=== PATIENT | female | born 1940 | race Caucasian/White ===

== ENCOUNTER 2017-11-01 12:51 | Inpatient (IN) | payer OTHER ==
--- NOTE | 2017-11-01 13:37 | PDOC ---
Attending Attestation - Resident Resident Name: Alyssa Palacios - HPI HPI: 11/01/17 16:40 Pt presents to the ED complaining of a three day history of shortness of breath and generalized weakness. Also complains of cough. History of pulmonary fibrosis, but patient and family deny the use of home O2. Hypoxic and short of breath on arrival--improved after O2 by NRB in the ED. 11/01/17 16:43 - Physicial Exam PE: 11/01/17 16:43 Agree with resident exam. Patient appears comfortable and is speaking in complete sentences on my exam. Lungs are clear. - Medical Decision Making 11/01/17 16:45 Patient presents to the ED complaining of shortness of breath. Hypoxic on arrival to the ED, improving with O2. Initial concern for PNA vs CHF. PAtient has both elevated lactate and BNP on exam, as well as diffuse interstitial markings that appear to be worse t penn before on CXR. Will treat with antibiotics, but will hold of on diuresis or IVF for now, given elevated lactate and BNP. Will admit to medicine.
[2017-11-01 13:44] LABS: EOS % 0.3 % (0-4.5); HEMATOCRIT 38.2 % (32.4-45.2); HEMOGLOBIN 11.9 GM/dL (10.7-15.3); LYMPH % 9.1 % (8-40); MCH 25.5 pg (25.7-33.7); MEAN CELL VOLUME 82.4 fl (80-96); MEAN PLT VOLUME 8.4 fl (7.5-11.1); MONO % 9.1 % (3.8-10.2); NEUT % 80.5 % (42.8-82.8); PLATELET COUNT 302 K/MM3 (134-434); RBC 4.64 M/mm3 (3.60-5.2); RDW 17.5 % (11.6-15.6); WHITE BLOOD COUNT 12.2 K/mm3 (4.0-10.0)
--- NOTE | 2017-11-01 13:44 | PDOC ---
History of Present Illness - General Chief Complaint: Shortness of Breath Stated Complaint: SHORTNESS OF BREATH Time Seen by Provider: 11/01/17 13:34 History Source: Patient - History of Present Illness Initial Comments: 11/01/17 13:44 77 y.o. female PMH of Pulmonary Fibrosis, HTN, IDDM presents to ED today from PCP office for hypoxia. At presentation patient saturating in mid 80's - notes 2-3 day h/o of whitish sputum productive cough but denies subjective dyspnea. Endorses chills, denies fevers, nausea/vomiting, sore throat, myalgias. Patient states she is not on home oxygen and further denies any chest pain, recent travel, sick contacts. NKDA Surgical: denies Social: denies cigarettes, denies alcohol, denies recreational drugs PMD: Dr. Bereket Silva Past History - Past Medical History Allergies/Adverse Reactions: Allergies Allergy/AdvReac Type Severity Reaction Status Date / Time No Known Allergies Allergy Verified 11/01/17 13:16 Home Medications: Ambulatory Orders Albuterol Sulfate Inhaler - [Ventolin Hfa Inhaler -] 1 - 2 inh PO QID 11/01/17 Amlodipine Besylate [Norvasc -] 5 mg PO DAILY 11/01/17 Fluticasone Propionate [Flovent Hfa] 110 mcg IH DAILY 11/01/17 Furosemide [Lasix -] 20 mg PO DAILY 11/01/17 Glipizide 10 mg PO BID 11/01/17 Losartan Potassium 100 mg PO DAILY 11/01/17 Omeprazole 40 mg PO DAILY 11/01/17 Pioglitazone HCl [Actos] 45 mg PO DAILY 11/01/17 Sitagliptin Phosphate [Januvia] 50 mg PO DAILY 11/01/17 COPD: No Diabetes: Yes (TYPE 2) HTN: Yes Hypercholesterolemia: Yes Other medical history: PULMONARY FIBROSIS,ARTHRITIS, CHRONIC BRONCHITIS - Suicide/Smoking/Psychosocial Hx Smoking History: Never smoked Review of Systems - Review of Systems Constitutional: Yes: Chills. No: Fever HEENTM: No: Recent change in vision Respiratory: Yes: Cough. No: Shortness of Breath, Stridor, Wheezing, Hemoptysis Cardiac (ROS): No: Chest Pain, Lightheadedness, Palpitations ABD/GI: No: Constipated, Diarrhea : No: Burning, Dysuria Psychiatric: No: Anxiety, Depression *Physical Exam - Vital Signs Last Vital Signs Temp Pulse Resp BP Pulse Ox 81 16 140/90 100 11/01/17 13:16 11/01/17 13:16 11/01/17 13:16 11/01/17 13:16 - Physical Exam General Appearance: Yes: Nourished, Appropriately Dressed HEENT: positive: EOMI, JUAN. negative: TM Bulging, TM Dull, TM Erythema Neck: positive: Tender, Supple Respiratory/Chest: positive: Lungs Clear, Normal Breath Sounds. negative: Labored Respiration, Rapid RR, Crackles, Rales, Stridor, Wheezing Cardiovascular: positive: S1, S2 Gastrointestinal/Abdominal: positive: Normal Bowel Sounds, Soft Musculoskeletal: negative: CVA Tenderness (R), CVA Tenderness (L) Extremity: positive: Normal Capillary Refill, Normal Inspection Integumentary: positive: Normal Color, Dry, Warm Neurologic: positive: Fully Oriented, Alert ED Treatment Course - LABORATORY CBC & Chemistry Diagram: 11/01/17 13:39 11/01/17 13:39 Medical Decision Making - Medical Decision Making 11/01/17 21:07 77 y.o. female who presents w/hypoxia (SpO2 mid 80's). NRB mask with saturation @ 100%. CXR shows some pulmonary vascular congestion with possible L sided infiltrate. BNP 1400 (no prior value), Lactic Acid 3.8, however given patient's elevated BNP possible new onset CHF, will observe closely without active hydration. Vancomycin and Cefepime. Troponin 0.08 likely 2/2 to demand ischemia Patient transitioned to 5 L NC - continues to breath comfortably with no accessory muscle use, non-labored respirations. Repeat LA 2.1 Case d/w Dr. Argueta - agrees with inpatient admission. Will continue to monitor while in ED. Patient signed out to Dr. Stevenson (Resident) and Dr. Wright (Attending). *DC/Admit/Observation/Transfer Diagnosis at time of Disposition: CHF (congestive heart failure) - Discharge Dispostion Condition at time of disposition: Fair Admit: Yes - Referrals - Patient Instructions - Post Discharge Activity
[2017-11-01 13:59] LABS: INR 1.21 (0.82-1.09); PROTHROMBIN TIME (PATIENT) 13.7 SEC (9.98-11.88)
[2017-11-01 14:03] LABS: ALBUMIN 3.1 g/dl (3.4-5.0); ANION GAP 12 (8-16); BILIRUBIN,TOTAL 0.6 mg/dL (0.2-1.0); BLOOD UREA NITROGEN 15 mg/dL (7-18); CALCIUM 9.2 mg/dL (8.5-10.1); CHLORIDE 106 mmol/L (98-107); CO2 22 mmol/L (21-32); CREATININE 1.4 mg/dL (0.55-1.02); GLUCOSE,RANDOM 229 mg/dL (74-106); SGPT/ALT 22 U/L (12-78); SODIUM 140 mmol/L (136-145); TOT PROT 7.6 g/dl (6.4-8.2)
[2017-11-01 14:07] LABS: ALK PHOS 122 U/L (45-117)
[2017-11-01 14:08] LABS: POTASSIUM 4.3 mmol/L (3.5-5.1); SGOT/AST 33 U/L (15-37)
[2017-11-01] MEDS ORDERED: VANCOMYCIN 1,000 MG in DEXTROSE 5%-WATER - 250 ML IVPB ONE (15:22)
[2017-11-01] MEDS ORDERED: CEFEPIME HCL 1 GM VIAL (RESTRICTED TO ID) IVPB ONE (15:25)
[2017-11-01] MEDS ORDERED: VANCOMYCIN 1 GRAM (PRE-DOCKED) 1,000 MG/250 ML BAG IVPB ONE (15:30)
[2017-11-01] MEDS ORDERED: CEFEPIME 1 GM/100 ML BAG IVPB ONE (15:30)
--- NOTE | 2017-11-01 16:53 | EKG ---
Test Reason : Blood Pressure : / mmHG Vent. Rate : 097 BPM Atrial Rate : 097 BPM P-R Int : 188 ms QRS Dur : 078 ms QT Int : 368 ms P-R-T Axes : 037 -17 -04 degrees QTc Int : 467 ms SINUS RHYTHM WITH FREQUENT PREMATURE VENTRICULAR COMPLEXES VOLTAGE CRITERIA FOR LEFT VENTRICULAR HYPERTROPHY ABNORMAL ECG NO PREVIOUS ECGS AVAILABLE Confirmed by SUSAN MCNEIL MD ([id number]) on 11/01/2017 4:52:50 PM Referred By: Confirmed By:SUSAN MCNEIL MD
[2017-11-01 18:37] VITALS: BMI 40.8
--- NOTE | 2017-11-01 20:03 | HP ---
Admitting History and Physical - Primary Care Physician PCP: Ludivina Argueta - Admission History of Present Illness: Pt presents to the ED complaining of a three day history of shortness of breath and generalized weakness. Also complains of cough. History of pulmonary fibrosis, but patient and family deny the use of home O2. Hypoxic and short of breath on arrival--improved after O2 by NRB in the ED. - Past Medical History Cardiovascular: Yes: HTN Endocrine: Yes: Diabetes Mellitus - Smoking History Smoking history: Never smoked Home Medications - Allergies Allergies/Adverse Reactions: Allergies Allergy/AdvReac Type Severity Reaction Status Date / Time No Known Allergies Allergy Verified 11/01/17 13:16 - Home Medications Home Medications: Ambulatory Orders Albuterol Sulfate Inhaler - [Ventolin Hfa Inhaler -] 1 - 2 inh PO QID 11/01/17 Amlodipine Besylate [Norvasc -] 5 mg PO DAILY 11/01/17 Fluticasone Propionate [Flovent Hfa] 110 mcg IH DAILY 11/01/17 Furosemide [Lasix -] 20 mg PO DAILY 11/01/17 Glipizide 10 mg PO BID 11/01/17 Losartan Potassium 100 mg PO DAILY 11/01/17 Omeprazole 40 mg PO DAILY 11/01/17 Pioglitazone HCl [Actos] 45 mg PO DAILY 11/01/17 Sitagliptin Phosphate [Januvia] 50 mg PO DAILY 11/01/17 Physical Examination Vital Signs: Vital Signs Temperature 98.6 F 11/01/17 16:55 Pulse Rate 86 11/01/17 17:31 Respiratory Rate 16 11/01/17 17:31 Blood Pressure 152/73 11/01/17 17:31 O2 Sat by Pulse Oximetry (%) 96 11/01/17 18:31 Constitutional: Yes: No Distress HENT: Yes: Atraumatic Neck: Yes: Supple Cardiovascular: Yes: Regular Rate and Rhythm Respiratory: Yes: Rhonchi, Wheezes Gastrointestinal: Yes: Normal Bowel Sounds Extremities: Yes: WNL Edema: Yes Peripheral Pulses WNL: Yes Neurological: Yes: Alert, Oriented Labs: CBC, BMP 11/01/17 13:39 11/01/17 13:39 Problem List - Problems (1) CHF (congestive heart failure) Assessment/Plan: monitor iv diuretics if nedeed...on hold due to elevated cr cardiology consult Code(s): I50.9 - HEART FAILURE, UNSPECIFIED (2) PNA (pneumonia) Assessment/Plan: iv abc bcx id consult Code(s): J18.9 - PNEUMONIA, UNSPECIFIED ORGANISM (3) Diabetes mellitus Assessment/Plan: bgms insulin po meds..on hold for elevated cr Code(s): E11.9 - TYPE 2 DIABETES MELLITUS WITHOUT COMPLICATIONS Qualifiers: Diabetes mellitus type: type 2 Diabetes mellitus complication status: without complication Diabetes mellitus exterminator insulin use: without nursing home use Qualified Code(s): E11.9 - Type 2 diabetes mellitus without complications (4) HTN (hypertension) Assessment/Plan: on meds stable Code(s): I10 - ESSENTIAL (PRIMARY) HYPERTENSION Qualifiers: Hypertension type: essential hypertension Qualified Code(s): I10 - Essential (primary) hypertension (5) Cough Assessment/Plan: prn cough medicine Code(s): R05 - COUGH (6) Diastolic dysfunction without heart failure Code(s): I51.9 - HEART DISEASE, UNSPECIFIED (7) Pulmonary fibrosis Code(s): J84.10 - PULMONARY FIBROSIS, UNSPECIFIED Assessment/Plan Laboratory Tests 11/01/17 11/01/17 11/01/17 13:39 13:39 13:39 WBC 12.2 H RBC 4.64 Hgb 11.9 Hct 38.2 MCV 82.4 MCH 25.5 L MCHC 31.0 L RDW 17.5 H Plt Count 302 MPV 8.4 Neutrophils % 80.5 Lymphocytes % 9.1 Monocytes % 9.1 Eosinophils % 0.3 Basophils % 1.0 PT with INR 13.70 H INR 1.21 H Sodium 140 Potassium 4.3 Chloride 106 Carbon Dioxide 22 Anion Gap 12 BUN 15 Creatinine 1.4 H Creat Clearance w eGFR 36.46 Random Glucose 229 H Lactic Acid Calcium 9.2 Total Bilirubin 0.6 AST 33 ALT 22 Alkaline Phosphatase 122 H Creatine Kinase 170 Creatine Kinase Index 1.2 CK-MB (CK-2) 2.131 Troponin I 0.08 H B-Natriuretic Peptide 1433.80 H Total Protein 7.6 Albumin 3.1 L 11/01/17 11/01/17 11/01/17 13:39 13:39 18:43 WBC RBC Hgb Hct MCV MCH MCHC RDW Plt Count MPV Neutrophils % Lymphocytes % Monocytes % Eosinophils % Basophils % PT with INR INR Sodium Potassium Chloride Carbon Dioxide Anion Gap BUN Creatinine Creat Clearance w eGFR Random Glucose Lactic Acid 3.8 H* 2.1 H Calcium Total Bilirubin AST ALT Alkaline Phosphatase Creatine Kinase Creatine Kinase Index CK-MB (CK-2) Troponin I B-Natriuretic Peptide Cancelled Total Protein Albumin Laboratory Tests 11/01/17 11/01/17 11/01/17 13:39 13:39 13:39 WBC 12.2 H RBC 4.64 Hgb 11.9 Hct 38.2 MCV 82.4 MCH 25.5 L MCHC 31.0 L RDW 17.5 H Plt Count 302 MPV 8.4 Neutrophils % 80.5 Lymphocytes % 9.1 Monocytes % 9.1 Eosinophils % 0.3 Basophils % 1.0 PT with INR 13.70 H INR 1.21 H Sodium 140 Potassium 4.3 Chloride 106 Carbon Dioxide 22 Anion Gap 12 BUN 15 Creatinine 1.4 H Creat Clearance w eGFR 36.46 Random Glucose 229 H Lactic Acid Calcium 9.2 Total Bilirubin 0.6 AST 33 ALT 22 Alkaline Phosphatase 122 H Creatine Kinase 170 Creatine Kinase Index 1.2 CK-MB (CK-2) 2.131 Troponin I 0.08 H B-Natriuretic Peptide 1433.80 H Total Protein 7.6 Albumin 3.1 L 11/01/17 11/01/17 11/01/17 13:39 13:39 18:43 WBC RBC Hgb Hct MCV MCH MCHC RDW Plt Count MPV Neutrophils % Lymphocytes % Monocytes % Eosinophils % Basophils % PT with INR INR Sodium Potassium Chloride Carbon Dioxide Anion Gap BUN Creatinine Creat Clearance w eGFR Random Glucose Lactic Acid 3.8 H* 2.1 H Calcium Total Bilirubin AST ALT Alkaline Phosphatase Creatine Kinase Creatine Kinase Index CK-MB (CK-2) Troponin I B-Natriuretic Peptide Cancelled Total Protein Albumin Active Medications Generic Name Dose Route Start Last Admin Trade Name Freq PRN Reason Stop Dose Admin Acetaminophen 650 mg 11/01/17 20:20 11/02/17 17:47 Tylenol - PO 650 mg Q6H PRN Administration FEVER Amlodipine Besylate 5 mg 11/02/17 10:45 11/02/17 12:08 Norvasc - PO 5 mg DAILY IVON Administration Guaifenesin/Codeine Phosphate 10 ml 11/01/17 22:32 11/02/17 10:31 Robitussin Ac - PO 10 ml Q8H PRN Administration COUGH Heparin Sodium (Porcine) 5,000 unit 11/01/17 22:00 11/02/17 10:31 Heparin - SQ 5,000 unit BID IVON Administration CEFTRIAXONE 1 G/50 ML PREMIX 50 mls @ 100 mls/hr 11/02/17 10:00 11/02/17 10: 31 Ceftriaxone 1 Gm-D5w Bag IVPB 100 mls/hr DAILY IVON Administration Losartan Potassium 50 mg 11/02/17 10:45 11/02/17 12:08 Cozaar - PO 50 mg DAILY IVON Administration
[2017-11-01] MEDS ORDERED: ACETAMINOPHEN 325 MG TABLET (FP) PO PRN (20:20)
[2017-11-01] MEDS: HEPARIN NA (PORCINE) 5,000 UNITS/ML 1ML VIAL SQ SCH (21:12)
[2017-11-01 22:01] LABS: URINE APPEARANCE CLOUDY; URINE BILIRUBIN NEGATIVE (NEGATIVE); URINE BLOOD NEGATIVE (NEGATIVE); URINE COLOR YELLOW; URINE GLUCOSE (UA) NEGATIVE (NEGATIVE); URINE KETONE NEGATIVE (NEGATIVE); URINE LEUK ESTERASE NEGATIVE (NEGATIVE); URINE NITRITE NEGATIVE (NEGATIVE); URINE UROBILINOGEN NEGATIVE mg/dL (0.2-1.0)
[2017-11-01 22:04] LABS: URINE PROTEIN 1+ (NEGATIVE)
[2017-11-01 22:06] LABS: EPI CELLS MODERATE /HPF (FEW); URINE BACTERIA RARE /hpf (NONE SEEN); URINE MUCUS RARE; YEAST RARE
[2017-11-01] MEDS: guaiFENesin/CODEINE 10 ML UNIT-DOSE CUPS PO PRN (22:56)
[2017-11-02 08:10] LABS: BASO % 0.6 % (0-2.0); EOS % 3.8 % (0-4.5); HEMATOCRIT 35.5 % (32.4-45.2); HEMOGLOBIN 10.9 GM/dL (10.7-15.3); MCH 25.4 pg (25.7-33.7); MCHC 30.7 g/dl (32.0-36.0); MEAN CELL VOLUME 82.6 fl (80-96); MEAN PLT VOLUME 8.8 fl (7.5-11.1); MONO % 7.5 % (3.8-10.2); NEUT % 73.1 % (42.8-82.8); PLATELET COUNT 270 K/MM3 (134-434); RDW 17.5 % (11.6-15.6); WHITE BLOOD COUNT 12.9 K/mm3 (4.0-10.0)
[2017-11-02 08:46] LABS: ALBUMIN 2.6 g/dl (3.4-5.0); ANION GAP 11 (8-16); BLOOD UREA NITROGEN 13 mg/dL (7-18); CHLORIDE 106 mmol/L (98-107); CO2 23 mmol/L (21-32); GLUCOSE,RANDOM 132 mg/dL (74-106); POTASSIUM 4.5 mmol/L (3.5-5.1); SODIUM 140 mmol/L (136-145)
[2017-11-02 08:53] LABS: ALK PHOS 116 U/L (45-117); CALCIUM 8.8 mg/dL (8.5-10.1); CREATININE 1.1 mg/dL (0.55-1.02); SGOT/AST 30 U/L (15-37); SGPT/ALT 14 U/L (12-78)
--- NOTE | 2017-11-02 10:18 | CON.CARD ---
Consult Consult Specialty:: Cardiology Referred by:: Dr. Argueta Reason for Consultation:: Cardiac evaluation - History of Present Illness Chief Complaint: Cough and shortness of breath History of Present Illness: Patient is a 77 year old female who hails from [facility] with underlying history of pulmonary fibrosis/ILD, type 2 diabetes mellitus and hypertension who presents with cough productive of yellowish sputum and shortness of breath in addition to pleuritic chest pain. Troponin was elevated slightly likely representing demand ischemia. She denies fever or chills. She denies paroxysmal nocturnal dyspnea or orthopnea. She complains of intermittent headache, but denies dizziness. She denies nausea, vomiting, diarrhea or abdominal pain. 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 - History Source History Provided By: Patient, Medical Record Limitations to Obtaining History: Language Barrier - Past Medical History Cardio/Vascular: Yes: HTN Pulmonary: Yes: Pulmonary Fibrosis Endocrine: Yes: Diabetes Mellitus - Past Surgical History Past Surgical History: Yes: Joint Replacement - Alcohol/Substance Use Hx Alcohol Use: No History of Substance Use: reports: None - Smoking History Smoking history: Never smoked Home Medications - Allergies Allergies/Adverse Reactions: Allergies Allergy/AdvReac Type Severity Reaction Status Date / Time No Known Allergies Allergy Verified 11/01/17 13:16 - Home Medications Home Medications: Ambulatory Orders Albuterol Sulfate Inhaler - [Ventolin Hfa Inhaler -] 1 - 2 inh PO QID 11/01/17 Amlodipine Besylate [Norvasc -] 5 mg PO DAILY 11/01/17 Fluticasone Propionate [Flovent Hfa] 110 mcg IH DAILY 11/01/17 Furosemide [Lasix -] 20 mg PO DAILY 11/01/17 Glipizide 10 mg PO BID 11/01/17 Losartan Potassium 100 mg PO DAILY 11/01/17 Omeprazole 40 mg PO DAILY 11/01/17 Pioglitazone HCl [Actos] 45 mg PO DAILY 11/01/17 Sitagliptin Phosphate [Januvia] 50 mg PO DAILY 11/01/17 Family Disease History - Family Disease History Family Disease History: CA: Mother (Colon), Sister (Pancreatic CA) Review of Systems - Review of Systems Constitutional: denies: Chills, Fever Cardiovascular: reports: Chest Pain, Shortness of Breath. denies: Palpitations Respiratory: reports: Cough, SOB. denies: Hemoptysis, Orthopnea, PND Gastrointestinal: denies: Abdominal Pain, Constipation, Diarrhea, Melena, Nausea , Rectal Bleeding, Vomiting Neurological: reports: Weakness. denies: Dizziness, Headache, Seizure, Syncope Vital Signs: Vital Signs Temperature 99.5 F 11/02/17 06:00 Pulse Rate 81 11/02/17 06:00 Respiratory Rate 20 11/02/17 06:00 Blood Pressure 148/81 11/02/17 06:00 O2 Sat by Pulse Oximetry (%) 96 11/01/17 21:00 Constitutional: Yes: Well Nourished Eyes: Yes: PERRL HENT: Yes: Atraumatic Neck: Yes: Supple Respiratory: Yes: Cough, Diminished, On Nasal O2, SOB Gastrointestinal: Yes: Normal Bowel Sounds, Soft. No: Tenderness Cardiovascular: Yes: Regular Rate and Rhythm JVD: No Carotid Bruit: No PMI: Non-Displaced Heart Sounds: Yes: S1, S2. No: Gallop Murmur: No: Systolic Murmur, Diastolic Murmur Edema: No Peripheral Pulses WNL: Yes - Other Data Labs, Other Data: CBC, BMP 11/02/17 06:30 11/02/17 06:30 INR, PTT INR 1.21 (0.82-1.09) H 11/01/17 13:39 Troponin, BNP 11/01/17 11/01/17 11/01/17 13:39 13:39 21:30 Troponin I 0.08 H Cancelled B-Natriuretic Peptide 1433.80 H Cancelled 11/02/17 11/02/17 06:30 06:30 Troponin I 0.10 H Cancelled B-Natriuretic Peptide Laboratory Results - last 24 hr 11/01/17 11/01/17 11/01/17 13:39 13:39 13:39 WBC 12.2 H RBC 4.64 Hgb 11.9 Hct 38.2 MCV 82.4 MCH 25.5 L MCHC 31.0 L RDW 17.5 H Plt Count 302 MPV 8.4 Neutrophils % 80.5 Lymphocytes % 9.1 Monocytes % 9.1 Eosinophils % 0.3 Basophils % 1.0 PT with INR 13.70 H INR 1.21 H Sodium 140 Potassium 4.3 Chloride 106 Carbon Dioxide 22 Anion Gap 12 BUN 15 Creatinine 1.4 H Creat Clearance w eGFR 36.46 Random Glucose 229 H Lactic Acid Calcium 9.2 Total Bilirubin 0.6 AST 33 ALT 22 Alkaline Phosphatase 122 H Creatine Kinase 170 Creatine Kinase Index 1.2 CK-MB (CK-2) 2.131 Troponin I 0.08 H B-Natriuretic Peptide 1433.80 H Total Protein 7.6 Albumin 3.1 L Urine Color Urine Appearance Urine pH Ur Specific [place] Urine Protein Urine Glucose (UA) Urine Ketones Urine Blood Urine Nitrite Urine Bilirubin Urine Urobilinogen Ur Leukocyte Esterase Urine WBC (Auto) Urine RBC (Auto) Ur Epithelial Cells Urine Bacteria Urine Mucus Urine Yeast 11/01/17 11/01/17 11/01/17 13:39 13:39 17:06 WBC RBC Hgb Hct MCV MCH MCHC RDW Plt Count MPV Neutrophils % Lymphocytes % Monocytes % Eosinophils % Basophils % PT with INR INR Sodium Potassium Chloride Carbon Dioxide Anion Gap BUN Creatinine Creat Clearance w eGFR Random Glucose Lactic Acid 3.8 H* Calcium Total Bilirubin AST ALT Alkaline Phosphatase Creatine Kinase Creatine Kinase Index CK-MB (CK-2) Troponin I B-Natriuretic Peptide Cancelled Total Protein Albumin Urine Color Yellow Urine Appearance Cloudy Urine pH 6.0 Ur Specific [place] 1.015 Urine Protein 1+ H Urine Glucose (UA) Negative Urine Ketones Negative Urine Blood Negative Urine Nitrite Negative Urine Bilirubin Negative Urine Urobilinogen Negative Ur Leukocyte Esterase Negative Urine WBC (Auto) 4 Urine RBC (Auto) 2 Ur Epithelial Cells Moderate Urine Bacteria Rare Urine Mucus Rare Urine Yeast Rare 11/01/17 11/01/17 11/02/17 18:43 21:30 06:30 WBC 12.9 H RBC 4.30 Hgb 10.9 Hct 35.5 MCV 82.6 MCH 25.4 L MCHC 30.7 L RDW 17.5 H Plt Count 270 MPV 8.8 Neutrophils % 73.1 Lymphocytes % 15.0 D Monocytes % 7.5 Eosinophils % 3.8 D Basophils % 0.6 PT with INR INR Sodium Potassium Chloride Carbon Dioxide Anion Gap BUN Creatinine Creat Clearance w eGFR Random Glucose Lactic Acid 2.1 H Calcium Total Bilirubin AST ALT Alkaline Phosphatase Creatine Kinase Cancelled Creatine Kinase Index CK-MB (CK-2) Troponin I Cancelled B-Natriuretic Peptide Total Protein Albumin Urine Color Urine Appearance Urine pH Ur Specific [place] Urine Protein Urine Glucose (UA) Urine Ketones Urine Blood Urine Nitrite Urine Bilirubin Urine Urobilinogen Ur Leukocyte Esterase Urine WBC (Auto) Urine RBC (Auto) Ur Epithelial Cells Urine Bacteria Urine Mucus Urine Yeast 11/02/17 11/02/17 06:30 06:30 WBC RBC Hgb Hct MCV MCH MCHC RDW Plt Count MPV Neutrophils % Lymphocytes % Monocytes % Eosinophils % Basophils % PT with INR INR Sodium 140 Potassium 4.5 Chloride 106 Carbon Dioxide 23 Anion Gap 11 BUN 13 Creatinine 1.1 H Creat Clearance w eGFR 48.16 Random Glucose 132 H Lactic Acid Calcium 8.8 Total Bilirubin 1.0 D AST 30 ALT 14 Alkaline Phosphatase 116 Creatine Kinase 202 H Cancelled Creatine Kinase Index CK-MB (CK-2) Troponin I 0.10 H Cancelled B-Natriuretic Peptide Total Protein 7.0 Albumin 2.6 L Urine Color Urine Appearance Urine pH Ur Specific [place] Urine Protein Urine Glucose (UA) Urine Ketones Urine Blood Urine Nitrite Urine Bilirubin Urine Urobilinogen Ur Leukocyte Esterase Urine WBC (Auto) Urine RBC (Auto) Ur Epithelial Cells Urine Bacteria Urine Mucus Urine Yeast Sinus rhythm with PVC, poor R progression, LVH Echo: Pending Imaging - Results Chest X-ray: Report Reviewed (Pulmonary vascular congestion) EKG: Report Reviewed (Sinus rhythm with PVCs, poor R progression, LVH) Problem List - Problems (1) Pulmonary fibrosis Code(s): J84.10 - PULMONARY FIBROSIS, UNSPECIFIED (2) Shortness of breath Code(s): R06.02 - SHORTNESS OF BREATH (3) Cough Code(s): R05 - COUGH (4) HTN (hypertension) Code(s): I10 - ESSENTIAL (PRIMARY) HYPERTENSION Qualifiers: Hypertension type: essential hypertension Qualified Code(s): I10 - Essential (primary) hypertension (5) Diabetes mellitus Code(s): E11.9 - TYPE 2 DIABETES MELLITUS WITHOUT COMPLICATIONS Qualifiers: Diabetes mellitus type: type 2 Diabetes mellitus complication status: without complication Diabetes mellitus termite control technician insulin use: without fdc use Qualified Code(s): E11.9 - Type 2 diabetes mellitus without complications (6) CHF (congestive heart failure) Code(s): I50.9 - HEART FAILURE, UNSPECIFIED Assessment/Plan 1. Shortness of breath and cough with underlying pulmonary fibrosis/ILD - clinical presentation suggests URI +/- CHF (?diastolic) 2. Mildly elevated troponin due to demand ischemia - secondary to above 3. Diabetes mellitus 4. Hypertension PLAN: 1. Transthoracic echocardiography to assess LV/RV and valvular function 2. Continue Losartan and Amlodipine as tolerated 3. DVT prophylaxis 4. Empiric antibiotic coverage 5. Pulmonary consultation 6. Trend troponins 7. Check BNP 8. Consider chest CT scan Further plans are to follow Frankie Dueñas MD
[2017-11-02] MEDS: CEFTRIAXONE 1 G/50 ML PREMIX 50 ML IVPB SCH (10:31)
[2017-11-02] MEDS: HEPARIN NA (PORCINE) 5,000 UNITS/ML 1ML VIAL SQ SCH ×2 (10:31→21:06)
[2017-11-02] MEDS: guaiFENesin/CODEINE 10 ML UNIT-DOSE CUPS PO PRN ×2 (10:31→22:58)
[2017-11-02] MEDS ORDERED: PT OWN MED DRAWER 7, Y5N ONE (12:00)
[2017-11-02] MEDS: LOSARTAN POTASSIUM 50 MG TABLET (FP) PO SCH (12:08)
[2017-11-02] MEDS: amLODIPine BESYLATE 5 MG TABLET (FP) PO SCH (12:08)
--- NOTE | 2017-11-02 14:25 | CON.ID ---
Consult Consult Specialty:: infectious diseases Reason for Consultation:: fever,pneumonia - History of Present Illness Chief Complaint: sob History of Present Illness: 77 year old female who hails from [place] with underlying history of pulmonary fibrosis/ILD, type 2 diabetes mellitus and hypertension admitted with cough productive of yellowish sputum and shortness of breath and pleuritic chest pain. patient and her daughter speak only hebrew history taken from the charts and staff . She denies fever or chills. She denies paroxysmal nocturnal dyspnea or orthopnea. on admission patients troponin was slightly elevated and cardio has been following the patient. currently the patient complain is she is still sob she also mentions that she did ave fevers patient is morbidly obese - History Source History Provided By: Patient, Medical Record Limitations to Obtaining History: Language Barrier - Past Medical History Cardio/Vascular: Yes: HTN Pulmonary: Yes: Pulmonary Fibrosis Endocrine: Yes: Diabetes Mellitus - Past Surgical History Past Surgical History: Yes: Joint Replacement - Alcohol/Substance Use Hx Alcohol Use: No History of Substance Use: reports: None - Smoking History Smoking history: Never smoked Home Medications - Allergies Allergies/Adverse Reactions: Allergies Allergy/AdvReac Type Severity Reaction Status Date / Time No Known Allergies Allergy Verified 11/01/17 13:16 - Home Medications Home Medications: Ambulatory Orders Albuterol Sulfate Inhaler - [Ventolin Hfa Inhaler -] 1 - 2 inh PO QID 11/01/17 Amlodipine Besylate [Norvasc -] 5 mg PO DAILY 11/01/17 Fluticasone Propionate [Flovent Hfa] 110 mcg IH DAILY 11/01/17 Furosemide [Lasix -] 20 mg PO DAILY 11/01/17 Glipizide 10 mg PO BID 11/01/17 Losartan Potassium 100 mg PO DAILY 11/01/17 Omeprazole 40 mg PO DAILY 11/01/17 Pioglitazone HCl [Actos] 45 mg PO DAILY 11/01/17 Sitagliptin Phosphate [Januvia] 50 mg PO DAILY 11/01/17 Family Disease History - Family Disease History Family Disease History: CA: Mother (Colon), Sister (Pancreatic CA) Review of Systems - Review of Systems Constitutional: reports: Fever Eyes: reports: No Symptoms HENT: reports: No Symptoms Neck: reports: No Symptoms Cardiovascular: reports: Shortness of Breath Respiratory: reports: Cough, SOB, SOB on Exertion Gastrointestinal: reports: No Symptoms Genitourinary: reports: No Symptoms Musculoskeletal: reports: No Symptoms Integumentary: reports: No Symptoms Neurological: reports: No Symptoms Endocrine: reports: No Symptoms Hematology/Lymphatic: reports: No Symptoms Psychiatric: reports: No Symptoms Physical Exam Vital Signs: Vital Signs Temperature 99.5 F 11/02/17 06:00 Pulse Rate 81 11/02/17 06:00 Respiratory Rate 20 11/02/17 06:00 Blood Pressure 148/81 11/02/17 06:00 O2 Sat by Pulse Oximetry (%) 93 L 11/02/17 09:00 Constitutional: Yes: Well Nourished, Calm, Mild Distress, Obese Eyes: Yes: Conjunctiva Clear HENT: Yes: Atraumatic Neck: Yes: Supple, Trachea Midline Cardiovascular: Yes: Regular Rate and Rhythm Respiratory: Yes: On Nasal O2, Poor Air Entry, Rhonchi Gastrointestinal: Yes: Normal Bowel Sounds, Soft Musculoskeletal: Yes: WNL Extremities: Yes: WNL Neurological: Yes: Alert, Oriented Psychiatric: Yes: Alert, Oriented Labs: CBC, BMP 11/02/17 06:30 11/02/17 06:30 Imaging - Results Chest X-ray: Report Reviewed, Image Reviewed Assessment/Plan Problem List - Problems (1) Acute respiratory failure with hypoxemia Code(s): J96.01 - ACUTE RESPIRATORY FAILURE WITH HYPOXIA (2) CHF (congestive heart failure) Code(s): I50.9 - HEART FAILURE, UNSPECIFIED (3) Diabetes mellitus Code(s): E11.9 - TYPE 2 DIABETES MELLITUS WITHOUT COMPLICATIONS Qualifiers: Diabetes mellitus type: type 2 Diabetes mellitus complication status: without complication Diabetes mellitus usp insulin use: without usp use Qualified Code(s): E11.9 - Type 2 diabetes mellitus without complications (4) HTN (hypertension) Code(s): I10 - ESSENTIAL (PRIMARY) HYPERTENSION Qualifiers: Hypertension type: essential hypertension Qualified Code(s): I10 - Essential (primary) hypertension (5) PNA (pneumonia) Code(s): J18.9 - PNEUMONIA, UNSPECIFIED ORGANISM (6) Pulmonary fibrosis Code(s): J84.10 - PULMONARY FIBROSIS, UNSPECIFIED (7) Shortness of breath Code(s): R06.02 - SHORTNESS OF BREATH (8) Acute hypoxemic respiratory failure Code(s): J96.01 - ACUTE RESPIRATORY FAILURE WITH HYPOXIA (9) Cough Code(s): R05 - COUGH plan would continue abx for now as patient has leukocytosis ct chest to be obtained resp support incentive tomas monitor wbc
--- NOTE | 2017-11-02 18:28 | PN ---
Progress Note, Physician - Current Medication List Current Medications: Active Medications Acetaminophen (Tylenol -) 650 mg PO Q6H PRN PRN Reason: FEVER Last Admin: 11/02/17 17:47 Dose: 650 mg Amlodipine Besylate (Norvasc -) 5 mg PO DAILY [facility] Last Admin: 11/02/17 12:08 Dose: 5 mg Guaifenesin/Codeine Phosphate (Robitussin Ac -) 10 ml PO Q8H PRN PRN Reason: COUGH Last Admin: 11/02/17 10:31 Dose: 10 ml Heparin Sodium (Porcine) (Heparin -) 5,000 unit SQ BID [facility] Last Admin: 11/02/17 10:31 Dose: 5,000 unit CEFTRIAXONE 1 G/50 ML PREMIX (Ceftriaxone 1 Gm-D5w Bag) 50 mls @ 100 mls/hr IVPB DAILY [facility] Last Admin: 11/02/17 10:31 Dose: 100 mls/hr Losartan Potassium (Cozaar -) 50 mg PO DAILY [facility] Last Admin: 11/02/17 12:08 Dose: 50 mg - Objective Vital Signs: Vital Signs Temperature 98.9 F 11/02/17 14:31 Pulse Rate 89 11/02/17 14:31 Respiratory Rate 17 11/02/17 14:31 Blood Pressure 166/68 11/02/17 14:31 O2 Sat by Pulse Oximetry (%) 93 L 11/02/17 09:00 Constitutional: Yes: No Distress HENT: Yes: Atraumatic Neck: Yes: Supple Cardiovascular: Yes: Regular Rate and Rhythm Respiratory: Yes: Rhonchi Gastrointestinal: Yes: Normal Bowel Sounds Extremities: Yes: WNL Neurological: Yes: Alert, Oriented Labs: CBC, BMP 11/02/17 06:30 11/02/17 06:30 INR, PTT INR 1.21 (0.82-1.09) H 11/01/17 13:39 Problem List - Problems (1) CHF (congestive heart failure) Assessment/Plan: monitor iv diuretics if nedeed cardiology consult Code(s): I50.9 - HEART FAILURE, UNSPECIFIED (2) PNA (pneumonia) Assessment/Plan: iv abc bcx id consult duo nebs prn pulmonary consult Code(s): J18.9 - PNEUMONIA, UNSPECIFIED ORGANISM
[2017-11-03] MEDS ORDERED: ALBUTEROL SO4 2.5/IPRATROPIUM 0.5 INH SOL 3 ML VIAL.NEB. NEB ONE (10:00)
[2017-11-03] MEDS: LOSARTAN POTASSIUM 50 MG TABLET (FP) PO SCH (10:32)
[2017-11-03] MEDS: amLODIPine BESYLATE 5 MG TABLET (FP) PO SCH (10:32)
[2017-11-03] MEDS: HEPARIN NA (PORCINE) 5,000 UNITS/ML 1ML VIAL SQ SCH ×2 (10:32→21:50)
[2017-11-03] MEDS: guaiFENesin/CODEINE 10 ML UNIT-DOSE CUPS PO PRN ×2 (10:32→21:50)
[2017-11-03] MEDS: CEFTRIAXONE 1 G/50 ML PREMIX 50 ML IVPB SCH (10:32)
[2017-11-03] MEDS: ALBUTEROL SO4 2.5/IPRATROPIUM 0.5 INH SOL 3 ML VIAL.NEB. NEB PRN (14:05)
--- NOTE | 2017-11-03 14:53 | PN ---
Progress Note (short form) - Note Progress Note: PULMONARY CONSULTATION DICTATED 11/03/17 IMP ACUTE HYPOXEMIC RESPIRATORY FAILURE ADVANCED ILD/PULMONARY FIBROSIS PNEUMONIA CHF + TROPONINS LIKELY DEMAND ISCHEMIA ELEVATED LACTATE LEVEL PULMONARY HTN SUSPECTED MIGNON PLAN ABX INHALED BRONCHODILATORS IV STEROIDS O2 CHEST CT SPUTUM C+S TREND LACTATE TREND TROPONINS SLEEP SCREEN DR TRUJILLO Problem List - Problems (1) Acute respiratory failure with hypoxemia Code(s): J96.01 - ACUTE RESPIRATORY FAILURE WITH HYPOXIA (2) CHF (congestive heart failure) Code(s): I50.9 - HEART FAILURE, UNSPECIFIED (3) Diabetes mellitus Code(s): E11.9 - TYPE 2 DIABETES MELLITUS WITHOUT COMPLICATIONS Qualifiers: Diabetes mellitus type: type 2 Diabetes mellitus complication status: without complication Diabetes mellitus alf insulin use: without alf use Qualified Code(s): E11.9 - Type 2 diabetes mellitus without complications (4) HTN (hypertension) Code(s): I10 - ESSENTIAL (PRIMARY) HYPERTENSION Qualifiers: Hypertension type: essential hypertension Qualified Code(s): I10 - Essential (primary) hypertension (5) PNA (pneumonia) Code(s): J18.9 - PNEUMONIA, UNSPECIFIED ORGANISM (6) Pulmonary fibrosis Code(s): J84.10 - PULMONARY FIBROSIS, UNSPECIFIED (7) Shortness of breath Code(s): R06.02 - SHORTNESS OF BREATH (8) Acute hypoxemic respiratory failure Code(s): J96.01 - ACUTE RESPIRATORY FAILURE WITH HYPOXIA (9) Cough Code(s): R05 - COUGH
--- NOTE | 2017-11-03 15:40 | PN ---
Progress Note, Physician History of Present Illness: still sob continues otherwise no issues has been afebrile pain better - Current Medication List Current Medications: Active Medications Acetaminophen (Tylenol -) 650 mg PO Q6H PRN PRN Reason: FEVER Last Admin: 11/02/17 17:47 Dose: 650 mg Albuterol/Ipratropium (Duoneb -) 1 amp NEB Q4H PRN PRN Reason: SHORTNESS OF BREATH Last Admin: 11/03/17 14:05 Dose: 1 amp Amlodipine Besylate (Norvasc -) 5 mg PO DAILY [facility] Last Admin: 11/03/17 10:32 Dose: 5 mg Arformoterol Tartrate (Brovana (Restricted To Pulmonology/Resp) -) 1 amp NEB RBID [facility] Guaifenesin/Codeine Phosphate (Robitussin Ac -) 10 ml PO Q8H PRN PRN Reason: COUGH Last Admin: 11/03/17 10:32 Dose: 10 ml Heparin Sodium (Porcine) (Heparin -) 5,000 unit SQ BID [facility] Last Admin: 11/03/17 10:32 Dose: 5,000 unit CEFTRIAXONE 1 G/50 ML PREMIX (Ceftriaxone 1 Gm-D5w Bag) 50 mls @ 100 mls/hr IVPB DAILY [facility] Last Admin: 11/03/17 10:32 Dose: 100 mls/hr Losartan Potassium (Cozaar -) 50 mg PO DAILY [facility] Last Admin: 11/03/17 10:32 Dose: 50 mg Methylprednisolone Sodium Succinate (Solu-Medrol -) 40 mg IVPUSH Q6H-IV [facility] - Objective Vital Signs: Vital Signs Temperature 99 F 11/03/17 14:10 Pulse Rate 96 H 11/03/17 14:10 Respiratory Rate 17 11/03/17 14:10 Blood Pressure 122/61 11/03/17 14:10 O2 Sat by Pulse Oximetry (%) 92 L 11/02/17 21:00 Constitutional: Yes: Calm, Mild Distress, Obese Cardiovascular: Yes: Regular Rate and Rhythm Respiratory: Yes: Regular, On Nasal O2, Poor Air Entry, Rhonchi Gastrointestinal: Yes: Normal Bowel Sounds, Soft Musculoskeletal: Yes: WNL Extremities: Yes: WNL Neurological: Yes: Alert, Oriented Psychiatric: Yes: Alert, Oriented Labs: CBC, BMP 11/02/17 06:30 11/02/17 06:30 INR, PTT INR 1.21 (0.82-1.09) H 11/01/17 13:39 - ....Imaging Cat Scan: Report Reviewed, Image Reviewed Assessment/Plan Problem List - Problems (1) Acute respiratory failure with hypoxemia Code(s): J96.01 - ACUTE RESPIRATORY FAILURE WITH HYPOXIA (2) CHF (congestive heart failure) Code(s): I50.9 - HEART FAILURE, UNSPECIFIED (3) Diabetes mellitus Code(s): E11.9 - TYPE 2 DIABETES MELLITUS WITHOUT COMPLICATIONS Qualifiers: Diabetes mellitus type: type 2 Diabetes mellitus complication status: without complication Diabetes mellitus adjunct faculty for medical terminology insulin use: without adjunct faculty for medical terminology use Qualified Code(s): E11.9 - Type 2 diabetes mellitus without complications (4) HTN (hypertension) Code(s): I10 - ESSENTIAL (PRIMARY) HYPERTENSION Qualifiers: Hypertension type: essential hypertension Qualified Code(s): I10 - Essential (primary) hypertension (5) PNA (pneumonia) Code(s): J18.9 - PNEUMONIA, UNSPECIFIED ORGANISM (6) Pulmonary fibrosis Code(s): J84.10 - PULMONARY FIBROSIS, UNSPECIFIED (7) Shortness of breath Code(s): R06.02 - SHORTNESS OF BREATH (8) Acute hypoxemic respiratory failure Code(s): J96.01 - ACUTE RESPIRATORY FAILURE WITH HYPOXIA (9) Cough Code(s): R05 - COUGH plan continue abx monitor wbc resp support rest as per primary team
[2017-11-03] MEDS: methylPREDNISolone NA SUCC 40 MG/1 ML VIAL IVPUSH SCH ×2 (16:09→21:50)
--- NOTE | 2017-11-03 16:29 | CONS ---
DATE OF CONSULTATION: 11/03/2017 REFERRING PHYSICIAN: Ailyn Argueta MD The patient is a 77-year-old female with past medical history of pulmonary fibrosis and interstitial lung disease diagnosed approximately 2 years ago by apparently x-ray and currently not on oxygen therapy, type 2 diabetes mellitus, and hypertension. Admitted to [facility] with complaint of cough , increasing shortness of breath as well as pleuritic chest pain. The patient states a couple days prior to admission, she started to notice an increasing cough productive of yellowish sputum. She also had increasing shortness of breath and chest congestion and states she had pleuritic chest pain associated with the cough. She denied any nausea, vomiting or diaphoresis. She denied any fever or chills. Denied any hemoptysis. She presented to the emergency room with the above. In the ER, she was noted to have slightly elevated troponins. She was also noted to have elevated BNP. She had a chest x-ray performed, which revealed increase in pulmonary congestion bilaterally. She was admitted to the floor. She was started on antibiotic therapy as well as supplemental O2. She was also noted to be hypoxemic on admission and initially , she was placed on 100% nonrebreather. The patient is a nonsmoker. She denies any history of COPD or asthma in the past. She states that she normally gets short of breath with exertion. She denies any exertional chest pain. She denies any weight loss or night sweats. She denies any history of pneumonia in the past. She was born [place] [facility] [place] and moved to the [place] approximately 15 years ago. 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 She denies any history of respiratory failure in the past requiring ventilatory support. PAST MEDICAL HISTORY: Includes IPF, interstitial lung disease, hypertension, obesity, diabetes. REVIEW OF SYSTEMS: Positive cough, positive shortness of breath, positive chest congestion, positive chest pain. No fever, no chills, no hemoptysis, no abdominal pain. Positive mild lower extremity edema. CURRENT MEDICATIONS: Include Tylenol, Cozaar, heparin, Robitussin AC, DuoNeb, ceftriaxone, and Norvasc. PHYSICAL EXAMINATION: General: The patient is an elderly female, well developed, well nourished, awake, alert, on nasal O2 but appears in no acute respiratory distress. Vital Signs: She is currently afebrile. Blood pressure is 122/61. Respiratory rate is 17. O2 saturation is 92% on 3 L. HEENT: Normocephalic, atraumatic. Neck: Supple. Heart: Regular S1, S2. Chest: Bilateral crackles throughout. Abdomen: Soft. Bowel sounds are positive. Extremities: Bilateral lower extremity edema. LABORATORIES: Lactate level on admission was 2.1. BUN 13, creatinine 1.1. Troponin mildly elevated at 0.10. BNP elevated at 1433.8. WBC is 12.9, hemoglobin 10.9, hematocrit 35.5 with a platelet count of 270,000. Chest x-ray as noted earlier. IMPRESSION: 1. Cough, dyspnea,? pneumonia 2. Acute hypoxemic respiratory failure 3. Advanced interstitial lung disease with possible underlying pneumonia. 4. Congestive heart failure. 5. Positive troponin, likely demand ischemia. 6. Elevated lactate level. 7. Type 2 diabetes mellitus. 8. Hypertension. 9. Likely obstructive sleep apnea. PLAN: Antibiotic therapy, supplemental O2, IV steroids, inhaled bronchodilators , CT scan of the chest, trend lactate, trend troponins,cultures. Supplemental O2 to maintain O2 sat 90% or greater PFTs as an outpatient. Also, consider a sleep screen. The patient will likely benefit from pulmonary rehab post discharge. MAYA TRUJILLO M.D. [id number] MTDD
--- NOTE | 2017-11-03 17:13 | PN ---
Progress Note, Physician - Current Medication List Current Medications: Active Medications Acetaminophen (Tylenol -) 650 mg PO Q6H PRN PRN Reason: FEVER Last Admin: 11/02/17 17:47 Dose: 650 mg Albuterol/Ipratropium (Duoneb -) 1 amp NEB Q4H PRN PRN Reason: SHORTNESS OF BREATH Last Admin: 11/03/17 14:05 Dose: 1 amp Amlodipine Besylate (Norvasc -) 5 mg PO DAILY [facility] Last Admin: 11/03/17 10:32 Dose: 5 mg Arformoterol Tartrate (Brovana (Restricted To Pulmonology/Resp) -) 1 amp NEB RBID [facility] Guaifenesin/Codeine Phosphate (Robitussin Ac -) 10 ml PO Q8H PRN PRN Reason: COUGH Last Admin: 11/03/17 10:32 Dose: 10 ml Heparin Sodium (Porcine) (Heparin -) 5,000 unit SQ BID [facility] Last Admin: 11/03/17 10:32 Dose: 5,000 unit CEFTRIAXONE 1 G/50 ML PREMIX (Ceftriaxone 1 Gm-D5w Bag) 50 mls @ 100 mls/hr IVPB DAILY [facility] Last Admin: 11/03/17 10:32 Dose: 100 mls/hr Losartan Potassium (Cozaar -) 50 mg PO DAILY [facility] Last Admin: 11/03/17 10:32 Dose: 50 mg Methylprednisolone Sodium Succinate (Solu-Medrol -) 40 mg IVPUSH Q6H-IV [facility] Last Admin: 11/03/17 16:09 Dose: 40 mg - Objective Vital Signs: Vital Signs Temperature 99.9 F H 11/03/17 16:58 Pulse Rate 99 H 11/03/17 16:58 Respiratory Rate 20 11/03/17 16:58 Blood Pressure 145/70 11/03/17 16:58 O2 Sat by Pulse Oximetry (%) 92 L 11/02/17 21:00 Constitutional: Yes: No Distress HENT: Yes: Atraumatic Neck: Yes: Supple Cardiovascular: Yes: Regular Rate and Rhythm Respiratory: Yes: CTA Bilaterally Gastrointestinal: Yes: Normal Bowel Sounds Extremities: Yes: WNL Neurological: Yes: Alert, Oriented Labs: CBC, BMP 11/02/17 06:30 11/02/17 06:30 INR, PTT INR 1.21 (0.82-1.09) H 11/01/17 13:39 Problem List - Problems (1) CHF (congestive heart failure) Assessment/Plan: monitor iv diuretics if nedeed cardiology consult Code(s): I50.9 - HEART FAILURE, UNSPECIFIED (2) PNA (pneumonia) Assessment/Plan: iv abx bcx id consult duo nebs prn pulmonary consult Code(s): J18.9 - PNEUMONIA, UNSPECIFIED ORGANISM
--- NOTE | 2017-11-03 17:35 | PN ---
Progress Note, Physician History of Present Illness: Dyspnea slowly improving. - Current Medication List Current Medications: Active Medications Acetaminophen (Tylenol -) 650 mg PO Q6H PRN PRN Reason: FEVER Last Admin: 11/02/17 17:47 Dose: 650 mg Albuterol/Ipratropium (Duoneb -) 1 amp NEB Q4H PRN PRN Reason: SHORTNESS OF BREATH Last Admin: 11/03/17 14:05 Dose: 1 amp Amlodipine Besylate (Norvasc -) 5 mg PO DAILY [facility] Last Admin: 11/03/17 10:32 Dose: 5 mg Arformoterol Tartrate (Brovana (Restricted To Pulmonology/Resp) -) 1 amp NEB RBID [facility] Guaifenesin/Codeine Phosphate (Robitussin Ac -) 10 ml PO Q8H PRN PRN Reason: COUGH Last Admin: 11/03/17 10:32 Dose: 10 ml Heparin Sodium (Porcine) (Heparin -) 5,000 unit SQ BID [facility] Last Admin: 11/03/17 10:32 Dose: 5,000 unit CEFTRIAXONE 1 G/50 ML PREMIX (Ceftriaxone 1 Gm-D5w Bag) 50 mls @ 100 mls/hr IVPB DAILY [facility] Last Admin: 11/03/17 10:32 Dose: 100 mls/hr Losartan Potassium (Cozaar -) 50 mg PO DAILY [facility] Last Admin: 11/03/17 10:32 Dose: 50 mg Methylprednisolone Sodium Succinate (Solu-Medrol -) 40 mg IVPUSH Q6H-IV [facility] Last Admin: 11/03/17 16:09 Dose: 40 mg - Objective Vital Signs: Vital Signs Temperature 99.9 F H 11/03/17 16:58 Pulse Rate 99 H 11/03/17 16:58 Respiratory Rate 20 11/03/17 16:58 Blood Pressure 145/70 11/03/17 16:58 O2 Sat by Pulse Oximetry (%) 90 L 11/03/17 09:00 Constitutional: Yes: No Distress, Calm Neck: Yes: Supple Cardiovascular: Yes: Regular Rate and Rhythm Respiratory: Yes: Regular, Diminished, On Nasal O2 Gastrointestinal: Yes: Normal Bowel Sounds, Soft, Abdomen, Obese Edema: Yes Edema: LLE: Trace, RLE: Trace Labs: CBC, BMP 11/02/17 06:30 11/02/17 06:30 INR, PTT INR 1.21 (0.82-1.09) H 11/01/17 13:39 Problem List - Problems (1) Diastolic dysfunction without heart failure Code(s): I51.9 - HEART DISEASE, UNSPECIFIED (2) Acute hypoxemic respiratory failure Code(s): J96.01 - ACUTE RESPIRATORY FAILURE WITH HYPOXIA (3) Diabetes mellitus Code(s): E11.9 - TYPE 2 DIABETES MELLITUS WITHOUT COMPLICATIONS Qualifiers: Diabetes mellitus type: type 2 Diabetes mellitus complication status: without complication Diabetes mellitus radius grinder insulin use: without radius grinder use Qualified Code(s): E11.9 - Type 2 diabetes mellitus without complications (4) HTN (hypertension) Code(s): I10 - ESSENTIAL (PRIMARY) HYPERTENSION Qualifiers: Hypertension type: essential hypertension Qualified Code(s): I10 - Essential (primary) hypertension (5) Pulmonary fibrosis Code(s): J84.10 - PULMONARY FIBROSIS, UNSPECIFIED (6) Shortness of breath Code(s): R06.02 - SHORTNESS OF BREATH (7) Demand ischemia Code(s): I24.8 - OTHER FORMS OF ACUTE ISCHEMIC HEART DISEASE Assessment/Plan 11/02/2017 Echo: Mild LVH, normal biventricular size and fxn, mild TR, RVSP 32 mmHG 1. Acute hypoxemic respiratory failure with underlying pulmonary fibrosis/ILD 2. Mildly elevated troponin due to demand ischemia - secondary to above 3. Diabetes mellitus 4. Hypertension 5. Diastolic dysfunction 6. OSAS suspect PLAN: 1. Continue Losartan 50 qd and Amlodipine 5 qd 2. IV steroids, BD, O2, chest CT scan, empiric antibiotic coverage, DVT prophylaxis 3. Troponins have plateaued 4. PSG and PFTs as outpatient
[2017-11-03] MEDS ORDERED: FUROSEMIDE 40 MG/4 ML INJECTABLE VIAL ONE (17:56)
[2017-11-03] MEDS: FUROSEMIDE 40 MG/4 ML INJECTABLE VIAL IVPUSH SCH (18:01)
[2017-11-03] MEDS: ARFORMOTEROL TARTRATE 15 MCG/2 ML VIAL NEB SCH (21:04)
[2017-11-04] MEDS: methylPREDNISolone NA SUCC 40 MG/1 ML VIAL IVPUSH SCH ×4 (02:50→21:05)
[2017-11-04] MEDS: ARFORMOTEROL TARTRATE 15 MCG/2 ML VIAL NEB SCH ×2 (07:40→21:10)
[2017-11-04] MEDS ORDERED: PT OWN MED DRAWER 7, Y5N ONE (09:33)
[2017-11-04] MEDS: CEFTRIAXONE 1 G/50 ML PREMIX 50 ML IVPB SCH (09:36)
[2017-11-04] MEDS: FUROSEMIDE 40 MG/4 ML INJECTABLE VIAL IVPUSH SCH (09:37)
[2017-11-04] MEDS: HEPARIN NA (PORCINE) 5,000 UNITS/ML 1ML VIAL SQ SCH ×2 (09:37→21:05)
[2017-11-04] MEDS: amLODIPine BESYLATE 5 MG TABLET (FP) PO SCH (09:37)
[2017-11-04] MEDS: LOSARTAN POTASSIUM 50 MG TABLET (FP) PO SCH (09:37)
[2017-11-04] MEDS: guaiFENesin/CODEINE 10 ML UNIT-DOSE CUPS PO PRN (09:37)
--- NOTE | 2017-11-04 12:03 | PN ---
Progress Note, Physician History of Present Illness: Dyspnea slowly improving. Comfortable on VM. - Current Medication List Current Medications: Active Medications Acetaminophen (Tylenol -) 650 mg PO Q6H PRN PRN Reason: FEVER Last Admin: 11/02/17 17:47 Dose: 650 mg Albuterol/Ipratropium (Duoneb -) 1 amp NEB Q4H PRN PRN Reason: SHORTNESS OF BREATH Last Admin: 11/03/17 14:05 Dose: 1 amp Amlodipine Besylate (Norvasc -) 5 mg PO DAILY [facility] Last Admin: 11/04/17 09:37 Dose: 5 mg Arformoterol Tartrate (Brovana (Restricted To Pulmonology/Resp) -) 1 amp NEB RBID [facility] Last Admin: 11/04/17 07:40 Dose: 1 amp Furosemide (Lasix Injection -) 40 mg IVPUSH DAILY [facility] Last Admin: 11/04/17 09:37 Dose: 40 mg Guaifenesin/Codeine Phosphate (Robitussin Ac -) 10 ml PO Q8H PRN PRN Reason: COUGH Last Admin: 11/04/17 09:37 Dose: 10 ml Heparin Sodium (Porcine) (Heparin -) 5,000 unit SQ BID [facility] Last Admin: 11/04/17 09:37 Dose: 5,000 unit CEFTRIAXONE 1 G/50 ML PREMIX (Ceftriaxone 1 Gm-D5w Bag) 50 mls @ 100 mls/hr IVPB DAILY [facility] Last Admin: 11/04/17 09:36 Dose: 100 mls/hr Losartan Potassium (Cozaar -) 50 mg PO DAILY [facility] Last Admin: 11/04/17 09:37 Dose: 50 mg Methylprednisolone Sodium Succinate (Solu-Medrol -) 40 mg IVPUSH Q6H-IV [facility] Last Admin: 11/04/17 09:36 Dose: 40 mg - Objective Vital Signs: Vital Signs Temperature 97.8 F 11/04/17 08:25 Pulse Rate 71 11/04/17 08:25 Respiratory Rate 20 11/04/17 08:25 Blood Pressure 136/61 11/04/17 08:25 O2 Sat by Pulse Oximetry (%) 90 L 11/03/17 21:00 Constitutional: Yes: No Distress, Calm, Thin Neck: Yes: Supple Cardiovascular: Yes: Regular Rate and Rhythm Respiratory: Yes: Regular, Diminished, On Venti-Mask Gastrointestinal: Yes: Normal Bowel Sounds, Soft Edema: No Labs: CBC, BMP 11/02/17 06:30 11/02/17 06:30 INR, PTT INR 1.21 (0.82-1.09) H 11/01/17 13:39 Problem List - Problems (1) Diastolic dysfunction without heart failure Code(s): I51.9 - HEART DISEASE, UNSPECIFIED (2) Acute hypoxemic respiratory failure Code(s): J96.01 - ACUTE RESPIRATORY FAILURE WITH HYPOXIA (3) Diabetes mellitus Code(s): E11.9 - TYPE 2 DIABETES MELLITUS WITHOUT COMPLICATIONS Qualifiers: Diabetes mellitus type: type 2 Diabetes mellitus complication status: without complication Diabetes mellitus care home insulin use: without exterminator helper use Qualified Code(s): E11.9 - Type 2 diabetes mellitus without complications (4) HTN (hypertension) Code(s): I10 - ESSENTIAL (PRIMARY) HYPERTENSION Qualifiers: Hypertension type: essential hypertension Qualified Code(s): I10 - Essential (primary) hypertension (5) Pulmonary fibrosis Code(s): J84.10 - PULMONARY FIBROSIS, UNSPECIFIED (6) Shortness of breath Code(s): R06.02 - SHORTNESS OF BREATH (7) Demand ischemia Code(s): I24.8 - OTHER FORMS OF ACUTE ISCHEMIC HEART DISEASE (8) PNA (pneumonia) Code(s): J18.9 - PNEUMONIA, UNSPECIFIED ORGANISM Assessment/Plan 11/02/2017 Echo: Mild LVH, normal biventricular size and fxn, mild TR, RVSP 32 mmHG 11/03/[address]: Extensive interstitial lung disease with likely acute diffuse pneumonitis most prominent RUL 1. Acute hypoxemic respiratory failure with underlying pulmonary fibrosis/ILD and PNA 2. Mildly elevated troponin due to demand ischemia - secondary to above 3. Diabetes mellitus 4. Hypertension 5. Diastolic dysfunction 6. OSAS suspect PLAN: 1. Continue Losartan 50 qd and Amlodipine 5 qd, decrease Lasix 20 po qd (home dose) 2. IV steroids, BD, O2, empiric antibiotic course per C&S, DVT prophylaxis 3. Troponins have plateaued 4. PSG and PFTs as outpatient
--- NOTE | 2017-11-04 12:47 | PN ---
Progress Note (short form) - Note Progress Note: Breathing feels a little better today. Mildly tachypneic on HFM O2. Intake & Output 11/01/17 11/02/17 11/03/17 11/04/17 23:59 23:59 23:59 23:59 Intake Total 901 305 0082 Balance 765 597 9751 Weight 223 lb Last Vital Signs Temp Pulse Resp BP Pulse Ox 97.8 F 71 20 136/61 90 L 11/04/17 08:25 11/04/17 08:25 11/04/17 08:25 11/04/17 08:25 11/03/17 21:00 Active Medications Acetaminophen (Tylenol -) 650 mg PO Q6H PRN PRN Reason: FEVER Last Admin: 11/02/17 17:47 Dose: 650 mg Albuterol/Ipratropium (Duoneb -) 1 amp NEB Q4H PRN PRN Reason: SHORTNESS OF BREATH Last Admin: 11/03/17 14:05 Dose: 1 amp Amlodipine Besylate (Norvasc -) 5 mg PO DAILY [facility] Last Admin: 11/04/17 09:37 Dose: 5 mg Arformoterol Tartrate (Brovana (Restricted To Pulmonology/Resp) -) 1 amp NEB RBID [facility] Last Admin: 11/04/17 07:40 Dose: 1 amp Furosemide (Lasix -) 20 mg PO DAILY [facility] Guaifenesin/Codeine Phosphate (Robitussin Ac -) 10 ml PO Q8H PRN PRN Reason: COUGH Last Admin: 11/04/17 09:37 Dose: 10 ml Heparin Sodium (Porcine) (Heparin -) 5,000 unit SQ BID [facility] Last Admin: 11/04/17 09:37 Dose: 5,000 unit CEFTRIAXONE 1 G/50 ML PREMIX (Ceftriaxone 1 Gm-D5w Bag) 50 mls @ 100 mls/hr IVPB DAILY [facility] Last Admin: 11/04/17 09:36 Dose: 100 mls/hr Losartan Potassium (Cozaar -) 50 mg PO DAILY [facility] Last Admin: 11/04/17 09:37 Dose: 50 mg Methylprednisolone Sodium Succinate (Solu-Medrol -) 40 mg IVPUSH Q6H-IV [facility] Last Admin: 11/04/17 09:36 Dose: 40 mg Constitutional: Yes: Mildly tachypneic, NAD Neck: Yes: Supple Cardiovascular: Yes: Regular Rate and Rhythm Respiratory: Yes: Bibasilar rhonchi, no wheeze Gastrointestinal: Yes: Normal Bowel Sounds, Soft, Abdomen, Obese Edema: Yes Edema: LLE: Trace, RLE: Trace Labs: Laboratory Results - last 24 hr 11/03/17 16:00 Lactic Acid 1.8 Problem List - Problems (1) Acute respiratory failure with hypoxemia Code(s): J96.01 - ACUTE RESPIRATORY FAILURE WITH HYPOXIA (2) CHF (congestive heart failure) Code(s): I50.9 - HEART FAILURE, UNSPECIFIED (3) Diabetes mellitus Code(s): E11.9 - TYPE 2 DIABETES MELLITUS WITHOUT COMPLICATIONS Qualifiers: Diabetes mellitus type: type 2 Diabetes mellitus complication status: without complication Diabetes mellitus terminal computer operator insulin use: without terminal computer operator use Qualified Code(s): E11.9 - Type 2 diabetes mellitus without complications (4) HTN (hypertension) Code(s): I10 - ESSENTIAL (PRIMARY) HYPERTENSION Qualifiers: Hypertension type: essential hypertension Qualified Code(s): I10 - Essential (primary) hypertension (5) PNA (pneumonia) Code(s): J18.9 - PNEUMONIA, UNSPECIFIED ORGANISM (6) Pulmonary fibrosis Code(s): J84.10 - PULMONARY FIBROSIS, UNSPECIFIED (7) Shortness of breath Code(s): R06.02 - SHORTNESS OF BREATH (8) Acute hypoxemic respiratory failure Code(s): J96.01 - ACUTE RESPIRATORY FAILURE WITH HYPOXIA (9) Cough Code(s): R05 - COUGH IMP ACUTE HYPOXEMIC RESPIRATORY FAILURE ADVANCED IL/PULMONARY FIBROSIS PNEUMONIA CHF + TROPONINS LIKELY DEMAND ISCHEMIA ELEVATED LACTATE LEVEL PULMONARY HTN SUSPECTED MIGNON PLAN ABX INHALED BRONCHODILATORS IV STEROIDS SUPPLEMENTAL O2 TO MAINTAIN SATURATION FOLLOW SPUTUM C+S NOTED SLEEP SCREEN ORDERED VTE PROPHYLAXIS DR PULIDO
--- NOTE | 2017-11-04 14:15 | PN ---
Progress Note, Physician History of Present Illness: says breathing better still needing face mask daughter in room afebrile - Current Medication List Current Medications: Active Medications Acetaminophen (Tylenol -) 650 mg PO Q6H PRN PRN Reason: FEVER Last Admin: 11/02/17 17:47 Dose: 650 mg Albuterol/Ipratropium (Duoneb -) 1 amp NEB Q4H PRN PRN Reason: SHORTNESS OF BREATH Last Admin: 11/03/17 14:05 Dose: 1 amp Amlodipine Besylate (Norvasc -) 5 mg PO DAILY [facility] Last Admin: 11/04/17 09:37 Dose: 5 mg Arformoterol Tartrate (Brovana (Restricted To Pulmonology/Resp) -) 1 amp NEB RBID [facility] Last Admin: 11/04/17 07:40 Dose: 1 amp Furosemide (Lasix -) 20 mg PO DAILY [facility] Guaifenesin/Codeine Phosphate (Robitussin Ac -) 10 ml PO Q8H PRN PRN Reason: COUGH Last Admin: 11/04/17 09:37 Dose: 10 ml Heparin Sodium (Porcine) (Heparin -) 5,000 unit SQ BID [facility] Last Admin: 11/04/17 09:37 Dose: 5,000 unit CEFTRIAXONE 1 G/50 ML PREMIX (Ceftriaxone 1 Gm-D5w Bag) 50 mls @ 100 mls/hr IVPB DAILY [facility] Last Admin: 11/04/17 09:36 Dose: 100 mls/hr Losartan Potassium (Cozaar -) 50 mg PO DAILY [facility] Last Admin: 11/04/17 09:37 Dose: 50 mg Methylprednisolone Sodium Succinate (Solu-Medrol -) 40 mg IVPUSH Q6H-IV [facility] Last Admin: 11/04/17 09:36 Dose: 40 mg - Objective Vital Signs: Vital Signs Temperature 97.8 F 11/04/17 08:25 Pulse Rate 71 11/04/17 08:25 Respiratory Rate 20 11/04/17 08:25 Blood Pressure 136/61 11/04/17 08:25 O2 Sat by Pulse Oximetry (%) 90 L 11/03/17 21:00 Constitutional: Yes: No Distress, Calm, Obese Cardiovascular: Yes: Regular Rate and Rhythm Respiratory: Yes: Regular, Poor Air Entry, Rhonchi, Other (on face mask) Gastrointestinal: Yes: Normal Bowel Sounds, Soft Musculoskeletal: Yes: WNL Extremities: Yes: WNL Neurological: Yes: Alert, Oriented Psychiatric: Yes: Alert, Oriented Labs: CBC, BMP 11/02/17 06:30 11/02/17 06:30 INR, PTT INR 1.21 (0.82-1.09) H 11/01/17 13:39 Assessment/Plan Problem List - Problems (1) Acute respiratory failure with hypoxemia Code(s): J96.01 - ACUTE RESPIRATORY FAILURE WITH HYPOXIA (2) CHF (congestive heart failure) Code(s): I50.9 - HEART FAILURE, UNSPECIFIED (3) Diabetes mellitus Code(s): E11.9 - TYPE 2 DIABETES MELLITUS WITHOUT COMPLICATIONS Qualifiers: Diabetes mellitus type: type 2 Diabetes mellitus complication status: without complication Diabetes mellitus intermediate insulin use: without intermediate use Qualified Code(s): E11.9 - Type 2 diabetes mellitus without complications (4) HTN (hypertension) Code(s): I10 - ESSENTIAL (PRIMARY) HYPERTENSION Qualifiers: Hypertension type: essential hypertension Qualified Code(s): I10 - Essential (primary) hypertension (5) PNA (pneumonia) Code(s): J18.9 - PNEUMONIA, UNSPECIFIED ORGANISM (6) Pulmonary fibrosis Code(s): J84.10 - PULMONARY FIBROSIS, UNSPECIFIED (7) Shortness of breath Code(s): R06.02 - SHORTNESS OF BREATH (8) Acute hypoxemic respiratory failure Code(s): J96.01 - ACUTE RESPIRATORY FAILURE WITH HYPOXIA (9) Cough Code(s): R05 - COUGH plan continue abx will check wbc tomorrow if wbc goes up then might change abx resp support rest as per primary team
--- NOTE | 2017-11-04 16:43 | PN ---
Progress Note, Physician - Current Medication List Current Medications: Active Medications Acetaminophen (Tylenol -) 650 mg PO Q6H PRN PRN Reason: FEVER Last Admin: 11/02/17 17:47 Dose: 650 mg Albuterol/Ipratropium (Duoneb -) 1 amp NEB Q4H PRN PRN Reason: SHORTNESS OF BREATH Last Admin: 11/03/17 14:05 Dose: 1 amp Amlodipine Besylate (Norvasc -) 5 mg PO DAILY [facility] Last Admin: 11/04/17 09:37 Dose: 5 mg Arformoterol Tartrate (Brovana (Restricted To Pulmonology/Resp) -) 1 amp NEB RBID [facility] Last Admin: 11/04/17 07:40 Dose: 1 amp Furosemide (Lasix -) 20 mg PO DAILY [facility] Guaifenesin/Codeine Phosphate (Robitussin Ac -) 10 ml PO Q8H PRN PRN Reason: COUGH Last Admin: 11/04/17 09:37 Dose: 10 ml Heparin Sodium (Porcine) (Heparin -) 5,000 unit SQ BID [facility] Last Admin: 11/04/17 09:37 Dose: 5,000 unit CEFTRIAXONE 1 G/50 ML PREMIX (Ceftriaxone 1 Gm-D5w Bag) 50 mls @ 100 mls/hr IVPB DAILY [facility] Last Admin: 11/04/17 09:36 Dose: 100 mls/hr Losartan Potassium (Cozaar -) 50 mg PO DAILY [facility] Last Admin: 11/04/17 09:37 Dose: 50 mg Methylprednisolone Sodium Succinate (Solu-Medrol -) 40 mg IVPUSH Q6H-IV [facility] Last Admin: 11/04/17 15:05 Dose: 40 mg - Objective Vital Signs: Vital Signs Temperature 97.7 F 11/04/17 14:36 Pulse Rate 85 11/04/17 14:36 Respiratory Rate 18 11/04/17 14:36 Blood Pressure 144/61 11/04/17 14:36 O2 Sat by Pulse Oximetry (%) 90 L 11/03/17 21:00 Constitutional: Yes: No Distress HENT: Yes: Atraumatic Cardiovascular: Yes: Regular Rate and Rhythm Respiratory: Yes: Rhonchi, Wheezes Gastrointestinal: Yes: Normal Bowel Sounds Extremities: Yes: WNL Edema: No Peripheral Pulses WNL: Yes Neurological: Yes: Alert, Oriented Labs: CBC, BMP 11/02/17 06:30 11/02/17 06:30 INR, PTT INR 1.21 (0.82-1.09) H 11/01/17 13:39 Problem List - Problems (1) CHF (congestive heart failure) Assessment/Plan: monitor iv diuretics ...po now cardiology consult Code(s): I50.9 - HEART FAILURE, UNSPECIFIED (2) PNA (pneumonia) Assessment/Plan: iv abx bcx id consult duo nebs prn pulmonary consult Code(s): J18.9 - PNEUMONIA, UNSPECIFIED ORGANISM (3) Acute respiratory failure with hypoxemia Code(s): J96.01 - ACUTE RESPIRATORY FAILURE WITH HYPOXIA (4) Cough Assessment/Plan: prn cough medicine Code(s): R05 - COUGH (5) Diabetes mellitus Assessment/Plan: bgms insulin po meds..on hold for elevated cr Code(s): E11.9 - TYPE 2 DIABETES MELLITUS WITHOUT COMPLICATIONS Qualifiers: Diabetes mellitus type: type 2 Diabetes mellitus complication status: without complication Diabetes mellitus intermediate manager insulin use: without intermediate manager use Qualified Code(s): E11.9 - Type 2 diabetes mellitus without complications (6) Diastolic dysfunction without heart failure Code(s): I51.9 - HEART DISEASE, UNSPECIFIED (7) HTN (hypertension) Assessment/Plan: on meds stable Code(s): I10 - ESSENTIAL (PRIMARY) HYPERTENSION Qualifiers: Hypertension type: essential hypertension Qualified Code(s): I10 - Essential (primary) hypertension Assessment/Plan d/w daughter in detail on blue phone with martiniquais interpereter she know the condition of the patient told her dc plan for wednesday she will talk to social science manager to make more arrangements at home
[2017-11-05] MEDS: methylPREDNISolone NA SUCC 40 MG/1 ML VIAL IVPUSH SCH ×4 (02:33→21:10)
[2017-11-05] MEDS: ARFORMOTEROL TARTRATE 15 MCG/2 ML VIAL NEB SCH ×2 (07:25→20:50)
[2017-11-05 08:00] LABS: HEMATOCRIT 38.3 % (32.4-45.2); HEMOGLOBIN 12.1 GM/dL (10.7-15.3); MCH 26.2 pg (25.7-33.7); MCHC 31.6 g/dl (32.0-36.0); MEAN CELL VOLUME 82.9 fl (80-96); MEAN PLT VOLUME 9.2 fl (7.5-11.1); PLATELET COUNT 308 K/MM3 (134-434); RBC 4.62 M/mm3 (3.60-5.2); RDW 17.5 % (11.6-15.6); WHITE BLOOD COUNT 15.9 K/mm3 (4.0-10.0)
[2017-11-05] MEDS ORDERED: PT OWN MED DRAWER 7, Y5N ONE (09:03)
[2017-11-05] MEDS: CEFTRIAXONE 1 G/50 ML PREMIX 50 ML IVPB SCH (09:16)
[2017-11-05] MEDS: HEPARIN NA (PORCINE) 5,000 UNITS/ML 1ML VIAL SQ SCH ×2 (09:16→21:10)
[2017-11-05] MEDS: amLODIPine BESYLATE 5 MG TABLET (FP) PO SCH (09:17)
[2017-11-05] MEDS: FUROSEMIDE 20 MG TABLET (FP) PO SCH (09:17)
[2017-11-05] MEDS: LOSARTAN POTASSIUM 50 MG TABLET (FP) PO SCH (09:17)
[2017-11-05 09:25] LABS: CHLORIDE 100 mmol/L (98-107); SODIUM 138 mmol/L (136-145)
[2017-11-05 09:36] LABS: ANION GAP 13 (8-16); BLOOD UREA NITROGEN 51 mg/dL (7-18); CALCIUM 9.2 mg/dL (8.5-10.1); CO2 25 mmol/L (21-32); CREATININE 1.7 mg/dL (0.55-1.02)
[2017-11-05 11:08] LABS: GLUCOSE,RANDOM 394 mg/dL (74-106)
[2017-11-05] MEDS: guaiFENesin/CODEINE 10 ML UNIT-DOSE CUPS PO PRN (12:07)
[2017-11-05] MEDS ORDERED: TUBERCULIN PPD 5 TU/0.1ML SYRINGE (IN PATIENT USE ONLY) ID ONE (13:20)
--- NOTE | 2017-11-05 13:30 | PN ---
Progress Note (short form) - Note Progress Note: PULMONARY CC: SOB/COUGH/BROWN SPUTUM/NO BLOOD STREAKING TACHYPNEIC/AFEBRILE DAUGHTER PRESENT FLUSHED/ANICTERIC BILATERAL DIFFUSE CRACKLES INSP/EXP S1S2 BS+ SOFT NONTENDER S/P BILATERAL TKR NO EDEMA LABS/MEDS/NOTES/IMAGES/MICRO/ECHO REVIEWED PATIENT HAS A 15 YEAR HISTORY OF MILD IPF WORKED IN A FACTORY IN [facility] PATIENT WAS FUNCTIONAL AND DID NOT REQUIRE O2 UNTIL LAST 0NE WEEK SHE RETURNED FROM MID SEPTEMBER AND DENIES SICK CONTACTS STATES SHE WAS PPD NEGATIVE LAST YEAR ACUTE HYPOXEMIC RESPIRATORY FAILURE/SUPERIMPOSED UPON MILD IPF(NEVER BIOPSIED) DIFFUSE BILATERAL INFILTRATES NEW WHEN COMPARED TO CT CHEST 2017 FEB ETIOLOGY OF ACUTE DECLINE IN CLINICAL AND RADIOGRAPH PRESENTATION FAVORS INFECTIOUS ETIOLOGY LVDD PER ECHO/BNP HAVE REQUESTED PPD/URINARY ANTIGENS/HIV/SPUTUM CULTURE/ABG/BLOOD CULTURE CONTINUE STEROIDS/O2 SUPPLEMENTATION/EMPIRIC ANTIBIOTICS HAVE CALLED AMAURI DIAZ MD (PMD) FOR FURTHER HISTORY [phone] AWAITING CALL BACK Namita ROLAND MD
[2017-11-05 13:53] LABS: ARTERIAL BLD GAS O2 SATURATION 93.2 % (90-98.9); ARTERIAL BLOOD GAS BASE EXCESS 0.1 meq/l (-2-2); ARTERIAL BLOOD GAS PCO2 43.5 mmHg (35-45); ARTERIAL BLOOD GAS PO2 71.6 mmHg (70-100); ARTERIAL BLOOD GAS pH 7.38 (7.35-7.45)
[2017-11-05 13:58] LABS: ALLENS TEST POSITIVE
--- NOTE | 2017-11-05 14:18 | PN ---
Progress Note, Physician History of Present Illness: Dyspnea slowly improving. Comfortable on VM. - Current Medication List Current Medications: Active Medications Acetaminophen (Tylenol -) 650 mg PO Q6H PRN PRN Reason: FEVER Last Admin: 11/02/17 17:47 Dose: 650 mg Albuterol/Ipratropium (Duoneb -) 1 amp NEB Q4H PRN PRN Reason: SHORTNESS OF BREATH Last Admin: 11/03/17 14:05 Dose: 1 amp Amlodipine Besylate (Norvasc -) 5 mg PO DAILY [facility] Last Admin: 11/05/17 09:17 Dose: 5 mg Arformoterol Tartrate (Brovana (Restricted To Pulmonology/Resp) -) 1 amp NEB RBID [facility] Last Admin: 11/05/17 07:25 Dose: 1 amp Furosemide (Lasix -) 20 mg PO DAILY [facility] Last Admin: 11/05/17 09:17 Dose: 20 mg Guaifenesin/Codeine Phosphate (Robitussin Ac -) 10 ml PO Q8H PRN PRN Reason: COUGH Last Admin: 11/05/17 12:07 Dose: 10 ml Heparin Sodium (Porcine) (Heparin -) 5,000 unit SQ BID [facility] Last Admin: 11/05/17 09:16 Dose: 5,000 unit CEFTRIAXONE 1 G/50 ML PREMIX (Ceftriaxone 1 Gm-D5w Bag) 50 mls @ 100 mls/hr IVPB DAILY [facility] Last Admin: 11/05/17 09:16 Dose: 100 mls/hr Losartan Potassium (Cozaar -) 50 mg PO DAILY [facility] Last Admin: 11/05/17 09:17 Dose: 50 mg Methylprednisolone Sodium Succinate (Solu-Medrol -) 40 mg IVPUSH Q6H-IV [facility] Last Admin: 11/05/17 09:17 Dose: 40 mg - Objective Vital Signs: Vital Signs Temperature 98.2 F 11/05/17 09:00 Pulse Rate 78 11/05/17 09:00 Respiratory Rate 19 11/05/17 09:00 Blood Pressure 128/70 11/05/17 09:00 O2 Sat by Pulse Oximetry (%) 95 11/05/17 09:00 Constitutional: Yes: No Distress, Calm Neck: Yes: Supple Cardiovascular: Yes: Regular Rate and Rhythm Respiratory: Yes: Regular, Diminished, On Venti-Mask Gastrointestinal: Yes: Normal Bowel Sounds, Soft Edema: No Labs: CBC, BMP 11/05/17 06:30 11/05/17 06:30 INR, PTT INR 1.21 (0.82-1.09) H 11/01/17 13:39 Problem List - Problems (1) Diastolic dysfunction without heart failure Code(s): I51.9 - HEART DISEASE, UNSPECIFIED (2) Acute hypoxemic respiratory failure Code(s): J96.01 - ACUTE RESPIRATORY FAILURE WITH HYPOXIA (3) Diabetes mellitus Code(s): E11.9 - TYPE 2 DIABETES MELLITUS WITHOUT COMPLICATIONS Qualifiers: Diabetes mellitus type: type 2 Diabetes mellitus complication status: without complication Diabetes mellitus long distance operator insulin use: without senior living use Qualified Code(s): E11.9 - Type 2 diabetes mellitus without complications (4) HTN (hypertension) Code(s): I10 - ESSENTIAL (PRIMARY) HYPERTENSION Qualifiers: Hypertension type: essential hypertension Qualified Code(s): I10 - Essential (primary) hypertension (5) Pulmonary fibrosis Code(s): J84.10 - PULMONARY FIBROSIS, UNSPECIFIED (6) Shortness of breath Code(s): R06.02 - SHORTNESS OF BREATH (7) Demand ischemia Code(s): I24.8 - OTHER FORMS OF ACUTE ISCHEMIC HEART DISEASE (8) PNA (pneumonia) Code(s): J18.9 - PNEUMONIA, UNSPECIFIED ORGANISM Assessment/Plan 11/02/2017 Echo: Mild LVH, normal biventricular size and fxn, mild TR, RVSP 32 mmHG 11/03/[address]: Extensive interstitial lung disease with likely acute diffuse pneumonitis most prominent RUL 1. Acute hypoxemic respiratory failure with underlying pulmonary fibrosis/ILD and PNA 2. Mildly elevated troponin due to demand ischemia - secondary to above 3. Diabetes mellitus 4. Hypertension 5. Diastolic dysfunction 6. OSAS suspect PLAN: 1. Continue Losartan 50 qd, Amlodipine 5 qd, and Lasix 20 po qd (home dose) 2. IV steroids, BD, O2, empiric antibiotic course per C&S 3. Troponins have plateaued 4. PSG and PFTs as outpatient 5. DVT prophylaxis
--- NOTE | 2017-11-05 14:34 | PN ---
Progress Note, Physician History of Present Illness: says breathing better improving daughter in room afebrile - Current Medication List Current Medications: Active Medications Acetaminophen (Tylenol -) 650 mg PO Q6H PRN PRN Reason: FEVER Last Admin: 11/02/17 17:47 Dose: 650 mg Albuterol/Ipratropium (Duoneb -) 1 amp NEB Q4H PRN PRN Reason: SHORTNESS OF BREATH Last Admin: 11/03/17 14:05 Dose: 1 amp Amlodipine Besylate (Norvasc -) 5 mg PO DAILY [facility] Last Admin: 11/05/17 09:17 Dose: 5 mg Arformoterol Tartrate (Brovana (Restricted To Pulmonology/Resp) -) 1 amp NEB RBID [facility] Last Admin: 11/05/17 07:25 Dose: 1 amp Furosemide (Lasix -) 20 mg PO DAILY [facility] Last Admin: 11/05/17 09:17 Dose: 20 mg Guaifenesin/Codeine Phosphate (Robitussin Ac -) 10 ml PO Q8H PRN PRN Reason: COUGH Last Admin: 11/05/17 12:07 Dose: 10 ml Heparin Sodium (Porcine) (Heparin -) 5,000 unit SQ BID [facility] Last Admin: 11/05/17 09:16 Dose: 5,000 unit CEFTRIAXONE 1 G/50 ML PREMIX (Ceftriaxone 1 Gm-D5w Bag) 50 mls @ 100 mls/hr IVPB DAILY [facility] Last Admin: 11/05/17 09:16 Dose: 100 mls/hr Ceftriaxone Sodium 1 gm/ (Dextrose) 50 mls @ 100 mls/hr IVPB DAILY [facility] Losartan Potassium (Cozaar -) 50 mg PO DAILY [facility] Last Admin: 11/05/17 09:17 Dose: 50 mg Methylprednisolone Sodium Succinate (Solu-Medrol -) 40 mg IVPUSH Q6H-IV [facility] Last Admin: 11/05/17 09:17 Dose: 40 mg - Objective Vital Signs: Vital Signs Temperature 98.2 F 11/05/17 09:00 Pulse Rate 78 11/05/17 09:00 Respiratory Rate 19 11/05/17 09:00 Blood Pressure 128/70 11/05/17 09:00 O2 Sat by Pulse Oximetry (%) 95 11/05/17 09:00 Constitutional: Yes: No Distress, Calm Neck: Yes: Supple Cardiovascular: Yes: Regular Rate and Rhythm Respiratory: Yes: Regular, Poor Air Entry Gastrointestinal: Yes: Normal Bowel Sounds, Soft Musculoskeletal: Yes: WNL Extremities: Yes: WNL Neurological: Yes: Alert, Oriented Psychiatric: Yes: Alert, Oriented Labs: CBC, BMP 11/05/17 06:30 11/05/17 06:30 INR, PTT INR 1.21 (0.82-1.09) H 11/01/17 13:39 Assessment/Plan Problem List - Problems (1) Acute respiratory failure with hypoxemia Code(s): J96.01 - ACUTE RESPIRATORY FAILURE WITH HYPOXIA (2) CHF (congestive heart failure) Code(s): I50.9 - HEART FAILURE, UNSPECIFIED (3) Diabetes mellitus Code(s): E11.9 - TYPE 2 DIABETES MELLITUS WITHOUT COMPLICATIONS Qualifiers: Diabetes mellitus type: type 2 Diabetes mellitus complication status: without complication Diabetes mellitus skilled nursing insulin use: without skilled nursing use Qualified Code(s): E11.9 - Type 2 diabetes mellitus without complications (4) HTN (hypertension) Code(s): I10 - ESSENTIAL (PRIMARY) HYPERTENSION Qualifiers: Hypertension type: essential hypertension Qualified Code(s): I10 - Essential (primary) hypertension (5) PNA (pneumonia) Code(s): J18.9 - PNEUMONIA, UNSPECIFIED ORGANISM (6) Pulmonary fibrosis Code(s): J84.10 - PULMONARY FIBROSIS, UNSPECIFIED (7) Shortness of breath Code(s): R06.02 - SHORTNESS OF BREATH (8) Acute hypoxemic respiratory failure Code(s): J96.01 - ACUTE RESPIRATORY FAILURE WITH HYPOXIA (9) Cough Code(s): R05 - COUGH plan continue abx wbc has increased will see what is wbc tomorrow if wbc has increased will escalate abx rest as per primary team
[2017-11-05] MEDS ORDERED: glipiZIDE 5 MG TABLET (FP) PO SCH ×2 (17:15)
[2017-11-05] MEDS ORDERED: INSULIN (NOVOLOG) ASPART 100 UNITS/ML 10ML VIAL SQ ONE (17:15)
[2017-11-05] MEDS ORDERED: INSULIN (NOVOLOG) ASPART 100 UNITS/ML 10ML VIAL ONE (17:52)
[2017-11-05] MEDS: glipiZIDE 5 MG TABLET (FP) PO SCH (17:55)
[2017-11-05] MEDS ORDERED: INSULIN (NOVOLOG MIX 70/30) 100 UNITS/ML MDV SQ ONE (19:03)
[2017-11-05] MEDS: INSULIN SLIDING SCALE (NOVOLOG) 1 VIAL SQ SCH (21:11)
[2017-11-06] MEDS: methylPREDNISolone NA SUCC 40 MG/1 ML VIAL IVPUSH SCH ×2 (02:36→10:25)
[2017-11-06] MEDS: glipiZIDE 5 MG TABLET (FP) PO SCH (06:14)
[2017-11-06] MEDS: INSULIN SLIDING SCALE (NOVOLOG) 1 VIAL SQ SCH ×4 (06:14→21:34)
[2017-11-06] MEDS: ARFORMOTEROL TARTRATE 15 MCG/2 ML VIAL NEB SCH ×2 (07:40→20:41)
[2017-11-06] MEDS ORDERED: CEFTRIAXONE 1 GM in DEXTROSE 5%-WATER - 50 ML IVPB SCH (10:00)
[2017-11-06] MEDS ORDERED: PT OWN MED DRAWER 7, Y5N ONE (10:21)
[2017-11-06] MEDS: CEFTRIAXONE 1 G/50 ML PREMIX 50 ML IVPB SCH (10:23)
[2017-11-06] MEDS: LOSARTAN POTASSIUM 50 MG TABLET (FP) PO SCH (10:24)
[2017-11-06] MEDS: HEPARIN NA (PORCINE) 5,000 UNITS/ML 1ML VIAL SQ SCH ×2 (10:25→21:33)
[2017-11-06] MEDS: FUROSEMIDE 20 MG TABLET (FP) PO SCH (10:25)
[2017-11-06] MEDS: amLODIPine BESYLATE 5 MG TABLET (FP) PO SCH (10:25)
--- NOTE | 2017-11-06 11:13 | PN ---
Progress Note, Physician History of Present Illness: doing well - Current Medication List Current Medications: Active Medications Acetaminophen (Tylenol -) 650 mg PO Q6H PRN PRN Reason: FEVER Last Admin: 11/02/17 17:47 Dose: 650 mg Albuterol/Ipratropium (Duoneb -) 1 amp NEB Q4H PRN PRN Reason: SHORTNESS OF BREATH Last Admin: 11/03/17 14:05 Dose: 1 amp Amlodipine Besylate (Norvasc -) 5 mg PO DAILY [facility] Last Admin: 11/06/17 10:25 Dose: 5 mg Arformoterol Tartrate (Brovana (Restricted To Pulmonology/Resp) -) 1 amp NEB RBID [facility] Last Admin: 11/05/17 20:50 Dose: 1 amp Furosemide (Lasix -) 20 mg PO DAILY [facility] Last Admin: 11/06/17 10:25 Dose: 20 mg Glipizide (Glucotrol -) 10 mg PO 0700 [facility] Last Admin: 11/06/17 06:14 Dose: 10 mg Guaifenesin/Codeine Phosphate (Robitussin Ac -) 10 ml PO Q8H PRN PRN Reason: COUGH Last Admin: 11/05/17 12:07 Dose: 10 ml Heparin Sodium (Porcine) (Heparin -) 5,000 unit SQ BID [facility] Last Admin: 11/06/17 10:25 Dose: 5,000 unit CEFTRIAXONE 1 G/50 ML PREMIX (Ceftriaxone 1 Gm-D5w Bag) 50 mls @ 100 mls/hr IVPB DAILY [facility] Last Admin: 11/06/17 10:23 Dose: 100 mls/hr Insulin Aspart (Novolog Vial Sliding Scale -) 1 vial SQ ACHS [facility] PRN Reason: Protocol Last Admin: 11/06/17 11:01 Dose: 8 units Losartan Potassium (Cozaar -) 50 mg PO DAILY [facility] Last Admin: 11/06/17 10:24 Dose: 50 mg Prednisone (Deltasone -) 40 mg PO DAILY [facility] - Objective Vital Signs: Vital Signs Temperature 98.7 F 11/06/17 06:18 Pulse Rate 74 11/06/17 06:18 Respiratory Rate 18 11/06/17 06:18 Blood Pressure 132/62 11/06/17 06:18 O2 Sat by Pulse Oximetry (%) 97 11/05/17 21:00 Constitutional: Yes: No Distress HENT: Yes: Atraumatic Neck: Yes: Supple Cardiovascular: Yes: Regular Rate and Rhythm Respiratory: Yes: Rhonchi Gastrointestinal: Yes: Normal Bowel Sounds Extremities: Yes: WNL Edema: No Edema: LLE: Trace, RLE: Trace Neurological: Yes: Alert, Oriented Labs: CBC, BMP 11/05/17 06:30 11/05/17 18:00 INR, PTT INR 1.21 (0.82-1.09) H 11/01/17 13:39 Problem List - Problems (1) CHF (congestive heart failure) Assessment/Plan: on po lasix Code(s): I50.9 - HEART FAILURE, UNSPECIFIED (2) PNA (pneumonia) Assessment/Plan: iv abc bcx id consult Code(s): J18.9 - PNEUMONIA, UNSPECIFIED ORGANISM (3) Diabetes mellitus Assessment/Plan: bgms insulin on glucotro Code(s): E11.9 - TYPE 2 DIABETES MELLITUS WITHOUT COMPLICATIONS Qualifiers: Diabetes mellitus type: type 2 Diabetes mellitus complication status: without complication Diabetes mellitus oysterman insulin use: without oysterman use Qualified Code(s): E11.9 - Type 2 diabetes mellitus without complications (4) HTN (hypertension) Assessment/Plan: on meds stable Code(s): I10 - ESSENTIAL (PRIMARY) HYPERTENSION Qualifiers: Hypertension type: essential hypertension Qualified Code(s): I10 - Essential (primary) hypertension (5) Cough Assessment/Plan: prn cough medicine Code(s): R05 - COUGH (6) Diastolic dysfunction without heart failure Code(s): I51.9 - HEART DISEASE, UNSPECIFIED (7) Pulmonary fibrosis Code(s): J84.10 - PULMONARY FIBROSIS, UNSPECIFIED
[2017-11-06] MEDS: predniSONE 20 MG TABLET (UD) PO SCH (11:42)
--- NOTE | 2017-11-06 14:32 | PN ---
Progress Note, Physician History of Present Illness: Pt seen and examined. Chart/labs reviewed, events noted. Pt states she feels a bit better. Has some cough but less phlegm. Remains afebrile and without other specific complaints. Daughter at bedside. - Current Medication List Current Medications: Active Medications Acetaminophen (Tylenol -) 650 mg PO Q6H PRN PRN Reason: FEVER Last Admin: 11/02/17 17:47 Dose: 650 mg Albuterol/Ipratropium (Duoneb -) 1 amp NEB Q4H PRN PRN Reason: SHORTNESS OF BREATH Last Admin: 11/03/17 14:05 Dose: 1 amp Amlodipine Besylate (Norvasc -) 5 mg PO DAILY [facility] Last Admin: 11/06/17 10:25 Dose: 5 mg Arformoterol Tartrate (Brovana (Restricted To Pulmonology/Resp) -) 1 amp NEB RBID [facility] Last Admin: 11/06/17 07:40 Dose: 1 amp Furosemide (Lasix -) 20 mg PO DAILY [facility] Last Admin: 11/06/17 10:25 Dose: 20 mg Glipizide (Glucotrol -) 10 mg PO 0700 [facility] Last Admin: 11/06/17 06:14 Dose: 10 mg Guaifenesin/Codeine Phosphate (Robitussin Ac -) 10 ml PO Q8H PRN PRN Reason: COUGH Last Admin: 11/05/17 12:07 Dose: 10 ml Heparin Sodium (Porcine) (Heparin -) 5,000 unit SQ BID [facility] Last Admin: 11/06/17 10:25 Dose: 5,000 unit CEFTRIAXONE 1 G/50 ML PREMIX (Ceftriaxone 1 Gm-D5w Bag) 50 mls @ 100 mls/hr IVPB DAILY [facility] Last Admin: 11/06/17 10:23 Dose: 100 mls/hr Insulin Aspart (Novolog Vial Sliding Scale -) 1 vial SQ ACHS [facility] PRN Reason: Protocol Last Admin: 11/06/17 11:01 Dose: 8 units Losartan Potassium (Cozaar -) 50 mg PO DAILY [facility] Last Admin: 11/06/17 10:24 Dose: 50 mg Prednisone (Deltasone -) 40 mg PO DAILY [facility] Last Admin: 11/06/17 11:42 Dose: 40 mg - Objective Vital Signs: Vital Signs Temperature 98.7 F 11/06/17 06:18 Pulse Rate 74 03/03/18 06:18 Respiratory Rate 18 11/06/17 06:18 Blood Pressure 132/62 11/06/17 06:18 O2 Sat by Pulse Oximetry (%) 97 11/05/17 21:00 Constitutional: Yes: No Distress Neck: Yes: Supple Cardiovascular: Yes: Pulse Irregular Respiratory: Yes: Other (crackles diffusely) Gastrointestinal: Yes: Normal Bowel Sounds, Soft Genitourinary: Yes: WNL Musculoskeletal: Yes: WNL Integumentary: Yes: WNL Neurological: Yes: Alert, Oriented Labs: CBC, BMP 11/05/17 06:30 11/05/17 18:00 INR, PTT INR 1.21 (0.82-1.09) H 11/01/17 13:39 Microbiology 11/05/17 14:00 Blood - Peripheral Venous Blood Culture - Preliminary NO GROWTH OBTAINED AFTER 24 HOURS, INCUBATION TO CONTINUE FOR 4 DAYS. 11/05/17 13:53 Blood - Peripheral Venous Blood Culture - Preliminary NO GROWTH OBTAINED AFTER 24 HOURS, INCUBATION TO CONTINUE FOR 4 DAYS. 11/05/17 22:00 Sputum - Expectorated Gram Stain - Final 11/05/17 16:00 Urine For Antigen Detection Legionella Antigen - Final 11/05/17 16:00 Urine For Antigen Detection Streptococcus pneumoniae Antigen (M - Final 11/05/17 13:45 Nasopharyngeal Swab Influenza Types A,B Antigen (MANJULA) - Preliminary 11/05/17 13:45 Nasopharyngeal Swab - Preliminary 11/01/17 17:06 Urine - Urine - Catheterized Urine Culture - Final NO GROWTH OBTAINED - ....Imaging Cat Scan: Report Reviewed Problem List - Problems (1) Acute hypoxemic respiratory failure Code(s): J96.01 - ACUTE RESPIRATORY FAILURE WITH HYPOXIA (2) CHF (congestive heart failure) Code(s): I50.9 - HEART FAILURE, UNSPECIFIED (3) Diabetes mellitus Code(s): E11.9 - TYPE 2 DIABETES MELLITUS WITHOUT COMPLICATIONS Qualifiers: Diabetes mellitus type: type 2 Diabetes mellitus complication status: without complication Diabetes mellitus correction insulin use: without correction use Qualified Code(s): E11.9 - Type 2 diabetes mellitus without complications (4) HTN (hypertension) Code(s): I10 - ESSENTIAL (PRIMARY) HYPERTENSION Qualifiers: Hypertension type: essential hypertension Qualified Code(s): I10 - Essential (primary) hypertension (5) PNA (pneumonia) Code(s): J18.9 - PNEUMONIA, UNSPECIFIED ORGANISM (6) Pulmonary fibrosis Code(s): J84.10 - PULMONARY FIBROSIS, UNSPECIFIED (7) Shortness of breath Code(s): R06.02 - SHORTNESS OF BREATH Assessment/Plan IPF Possible PNA Leukocytosis on steroids Lactic Acid - last value within normal range - cont Ceftriaxone - f/u sputum culture result - blood cultures no growth - urinary Ag negative - pt feeling a bit better with less productive cough, remains afebrile, continue monitor vitals
--- NOTE | 2017-11-06 14:54 | PN ---
Progress Note (short form) - Note Progress Note: PULMONARY States breathing slightly improved. +nonproductive cough. No fevers or chills. Last Vital Signs Temp Pulse Resp BP Pulse Ox 98.7 F 74 18 132/62 97 11/06/17 06:18 11/06/17 06:18 11/06/17 06:18 11/06/17 06:18 11/05/17 21:00 Gen: tachypneic at rest Heart: RRR Lung: bibasilar rales Abd: soft, nontender Ext: no edema CBC, BMP 11/05/17 06:30 11/05/17 18:00 Active Medications Acetaminophen (Tylenol -) 650 mg PO Q6H PRN PRN Reason: FEVER Last Admin: 11/02/17 17:47 Dose: 650 mg Albuterol/Ipratropium (Duoneb -) 1 amp NEB Q4H PRN PRN Reason: SHORTNESS OF BREATH Last Admin: 11/03/17 14:05 Dose: 1 amp Amlodipine Besylate (Norvasc -) 5 mg PO DAILY [facility] Last Admin: 11/06/17 10:25 Dose: 5 mg Arformoterol Tartrate (Brovana (Restricted To Pulmonology/Resp) -) 1 amp NEB RBID [facility] Last Admin: 11/06/17 07:40 Dose: 1 amp Furosemide (Lasix -) 20 mg PO DAILY [facility] Last Admin: 11/06/17 10:25 Dose: 20 mg Glipizide (Glucotrol -) 10 mg PO 0700 [facility] Last Admin: 11/06/17 06:14 Dose: 10 mg Guaifenesin/Codeine Phosphate (Robitussin Ac -) 10 ml PO Q8H PRN PRN Reason: COUGH Last Admin: 11/05/17 12:07 Dose: 10 ml Heparin Sodium (Porcine) (Heparin -) 5,000 unit SQ BID [facility] Last Admin: 11/06/17 10:25 Dose: 5,000 unit CEFTRIAXONE 1 G/50 ML PREMIX (Ceftriaxone 1 Gm-D5w Bag) 50 mls @ 100 mls/hr IVPB DAILY [facility] Last Admin: 11/06/17 10:23 Dose: 100 mls/hr Insulin Aspart (Novolog Vial Sliding Scale -) 1 vial SQ ACHS [facility] PRN Reason: Protocol Last Admin: 11/06/17 11:01 Dose: 8 units Losartan Potassium (Cozaar -) 50 mg PO DAILY [facility] Last Admin: 11/06/17 10:24 Dose: 50 mg Prednisone (Deltasone -) 40 mg PO DAILY [facility] Last Admin: 11/06/17 11:42 Dose: 40 mg A/P Acute Hypoxic Respiratory Failure Interstitial Lung Disease Pneumonia +Troponins likely Demand Ischemia HTN DM LV Diastolic Dysfunction - continue antibiotics - prednisone taper - inhaled bronchodilators standing - O2 to keep SpO2 >90% - lasix - DVT prophylaxis
[2017-11-07] MEDS: INSULIN SLIDING SCALE (NOVOLOG) 1 VIAL SQ SCH ×4 (06:15→21:45)
[2017-11-07] MEDS: glipiZIDE 5 MG TABLET (FP) PO SCH (06:16)
[2017-11-07] MEDS ORDERED: INSULIN (NOVOLOG) ASPART 100 UNITS/ML 10ML VIAL ONE (07:37)
[2017-11-07 07:48] LABS: BASO % 0.3 % (0-2.0); HEMATOCRIT 38.2 % (32.4-45.2); HEMOGLOBIN 12.2 GM/dL (10.7-15.3); LYMPH % 6.8 % (8-40); MCH 26.3 pg (25.7-33.7); MCHC 31.8 g/dl (32.0-36.0); MEAN CELL VOLUME 82.6 fl (80-96); MEAN PLT VOLUME 9.1 fl (7.5-11.1); MONO % 5.4 % (3.8-10.2); NEUT % 87.5 % (42.8-82.8); PLATELET COUNT 289 K/MM3 (134-434); RBC 4.63 M/mm3 (3.60-5.2); RDW 17.1 % (11.6-15.6); WHITE BLOOD COUNT 11.9 K/mm3 (4.0-10.0)
[2017-11-07] MEDS: ARFORMOTEROL TARTRATE 15 MCG/2 ML VIAL NEB SCH (08:30)
[2017-11-07] MEDS: CEFTRIAXONE 1 G/50 ML PREMIX 50 ML IVPB SCH (09:29)
[2017-11-07] MEDS: predniSONE 20 MG TABLET (UD) PO SCH (09:34)
[2017-11-07] MEDS: amLODIPine BESYLATE 5 MG TABLET (FP) PO SCH (09:34)
[2017-11-07] MEDS: FUROSEMIDE 20 MG TABLET (FP) PO SCH (09:34)
[2017-11-07] MEDS: LOSARTAN POTASSIUM 50 MG TABLET (FP) PO SCH (09:34)
[2017-11-07] MEDS: HEPARIN NA (PORCINE) 5,000 UNITS/ML 1ML VIAL SQ SCH ×2 (09:34→21:45)
--- NOTE | 2017-11-07 12:50 | PN ---
Progress Note (short form) - Note Progress Note: Chief Complaint: Events noted, notes reviewed, no distress, denies chest pain or dyspnea History of Present Illness: Seen and examined. Events noted, notes reviewed, no distress, denies chest pain or dyspnea Echocardiography dated 11/02/2017 revealed Mild LVH, normal bi-ventricular size and function, mild TR, RVSP of 32 mmHg - Current Medication List Current Medications Acetaminophen (Tylenol -) 650 mg PO Q6H PRN PRN Reason: FEVER Last Admin: 11/02/17 17:47 Dose: 650 mg Albuterol/Ipratropium (Duoneb -) 1 amp NEB Q4H PRN PRN Reason: SHORTNESS OF BREATH Last Admin: 11/03/17 14:05 Dose: 1 amp Amlodipine Besylate (Norvasc -) 5 mg PO DAILY [facility] Last Admin: 11/07/17 09:34 Dose: 5 mg Arformoterol Tartrate (Brovana (Restricted To Pulmonology/Resp) -) 1 amp NEB RBID [facility] Last Admin: 11/07/17 08:30 Dose: 1 amp Furosemide (Lasix -) 20 mg PO DAILY [facility] Last Admin: 11/07/17 09:34 Dose: 20 mg Glipizide (Glucotrol -) 10 mg PO 0700 [facility] Last Admin: 11/07/17 06:16 Dose: 10 mg Guaifenesin/Codeine Phosphate (Robitussin Ac -) 10 ml PO Q8H PRN PRN Reason: COUGH Last Admin: 11/05/17 12:07 Dose: 10 ml Heparin Sodium (Porcine) (Heparin -) 5,000 unit SQ BID [facility] Last Admin: 11/07/17 09:34 Dose: 5,000 unit CEFTRIAXONE 1 G/50 ML PREMIX (Ceftriaxone 1 Gm-D5w Bag) 50 mls @ 100 mls/hr IVPB DAILY [facility] Last Admin: 11/07/17 09:29 Dose: 100 mls/hr Insulin Aspart (Novolog Vial Sliding Scale -) 1 vial SQ ACHS [facility] PRN Reason: Protocol Last Admin: 11/07/17 11:56 Dose: 6 units Losartan Potassium (Cozaar -) 50 mg PO DAILY [facility] Last Admin: 11/07/17 09:34 Dose: 50 mg Prednisone (Deltasone -) 40 mg PO DAILY [facility] Last Admin: 11/07/17 09:34 Dose: 40 mg - Objective Vital Signs: Last Vital Signs Temp Pulse Resp BP Pulse Ox 98.3 F 69 20 138/66 99 11/07/17 06:11 11/07/17 06:11 11/07/17 06:11 11/07/17 06:11 11/06/17 21:00 Intake & Output 11/04/17 11/05/17 11/06/17 11/07/17 23:59 23:59 23:59 23:59 Intake Total 50 1530 1979 176 Balance 50 1530 1979 1759 Constitutional: No Distress, Calm Neck: Supple Negative JVD Cardiovascular: S1 S2 Regular Rate and Rhythm Respiratory: Diminished Breath Sounds at the Bases Gastrointestinal: Soft Benign, Normal Bowel Sounds Ext: No Edema Labs: CBC, BMP 11/07/17 07:27 11/05/17 18:00 Assessment/Plan ASSESSMENT: 1. Acute hypoxemic respiratory failure with underlying pulmonary fibrosis/ILD and Pneumonia, resolving 2. CAD, angina pectoris with evidence of demand ischemia 3. Diastolic LV dysfunction with chronic class I NYHA classification LV failure , compensated/euvolemic 4. HTN 5. Diabetes mellitus PLAN: 1. Continue Losartan 2. Continue Amlodipine 3. Continue Lasix 4. Add ASA unless contraindicated 5. Continue steroids and bronchodilators as per the pulmonary team Rodney Chester MD
--- NOTE | 2017-11-07 12:57 | PN ---
Progress Note (short form) - Note Progress Note: PULMONARY States breathing slowly improving. +nonproductive cough. No fevers or chills. Last Vital Signs Temp Pulse Resp BP Pulse Ox 98.3 F 69 20 138/66 99 11/07/17 06:11 11/07/17 06:11 11/07/17 06:11 11/07/17 06:11 11/06/17 21:00 Gen: less tachypneic at rest Heart: RRR Lung: bibasilar rales Abd: soft, nontender Ext: no edema CBC, BMP 11/07/17 07:27 11/05/17 18:00 Active Medications Acetaminophen (Tylenol -) 650 mg PO Q6H PRN PRN Reason: FEVER Last Admin: 11/02/17 17:47 Dose: 650 mg Albuterol/Ipratropium (Duoneb -) 1 amp NEB Q4H PRN PRN Reason: SHORTNESS OF BREATH Last Admin: 11/03/17 14:05 Dose: 1 amp Amlodipine Besylate (Norvasc -) 5 mg PO DAILY [facility] Last Admin: 11/07/17 09:34 Dose: 5 mg Arformoterol Tartrate (Brovana (Restricted To Pulmonology/Resp) -) 1 amp NEB RBID [facility] Last Admin: 11/07/17 08:30 Dose: 1 amp Furosemide (Lasix -) 20 mg PO DAILY [facility] Last Admin: 11/07/17 09:34 Dose: 20 mg Glipizide (Glucotrol -) 10 mg PO 0700 [facility] Last Admin: 11/07/17 06:16 Dose: 10 mg Guaifenesin/Codeine Phosphate (Robitussin Ac -) 10 ml PO Q8H PRN PRN Reason: COUGH Last Admin: 11/05/17 12:07 Dose: 10 ml Heparin Sodium (Porcine) (Heparin -) 5,000 unit SQ BID [facility] Last Admin: 11/07/17 09:34 Dose: 5,000 unit CEFTRIAXONE 1 G/50 ML PREMIX (Ceftriaxone 1 Gm-D5w Bag) 50 mls @ 100 mls/hr IVPB DAILY [facility] Last Admin: 11/07/17 09:29 Dose: 100 mls/hr Insulin Aspart (Novolog Vial Sliding Scale -) 1 vial SQ ACHS [facility] PRN Reason: Protocol Last Admin: 11/07/17 11:56 Dose: 6 units Losartan Potassium (Cozaar -) 50 mg PO DAILY [facility] Last Admin: 11/07/17 09:34 Dose: 50 mg Prednisone (Deltasone -) 40 mg PO DAILY [facility] Last Admin: 11/07/17 09:34 Dose: 40 mg A/P Acute Hypoxic Respiratory Failure Interstitial Lung Disease Pneumonia +Troponins likely Demand Ischemia HTN DM LV Diastolic Dysfunction - continue antibiotics - prednisone taper - inhaled bronchodilators standing - O2 to keep SpO2 >90% - lasix - DVT prophylaxis
--- NOTE | 2017-11-07 14:06 | PN ---
Progress Note, Physician History of Present Illness: Pt remains alert, without distress. Reports occasional cough but less sputum production. Remains afebrile. - Current Medication List Current Medications: Active Medications Acetaminophen (Tylenol -) 650 mg PO Q6H PRN PRN Reason: FEVER Last Admin: 11/02/17 17:47 Dose: 650 mg Albuterol/Ipratropium (Duoneb -) 1 amp NEB Q4H PRN PRN Reason: SHORTNESS OF BREATH Last Admin: 11/03/17 14:05 Dose: 1 amp Amlodipine Besylate (Norvasc -) 5 mg PO DAILY [facility] Last Admin: 11/07/17 09:34 Dose: 5 mg Arformoterol Tartrate (Brovana (Restricted To Pulmonology/Resp) -) 1 amp NEB RBID [facility] Last Admin: 11/07/17 08:30 Dose: 1 amp Furosemide (Lasix -) 20 mg PO DAILY [facility] Last Admin: 11/07/17 09:34 Dose: 20 mg Glipizide (Glucotrol -) 10 mg PO 0700 [facility] Last Admin: 11/07/17 06:16 Dose: 10 mg Guaifenesin/Codeine Phosphate (Robitussin Ac -) 10 ml PO Q8H PRN PRN Reason: COUGH Last Admin: 11/05/17 12:07 Dose: 10 ml Heparin Sodium (Porcine) (Heparin -) 5,000 unit SQ BID [facility] Last Admin: 11/07/17 09:34 Dose: 5,000 unit CEFTRIAXONE 1 G/50 ML PREMIX (Ceftriaxone 1 Gm-D5w Bag) 50 mls @ 100 mls/hr IVPB DAILY [facility] Last Admin: 11/07/17 09:29 Dose: 100 mls/hr Insulin Aspart (Novolog Vial Sliding Scale -) 1 vial SQ ACHS [facility] PRN Reason: Protocol Last Admin: 11/07/17 11:56 Dose: 6 units Losartan Potassium (Cozaar -) 50 mg PO DAILY [facility] Last Admin: 11/07/17 09:34 Dose: 50 mg Prednisone (Deltasone -) 40 mg PO DAILY [facility] Last Admin: 11/07/17 09:34 Dose: 40 mg - Objective Vital Signs: Vital Signs Temperature 98.3 F 11/07/17 06:11 Pulse Rate 69 11/07/17 06:11 Respiratory Rate 20 11/07/17 06:11 Blood Pressure 138/66 03/04/18 06:11 O2 Sat by Pulse Oximetry (%) 99 11/06/17 21:00 Constitutional: Yes: No Distress Cardiovascular: Yes: Regular Rate and Rhythm Respiratory: Yes: Other (dry crackles diffusely) Gastrointestinal: Yes: Normal Bowel Sounds, Soft Labs: CBC, BMP 11/07/17 07:27 11/05/17 18:00 INR, PTT INR 1.21 (0.82-1.09) H 11/01/17 13:39 Problem List - Problems (1) Acute hypoxemic respiratory failure Code(s): J96.01 - ACUTE RESPIRATORY FAILURE WITH HYPOXIA (2) CHF (congestive heart failure) Code(s): I50.9 - HEART FAILURE, UNSPECIFIED (3) Diabetes mellitus Code(s): E11.9 - TYPE 2 DIABETES MELLITUS WITHOUT COMPLICATIONS Qualifiers: Diabetes mellitus type: type 2 Diabetes mellitus complication status: without complication Diabetes mellitus termite control technician insulin use: without termite control technician use Qualified Code(s): E11.9 - Type 2 diabetes mellitus without complications (4) HTN (hypertension) Code(s): I10 - ESSENTIAL (PRIMARY) HYPERTENSION Qualifiers: Hypertension type: essential hypertension Qualified Code(s): I10 - Essential (primary) hypertension (5) PNA (pneumonia) Code(s): J18.9 - PNEUMONIA, UNSPECIFIED ORGANISM (6) Pulmonary fibrosis Code(s): J84.10 - PULMONARY FIBROSIS, UNSPECIFIED (7) Shortness of breath Code(s): R06.02 - SHORTNESS OF BREATH Assessment/Plan IPF Possible PNA Leukocytosis on steroids, decreased wbc today Lactic Acid - last value within normal range - cont antibiotics, plan switch to po - blood cultures no growth - pt reports feeling better
--- NOTE | 2017-11-07 14:54 | PN ---
Progress Note, Physician History of Present Illness: doing well - Current Medication List Current Medications: Active Medications Acetaminophen (Tylenol -) 650 mg PO Q6H PRN PRN Reason: FEVER Last Admin: 11/02/17 17:47 Dose: 650 mg Albuterol/Ipratropium (Duoneb -) 1 amp NEB Q4H PRN PRN Reason: SHORTNESS OF BREATH Last Admin: 11/03/17 14:05 Dose: 1 amp Amlodipine Besylate (Norvasc -) 5 mg PO DAILY [facility] Last Admin: 11/07/17 09:34 Dose: 5 mg Arformoterol Tartrate (Brovana (Restricted To Pulmonology/Resp) -) 1 amp NEB RBID [facility] Last Admin: 11/07/17 08:30 Dose: 1 amp Furosemide (Lasix -) 20 mg PO DAILY [facility] Last Admin: 11/07/17 09:34 Dose: 20 mg Glipizide (Glucotrol -) 10 mg PO 0700 [facility] Last Admin: 11/07/17 06:16 Dose: 10 mg Guaifenesin/Codeine Phosphate (Robitussin Ac -) 10 ml PO Q8H PRN PRN Reason: COUGH Last Admin: 11/05/17 12:07 Dose: 10 ml Heparin Sodium (Porcine) (Heparin -) 5,000 unit SQ BID [facility] Last Admin: 11/07/17 09:34 Dose: 5,000 unit CEFTRIAXONE 1 G/50 ML PREMIX (Ceftriaxone 1 Gm-D5w Bag) 50 mls @ 100 mls/hr IVPB DAILY [facility] Last Admin: 11/07/17 09:29 Dose: 100 mls/hr Insulin Aspart (Novolog Vial Sliding Scale -) 1 vial SQ ACHS [facility] PRN Reason: Protocol Last Admin: 11/07/17 11:56 Dose: 6 units Losartan Potassium (Cozaar -) 50 mg PO DAILY [facility] Last Admin: 11/07/17 09:34 Dose: 50 mg Prednisone (Deltasone -) 40 mg PO DAILY [facility] Last Admin: 11/07/17 09:34 Dose: 40 mg - Objective Vital Signs: Vital Signs Temperature 99.4 F 11/07/17 14:09 Pulse Rate 81 11/07/17 14:09 Respiratory Rate 20 11/07/17 14:09 Blood Pressure 136/67 11/07/17 14:09 O2 Sat by Pulse Oximetry (%) 99 11/06/17 21:00 Constitutional: Yes: No Distress HENT: Yes: Atraumatic Neck: Yes: Supple Cardiovascular: Yes: Regular Rate and Rhythm Respiratory: Yes: CTA Bilaterally, Rhonchi Gastrointestinal: Yes: Normal Bowel Sounds Extremities: Yes: WNL Edema: No Peripheral Pulses WNL: Yes Neurological: Yes: Alert, Oriented Labs: CBC, BMP 11/07/17 07:27 11/05/17 18:00 INR, PTT INR 1.21 (0.82-1.09) H 11/01/17 13:39 Problem List - Problems (1) CHF (congestive heart failure) Assessment/Plan: on po lasix Code(s): I50.9 - HEART FAILURE, UNSPECIFIED (2) PNA (pneumonia) Assessment/Plan: po abx now Code(s): J18.9 - PNEUMONIA, UNSPECIFIED ORGANISM (3) Diabetes mellitus Assessment/Plan: bgms insulin and po meds Code(s): E11.9 - TYPE 2 DIABETES MELLITUS WITHOUT COMPLICATIONS Qualifiers: Diabetes mellitus type: type 2 Diabetes mellitus complication status: without complication Diabetes mellitus long-term insulin use: without terminal worker use Qualified Code(s): E11.9 - Type 2 diabetes mellitus without complications (4) HTN (hypertension) Assessment/Plan: on meds stable Code(s): I10 - ESSENTIAL (PRIMARY) HYPERTENSION Qualifiers: Hypertension type: essential hypertension Qualified Code(s): I10 - Essential (primary) hypertension (5) Cough Code(s): R05 - COUGH (6) Diastolic dysfunction without heart failure Code(s): I51.9 - HEART DISEASE, UNSPECIFIED (7) Pulmonary fibrosis Assessment/Plan: on nrb...will try NC Code(s): J84.10 - PULMONARY FIBROSIS, UNSPECIFIED
[2017-11-07] MEDS: guaiFENesin/CODEINE 10 ML UNIT-DOSE CUPS PO PRN (17:03)
[2017-11-07] MEDS: AMOX TR/POT CLAV 875MG/125MG TABLETS (FP) PO SCH (18:10)
[2017-11-08] MEDS: INSULIN SLIDING SCALE (NOVOLOG) 1 VIAL SQ SCH ×4 (06:11→21:28)
[2017-11-08] MEDS: glipiZIDE 5 MG TABLET (FP) PO SCH (06:12)
[2017-11-08] MEDS ORDERED: INSULIN (NOVOLOG) ASPART 100 UNITS/ML 10ML VIAL ONE ×4 (06:39→21:27)
[2017-11-08] MEDS: ARFORMOTEROL TARTRATE 15 MCG/2 ML VIAL NEB SCH ×2 (07:56→20:05)
[2017-11-08] MEDS: AMOX TR/POT CLAV 875MG/125MG TABLETS (FP) PO SCH ×2 (08:32→17:51)
[2017-11-08] MEDS ORDERED: PT OWN MED DRAWER 7, Y5N ONE ×2 (09:48→12:03)
[2017-11-08] MEDS: predniSONE 20 MG TABLET (UD) PO SCH (09:53)
[2017-11-08] MEDS: HEPARIN NA (PORCINE) 5,000 UNITS/ML 1ML VIAL SQ SCH ×2 (09:54→21:29)
--- NOTE | 2017-11-08 10:33 | PN ---
Progress Note, Physician History of Present Illness: Dyspnea slowly improving. Comfortable on 100% NRB, bradycardic. - Current Medication List Current Medications: Active Medications Acetaminophen (Tylenol -) 650 mg PO Q6H PRN PRN Reason: FEVER Last Admin: 11/02/17 17:47 Dose: 650 mg Albuterol/Ipratropium (Duoneb -) 1 amp NEB Q4H PRN PRN Reason: SHORTNESS OF BREATH Last Admin: 11/03/17 14:05 Dose: 1 amp Amlodipine Besylate (Norvasc -) 5 mg PO DAILY [facility] Last Admin: 11/07/17 09:34 Dose: 5 mg Amoxicillin/Clavulanate Potassium (Augmentin - 875mg Tablet) 1 tab PO BID@0800, 1730 [facility] Last Admin: 11/08/17 08:32 Dose: 1 tab Arformoterol Tartrate (Brovana (Restricted To Pulmonology/Resp) -) 1 amp NEB RBID [facility] Last Admin: 11/08/17 07:56 Dose: 1 amp Furosemide (Lasix -) 20 mg PO DAILY [facility] Last Admin: 11/07/17 09:34 Dose: 20 mg Glipizide (Glucotrol -) 10 mg PO 0700 [facility] Last Admin: 11/08/17 06:12 Dose: 10 mg Guaifenesin/Codeine Phosphate (Robitussin Ac -) 10 ml PO Q8H PRN PRN Reason: COUGH Last Admin: 11/07/17 17:03 Dose: 10 ml Heparin Sodium (Porcine) (Heparin -) 5,000 unit SQ BID [facility] Last Admin: 11/08/17 09:54 Dose: 5,000 unit Insulin Aspart (Novolog Vial Sliding Scale -) 1 vial SQ ACHS [facility] PRN Reason: Protocol Last Admin: 11/08/17 06:11 Dose: Not Given Losartan Potassium (Cozaar -) 50 mg PO DAILY [facility] Last Admin: 11/07/17 09:34 Dose: 50 mg Prednisone (Deltasone -) 40 mg PO DAILY [facility] Last Admin: 11/08/17 09:53 Dose: 40 mg - Objective Vital Signs: Vital Signs Temperature 98.7 F 11/08/17 09:33 Pulse Rate 52 L 11/08/17 09:33 Respiratory Rate 22 11/08/17 09:33 Blood Pressure 154/74 11/08/17 09:33 O2 Sat by Pulse Oximetry (%) 99 11/07/17 21:00 Constitutional: Yes: No Distress, Calm Neck: Yes: Supple Cardiovascular: Yes: Regular Rate and Rhythm Respiratory: Yes: Regular, Diminished, On Nasal O2 Gastrointestinal: Yes: Normal Bowel Sounds, Soft Edema: No Labs: CBC, BMP 11/07/17 07:27 11/05/17 18:00 INR, PTT INR 1.21 (0.82-1.09) H 11/01/17 13:39 Problem List - Problems (1) Diastolic dysfunction without heart failure Code(s): I51.9 - HEART DISEASE, UNSPECIFIED (2) Acute hypoxemic respiratory failure Code(s): J96.01 - ACUTE RESPIRATORY FAILURE WITH HYPOXIA (3) Diabetes mellitus Code(s): E11.9 - TYPE 2 DIABETES MELLITUS WITHOUT COMPLICATIONS Qualifiers: Diabetes mellitus type: type 2 Diabetes mellitus complication status: without complication Diabetes mellitus penitentiary insulin use: without penitentiary use Qualified Code(s): E11.9 - Type 2 diabetes mellitus without complications (4) HTN (hypertension) Code(s): I10 - ESSENTIAL (PRIMARY) HYPERTENSION Qualifiers: Hypertension type: essential hypertension Qualified Code(s): I10 - Essential (primary) hypertension (5) Pulmonary fibrosis Code(s): J84.10 - PULMONARY FIBROSIS, UNSPECIFIED (6) Shortness of breath Code(s): R06.02 - SHORTNESS OF BREATH (7) Demand ischemia Code(s): I24.8 - OTHER FORMS OF ACUTE ISCHEMIC HEART DISEASE (8) PNA (pneumonia) Code(s): J18.9 - PNEUMONIA, UNSPECIFIED ORGANISM (9) Bradycardia Code(s): R00.1 - BRADYCARDIA, UNSPECIFIED Assessment/Plan 11/02/2017 Echo: Mild LVH, normal biventricular size and fxn, mild TR, RVSP 32 mmHG 11/03/[address]: Extensive interstitial lung disease with likely acute diffuse pneumonitis most prominent RUL 1. Acute hypoxemic respiratory failure with underlying pulmonary fibrosis/ILD and PNA resolving 2. Mildly elevated troponin due to demand ischemia - secondary to above 3. Diabetes mellitus 4. Hypertension 5. Diastolic dysfunction 6. OSAS suspect 7. Bradycardia PLAN: 1. Continue Losartan 50 qd, Amlodipine 5 qd and Lasix 20 po qd (home dose) 2. Oral steroids, BD, O2, empiric antibiotic course per C&S 3. Troponins have plateaued 4. PSG and PFTs as outpatient 5. DVT prophylaxis 6. Check ECG
[2017-11-08] MEDS: FUROSEMIDE 20 MG TABLET (FP) PO SCH (10:48)
[2017-11-08] MEDS: LOSARTAN POTASSIUM 50 MG TABLET (FP) PO SCH (10:48)
[2017-11-08] MEDS: amLODIPine BESYLATE 5 MG TABLET (FP) PO SCH (10:49)
--- NOTE | 2017-11-08 14:17 | PN ---
Progress Note, Physician History of Present Illness: patient doing well still with breathing difficulty still on face mask daughter in room - Current Medication List Current Medications: Active Medications Acetaminophen (Tylenol -) 650 mg PO Q6H PRN PRN Reason: FEVER Last Admin: 11/02/17 17:47 Dose: 650 mg Albuterol/Ipratropium (Duoneb -) 1 amp NEB Q4H PRN PRN Reason: SHORTNESS OF BREATH Last Admin: 11/03/17 14:05 Dose: 1 amp Amlodipine Besylate (Norvasc -) 5 mg PO DAILY [facility] Last Admin: 11/08/17 10:49 Dose: 5 mg Amoxicillin/Clavulanate Potassium (Augmentin - 875mg Tablet) 1 tab PO BID@0800, 1730 [facility] Last Admin: 11/08/17 08:32 Dose: 1 tab Arformoterol Tartrate (Brovana (Restricted To Pulmonology/Resp) -) 1 amp NEB RBID [facility] Last Admin: 11/08/17 07:56 Dose: 1 amp Furosemide (Lasix -) 20 mg PO DAILY [facility] Last Admin: 11/08/17 10:48 Dose: 20 mg Glipizide (Glucotrol -) 10 mg PO 0700 [facility] Last Admin: 11/08/17 06:12 Dose: 10 mg Heparin Sodium (Porcine) (Heparin -) 5,000 unit SQ BID [facility] Last Admin: 11/08/17 09:54 Dose: 5,000 unit Insulin Aspart (Novolog Vial Sliding Scale -) 1 vial SQ ACHS [facility] PRN Reason: Protocol Last Admin: 11/08/17 11:44 Dose: 6 units Losartan Potassium (Cozaar -) 50 mg PO DAILY [facility] Last Admin: 11/08/17 10:48 Dose: 50 mg Prednisone (Deltasone -) 40 mg PO DAILY [facility] Last Admin: 11/08/17 09:53 Dose: 40 mg - Objective Vital Signs: Vital Signs Temperature 98.7 F 11/08/17 09:33 Pulse Rate 71 11/08/17 11:29 Respiratory Rate 22 11/08/17 09:33 Blood Pressure 154/74 11/08/17 09:33 O2 Sat by Pulse Oximetry (%) 95 11/08/17 11:29 Constitutional: Yes: No Distress, Calm, Obese Cardiovascular: Yes: Regular Rate and Rhythm Respiratory: Yes: Regular, Other (crackles on ventimask) Gastrointestinal: Yes: Normal Bowel Sounds, Soft Extremities: Yes: WNL Neurological: Yes: Alert, Oriented Psychiatric: Yes: Alert, Oriented Labs: CBC, BMP 11/07/17 07:27 11/05/17 18:00 INR, PTT INR 1.21 (0.82-1.09) H 11/01/17 13:39 Assessment/Plan Problem List - Problems (1) Acute respiratory failure with hypoxemia Code(s): J96.01 - ACUTE RESPIRATORY FAILURE WITH HYPOXIA (2) CHF (congestive heart failure) Code(s): I50.9 - HEART FAILURE, UNSPECIFIED (3) Diabetes mellitus Code(s): E11.9 - TYPE 2 DIABETES MELLITUS WITHOUT COMPLICATIONS Qualifiers: Diabetes mellitus type: type 2 Diabetes mellitus complication status: without complication Diabetes mellitus snf insulin use: without long term care administrator use Qualified Code(s): E11.9 - Type 2 diabetes mellitus without complications (4) HTN (hypertension) Code(s): I10 - ESSENTIAL (PRIMARY) HYPERTENSION Qualifiers: Hypertension type: essential hypertension Qualified Code(s): I10 - Essential (primary) hypertension (5) PNA (pneumonia) Code(s): J18.9 - PNEUMONIA, UNSPECIFIED ORGANISM (6) Pulmonary fibrosis Code(s): J84.10 - PULMONARY FIBROSIS, UNSPECIFIED (7) Shortness of breath Code(s): R06.02 - SHORTNESS OF BREATH (8) Acute hypoxemic respiratory failure Code(s): J96.01 - ACUTE RESPIRATORY FAILURE WITH HYPOXIA (9) Cough Code(s): R05 - COUGH plan patient on oral abx continue resp support pul on case incentive tomas physio
--- NOTE | 2017-11-08 14:49 | PN ---
Progress Note, Physician History of Present Illness: pulmonary slowly improving less dyspneic,still requiring 100% o2,become hypoxic on nasal o25L,and 50%vm - Current Medication List Current Medications: Active Medications Acetaminophen (Tylenol -) 650 mg PO Q6H PRN PRN Reason: FEVER Last Admin: 11/02/17 17:47 Dose: 650 mg Albuterol/Ipratropium (Duoneb -) 1 amp NEB Q4H PRN PRN Reason: SHORTNESS OF BREATH Last Admin: 11/03/17 14:05 Dose: 1 amp Amlodipine Besylate (Norvasc -) 5 mg PO DAILY [facility] Last Admin: 11/08/17 10:49 Dose: 5 mg Amoxicillin/Clavulanate Potassium (Augmentin - 875mg Tablet) 1 tab PO BID@0800, 1730 [facility] Last Admin: 11/08/17 08:32 Dose: 1 tab Arformoterol Tartrate (Brovana (Restricted To Pulmonology/Resp) -) 1 amp NEB RBID [facility] Last Admin: 11/08/17 07:56 Dose: 1 amp Furosemide (Lasix -) 20 mg PO DAILY [facility] Last Admin: 11/08/17 10:48 Dose: 20 mg Glipizide (Glucotrol -) 10 mg PO 0700 [facility] Last Admin: 11/08/17 06:12 Dose: 10 mg Heparin Sodium (Porcine) (Heparin -) 5,000 unit SQ BID [facility] Last Admin: 11/08/17 09:54 Dose: 5,000 unit Insulin Aspart (Novolog Vial Sliding Scale -) 1 vial SQ ACHS [facility] PRN Reason: Protocol Last Admin: 11/08/17 11:44 Dose: 6 units Losartan Potassium (Cozaar -) 50 mg PO DAILY [facility] Last Admin: 11/08/17 10:48 Dose: 50 mg Prednisone (Deltasone -) 40 mg PO DAILY [facility] Last Admin: 11/08/17 09:53 Dose: 40 mg - Objective Vital Signs: Vital Signs Temperature 98.7 F 11/08/17 09:33 Pulse Rate 71 11/08/17 11:29 Respiratory Rate 22 11/08/17 09:33 Blood Pressure 154/74 11/08/17 09:33 O2 Sat by Pulse Oximetry (%) 95 11/08/17 11:29 Constitutional: Yes: Well Nourished, Mild Distress Eyes: Yes: WNL HENT: Yes: WNL Neck: Yes: WNL Cardiovascular: Yes: Regular Rate and Rhythm, S1, S2 Respiratory: Yes: Rales (sarah crackles throughout) Gastrointestinal: Yes: Normal Bowel Sounds, Soft Extremities: Yes: WNL Edema: No Labs: CBC, BMP 11/07/17 07:27 11/05/17 18:00 INR, PTT INR 1.21 (0.82-1.09) H 11/01/17 13:39 Problem List - Problems (1) Acute respiratory failure with hypoxemia Code(s): J96.01 - ACUTE RESPIRATORY FAILURE WITH HYPOXIA (2) CHF (congestive heart failure) Code(s): I50.9 - HEART FAILURE, UNSPECIFIED (3) Diabetes mellitus Code(s): E11.9 - TYPE 2 DIABETES MELLITUS WITHOUT COMPLICATIONS Qualifiers: Diabetes mellitus type: type 2 Diabetes mellitus complication status: without complication Diabetes mellitus watermaster insulin use: without group home use Qualified Code(s): E11.9 - Type 2 diabetes mellitus without complications (4) HTN (hypertension) Code(s): I10 - ESSENTIAL (PRIMARY) HYPERTENSION Qualifiers: Hypertension type: essential hypertension Qualified Code(s): I10 - Essential (primary) hypertension (5) PNA (pneumonia) Code(s): J18.9 - PNEUMONIA, UNSPECIFIED ORGANISM (6) Pulmonary fibrosis Code(s): J84.10 - PULMONARY FIBROSIS, UNSPECIFIED (7) Shortness of breath Code(s): R06.02 - SHORTNESS OF BREATH (8) Acute hypoxemic respiratory failure Code(s): J96.01 - ACUTE RESPIRATORY FAILURE WITH HYPOXIA (9) Cough Code(s): R05 - COUGH Assessment/Plan IMP ACUTE HYPOXEMIC RESPIRATORY FAILURE ADVANCED ILD/PULMONARY FIBROSIS PNEUMONIA CHF + TROPONINS LIKELY DEMAND ISCHEMIA ELEVATED LACTATE LEVEL PULMONARY HTN SUSPECTED MIGNON PLAN ABX INHALED BRONCHODILATORS STEROIDS O2 NEFTALIIX DR TRUJILLO Problem List - Problems (1) Acute respiratory failure with hypoxemia Code(s): J96.01 - ACUTE RESPIRATORY FAILURE WITH HYPOXIA (2) CHF (congestive heart failure) Code(s): I50.9 - HEART FAILURE, UNSPECIFIED (3) Diabetes mellitus Code(s): E11.9 - TYPE 2 DIABETES MELLITUS WITHOUT COMPLICATIONS Qualifiers: Diabetes mellitus type: type 2 Diabetes mellitus complication status: without complication Diabetes mellitus watermaster insulin use: without watermaster use Qualified Code(s): E11.9 - Type 2 diabetes mellitus without complications (4) HTN (hypertension) Code(s): I10 - ESSENTIAL (PRIMARY) HYPERTENSION Qualifiers: Hypertension type: essential hypertension Qualified Code(s): I10 - Essential (primary) hypertension (5) PNA (pneumonia) Code(s): J18.9 - PNEUMONIA, UNSPECIFIED ORGANISM (6) Pulmonary fibrosis Code(s): J84.10 - PULMONARY FIBROSIS, UNSPECIFIED (7) Shortness of breath Code(s): R06.02 - SHORTNESS OF BREATH (8) Acute hypoxemic respiratory failure Code(s): J96.01 - ACUTE RESPIRATORY FAILURE WITH HYPOXIA (9) Cough Code(s): R05 - COUGH
--- NOTE | 2017-11-08 17:17 | PN ---
Progress Note, Physician History of Present Illness: feeling better - Current Medication List Current Medications: Active Medications Acetaminophen (Tylenol -) 650 mg PO Q6H PRN PRN Reason: FEVER Last Admin: 11/02/17 17:47 Dose: 650 mg Albuterol/Ipratropium (Duoneb -) 1 amp NEB Q4H PRN PRN Reason: SHORTNESS OF BREATH Last Admin: 11/03/17 14:05 Dose: 1 amp Amlodipine Besylate (Norvasc -) 5 mg PO DAILY [facility] Last Admin: 11/08/17 10:49 Dose: 5 mg Amoxicillin/Clavulanate Potassium (Augmentin - 875mg Tablet) 1 tab PO BID@0800, 1730 [facility] Last Admin: 11/08/17 08:32 Dose: 1 tab Arformoterol Tartrate (Brovana (Restricted To Pulmonology/Resp) -) 1 amp NEB RBID [facility] Last Admin: 11/08/17 07:56 Dose: 1 amp Furosemide (Lasix -) 20 mg PO DAILY [facility] Last Admin: 11/08/17 10:48 Dose: 20 mg Glipizide (Glucotrol -) 10 mg PO 0700 [facility] Last Admin: 11/08/17 06:12 Dose: 10 mg Heparin Sodium (Porcine) (Heparin -) 5,000 unit SQ BID [facility] Last Admin: 11/08/17 09:54 Dose: 5,000 unit Insulin Aspart (Novolog Vial Sliding Scale -) 1 vial SQ ACHS [facility] PRN Reason: Protocol Last Admin: 11/08/17 11:44 Dose: 6 units Losartan Potassium (Cozaar -) 50 mg PO DAILY [facility] Last Admin: 11/08/17 10:48 Dose: 50 mg Prednisone (Deltasone -) 40 mg PO DAILY [facility] Last Admin: 11/08/17 09:53 Dose: 40 mg - Objective Vital Signs: Vital Signs Temperature 99.3 F 11/08/17 14:49 Pulse Rate 74 11/08/17 14:49 Respiratory Rate 20 11/08/17 14:49 Blood Pressure 143/78 11/08/17 14:49 O2 Sat by Pulse Oximetry (%) 95 11/08/17 11:29 Constitutional: Yes: No Distress HENT: Yes: Atraumatic Neck: Yes: Supple Cardiovascular: Yes: Regular Rate and Rhythm Respiratory: Yes: Rhonchi Gastrointestinal: Yes: Normal Bowel Sounds Extremities: Yes: WNL Edema: LLE: 1+, RLE: 1+ Peripheral Pulses WNL: Yes Neurological: Yes: Alert, Oriented Labs: CBC, BMP 11/07/17 07:27 11/05/17 18:00 INR, PTT INR 1.21 (0.82-1.09) H 11/01/17 13:39 Problem List - Problems (1) CHF (congestive heart failure) Assessment/Plan: on po lasix Code(s): I50.9 - HEART FAILURE, UNSPECIFIED (2) PNA (pneumonia) Assessment/Plan: po abx now Code(s): J18.9 - PNEUMONIA, UNSPECIFIED ORGANISM (3) Diabetes mellitus Assessment/Plan: bgms insulin and po meds Code(s): E11.9 - TYPE 2 DIABETES MELLITUS WITHOUT COMPLICATIONS Qualifiers: Diabetes mellitus type: type 2 Diabetes mellitus complication status: without complication Diabetes mellitus chcf insulin use: without buttermaker continuous churn use Qualified Code(s): E11.9 - Type 2 diabetes mellitus without complications (4) HTN (hypertension) Assessment/Plan: on meds stable Code(s): I10 - ESSENTIAL (PRIMARY) HYPERTENSION Qualifiers: Hypertension type: essential hypertension Qualified Code(s): I10 - Essential (primary) hypertension (5) Cough Code(s): R05 - COUGH (6) Diastolic dysfunction without heart failure Code(s): I51.9 - HEART DISEASE, UNSPECIFIED (7) Pulmonary fibrosis Assessment/Plan: on nrb now Code(s): J84.10 - PULMONARY FIBROSIS, UNSPECIFIED
[2017-11-09] MEDS: INSULIN SLIDING SCALE (NOVOLOG) 1 VIAL SQ SCH ×4 (06:09→21:55)
[2017-11-09] MEDS: glipiZIDE 5 MG TABLET (FP) PO SCH (06:09)
[2017-11-09] MEDS: ARFORMOTEROL TARTRATE 15 MCG/2 ML VIAL NEB SCH ×3 (08:55→20:40)
[2017-11-09] MEDS ORDERED: PT OWN MED DRAWER 7, Y5N ONE (08:57)
[2017-11-09] MEDS: HEPARIN NA (PORCINE) 5,000 UNITS/ML 1ML VIAL SQ SCH ×2 (09:06→21:55)
[2017-11-09] MEDS: LOSARTAN POTASSIUM 50 MG TABLET (FP) PO SCH (09:06)
[2017-11-09] MEDS: predniSONE 20 MG TABLET (UD) PO SCH (09:06)
[2017-11-09] MEDS: amLODIPine BESYLATE 5 MG TABLET (FP) PO SCH (09:06)
[2017-11-09] MEDS: AMOX TR/POT CLAV 875MG/125MG TABLETS (FP) PO SCH ×2 (09:06→18:42)
[2017-11-09] MEDS: FUROSEMIDE 20 MG TABLET (FP) PO SCH (09:06)
--- NOTE | 2017-11-09 12:22 | PN ---
Progress Note (short form) - Note Progress Note: PULMONARY States breathing slowly improving. +nonproductive cough. No fevers or chills. Requiring NRB, intermittently desaturating on 50% ventimask and nasal cannula. Last Vital Signs Temp Pulse Resp BP Pulse Ox 97.9 F 64 19 151/60 100 11/09/17 09:14 11/09/17 09:14 11/09/17 09:14 11/09/17 09:14 11/09/17 09:00 Gen: less tachypneic at rest Heart: RRR Lung: bibasilar rales Abd: soft, nontender Ext: no edema CBC, BMP 11/07/17 07:27 11/05/17 18:00 Active Medications Acetaminophen (Tylenol -) 650 mg PO Q6H PRN PRN Reason: FEVER Last Admin: 11/02/17 17:47 Dose: 650 mg Albuterol/Ipratropium (Duoneb -) 1 amp NEB Q4H PRN PRN Reason: SHORTNESS OF BREATH Last Admin: 11/03/17 14:05 Dose: 1 amp Amlodipine Besylate (Norvasc -) 5 mg PO DAILY [facility] Last Admin: 11/09/17 09:06 Dose: 5 mg Amoxicillin/Clavulanate Potassium (Augmentin - 875mg Tablet) 1 tab PO BID@0800, 1730 [facility] Last Admin: 11/09/17 09:06 Dose: 1 tab Arformoterol Tartrate (Brovana (Restricted To Pulmonology/Resp) -) 1 amp NEB RBID [facility] Last Admin: 11/09/17 08:55 Dose: 1 amp Furosemide (Lasix -) 20 mg PO DAILY [facility] Last Admin: 11/09/17 09:06 Dose: 20 mg Glipizide (Glucotrol -) 10 mg PO 0700 [facility] Last Admin: 11/09/17 06:09 Dose: 10 mg Heparin Sodium (Porcine) (Heparin -) 5,000 unit SQ BID [facility] Last Admin: 11/09/17 09:06 Dose: 5,000 unit Insulin Aspart (Novolog Vial Sliding Scale -) 1 vial SQ ACHS [facility] PRN Reason: Protocol Last Admin: 11/09/17 06:09 Dose: 4 units Losartan Potassium (Cozaar -) 50 mg PO DAILY [facility] Last Admin: 03/06/18 09:06 Dose: 50 mg Prednisone (Deltasone -) 40 mg PO DAILY [facility] Last Admin: 11/09/17 09:06 Dose: 40 mg A/P Acute Hypoxic Respiratory Failure Interstitial Lung Disease Pneumonia +Troponins likely Demand Ischemia HTN DM LV Diastolic Dysfunction - continue antibiotics - continue prednisone - inhaled bronchodilators standing - O2 to keep SpO2 >90% - lasix - DVT prophylaxis - will need to address goals of care
--- NOTE | 2017-11-09 12:41 | PN ---
Progress Note, Physician Chief Complaint: Events noted On ventimask Productive cough Less SOB History of Present Illness: Patient was seen and examined. Awake and alert. Chart was reviewed Denies chest pain or palpitations Less SOB as outlined - Current Medication List Current Medications: Active Medications Acetaminophen (Tylenol -) 650 mg PO Q6H PRN PRN Reason: FEVER Last Admin: 11/02/17 17:47 Dose: 650 mg Albuterol/Ipratropium (Duoneb -) 1 amp NEB Q4H PRN PRN Reason: SHORTNESS OF BREATH Last Admin: 11/03/17 14:05 Dose: 1 amp Amlodipine Besylate (Norvasc -) 5 mg PO DAILY [facility] Last Admin: 11/09/17 09:06 Dose: 5 mg Amoxicillin/Clavulanate Potassium (Augmentin - 875mg Tablet) 1 tab PO BID@0800, 1730 [facility] Last Admin: 11/09/17 09:06 Dose: 1 tab Arformoterol Tartrate (Brovana (Restricted To Pulmonology/Resp) -) 1 amp NEB RBID [facility] Last Admin: 11/09/17 08:55 Dose: 1 amp Furosemide (Lasix -) 20 mg PO DAILY [facility] Last Admin: 11/09/17 09:06 Dose: 20 mg Glipizide (Glucotrol -) 10 mg PO 0700 [facility] Last Admin: 11/09/17 06:09 Dose: 10 mg Heparin Sodium (Porcine) (Heparin -) 5,000 unit SQ BID [facility] Last Admin: 11/09/17 09:06 Dose: 5,000 unit Insulin Aspart (Novolog Vial Sliding Scale -) 1 vial SQ ACHS [facility] PRN Reason: Protocol Last Admin: 11/09/17 12:23 Dose: 6 units Losartan Potassium (Cozaar -) 50 mg PO DAILY [facility] Last Admin: 11/09/17 09:06 Dose: 50 mg Prednisone (Deltasone -) 40 mg PO DAILY [facility] Last Admin: 11/09/17 09:06 Dose: 40 mg - Objective Vital Signs: Vital Signs Temperature 97.9 F 11/09/17 09:14 Pulse Rate 64 11/09/17 09:14 Respiratory Rate 19 11/09/17 09:14 Blood Pressure 151/60 11/09/17 09:14 O2 Sat by Pulse Oximetry (%) 100 11/09/17 09:00 Eyes: Yes: PERRL HENT: Yes: Atraumatic Neck: Yes: Supple Cardiovascular: Yes: Regular Rate and Rhythm, S1, S2 Respiratory: Yes: Diminished Gastrointestinal: Yes: Normal Bowel Sounds, Soft. No: Tenderness Edema: No Problem List - Problems (1) Pulmonary fibrosis Code(s): J84.10 - PULMONARY FIBROSIS, UNSPECIFIED (2) Shortness of breath Code(s): R06.02 - SHORTNESS OF BREATH (3) Cough Code(s): R05 - COUGH (4) HTN (hypertension) Code(s): I10 - ESSENTIAL (PRIMARY) HYPERTENSION Qualifiers: Hypertension type: essential hypertension Qualified Code(s): I10 - Essential (primary) hypertension (5) Diabetes mellitus Code(s): E11.9 - TYPE 2 DIABETES MELLITUS WITHOUT COMPLICATIONS Qualifiers: Diabetes mellitus type: type 2 Diabetes mellitus complication status: without complication Diabetes mellitus fci insulin use: without fci use Qualified Code(s): E11.9 - Type 2 diabetes mellitus without complications (6) CHF (congestive heart failure) Code(s): I50.9 - HEART FAILURE, UNSPECIFIED Assessment/Plan 1. Acute hypoxemic respiratory failure with underlying pulmonary fibrosis/ILD and pneumonia resolving 2. Mildly elevated troponin due to demand ischemia 3. Diabetes mellitus 4. Hypertension 5. Diastolic dysfunction 6. OSAS PLAN: 1. Continue Losartan, Amlodipine and Lasix 2. Oral steroids, bronchodilator, O2, empiric antibiotic course 3. Troponin noted 4. Further work up for MIGNON as outpatient 5. DVT prophylaxis Further plans are to follow Frankie Dueñas MD
--- NOTE | 2017-11-09 13:12 | PN ---
Progress Note, Physician History of Present Illness: continues to desat on nrb still needing venti mask non productive cough - Current Medication List Current Medications: Active Medications Acetaminophen (Tylenol -) 650 mg PO Q6H PRN PRN Reason: FEVER Last Admin: 11/02/17 17:47 Dose: 650 mg Albuterol/Ipratropium (Duoneb -) 1 amp NEB Q4H PRN PRN Reason: SHORTNESS OF BREATH Last Admin: 11/03/17 14:05 Dose: 1 amp Amlodipine Besylate (Norvasc -) 5 mg PO DAILY [facility] Last Admin: 11/09/17 09:06 Dose: 5 mg Amoxicillin/Clavulanate Potassium (Augmentin - 875mg Tablet) 1 tab PO BID@0800, 1730 [facility] Last Admin: 11/09/17 09:06 Dose: 1 tab Arformoterol Tartrate (Brovana (Restricted To Pulmonology/Resp) -) 1 amp NEB RBID [facility] Last Admin: 11/09/17 08:55 Dose: 1 amp Furosemide (Lasix -) 20 mg PO DAILY [facility] Last Admin: 11/09/17 09:06 Dose: 20 mg Glipizide (Glucotrol -) 10 mg PO 0700 [facility] Last Admin: 11/09/17 06:09 Dose: 10 mg Heparin Sodium (Porcine) (Heparin -) 5,000 unit SQ BID [facility] Last Admin: 11/09/17 09:06 Dose: 5,000 unit Insulin Aspart (Novolog Vial Sliding Scale -) 1 vial SQ ACHS [facility] PRN Reason: Protocol Last Admin: 11/09/17 12:23 Dose: 6 units Losartan Potassium (Cozaar -) 50 mg PO DAILY [facility] Last Admin: 11/09/17 09:06 Dose: 50 mg Prednisone (Deltasone -) 40 mg PO DAILY [facility] Last Admin: 11/09/17 09:06 Dose: 40 mg - Objective Vital Signs: Vital Signs Temperature 97.9 F 11/09/17 09:14 Pulse Rate 64 11/09/17 09:14 Respiratory Rate 19 11/09/17 09:14 Blood Pressure 151/60 11/09/17 09:14 O2 Sat by Pulse Oximetry (%) 100 11/09/17 09:00 Constitutional: Yes: Calm, Mild Distress, Other Eyes: Yes: Conjunctiva Clear Cardiovascular: Yes: Regular Rate and Rhythm Respiratory: Yes: Regular, Other (crackles on ventimask) Gastrointestinal: Yes: Normal Bowel Sounds, Soft Extremities: Yes: WNL Neurological: Yes: Alert, Oriented Psychiatric: Yes: Alert, Oriented Labs: CBC, BMP 11/07/17 07:27 11/05/17 18:00 INR, PTT INR 1.21 (0.82-1.09) H 11/01/17 13:39 Assessment/Plan Problem List - Problems (1) Acute respiratory failure with hypoxemia Code(s): J96.01 - ACUTE RESPIRATORY FAILURE WITH HYPOXIA (2) CHF (congestive heart failure) Code(s): I50.9 - HEART FAILURE, UNSPECIFIED (3) Diabetes mellitus Code(s): E11.9 - TYPE 2 DIABETES MELLITUS WITHOUT COMPLICATIONS Qualifiers: Diabetes mellitus type: type 2 Diabetes mellitus complication status: without complication Diabetes mellitus mcfp insulin use: without mcfp use Qualified Code(s): E11.9 - Type 2 diabetes mellitus without complications (4) HTN (hypertension) Code(s): I10 - ESSENTIAL (PRIMARY) HYPERTENSION Qualifiers: Hypertension type: essential hypertension Qualified Code(s): I10 - Essential (primary) hypertension (5) PNA (pneumonia) Code(s): J18.9 - PNEUMONIA, UNSPECIFIED ORGANISM (6) Pulmonary fibrosis Code(s): J84.10 - PULMONARY FIBROSIS, UNSPECIFIED (7) Shortness of breath Code(s): R06.02 - SHORTNESS OF BREATH (8) Acute hypoxemic respiratory failure Code(s): J96.01 - ACUTE RESPIRATORY FAILURE WITH HYPOXIA (9) Cough Code(s): R05 - COUGH plan patient on oral abx continue resp support pul on case incentive tomas physio will check wbc patient probably has worsening ipf
--- NOTE | 2017-11-09 14:22 | PN ---
Progress Note, Physician History of Present Illness: feeling better - Current Medication List Current Medications: Active Medications Acetaminophen (Tylenol -) 650 mg PO Q6H PRN PRN Reason: FEVER Last Admin: 11/02/17 17:47 Dose: 650 mg Albuterol/Ipratropium (Duoneb -) 1 amp NEB Q4H PRN PRN Reason: SHORTNESS OF BREATH Last Admin: 11/03/17 14:05 Dose: 1 amp Amlodipine Besylate (Norvasc -) 5 mg PO DAILY [facility] Last Admin: 11/09/17 09:06 Dose: 5 mg Amoxicillin/Clavulanate Potassium (Augmentin - 875mg Tablet) 1 tab PO BID@0800, 1730 [facility] Last Admin: 11/09/17 09:06 Dose: 1 tab Arformoterol Tartrate (Brovana (Restricted To Pulmonology/Resp) -) 1 amp NEB RBID [facility] Last Admin: 11/09/17 08:55 Dose: 1 amp Furosemide (Lasix -) 20 mg PO DAILY [facility] Last Admin: 11/09/17 09:06 Dose: 20 mg Glipizide (Glucotrol -) 10 mg PO 0700 [facility] Last Admin: 11/09/17 06:09 Dose: 10 mg Heparin Sodium (Porcine) (Heparin -) 5,000 unit SQ BID [facility] Last Admin: 11/09/17 09:06 Dose: 5,000 unit Insulin Aspart (Novolog Vial Sliding Scale -) 1 vial SQ ACHS [facility] PRN Reason: Protocol Last Admin: 11/09/17 12:23 Dose: 6 units Losartan Potassium (Cozaar -) 50 mg PO DAILY [facility] Last Admin: 11/09/17 09:06 Dose: 50 mg Prednisone (Deltasone -) 40 mg PO DAILY [facility] Last Admin: 11/09/17 09:06 Dose: 40 mg - Objective Vital Signs: Vital Signs Temperature 97.9 F 11/09/17 09:14 Pulse Rate 64 11/09/17 09:14 Respiratory Rate 19 11/09/17 09:14 Blood Pressure 151/60 11/09/17 09:14 O2 Sat by Pulse Oximetry (%) 100 11/09/17 09:00 Constitutional: Yes: Calm HENT: Yes: Atraumatic Neck: Yes: Supple Cardiovascular: Yes: Regular Rate and Rhythm Respiratory: Yes: CTA Bilaterally Gastrointestinal: Yes: Normal Bowel Sounds Extremities: Yes: WNL Edema: LLE: Trace, RLE: Trace Peripheral Pulses WNL: Yes Neurological: Yes: Alert, Oriented Labs: CBC, BMP 11/07/17 07:27 11/05/17 18:00 INR, PTT INR 1.21 (0.82-1.09) H 11/01/17 13:39 Problem List - Problems (1) CHF (congestive heart failure) Assessment/Plan: on po lasix better Code(s): I50.9 - HEART FAILURE, UNSPECIFIED (2) PNA (pneumonia) Assessment/Plan: po abx now better Code(s): J18.9 - PNEUMONIA, UNSPECIFIED ORGANISM (3) Diabetes mellitus Assessment/Plan: bgms insulin and po meds Code(s): E11.9 - TYPE 2 DIABETES MELLITUS WITHOUT COMPLICATIONS Qualifiers: Diabetes mellitus type: type 2 Diabetes mellitus complication status: without complication Diabetes mellitus intermediate manager insulin use: without detention use Qualified Code(s): E11.9 - Type 2 diabetes mellitus without complications (4) HTN (hypertension) Assessment/Plan: on meds stable Code(s): I10 - ESSENTIAL (PRIMARY) HYPERTENSION Qualifiers: Hypertension type: essential hypertension Qualified Code(s): I10 - Essential (primary) hypertension (5) Cough Assessment/Plan: prn cough medicine Code(s): R05 - COUGH (6) Diastolic dysfunction without heart failure Code(s): I51.9 - HEART DISEASE, UNSPECIFIED (7) Pulmonary fibrosis Assessment/Plan: on nrb now Code(s): J84.10 - PULMONARY FIBROSIS, UNSPECIFIED
--- NOTE | 2017-11-09 14:30 | EKG ---
Test Reason : Blood Pressure : / mmHG Vent. Rate : 077 BPM Atrial Rate : 077 BPM P-R Int : 162 ms QRS Dur : 088 ms QT Int : 378 ms P-R-T Axes : 032 -18 -02 degrees QTc Int : 427 ms NORMAL SINUS RHYTHM VOLTAGE CRITERIA FOR LEFT VENTRICULAR HYPERTROPHY ABNORMAL ECG WHEN COMPARED WITH ECG OF 01-NOV-2017 13:40, PREMATURE VENTRICULAR COMPLEXES ARE NO LONGER PRESENT Confirmed by MD Luis, Chano ([id number]) on 11/09/2017 2:30:26 PM [facility] Confirmed By:Chano Smith MD
[2017-11-09] MEDS: ALBUTEROL SO4 2.5/IPRATROPIUM 0.5 INH SOL 3 ML VIAL.NEB. NEB PRN (18:18)
[2017-11-09] MEDS ORDERED: INSULIN (NOVOLOG) ASPART 100 UNITS/ML 10ML VIAL ONE ×2 (19:00→20:51)
[2017-11-10] MEDS: ALBUTEROL SO4 2.5/IPRATROPIUM 0.5 INH SOL 3 ML VIAL.NEB. NEB PRN ×2 (04:47→15:12)
[2017-11-10] MEDS: glipiZIDE 5 MG TABLET (FP) PO SCH (06:15)
[2017-11-10] MEDS: INSULIN SLIDING SCALE (NOVOLOG) 1 VIAL SQ SCH ×4 (06:15→22:04)
[2017-11-10] MEDS ORDERED: INSULIN (NOVOLOG) ASPART 100 UNITS/ML 10ML VIAL ONE ×2 (06:20→20:42)
[2017-11-10] MEDS: ARFORMOTEROL TARTRATE 15 MCG/2 ML VIAL NEB SCH ×2 (08:21→20:45)
[2017-11-10] MEDS: AMOX TR/POT CLAV 875MG/125MG TABLETS (FP) PO SCH ×2 (09:20→16:31)
[2017-11-10] MEDS: HEPARIN NA (PORCINE) 5,000 UNITS/ML 1ML VIAL SQ SCH ×2 (09:24→22:05)
[2017-11-10] MEDS: predniSONE 20 MG TABLET (UD) PO SCH (09:24)
[2017-11-10] MEDS: LOSARTAN POTASSIUM 50 MG TABLET (FP) PO SCH (09:24)
[2017-11-10] MEDS: FUROSEMIDE 20 MG TABLET (FP) PO SCH (09:24)
[2017-11-10] MEDS: amLODIPine BESYLATE 5 MG TABLET (FP) PO SCH (09:24)
--- NOTE | 2017-11-10 09:36 | PN ---
Progress Note, Physician History of Present Illness: on oxygen - Current Medication List Current Medications: Active Medications Acetaminophen (Tylenol -) 650 mg PO Q6H PRN PRN Reason: FEVER Last Admin: 11/02/17 17:47 Dose: 650 mg Albuterol/Ipratropium (Duoneb -) 1 amp NEB Q4H PRN PRN Reason: SHORTNESS OF BREATH Last Admin: 11/10/17 04:47 Dose: 1 amp Amlodipine Besylate (Norvasc -) 5 mg PO DAILY [facility] Last Admin: 11/10/17 09:24 Dose: 5 mg Amoxicillin/Clavulanate Potassium (Augmentin - 875mg Tablet) 1 tab PO BID@0800, 1730 [facility] Last Admin: 11/10/17 09:20 Dose: 1 tab Arformoterol Tartrate (Brovana (Restricted To Pulmonology/Resp) -) 1 amp NEB RBID [facility] Last Admin: 11/10/17 08:21 Dose: 1 amp Furosemide (Lasix -) 20 mg PO DAILY [facility] Last Admin: 11/10/17 09:24 Dose: 20 mg Glipizide (Glucotrol -) 10 mg PO 0700 [facility] Last Admin: 11/10/17 06:15 Dose: 10 mg Heparin Sodium (Porcine) (Heparin -) 5,000 unit SQ BID [facility] Last Admin: 11/10/17 09:24 Dose: 5,000 unit Insulin Aspart (Novolog Vial Sliding Scale -) 1 vial SQ ACHS [facility] PRN Reason: Protocol Last Admin: 11/10/17 06:15 Dose: Not Given Losartan Potassium (Cozaar -) 50 mg PO DAILY [facility] Last Admin: 11/10/17 09:24 Dose: 50 mg Prednisone (Deltasone -) 40 mg PO DAILY [facility] Last Admin: 11/10/17 09:24 Dose: 40 mg - Objective Vital Signs: Vital Signs Temperature 98.1 F 11/10/17 06:00 Pulse Rate 89 11/10/17 06:00 Respiratory Rate 24 11/10/17 06:00 Blood Pressure 142/67 11/10/17 06:00 O2 Sat by Pulse Oximetry (%) 95 11/09/17 21:00 Constitutional: Yes: No Distress HENT: Yes: Atraumatic Neck: Yes: Supple Cardiovascular: Yes: Regular Rate and Rhythm Respiratory: Yes: Rhonchi Gastrointestinal: Yes: Normal Bowel Sounds Extremities: Yes: WNL Edema: No Peripheral Pulses WNL: Yes Neurological: Yes: Alert, Oriented Labs: CBC, BMP 11/07/17 07:27 11/05/17 18:00 INR, PTT INR 1.21 (0.82-1.09) H 11/01/17 13:39 Problem List - Problems (1) CHF (congestive heart failure) Assessment/Plan: on po lasix better Code(s): I50.9 - HEART FAILURE, UNSPECIFIED (2) PNA (pneumonia) Assessment/Plan: po abx now better Code(s): J18.9 - PNEUMONIA, UNSPECIFIED ORGANISM (3) Diabetes mellitus Assessment/Plan: bgms insulin and po meds Code(s): E11.9 - TYPE 2 DIABETES MELLITUS WITHOUT COMPLICATIONS Qualifiers: Diabetes mellitus type: type 2 Diabetes mellitus complication status: without complication Diabetes mellitus custodial insulin use: without vermin exterminator use Qualified Code(s): E11.9 - Type 2 diabetes mellitus without complications (4) HTN (hypertension) Assessment/Plan: on meds stable Code(s): I10 - ESSENTIAL (PRIMARY) HYPERTENSION Qualifiers: Hypertension type: essential hypertension Qualified Code(s): I10 - Essential (primary) hypertension (5) Cough Assessment/Plan: prn cough medicine Code(s): R05 - COUGH (6) Diastolic dysfunction without heart failure Code(s): I51.9 - HEART DISEASE, UNSPECIFIED (7) Pulmonary fibrosis Assessment/Plan: on nrb now Code(s): J84.10 - PULMONARY FIBROSIS, UNSPECIFIED
[2017-11-10 10:31] LABS: BASO % 0.5 % (0-2.0); EOS % 2.9 % (0-4.5); HEMATOCRIT 38.3 % (32.4-45.2); HEMOGLOBIN 12.2 GM/dL (10.7-15.3); LYMPH % 9.8 % (8-40); MCH 26.1 pg (25.7-33.7); MCHC 31.8 g/dl (32.0-36.0); MEAN CELL VOLUME 82.2 fl (80-96); MEAN PLT VOLUME 9.2 fl (7.5-11.1); MONO % 6.3 % (3.8-10.2); NEUT % 80.5 % (42.8-82.8); PLATELET COUNT 314 K/MM3 (134-434); RBC 4.65 M/mm3 (3.60-5.2); RDW 17.5 % (11.6-15.6); WHITE BLOOD COUNT 14.9 K/mm3 (4.0-10.0)
[2017-11-10 10:54] LABS: ALBUMIN 2.4 g/dl (3.4-5.0); ANION GAP 9 (8-16); BLOOD UREA NITROGEN 26 mg/dL (7-18); CALCIUM 8.6 mg/dL (8.5-10.1); CHLORIDE 105 mmol/L (98-107); CO2 26 mmol/L (21-32); CREATININE 1.1 mg/dL (0.55-1.02); GLUCOSE,RANDOM 220 mg/dL (74-106); SGOT/AST 20 U/L (15-37); SGPT/ALT 29 U/L (12-78); SODIUM 140 mmol/L (136-145)
[2017-11-10 10:56] LABS: ALK PHOS 112 U/L (45-117); BILIRUBIN,TOTAL 0.9 mg/dL (0.2-1.0)
--- NOTE | 2017-11-10 11:47 | PN ---
Progress Note, Physician History of Present Illness: Cough and dyspnea slowly improving. Comfortable on 100% NRB. - Current Medication List Current Medications: Active Medications Acetaminophen (Tylenol -) 650 mg PO Q6H PRN PRN Reason: FEVER Last Admin: 11/02/17 17:47 Dose: 650 mg Albuterol/Ipratropium (Duoneb -) 1 amp NEB Q4H PRN PRN Reason: SHORTNESS OF BREATH Last Admin: 11/10/17 04:47 Dose: 1 amp Amlodipine Besylate (Norvasc -) 5 mg PO DAILY [facility] Last Admin: 11/10/17 09:24 Dose: 5 mg Amoxicillin/Clavulanate Potassium (Augmentin - 875mg Tablet) 1 tab PO BID@0800, 1730 [facility] Last Admin: 11/10/17 09:20 Dose: 1 tab Arformoterol Tartrate (Brovana (Restricted To Pulmonology/Resp) -) 1 amp NEB RBID [facility] Last Admin: 11/10/17 08:21 Dose: 1 amp Furosemide (Lasix -) 20 mg PO DAILY [facility] Last Admin: 11/10/17 09:24 Dose: 20 mg Glipizide (Glucotrol -) 10 mg PO 0700 [facility] Last Admin: 11/10/17 06:15 Dose: 10 mg Heparin Sodium (Porcine) (Heparin -) 5,000 unit SQ BID [facility] Last Admin: 11/10/17 09:24 Dose: 5,000 unit Insulin Aspart (Novolog Vial Sliding Scale -) 1 vial SQ ACHS [facility] PRN Reason: Protocol Last Admin: 11/10/17 11:34 Dose: 8 units Losartan Potassium (Cozaar -) 50 mg PO DAILY [facility] Last Admin: 11/10/17 09:24 Dose: 50 mg Prednisone (Deltasone -) 40 mg PO DAILY [facility] Last Admin: 11/10/17 09:24 Dose: 40 mg - Objective Vital Signs: Vital Signs Temperature 98.5 F 11/10/17 08:30 Pulse Rate 86 11/10/17 08:30 Respiratory Rate 20 11/10/17 08:30 Blood Pressure 133/65 11/10/17 08:30 O2 Sat by Pulse Oximetry (%) 95 11/09/17 21:00 Constitutional: Yes: No Distress, Calm Neck: Yes: Supple Cardiovascular: Yes: Regular Rate and Rhythm Respiratory: Yes: Regular, Diminished, On Venti-Mask Gastrointestinal: Yes: Normal Bowel Sounds, Soft, Abdomen, Obese Edema: No Labs: CBC, BMP 11/10/17 09:45 11/10/17 09:45 INR, PTT INR 1.21 (0.82-1.09) H 11/01/17 13:39 Problem List - Problems (1) Diastolic dysfunction without heart failure Code(s): I51.9 - HEART DISEASE, UNSPECIFIED (2) Acute hypoxemic respiratory failure Code(s): J96.01 - ACUTE RESPIRATORY FAILURE WITH HYPOXIA (3) Diabetes mellitus Code(s): E11.9 - TYPE 2 DIABETES MELLITUS WITHOUT COMPLICATIONS Qualifiers: Diabetes mellitus type: type 2 Diabetes mellitus complication status: without complication Diabetes mellitus intermediate frame tender insulin use: without group home use Qualified Code(s): E11.9 - Type 2 diabetes mellitus without complications (4) HTN (hypertension) Code(s): I10 - ESSENTIAL (PRIMARY) HYPERTENSION Qualifiers: Hypertension type: essential hypertension Qualified Code(s): I10 - Essential (primary) hypertension (5) Pulmonary fibrosis Code(s): J84.10 - PULMONARY FIBROSIS, UNSPECIFIED (6) Shortness of breath Code(s): R06.02 - SHORTNESS OF BREATH (7) Demand ischemia Code(s): I24.8 - OTHER FORMS OF ACUTE ISCHEMIC HEART DISEASE (8) PNA (pneumonia) Code(s): J18.9 - PNEUMONIA, UNSPECIFIED ORGANISM Assessment/Plan 11/02/2017 Echo: Mild LVH, normal biventricular size and fxn, mild TR, RVSP 32 mmHG 11/03/[address]: Extensive interstitial lung disease with likely acute diffuse pneumonitis most prominent RUL 1. Acute hypoxemic respiratory failure with underlying pulmonary fibrosis/ILD and PNA slowly resolving 2. Mildly elevated troponin due to demand ischemia - secondary to above 3. Diabetes mellitus 4. Hypertension 5. Diastolic dysfunction 6. OSAS suspect PLAN: 1. Continue Losartan 50 qd, Amlodipine 5 qd and Lasix 20 po qd (home dose) 2. Oral steroids, BD, O2, empiric antibiotic course per C&S 3. Troponins have plateaued 4. PSG and PFTs as outpatient 5. DVT prophylaxis, address [facility]
--- NOTE | 2017-11-10 11:56 | PN ---
Progress Note (short form) - Note Progress Note: PULMONARY CC: SOB/COUGH/BROWN SPUTUM/NO BLOOD STREAKING HAS BEEN CHANGED TO ORAL MEDICATIONS FAMILY PRESENT DESATURATION TO 90% AFTER AMBULATION ON NRB MASK VSS/AFEBRILE FLUSHED/ANICTERIC BILATERAL DIFFUSE CRACKLES INSP/EXP S1S2 BS+ SOFT NONTENDER S/P BILATERAL TKR NO EDEMA LABS/MEDS/NOTES/IMAGES/MICRO/ECHO REVIEWED RECORDS FROM [facility] NOTED PATIENT HAS A 15 YEAR HISTORY OF MILD IPF WORKED IN A FACTORY IN [facility] PATIENT WAS FUNCTIONAL AND DID NOT REQUIRE O2 UNTIL LAST 0NE WEEK SHE RETURNED FROM [facility] [employer] AND DENIES SICK CONTACTS STATES SHE WAS PPD NEGATIVE LAST YEAR ACUTE HYPOXEMIC RESPIRATORY FAILURE/SUPERIMPOSED UPON MILD IPF(NEVER BIOPSIED) DIFFUSE BILATERAL INFILTRATES NEW WHEN COMPARED TO CT CHEST 2016 FEB ETIOLOGY OF ACUTE DECLINE IN CLINICAL AND RADIOGRAPH PRESENTATION FAVORS INFECTIOUS ETIOLOGY VS ACUTE EXACERBATION IPF LVDD PER ECHO/BNP CONTINUE STEROIDS/O2 SUPPLEMENTATION/EMPIRIC ANTIBIOTICS/WOULD FAVOR PULMONARY REHAB WITH HIGH FLOW NC O2 TO KEEP SAT ABOVE 90% HAVE CALLED AMAURI DIAZ MD (PMD) FOR FURTHER HISTORY [phone] Namita ROLAND MD
--- NOTE | 2017-11-10 16:43 | PN ---
Progress Note, Physician History of Present Illness: patient still with mask desaturates on ambulation - Current Medication List Current Medications: Active Medications Acetaminophen (Tylenol -) 650 mg PO Q6H PRN PRN Reason: FEVER Last Admin: 11/02/17 17:47 Dose: 650 mg Albuterol/Ipratropium (Duoneb -) 1 amp NEB Q4H PRN PRN Reason: SHORTNESS OF BREATH Last Admin: 11/10/17 15:12 Dose: 1 amp Amlodipine Besylate (Norvasc -) 5 mg PO DAILY [facility] Last Admin: 11/10/17 09:24 Dose: 5 mg Amoxicillin/Clavulanate Potassium (Augmentin - 875mg Tablet) 1 tab PO BID@0800, 1730 [facility] Last Admin: 11/10/17 16:31 Dose: 1 tab Arformoterol Tartrate (Brovana (Restricted To Pulmonology/Resp) -) 1 amp NEB RBID [facility] Last Admin: 11/10/17 08:21 Dose: 1 amp Furosemide (Lasix -) 20 mg PO DAILY [facility] Last Admin: 11/10/17 09:24 Dose: 20 mg Glipizide (Glucotrol -) 10 mg PO 0700 [facility] Last Admin: 11/10/17 06:15 Dose: 10 mg Heparin Sodium (Porcine) (Heparin -) 5,000 unit SQ BID [facility] Last Admin: 11/10/17 09:24 Dose: 5,000 unit Insulin Aspart (Novolog Vial Sliding Scale -) 1 vial SQ ACHS [facility] PRN Reason: Protocol Last Admin: 11/10/17 16:30 Dose: 8 units Losartan Potassium (Cozaar -) 50 mg PO DAILY [facility] Last Admin: 11/10/17 09:24 Dose: 50 mg Prednisone (Deltasone -) 40 mg PO DAILY [facility] Last Admin: 11/10/17 09:24 Dose: 40 mg - Objective Vital Signs: Vital Signs Temperature 99.3 F 11/10/17 14:06 Pulse Rate 87 11/10/17 14:06 Respiratory Rate 24 11/10/17 14:06 Blood Pressure 132/66 11/10/17 14:06 O2 Sat by Pulse Oximetry (%) 100 11/10/17 11:57 Constitutional: Yes: Calm, Mild Distress Respiratory: Yes: Regular, Other (bilateral crackles on face mask) Gastrointestinal: Yes: Normal Bowel Sounds, Soft Musculoskeletal: Yes: WNL Extremities: Yes: WNL Neurological: Yes: Alert, Oriented Psychiatric: Yes: Alert Labs: CBC, BMP 11/10/17 09:45 11/10/17 09:45 INR, PTT INR 1.21 (0.82-1.09) H 11/01/17 13:39 Assessment/Plan Problem List - Problems (1) Acute respiratory failure with hypoxemia Code(s): J96.01 - ACUTE RESPIRATORY FAILURE WITH HYPOXIA (2) CHF (congestive heart failure) Code(s): I50.9 - HEART FAILURE, UNSPECIFIED (3) Diabetes mellitus Code(s): E11.9 - TYPE 2 DIABETES MELLITUS WITHOUT COMPLICATIONS Qualifiers: Diabetes mellitus type: type 2 Diabetes mellitus complication status: without complication Diabetes mellitus jail insulin use: without jail use Qualified Code(s): E11.9 - Type 2 diabetes mellitus without complications (4) HTN (hypertension) Code(s): I10 - ESSENTIAL (PRIMARY) HYPERTENSION Qualifiers: Hypertension type: essential hypertension Qualified Code(s): I10 - Essential (primary) hypertension (5) PNA (pneumonia) Code(s): J18.9 - PNEUMONIA, UNSPECIFIED ORGANISM (6) Pulmonary fibrosis Code(s): J84.10 - PULMONARY FIBROSIS, UNSPECIFIED (7) Shortness of breath Code(s): R06.02 - SHORTNESS OF BREATH (8) Acute hypoxemic respiratory failure Code(s): J96.01 - ACUTE RESPIRATORY FAILURE WITH HYPOXIA (9) Cough Code(s): R05 - COUGH plan continue current mgmt carr ee what is final plan wbc marginally up will discuss the case i think we should repeat ct scan and see what is happening
[2017-11-11] MEDS: glipiZIDE 5 MG TABLET (FP) PO SCH (06:15)
[2017-11-11] MEDS: INSULIN SLIDING SCALE (NOVOLOG) 1 VIAL SQ SCH ×3 (06:16→17:21)
[2017-11-11] MEDS ORDERED: INSULIN (NOVOLOG) ASPART 100 UNITS/ML 10ML VIAL ONE (06:29)
[2017-11-11] MEDS: ARFORMOTEROL TARTRATE 15 MCG/2 ML VIAL NEB SCH (09:00)
[2017-11-11] MEDS: AMOX TR/POT CLAV 875MG/125MG TABLETS (FP) PO SCH ×2 (10:48→17:20)
[2017-11-11] MEDS: LOSARTAN POTASSIUM 50 MG TABLET (FP) PO SCH (10:49)
[2017-11-11] MEDS: predniSONE 20 MG TABLET (UD) PO SCH (10:49)
[2017-11-11] MEDS: HEPARIN NA (PORCINE) 5,000 UNITS/ML 1ML VIAL SQ SCH (10:49)
[2017-11-11] MEDS: amLODIPine BESYLATE 5 MG TABLET (FP) PO SCH (10:50)
[2017-11-11] MEDS: FUROSEMIDE 20 MG TABLET (FP) PO SCH (10:50)
--- NOTE | 2017-11-11 11:41 | PN ---
Progress Note, Physician History of Present Illness: Cough and dyspnea slowly improving. Comfortable on 100% NRB, hypoxic while ambulating. - Current Medication List Current Medications: Active Medications Acetaminophen (Tylenol -) 650 mg PO Q6H PRN PRN Reason: FEVER Last Admin: 11/02/17 17:47 Dose: 650 mg Albuterol/Ipratropium (Duoneb -) 1 amp NEB Q4H PRN PRN Reason: SHORTNESS OF BREATH Last Admin: 11/10/17 15:12 Dose: 1 amp Amlodipine Besylate (Norvasc -) 5 mg PO DAILY [facility] Last Admin: 11/11/17 10:50 Dose: 5 mg Amoxicillin/Clavulanate Potassium (Augmentin - 875mg Tablet) 1 tab PO BID@0800, 1730 [facility] Last Admin: 11/11/17 10:48 Dose: 1 tab Arformoterol Tartrate (Brovana (Restricted To Pulmonology/Resp) -) 1 amp NEB RBID [facility] Last Admin: 11/11/17 09:00 Dose: 1 amp Furosemide (Lasix -) 20 mg PO DAILY [facility] Last Admin: 11/11/17 10:50 Dose: 20 mg Glipizide (Glucotrol -) 10 mg PO 0700 [facility] Last Admin: 11/11/17 06:15 Dose: 10 mg Heparin Sodium (Porcine) (Heparin -) 5,000 unit SQ BID [facility] Last Admin: 11/11/17 10:49 Dose: 5,000 unit Insulin Aspart (Novolog Vial Sliding Scale -) 1 vial SQ ACHS [facility] PRN Reason: Protocol Last Admin: 11/11/17 06:16 Dose: Not Given Losartan Potassium (Cozaar -) 50 mg PO DAILY [facility] Last Admin: 11/11/17 10:49 Dose: 50 mg Prednisone (Deltasone -) 40 mg PO DAILY [facility] Last Admin: 11/11/17 10:49 Dose: 40 mg - Objective Vital Signs: Vital Signs Temperature 98.8 F 11/11/17 06:00 Pulse Rate 78 11/11/17 06:00 Respiratory Rate 20 11/11/17 06:00 Blood Pressure 141/67 11/11/17 06:00 O2 Sat by Pulse Oximetry (%) 96 11/10/17 21:00 Constitutional: Yes: No Distress, Calm Neck: Yes: Supple Cardiovascular: Yes: Regular Rate and Rhythm Respiratory: Yes: Regular, Diminished, On Venti-Mask, Rales Gastrointestinal: Yes: Normal Bowel Sounds, Soft, Abdomen, Obese Edema: No Labs: CBC, BMP 11/10/17 09:45 11/10/17 09:45 INR, PTT INR 1.21 (0.82-1.09) H 11/01/17 13:39 Problem List - Problems (1) Diastolic dysfunction without heart failure Code(s): I51.9 - HEART DISEASE, UNSPECIFIED (2) Acute hypoxemic respiratory failure Code(s): J96.01 - ACUTE RESPIRATORY FAILURE WITH HYPOXIA (3) Diabetes mellitus Code(s): E11.9 - TYPE 2 DIABETES MELLITUS WITHOUT COMPLICATIONS Qualifiers: Diabetes mellitus type: type 2 Diabetes mellitus complication status: without complication Diabetes mellitus intermediate insulin use: without intermediate use Qualified Code(s): E11.9 - Type 2 diabetes mellitus without complications (4) HTN (hypertension) Code(s): I10 - ESSENTIAL (PRIMARY) HYPERTENSION Qualifiers: Hypertension type: essential hypertension Qualified Code(s): I10 - Essential (primary) hypertension (5) Pulmonary fibrosis Code(s): J84.10 - PULMONARY FIBROSIS, UNSPECIFIED (6) Shortness of breath Code(s): R06.02 - SHORTNESS OF BREATH (7) Demand ischemia Code(s): I24.8 - OTHER FORMS OF ACUTE ISCHEMIC HEART DISEASE (8) PNA (pneumonia) Code(s): J18.9 - PNEUMONIA, UNSPECIFIED ORGANISM Assessment/Plan 11/02/2017 Echo: Mild LVH, normal biventricular size and fxn, mild TR, RVSP 32 mmHG 11/03/[address]: Extensive interstitial lung disease with likely acute diffuse pneumonitis most prominent RUL 1. Acute hypoxemic respiratory failure with underlying pulmonary fibrosis/ILD and PNA slowly resolving 2. Mildly elevated troponin due to demand ischemia - secondary to above 3. Diabetes mellitus 4. Hypertension 5. Diastolic dysfunction 6. OSAS suspect PLAN: 1. Continue Losartan 50 qd, Amlodipine 5 qd and Lasix 20 po qd (home dose) 2. Oral steroids, BD, O2, empiric antibiotic course per C&S 3. PSG and PFTs as outpatient 4. DVT prophylaxis, address [facility]
--- NOTE | 2017-11-11 13:06 | PN ---
Progress Note, Physician History of Present Illness: PULMONARY ALERT,FEELING BETTER,LESS DYSPNEIC,REMAINS ON 100% NRM O2 SAT 89-90% - Current Medication List Current Medications: Active Medications Acetaminophen (Tylenol -) 650 mg PO Q6H PRN PRN Reason: FEVER Last Admin: 11/02/17 17:47 Dose: 650 mg Albuterol/Ipratropium (Duoneb -) 1 amp NEB Q4H PRN PRN Reason: SHORTNESS OF BREATH Last Admin: 11/10/17 15:12 Dose: 1 amp Amlodipine Besylate (Norvasc -) 5 mg PO DAILY [facility] Last Admin: 11/11/17 10:50 Dose: 5 mg Amoxicillin/Clavulanate Potassium (Augmentin - 875mg Tablet) 1 tab PO BID@0800, 1730 [facility] Last Admin: 11/11/17 10:48 Dose: 1 tab Arformoterol Tartrate (Brovana (Restricted To Pulmonology/Resp) -) 1 amp NEB RBID [facility] Last Admin: 11/11/17 09:00 Dose: 1 amp Furosemide (Lasix -) 20 mg PO DAILY [facility] Last Admin: 11/11/17 10:50 Dose: 20 mg Glipizide (Glucotrol -) 10 mg PO 0700 [facility] Last Admin: 11/11/17 06:15 Dose: 10 mg Heparin Sodium (Porcine) (Heparin -) 5,000 unit SQ BID [facility] Last Admin: 11/11/17 10:49 Dose: 5,000 unit Insulin Aspart (Novolog Vial Sliding Scale -) 1 vial SQ ACHS [facility] PRN Reason: Protocol Last Admin: 11/11/17 12:11 Dose: 6 units Losartan Potassium (Cozaar -) 50 mg PO DAILY [facility] Last Admin: 11/11/17 10:49 Dose: 50 mg Prednisone (Deltasone -) 40 mg PO DAILY [facility] Last Admin: 11/11/17 10:49 Dose: 40 mg - Objective Vital Signs: Vital Signs Temperature 98.8 F 11/11/17 06:00 Pulse Rate 78 11/11/17 06:00 Respiratory Rate 20 11/11/17 06:00 Blood Pressure 141/67 11/11/17 06:00 O2 Sat by Pulse Oximetry (%) 96 11/10/17 21:00 Constitutional: Yes: Well Nourished, Calm, Obese Eyes: Yes: WNL HENT: Yes: WNL Neck: Yes: WNL Cardiovascular: Yes: Regular Rate and Rhythm, S1, S2 Respiratory: Yes: Rales (BILATERAL CRACKLES) Gastrointestinal: Yes: Normal Bowel Sounds, Soft Extremities: Yes: WNL Edema: No Labs: CBC, BMP Problem List - Problems (1) Acute respiratory failure with hypoxemia Code(s): J96.01 - ACUTE RESPIRATORY FAILURE WITH HYPOXIA (2) CHF (congestive heart failure) Code(s): I50.9 - HEART FAILURE, UNSPECIFIED (3) Diabetes mellitus Code(s): E11.9 - TYPE 2 DIABETES MELLITUS WITHOUT COMPLICATIONS Qualifiers: Diabetes mellitus type: type 2 Diabetes mellitus complication status: without complication Diabetes mellitus mcfp insulin use: without mcfp use Qualified Code(s): E11.9 - Type 2 diabetes mellitus without complications (4) HTN (hypertension) Code(s): I10 - ESSENTIAL (PRIMARY) HYPERTENSION Qualifiers: Hypertension type: essential hypertension Qualified Code(s): I10 - Essential (primary) hypertension (5) PNA (pneumonia) Code(s): J18.9 - PNEUMONIA, UNSPECIFIED ORGANISM (6) Pulmonary fibrosis Code(s): J84.10 - PULMONARY FIBROSIS, UNSPECIFIED (7) Shortness of breath Code(s): R06.02 - SHORTNESS OF BREATH (8) Acute hypoxemic respiratory failure Code(s): J96.01 - ACUTE RESPIRATORY FAILURE WITH HYPOXIA (9) Cough Code(s): R05 - COUGH Assessment/Plan IMP ACUTE HYPOXEMIC RESPIRATORY FAILURE ADVANCED ILD/PULMONARY FIBROSIS PNEUMONIA CHF + TROPONINS LIKELY DEMAND ISCHEMIA ELEVATED LACTATE LEVEL NORMAL PULMONARY HTN SUSPECTED MIGNON PLAN ABX INHALED BRONCHODILATORS PREDNISONE O2 LASIX DR TRJUILLO Problem List - Problems (1) Acute respiratory failure with hypoxemia Code(s): J96.01 - ACUTE RESPIRATORY FAILURE WITH HYPOXIA (2) CHF (congestive heart failure) Code(s): I50.9 - HEART FAILURE, UNSPECIFIED (3) Diabetes mellitus Code(s): E11.9 - TYPE 2 DIABETES MELLITUS WITHOUT COMPLICATIONS Qualifiers: Diabetes mellitus type: type 2 Diabetes mellitus complication status: without complication Diabetes mellitus mcfp insulin use: without director long term care use Qualified Code(s): E11.9 - Type 2 diabetes mellitus without complications (4) HTN (hypertension) Code(s): I10 - ESSENTIAL (PRIMARY) HYPERTENSION Qualifiers: Hypertension type: essential hypertension Qualified Code(s): I10 - Essential (primary) hypertension (5) PNA (pneumonia) Code(s): J18.9 - PNEUMONIA, UNSPECIFIED ORGANISM (6) Pulmonary fibrosis Code(s): J84.10 - PULMONARY FIBROSIS, UNSPECIFIED (7) Shortness of breath Code(s): R06.02 - SHORTNESS OF BREATH (8) Acute hypoxemic respiratory failure Code(s): J96.01 - ACUTE RESPIRATORY FAILURE WITH HYPOXIA (9) Cough Code(s): R05 - COUGH
--- NOTE | 2017-11-11 14:59 | PN ---
Progress Note, Physician History of Present Illness: clinically stable still needing face mask - Current Medication List Current Medications: Active Medications Acetaminophen (Tylenol -) 650 mg PO Q6H PRN PRN Reason: FEVER Last Admin: 11/02/17 17:47 Dose: 650 mg Albuterol/Ipratropium (Duoneb -) 1 amp NEB Q4H PRN PRN Reason: SHORTNESS OF BREATH Last Admin: 11/10/17 15:12 Dose: 1 amp Amlodipine Besylate (Norvasc -) 5 mg PO DAILY [facility] Last Admin: 11/11/17 10:50 Dose: 5 mg Amoxicillin/Clavulanate Potassium (Augmentin - 875mg Tablet) 1 tab PO BID@0800, 1730 [facility] Last Admin: 11/11/17 10:48 Dose: 1 tab Arformoterol Tartrate (Brovana (Restricted To Pulmonology/Resp) -) 1 amp NEB RBID [facility] Last Admin: 11/11/17 09:00 Dose: 1 amp Furosemide (Lasix -) 20 mg PO DAILY [facility] Last Admin: 11/11/17 10:50 Dose: 20 mg Glipizide (Glucotrol -) 10 mg PO 0700 [facility] Last Admin: 11/11/17 06:15 Dose: 10 mg Heparin Sodium (Porcine) (Heparin -) 5,000 unit SQ BID [facility] Last Admin: 11/11/17 10:49 Dose: 5,000 unit Insulin Aspart (Novolog Vial Sliding Scale -) 1 vial SQ ACHS [facility] PRN Reason: Protocol Last Admin: 11/11/17 12:11 Dose: 6 units Losartan Potassium (Cozaar -) 50 mg PO DAILY [facility] Last Admin: 11/11/17 10:49 Dose: 50 mg Prednisone (Deltasone -) 40 mg PO DAILY [facility] Last Admin: 11/11/17 10:49 Dose: 40 mg - Objective Vital Signs: Vital Signs Temperature 100.8 F H 11/11/17 14:00 Pulse Rate 86 11/11/17 14:00 Respiratory Rate 22 11/11/17 14:00 Blood Pressure 145/77 11/11/17 14:00 O2 Sat by Pulse Oximetry (%) 96 11/10/17 21:00 Constitutional: Yes: No Distress, Calm, Obese Cardiovascular: Yes: Regular Rate and Rhythm Respiratory: Yes: Regular, Poor Air Entry, Other (crackles) Gastrointestinal: Yes: Normal Bowel Sounds, Soft Musculoskeletal: Yes: WNL Extremities: Yes: WNL Neurological: Yes: Alert, Oriented Psychiatric: Yes: Alert, Oriented Labs: CBC, BMP 11/10/17 09:45 11/10/17 09:45 INR, PTT INR 1.21 (0.82-1.09) H 11/01/17 13:39 Assessment/Plan Problem List - Problems (1) Acute respiratory failure with hypoxemia Code(s): J96.01 - ACUTE RESPIRATORY FAILURE WITH HYPOXIA (2) CHF (congestive heart failure) Code(s): I50.9 - HEART FAILURE, UNSPECIFIED (3) Diabetes mellitus Code(s): E11.9 - TYPE 2 DIABETES MELLITUS WITHOUT COMPLICATIONS Qualifiers: Diabetes mellitus type: type 2 Diabetes mellitus complication status: without complication Diabetes mellitus master glazier insulin use: without usp use Qualified Code(s): E11.9 - Type 2 diabetes mellitus without complications (4) HTN (hypertension) Code(s): I10 - ESSENTIAL (PRIMARY) HYPERTENSION Qualifiers: Hypertension type: essential hypertension Qualified Code(s): I10 - Essential (primary) hypertension (5) PNA (pneumonia) Code(s): J18.9 - PNEUMONIA, UNSPECIFIED ORGANISM (6) Pulmonary fibrosis Code(s): J84.10 - PULMONARY FIBROSIS, UNSPECIFIED (7) Shortness of breath Code(s): R06.02 - SHORTNESS OF BREATH (8) Acute hypoxemic respiratory failure Code(s): J96.01 - ACUTE RESPIRATORY FAILURE WITH HYPOXIA (9) Cough Code(s): R05 - COUGH plan continue current mgmt resp physio continue resp support final plan awaited rest as per pul
--- NOTE | 2017-11-11 16:06 | DS ---
Physical Examination Vital Signs: Vital Signs Temperature 100.8 F H 11/11/17 14:00 Pulse Rate 86 11/11/17 14:00 Respiratory Rate 22 11/11/17 14:00 Blood Pressure 145/77 11/11/17 14:00 O2 Sat by Pulse Oximetry (%) 96 11/11/17 09:00 Constitutional: Yes: No Distress HENT: Yes: Atraumatic Neck: Yes: Supple Cardiovascular: Yes: Regular Rate and Rhythm Respiratory: Yes: Rhonchi, Wheezes Gastrointestinal: Yes: Normal Bowel Sounds Extremities: Yes: WNL Neurological: Yes: Alert, Oriented Labs: CBC, BMP 11/10/17 09:45 11/10/17 09:45 Discharge Summary Reason For Visit: CHF Current Active Problems Acute hypoxemic respiratory failure (Acute) Acute respiratory failure with hypoxemia (Acute) Bradycardia (Acute) CHF (congestive heart failure) (Acute) Cough (Acute) Demand ischemia (Acute) Diabetes mellitus (Acute) Diastolic dysfunction without heart failure (Acute) HTN (hypertension) (Acute) PNA (pneumonia) (Acute) Pulmonary fibrosis (Acute) Shortness of breath (Acute) Condition: Fair - Instructions - Home Medications Comprehensive Discharge Medication List: Ambulatory Orders Albuterol Sulfate Inhaler - [Ventolin HFA Inhaler -] 1 - 2 inh PO QID 11/01/17 Amlodipine Besylate [Norvasc -] 5 mg PO DAILY 11/01/17 Fluticasone Propionate [Flovent Hfa] 110 mcg IH DAILY 11/01/17 Furosemide [Lasix -] 20 mg PO DAILY 11/01/17 Glipizide 10 mg PO BID 11/01/17 Omeprazole 40 mg PO DAILY 11/01/17 Sitagliptin Phosphate [Januvia] 50 mg PO DAILY 11/01/17 Amox-Tr/K Cl [Augmentin 875-125mg Tablet -] 1 tab PO BID@0800,1730 #10 tablet Losartan Potassium [Cozaar -] 50 mg PO DAILY #30 tablet 11/07/17 Prednisone 10 mg PO DAILY #30 tab.ds.pk 11/07/17 dc snf pt is on nrb oxygen...monitor oxygen saturation taper steroids
[2017-11-11 18:27] VITALS: BP 153/65; PULSE 78; TEMP 99
== END 2017-11-11 18:48 | DRG 189 ==
LOC: JER 12:51 → JERBED 15:27 → J5S 19:30
PROVIDERS: ADMIT Internal Medicine; ATTEND Internal Medicine
DX: J96.01 Acute respiratory failure with hypoxia (principal); J18.9 Pneumonia, unspecified organism; I24.8 Other forms of acute ischemic heart disease; J84.9 Interstitial pulmonary disease, unspecified; I25.110 Atherosclerotic heart disease of native coronary artery with unstable angina pectoris; I50.30 Unspecified diastolic (congestive) heart failure; E11.9 Type 2 diabetes mellitus without complications; J84.10 Pulmonary fibrosis, unspecified; E78.00 Pure hypercholesterolemia, unspecified; J42 Unspecified chronic bronchitis; M19.90 Unspecified osteoarthritis, unspecified site; R05 Cough; I27.20 Pulmonary hypertension, unspecified; G47.33 Obstructive sleep apnea (adult) (pediatric); D72.828 Other elevated white blood cell count; R00.1 Bradycardia, unspecified; I11.0 Hypertensive heart disease with heart failure
CPT/HCPCS: 36415; 36600; 71045-TC-FY; 71250-TC; 80048; 80053; 81003; 81015; 82550; 82553; 82803; 82947; 82962; 83605; 83880; 84484; 85025; 85027; 85610; 87040; 87070; 87086; 87205; 87389; 87804; 87899; 93005; 93010; 93306-TC; 94640; 97116-GP; 97161-GP; 99285-25; J1644

== ENCOUNTER 2017-11-25 21:27 | Inpatient (IN) | payer OTHER ==
[2017-11-25] MEDS ORDERED: ETOMIDATE 40 MG/20 ML VIAL IVPUSH ONE (21:36)
[2017-11-25] MEDS ORDERED: FUROSEMIDE 40 MG/4 ML INJECTABLE VIAL ONE (21:36)
[2017-11-25] MEDS ORDERED: FUROSEMIDE 40 MG/4 ML INJECTABLE VIAL IVPUSH ONE (21:37)
[2017-11-25] MEDS ORDERED: ROCURONIUM BROMIDE 50 MG/5 ML VIAL IV ONE (21:37)
--- NOTE | 2017-11-25 21:41 | PDOC ---
History of Present Illness <Nirav Cantor - Last Filed: 11/25/17 23:55> <Jack Vaughn - Last Filed: 11/27/17 04:08> - General Stated Complaint: DIFFICULTY BREATHING Time Seen by Provider: 11/25/17 21:35 - History of Present Illness Initial Comments: 11/25/17 21:38 77 yo F with h/o HTN, NIDDM, combined systolic and diastolic HF, pulmonary fibrosis, BIBA from outside nursign facility ( [facility] )with labored breathing and hypoxia. Per EMS nursing facility noted patient with labored breathing and hypxoic to 45% O2 NC, with improvement to 85 % 02 on 25 L non rebreather and BMV on EMS arriva. Patient noted to be HTN 172/ 114, and tachycardic 124 at [facility]. Patient full code per prison documentation. Recent admission at [facility] ( 11/01- 11/11/17) for hypxoemic resp failure 2/2 PNA and underlying idiopathic pulmonary fibrosis. PMD. Bin Olmstead. (Jack Vaughn) Past History <Nirav Cantor - Last Filed: 11/25/17 23:55> - Past Medical History COPD: No Diabetes: Yes (TYPE 2) HTN: Yes Hypercholesterolemia: Yes - Surgical History Orthopedic Surgery: Yes (BILATERAL KNEE REPLACEMENT) - Suicide/Smoking/Psychosocial Hx Smoking History: Never smoked Hx Alcohol Use: No <Jack Vaughn - Last Filed: 11/27/17 04:08> - Past Medical History Allergies/Adverse Reactions: Allergies Allergy/AdvReac Type Severity Reaction Status Date / Time No Known Allergies Allergy Verified 11/26/17 00:41 Home Medications: Ambulatory Orders Albuterol Sulfate Inhaler - [Ventolin HFA Inhaler -] 1 - 2 inh PO QID 11/01/17 Amlodipine Besylate [Norvasc -] 5 mg PO DAILY 11/01/17 Fluticasone Propionate [Flovent Hfa] 110 mcg IH DAILY 11/01/17 Furosemide [Lasix -] 20 mg PO DAILY 11/01/17 Glipizide 10 mg PO BID 11/01/17 Omeprazole 40 mg PO DAILY 11/01/17 Sitagliptin Phosphate [Januvia] 50 mg PO DAILY 11/01/17 Amox-Tr/K Cl [Augmentin 875-125mg Tablet -] 1 tab PO BID@0800,1730 #10 tablet Losartan Potassium [Cozaar -] 50 mg PO DAILY #30 tablet 11/07/17 Prednisone 10 mg PO DAILY #30 tab.ds.pk 11/07/17 Review of Systems <Nirav Cantor - Last Filed: 11/25/17 23:55> <Jack Vaughn - Last Filed: 11/27/17 04:08> - Review of Systems Comments:: 11/25/17 21:50 Unable to obtain. Pt. sedated. (Jack Vaughn) *Physical Exam <Nirav Cantor - Last Filed: 11/25/17 23:55> <Jack Vaughn - Last Filed: 11/27/17 04:08> - Vital Signs Last Vital Signs Temp Pulse Resp BP Pulse Ox 97.8 F 64 22 107/62 97 11/26/17 22:00 11/27/17 00:00 11/27/17 02:30 11/27/17 00:00 11/26/17 22:00 - Physical Exam Comments: 11/25/17 21:51 GENERAL: Awake, lethargic, and responisve to painful stimulus. HEAD: No signs of trauma, normocephalic, atraumatic EYES: PERRLA, EOMI, sclera anicteric, conjunctiva clear ENT: Bottom row dentures displaced druring intubation. Hearing grossly normal, nares patent, oropharynx clear without exudates. Moist mucosa NECK: Normal ROM, supple, no lymphadenopathy, JVD, or masses LUNGS: Coarse lung sounds throughout. + Accessory muscle use. Difficult to asses. Patient with labored breathing. HEART: Regular rate and rhythm, normal S1 and S2, no murmurs, rubs or gallops, peripheral pulses normal and equal bilaterally. EXTREMITIES : Normal inspection, Normal range of motion, no edema. No clubbing or cyanosis. SKIN: Warm, Dry, normal turgor, no rashes or lesions noted (Jack Vaughn) Procedures - Chest Tube Left Mid Axillary Line 2nd ICS Indication: Pneumothorax [place] Tube Size(cm): 28 Anesthesia: 1% Lidocaine Volume(ml): 10 Sterile Draping: Yes Sterile Technique: Yes De Souza of Air [place]: Yes Tube Drainage(ml): 0 Vaseline Gauze Dressing: No (sterile gauze) Suction: Yes Curved Clamp: Yes Tube Sutured to Skin: Yes Complications: No Post Procedure CXR: Yes - Intubation Intubation Method: orotracheal Blade used: Mac Tube Size (Fr): 7.5 Medications: Etomidate, Rocuronium Tube position @ lip (cm): 24 Tube position confirmed by: Direct visualization, Chest x-ray, Breath sounds Breath Sounds after Intubation: equal Intubation Complications: no complications Post Intubation Xray: Yes <Jack Vaughn - Last Filed: 11/27/17 04:08> ED Treatment Course - LABORATORY CBC & Chemistry Diagram: 11/25/17 21:44 11/25/17 21:44 <Nirav Cantor - Last Filed: 11/25/17 23:55> - LABORATORY CBC & Chemistry Diagram: 11/26/17 05:00 11/26/17 05:00 <Jack Vaughn - Last Filed: 11/27/17 04:08> - ADDITIONAL ORDERS Additional order review: 11/25/17 21:49 Blood Culture - Preliminary Blood - Peripheral Venous NO GROWTH OBTAINED AFTER 24 HOURS, INCUBATION TO CONTINUE FOR 4 DAYS. 11/25/17 21:49 Blood Culture - Preliminary Blood - Peripheral Venous NO GROWTH OBTAINED AFTER 24 HOURS, INCUBATION TO CONTINUE FOR 4 DAYS. 11/25/17 21:44 RBC 5.06 MCV 85.3 MCHC 31.6 L RDW 19.2 H MPV 9.4 Neutrophils % No Result Required. Lymphocytes % No Result Required. - RADIOLOGY Radiology Studies Ordered: Category Date Time Status CXRPORT [CHEST X-RAY PORTABLE*] [RAD] Stat Radiology 11/25/17 22:24 Completed - Medications Given in the ED: ED Medications Discontinued Medications Generic Name Dose Route Start Last Admin Trade Name Freq PRN Reason Stop Dose Admin Etomidate 20 mg 11/25/17 21:36 11/25/17 21:45 Amidate - IVPUSH 11/25/17 21:37 20 mg NOW ONE Administration Furosemide 60 mg 11/25/17 21:37 11/25/17 22:00 Lasix Injection - IVPUSH 11/25/17 21:38 60 mg ONCE ONE Administration Furosemide 40 mg 11/26/17 04:40 11/26/17 06:12 Lasix Injection - IVPB 11/26/17 04:41 40 mg ONCE ONE Administration Vancomycin HCl 1,250 mg/ 250 mls @ 166.667 mls/hr 11/26/17 05:00 11/26/17 06: 12 Dextrose IVPB 11/26/17 06:29 166.667 mls/hr ONCE ONE Administration Protocol Sodium Chloride 1,000 mls @ 1,000 mls/hr 11/26/17 11:27 11/26/17 11:00 Normal Saline - IV 11/26/17 12:26 1,000 mls/hr ASDIR STA Administration Insulin Aspart 1 vial 11/26/17 07:00 11/26/17 11:00 Novolog Vial Sliding Scale - SQ Not Given TIDAC IVON Protocol Insulin Detemir 8 units 11/26/17 12:45 11/26/17 11:40 Levemir Vial SQ 11/26/17 12:46 8 units ONCE ONE Administration Piperacillin Sod/Tazobactam Sod 3.375 gm 11/26/17 04:45 11/26/17 05:24 Zosyn 3.375gm Ivpb (Pre-Docked) IVPB 11/26/17 04:46 3.375 gm NOW ONE Administration Protocol Rocuronium [place] 10 mg 11/25/17 21:37 11/25/17 22:30 Zemuron - IV 11/25/17 21:38 10 mg ONCE ONE Administration Medical Decision Making <Nirav Cantor - Last Filed: 11/25/17 23:55> <Jack Vaughn - Last Filed: 11/27/17 04:08> - Medical Decision Making 11/25/17 21:53 77 yo F with h/o HTN, NIDDM, combined systolic and diastolic HF, pulmonary fibrosis, BIBA from outside nursing facility ([facility] )with labored breathing and hypxoic to 45% O2 NC, w/ BP ~172/114, and tachycardic 124 at [facility]. Pt. improvement to 85 % 02 on 25 L non rebreather and BMV on EMS arrival. Continually hypoxic and minimally responsive. Patient full code per prison documentation. Recent admission at [facility] ( 11/01- 11/11/17) for hypxoemic resp failure 2/2 PNA and underlying idiopathic pulmonary fibrosis. PMD. Bin Olmstead. Physical exam with coarse lung sounds, and accessory muscle use. Pt. intubated and sedated on Propofol drip and on vent settings TV 450/R 16/ FiO2 100 / PEEP 5. Will evaluate and assess for acute causes of hypoxic resp failure including CHF exacerbation, PNA, PE. ED Course: Full sepsis workup initiated 11/26/17 00:21 Patient intubated on arrival with 7.5 tube. No complications. Initial CXR with L sided pneumothorax 25-30% and repeat CXR following ET tube repositioning shows larger pneuomothrax with over 50 % involvement. Patient received chest tube at 11:00 , with securement of chest tube to skin. No complications and de souza of air heard. 11/26/17 00:23 WBC: 12.2 Glu: 442 Lactic Acid: 3.9 Trop: 0.07 EKG: Sinus Tachycardia with biatrial enlargement. Patient accepted to ICU. Admitted to [facility] service Dr. Short. (Jack Vaughn) *DC/Admit/Observation/Transfer <Nirav Cantor - Last Filed: 11/25/17 23:55> <Jack Vaughn - Last Filed: 11/27/17 04:08> Diagnosis at time of Disposition: Pulmonary fibrosis, Respiratory distress, Hemothorax on left - Discharge Dispostion Condition at time of disposition: Guarded
[2017-11-25 22:03] LABS: HEMATOCRIT 43.1 % (32.4-45.2); HEMOGLOBIN 13.6 GM/dL (10.7-15.3); MCH 26.9 pg (25.7-33.7); MCHC 31.6 g/dl (32.0-36.0); MEAN CELL VOLUME 85.3 fl (80-96); MEAN PLT VOLUME 9.4 fl (7.5-11.1); PLATELET COUNT 197 K/MM3 (134-434); RBC 5.06 M/mm3 (3.60-5.2); RDW 19.2 % (11.6-15.6); WHITE BLOOD COUNT 12.2 K/mm3 (4.0-10.0)
[2017-11-25 22:05] LABS: URINE APPEARANCE CLEAR; URINE BILIRUBIN NEGATIVE (NEGATIVE); URINE COLOR STRAW; URINE GLUCOSE (UA) 3+ (NEGATIVE); URINE KETONE NEGATIVE (NEGATIVE); URINE LEUK ESTERASE NEGATIVE (NEGATIVE); URINE NITRITE NEGATIVE (NEGATIVE); URINE UROBILINOGEN NEGATIVE mg/dL (0.2-1.0)
[2017-11-25 22:25] LABS: INR 0.96 (0.82-1.09); PROTHROMBIN TIME (PATIENT) 10.9 SEC (9.98-11.88)
[2017-11-25 22:41] LABS: ALBUMIN 2.8 g/dl (3.4-5.0); ANION GAP 10 (8-16); BILIRUBIN,TOTAL 0.6 mg/dL (0.2-1.0); BLOOD UREA NITROGEN 29 mg/dL (7-18); CHLORIDE 100 mmol/L (98-107); CO2 25 mmol/L (21-32); CREATININE 1.3 mg/dL (0.55-1.02); SGPT/ALT 27 U/L (12-78); SODIUM 135 mmol/L (136-145); TOT PROT 6.9 g/dl (6.4-8.2)
[2017-11-25 22:44] LABS: ALK PHOS 126 U/L (45-117); N-TERMINAL BNP 240.71 pg/ml (5-450)
[2017-11-25 22:46] LABS: URINE PROTEIN 1+ (NEGATIVE)
[2017-11-25 22:48] LABS: EPI CELLS RARE /HPF (FEW); URINE HYALINE CAST 2 /lpf; URINE MUCUS RARE
[2017-11-25] MEDS ORDERED: RAPID SEQUENCE INTUBATION KIT NR ONE (22:49)
[2017-11-25 22:55] LABS: MAGNESIUM 2.4 mg/dL (1.8-2.4); POTASSIUM 5.2 mmol/L (3.5-5.1); SGOT/AST 28 U/L (15-37)
[2017-11-25 22:57] LABS: GLUCOSE,RANDOM 442 mg/dL (74-106)
[2017-11-25] MEDS ORDERED: LIDOCAINE HCL 1%, 10 MG/ML (20ML VIAL) ONE (23:11)
[2017-11-25] MEDS ORDERED: LIDOCAINE HCL 2% (20ML MULTI-DOSE VIAL) NR ONE (23:11)
--- NOTE | 2017-11-26 00:02 | PDOC ---
Attending Attestation - HPI HPI: 11/26/17 00:04 Patient is a 77 year old female, from [facility], with a significant past medical history of HTN, NIDDM, combined systolic and diastolic HF, pulmonary fibrosis, BIBA, who presents to the ED with a significant past medical history of who was brought by EMS to the ED with complaints of Respiratory distress that began earlier today. As per EMS, [facility] staff stated patient was experiencing episodes of labored breathing as well as hypoxia to 45 % O2 NC. They reports administering breathing treatment, improving patient to 85% O2 on 25 liters. As Per EMS, patient's blood pressure was noted to be 172/11 , and tachycardia to 124. Allergies: None Social history: From [facility]. No smoking. No alcohol. No illicit drugs. Surgical history: Bilateral knee replacement PMD: Dr. Olmstead <Slim Gunderson - Last Filed: 11/26/17 00:04> - Resident Resident Name: Jack Vaughn - ED Attending Attestation I have performed the following: I have examined & evaluated the patient, The case was reviewed & discussed with the resident, I agree w/resident's findings & plan, Exceptions are as noted - Physicial Exam PE: 11/26/17 00:00 *Physical Exam General Appearance: Yes: Appropriately Dressed. Mild respiratory distress, No: Intoxicated HEENT: positive: EOMI, JUAN, Normal ENT Inspection, Normal Voice, TMs Normal, Pharynx Normal. negative: Pale Conjunctivae, Photophobia, Scleral Icterus (R), Scleral Icterus (L) Neck: positive: Trachea midline, Normal Thyroid, Supple. negative: Tender, Rigid, Carotid bruit, Stridor, Lymphadenopathy (R), Lymphadenopathy (L), Thyromegaly Respiratory/Chest: positive: decrease BS on left hemithorax modrate respiratory distress negative: Chest Tender,, Accessory Muscle Use, Labored Respiration, RES, Crackles, Rales, Rhonchi, Stridor, Wheezing, Dullness Cardiovascular: positive: tachy r Rhythm, Regular Rate, S1, S2. negative: Edema, JVD, Murmur, Bradycardia, Vascular Pulses: Dorsalis-Pedis (R): 2+, Doralis-Pedis (L): 2+ Gastrointestinal/Abdominal: positive: Normal Bowel Sounds, Flat, Soft. negative : Tender, Organomegaly, Pulsatile Mass, Increased Bowel Sounds, Decreased BS, Distended, Guarding, Rebound, Hernia, Hepatomegaly, Spleenomegaly Lymphatic: negative: Adenopathy, Tenderness Musculoskeletal: positive: Normal Inspection. negative: CVA Tenderness, Decreased Range of Motion Extremity: positive: Normal Capillary Refill, Normal Inspection, Normal Range of Motion, Pelvis Stable. negative: Tender, Pedal Edema, Swelling, Erythema Integumentary: positive: Normal Color, Dry, Warm. negative: Cyanotic, Erythema , Jaundice, Rash Neurologic: positive: potato chip cooker machine II-XII NML intact, Fully Oriented, Alert, Normal Mood/ Affect, Motor Strength 5/5. negative: EOM Palsy, Facial Droop, Sensory Deficit - Medical Decision Making 11/30/17 19:08 Pt admitted to ICU <Nirav Cantor - Last Filed: 11/30/17 19:08> Discharge Disposition <Slim Gunderson - Last Filed: 11/26/17 00:04> - Discharge Dispostion Last Admission D/C Date: 11/11/17 Admit: Yes <Nirav Cantor - Last Filed: 11/30/17 19:08> - Diagnosis Pulmonary fibrosis, Respiratory distress, Hemothorax on left - Discharge Dispostion Condition at time of disposition: Guarded
--- NOTE | 2017-11-26 00:17 | HP ---
CHIEF COMPLAINT: respiratory distress. PCP: Bin Kang. HISTORY OF PRESENT ILLNESS: 77 yo F with h/o HTN, NIDDM, combined systolic and diastolic HF, pulmonary fibrosis, presented from [facility] with acute respiratory failure. Per EMS nursing facility noted patient with labored breathing and hypxoic to 45% O2 NC, with improvement to 85 % 02 on 25 L non rebreather and BMV on EMS arriva. Patient noted to be HTN 172/114, and tachycardic 124 at SNF. Recent admission at [facility] ( 11/01- 11/11/17) for hypxoemic resp failure 2/2 PNA and underlying idiopathic pulmonary fibrosis treated with IV steroids and antibiotics and discharged to SNF. She was found to be in severe respiratory failure on arrival and subsequently intubated and sedated. CXR showed large worsening left sided pneumothorax. ER course was notable for: (1)Intubated and sedated (2)CXR showed large expanding Pneumothorax. (3)Chest tube placed on left side. Recent Travel:Denies PAST MEDICAL HISTORY: Obesity, NIDDM, ILD, CHF , and HTN. PAST SURGICAL HISTORY: bilateral Knee replacements. Social History: Smoking:never smoked. Alcohol:denies Drugs: denies Family History: Allergies No Known Allergies Allergy (Verified 11/01/17 13:16) HOME MEDICATIONS: Home Medications Medication Instructions Recorded Albuterol Sulfate Inhaler - 1 - 2 inh PO QID 11/01/17 [Ventolin HFA Inhaler -] Amlodipine Besylate [Norvasc -] 5 mg PO DAILY 11/01/17 Fluticasone Propionate [Flovent 110 mcg IH DAILY 11/01/17 Hfa] Furosemide [Lasix -] 20 mg PO DAILY 11/01/17 Glipizide 10 mg PO BID 11/01/17 Omeprazole 40 mg PO DAILY 11/01/17 Sitagliptin Phosphate [Januvia] 50 mg PO DAILY 11/01/17 Amox-Tr/K Cl [Augmentin 875-125mg 1 tab PO BID@0800,1730 #10 tablet 11/07/17 Tablet -] Losartan Potassium [Cozaar -] 50 mg PO DAILY #30 tablet 11/07/17 Prednisone 10 mg PO DAILY #30 tab.ds.pk 11/07/17 REVIEW OF SYSTEMS Unable to obtain as patient is intubated and sedated. PHYSICAL EXAMINATION Vital Signs - 24 hr 11/25/17 11/25/17 21:36 21:37 Pulse Rate 121 H Respiratory 16 16 Rate O2 Sat by Pulse 99 Oximetry (%) GENERAL: sedated. HEAD: NC/AT EYES: PERRLA, anicteric sclera EARS, NOSE, THROAT:dry mucous membranes. NECK:supple, no jvd. LUNGS: coarse breath sounds bilaterally. No wheezes, and no crackles. No accessory muscle use.intubated. HEART: RRR, NL S1S2, no m/g/r ABDOMEN: Soft, obese, nontender, not distended, normoactive bowel sounds, no guarding, no rebound, no masses. No hepatomegaly or splenomegaly. LOWER EXTREMITIES: 2+ pulses, warm, well-perfused. No calf tenderness. 1+ pitting LE edema NEUROLOGICAL: sedated Laboratory Results - last 24 hr 11/25/17 11/25/17 11/25/17 21:40 21:44 21:44 WBC 12.2 H RBC 5.06 Hgb 13.6 D Hct 43.1 MCV 85.3 MCH 26.9 MCHC 31.6 L RDW 19.2 H Plt Count 197 D MPV 9.4 Neutrophils % No Result Required. Lymphocytes % No Result Required. PT with INR 10.90 INR 0.96 Sodium Potassium Chloride Carbon Dioxide Anion Gap BUN Creatinine Creat Clearance w eGFR Random Glucose Lactic Acid 3.9 H* Calcium Magnesium Total Bilirubin AST ALT Alkaline Phosphatase Creatine Kinase Troponin I B-Natriuretic Peptide Total Protein Albumin Urine Color Urine Appearance Urine pH Ur Specific [place] Urine Protein Urine Glucose (UA) Urine Ketones Urine Blood Urine Nitrite Urine Bilirubin Urine Urobilinogen Ur Leukocyte Esterase Urine WBC (Auto) Urine RBC (Auto) Ur Epithelial Cells Hyaline Casts Urine Mucus 11/25/17 11/25/17 21:44 21:49 WBC RBC Hgb Hct MCV MCH MCHC RDW Plt Count MPV Neutrophils % Lymphocytes % PT with INR INR Sodium 135 L Potassium 5.2 H Chloride 100 Carbon Dioxide 25 Anion Gap 10 BUN 29 H Creatinine 1.3 H Creat Clearance w eGFR 39.72 Random Glucose 442 H* Lactic Acid Calcium 9.0 Magnesium 2.4 Total Bilirubin 0.6 D AST 28 ALT 27 Alkaline Phosphatase 126 H Creatine Kinase 76 Troponin I 0.07 H B-Natriuretic Peptide 240.71 Total Protein 6.9 Albumin 2.8 L Urine Color Straw Urine Appearance Clear Urine pH 6.0 Ur Specific [place] 1.021 Urine Protein 1+ H Urine Glucose (UA) 3+ H Urine Ketones Negative Urine Blood Negative Urine Nitrite Negative Urine Bilirubin Negative Urine Urobilinogen Negative Ur Leukocyte Esterase Negative Urine WBC (Auto) 1 Urine RBC (Auto) 1 Ur Epithelial Cells Rare Hyaline Casts 2 Urine Mucus Rare ASSESSMENT/PLAN: 77 yo F with h/o HTN, NIDDM, combined systolic and diastolic HF, pulmonary fibrosis admitted to ICU for management of acute respiratory failure with hypoxia and pneumothorax. Problem List - Problem (1) Acute hypoxemic respiratory failure Assessment/Plan: Required intubation and sedation. * Admit to ICU * Continuous monitoring. * Pulmonary consult Dr. Finley. * Supplemental O2 via ET tube maintain SPO2>90% * Albuterol INH prn. * Solumedrol 60mg IV Q8H (2) Hemothorax on left Assessment/Plan: worsening throughout day. * supplemental O2 * plueral drainage with chest tube. * repeat CXR in AM (3) Pulmonary fibrosis (4) CHF (congestive heart failure) Assessment/Plan: Last echo done 11/03/17 showed combined diastolic and systolic dysfunction. * Strict I/O's * limit IVF * Continue * Furosemide 20 mg IV daily. * Losartan 50 mg IV (5) Diabetes mellitus Assessment/Plan: Patient is currently NPO. * BGM TID * ADA diet once able to eat. * ISS TID. (6) HTN (hypertension) Assessment/Plan: PO meds held 2/2 intubation. * continue with IV meds for BP control. (7) DVT prophylaxis Assessment/Plan: Heparin SQ TID 5000 units Visit type - Emergency Visit Emergency Visit: Yes ED Registration Date: 11/26/17 Care time: The patient presented to the Emergency Department on the above date and was hospitalized for further evaluation of their emergent condition. - New Patient This patient is new to me today: Yes Date on this admission: 11/29/17 - Critical Care Critical Care patient: Yes Total Critical Care Time (in minutes): 47 Critical Care Statement: The care of this patient involved high complexity decision making to prevent further life threatening deterioration of the patient 's condition and/or to evaluate & treat vital organ system(s) failure or risk of failure. Hospitalist Screening - Colonoscopy Questionnaire Colonoscopy Questionnaire: Colonoscopy Questionnaire - Patient: 50 - 75 years old and never had a screening colonoscopy: No History of colon or rectal polyps, or CA: No History of IBD, Crohn's disease or UC: No History of abdominal radiation therapy as a child: No - Relative: 1 with colon or rectal CA, or polyps at age 60 or younger: No Colon or rectal CA diagnosed at age 45 or younger: No Multiple relatives with colon or rectal CA: No - Outcome: Screening Result: Negative Screen
[2017-11-26] MEDS ORDERED: ROCURONIUM BROMIDE 50 MG/5 ML VIAL IV ONE ×2 (00:45→00:46)
[2017-11-26] MEDS: PROPOFOL 1,000,000 MCG/100 ML VIAL IVPB SCH ×3 (01:00→23:30)
[2017-11-26] MEDS ORDERED: METOPROLOL TARTRATE 5 MG/5 ML VIAL IVPUSH PRN (01:09)
[2017-11-26] MEDS ORDERED: PROPOFOL 1,000,000 MCG/100 ML VIAL ONE (01:19)
--- NOTE | 2017-11-26 01:21 | PN ---
Teaching Attending Note Name of Resident: Abhijeet Joiner ATTENDING PHYSICIAN STATEMENT I saw and evaluated the patient. I reviewed the resident's note and discussed the case with the resident. I agree with the resident's findings and plan as documented. SUBJECTIVE: This is a 77 year old woman with a history of HTN, type 2 DM, chronic systolic and diastolic heart failure, pulmonary fibrosis who was sent to the ED from [place] for hypoxia. She reportedly had an O2 saturation of 45 % with labored breathing at [place]. She had been admitted here 11/01-11/11 with acute hypoxic respiratory failure and pneumonia. She was treated with Rocephin followed by Augmentin and steroid taper. In the ED, she was intubated and subsequently found to have a large left pneumothorax for which a chest tube was inserted. OBJECTIVE: Vital Signs Period Temp Pulse Resp BP Sys/Simms Pulse Ox Last 24 Hr 121-128 16-18 161/115 99-99 HEART: S1S2, tachycardic LUNGS: Coarse BS, bilateral rhonchi ABDOMEN: Obese, soft, non-distended, normal BS EXTREMITIES: Trace edema Laboratory Tests 11/25/17 11/25/17 11/25/17 21:40 21:44 21:44 WBC 12.2 H RBC 5.06 Hgb 13.6 D Hct 43.1 MCV 85.3 MCH 26.9 MCHC 31.6 L RDW 19.2 H Plt Count 197 D MPV 9.4 Neutrophils % No Result Required. Lymphocytes % No Result Required. PT with INR 10.90 INR 0.96 Sodium Potassium Chloride Carbon Dioxide Anion Gap BUN Creatinine Creat Clearance w eGFR Random Glucose Lactic Acid 3.9 H* Calcium Magnesium Total Bilirubin AST ALT Alkaline Phosphatase Creatine Kinase Troponin I B-Natriuretic Peptide Total Protein Albumin Urine Color Urine Appearance Urine pH Ur Specific [place] Urine Protein Urine Glucose (UA) Urine Ketones Urine Blood Urine Nitrite Urine Bilirubin Urine Urobilinogen Ur Leukocyte Esterase Urine WBC (Auto) Urine RBC (Auto) Ur Epithelial Cells Hyaline Casts Urine Mucus 11/25/17 11/25/17 21:44 21:49 WBC RBC Hgb Hct MCV MCH MCHC RDW Plt Count MPV Neutrophils % Lymphocytes % PT with INR INR Sodium 135 L Potassium 5.2 H Chloride 100 Carbon Dioxide 25 Anion Gap 10 BUN 29 H Creatinine 1.3 H Creat Clearance w eGFR 39.72 Random Glucose 442 H* Lactic Acid Calcium 9.0 Magnesium 2.4 Total Bilirubin 0.6 D AST 28 ALT 27 Alkaline Phosphatase 126 H Creatine Kinase 76 Troponin I 0.07 H B-Natriuretic Peptide 240.71 Total Protein 6.9 Albumin 2.8 L Urine Color Straw Urine Appearance Clear Urine pH 6.0 Ur Specific [place] 1.021 Urine Protein 1+ H Urine Glucose (UA) 3+ H Urine Ketones Negative Urine Blood Negative Urine Nitrite Negative Urine Bilirubin Negative Urine Urobilinogen Negative Ur Leukocyte Esterase Negative Urine WBC (Auto) 1 Urine RBC (Auto) 1 Ur Epithelial Cells Rare Hyaline Casts 2 Urine Mucus Rare Home Medications Medication Instructions Recorded Albuterol Sulfate Inhaler - 1 - 2 inh PO QID 11/01/17 [Ventolin HFA Inhaler -] Amlodipine Besylate [Norvasc -] 5 mg PO DAILY 11/01/17 Fluticasone Propionate [Flovent 110 mcg IH DAILY 11/01/17 Hfa] Furosemide [Lasix -] 20 mg PO DAILY 11/01/17 Glipizide 10 mg PO BID 11/01/17 Omeprazole 40 mg PO DAILY 11/01/17 Sitagliptin Phosphate [Januvia] 50 mg PO DAILY 11/01/17 Amox-Tr/K Cl [Augmentin 875-125mg 1 tab PO BID@0800,1730 #10 tablet 11/07/17 Tablet -] Losartan Potassium [Cozaar -] 50 mg PO DAILY #30 tablet 11/07/17 Prednisone 10 mg PO DAILY #30 tab.ds.pk 11/07/17 ASSESSMENT AND PLAN: This is a 77 year old woman with a history of HTN, type 2 DM, chronic systolic and diastolic heart failure, pulmonary fibrosis who was sent to the ED from [place] where she was noted to have labored breathing and hpoxia. 1. Acute hypoxic respiratory failure - Intubated in ED - Admit to ICU - Pulmonary/critical care consult 2. Left pneumothorax - Chest tube inserted in ED 3. Severe sepsis secondary to pneumonia - Zosyn, Vancomycin - Unable to give IV fluid secondary to CHF and possible fluid overload - Monitor lactic acid 4. Hyperkalemia - Hold Cozaar - On Lasix - Unable to give IV fluid secondary to CHF and possible fluid overload - Monitor electrolytes 5. HTN - Hold Cozaar, Norvasc - Continue Lasix 6. Chronic systolic and diastolic heart failure - Change Lasix to IV 7. Stage 3 CKD 8. Interstitial lung disease/pulmonary fibrosis 9. Type 2 DM, uncontrolled - Hold Januvia - Fingersticks with Novolog sliding scale 10. DVT prophylaxis - Heparin subq 11. Stress ulcer prophylaxis - Protonix IV
[2017-11-26 01:31] VITALS: BMI 33.6
[2017-11-26 01:36] LABS: ANISOCYTOSIS 1+; MACROCYTOSIS 0; PLATELET ESTIMATE NORMAL
[2017-11-26 04:09] LABS: ARTERIAL BLD GAS O2 SATURATION 99.4 % (90-98.9); ARTERIAL BLOOD GAS BASE EXCESS 0.5 meq/l (-2-2); ARTERIAL BLOOD GAS PCO2 47.8 mmHg (35-45); ARTERIAL BLOOD GAS pH 7.36 (7.35-7.45)
[2017-11-26 04:11] LABS: ALLENS TEST POSITIVE
[2017-11-26] MEDS ORDERED: FUROSEMIDE 40 MG/4 ML INJECTABLE VIAL IVPB ONE (04:40)
--- NOTE | 2017-11-26 04:44 | CONSULT ---
Consult Consult Specialty:: Pulmonary Critical Care Reason for Consultation:: Hypoxemic respiratory failure - History of Present Illness History of Present Illness: 77 yo with h/o HTN, DM2, systolic/diastolic HF, pulmonary fibrosis brought in from [place] for evaluation of respiratory failure. Prior to arrival to ED pt hypoxic with SpO2 of 45% on NC, improved to 80s on NRB. In ED she was noted to be hypertensive and tachycardic. Intubated for hypoxemic respiratory failure, post intubation CXR with L sided pneumo s/p chest tube. Of note, pt with recent admission at [facility] (11/01-11/11) for hypoxemic respiratory failure which was treated with abx and IV steroids. Admission labs this time notable for WBC 12.2 , Cr 1.3 (lactate 1.1 beginning of november), lactate 3.9, glucose 442, troponin 0.07. On arrival to ICU pt sedated on propofol, chest tube in place. Repeat CXR with resolution of pneumothorax, bilateral white out. ABG 7.36/48/203 on AV/VC 16/450 /100/5. Vent adjusted to RR of 6cc/kg, currently on AC/VC 20/360/70/5. Broad spectrum abx and lasix ordered. Active Medications Chlorhexidine Gluconate (Hibiclens For Decolonization -) 1 applic TP HS [facility] Furosemide (Lasix Injection -) 40 mg IVPB ONCE ONE Stop: 11/26/17 04:41 Heparin Sodium (Porcine) (Heparin -) 5,000 unit SQ TID [facility] Propofol (Diprivan -) 1,000,000 mcg in 100 mls @ 0 mls/hr IVPB TITR IVON; 5 MCG/ KG/MIN PRN Reason: Protocol Last Titration: 11/26/17 03:30 Dose: 30 mcg/kg/min, 17.015 mls/hr Vancomycin HCl 1,250 mg/ (Dextrose) 250 mls @ 250 mls/hr IVPB ONCE ONE PRN Reason: Protocol Stop: 11/26/17 05:31 Insulin Aspart (Novolog Vial Sliding Scale -) 1 vial SQ TIDAC [facility] PRN Reason: Protocol Metoprolol Tartrate (Lopressor Injection -) 5 mg IVPUSH Q4H PRN PRN Reason: HYPERTENSION Mupirocin (Bactroban Ointment (For Decolonization) -) 1 applic NS BID [facility] Stop: 12/01/17 09:59 Piperacillin Sod/Tazobactam Sod (Zosyn 3.375gm Ivpb (Pre-Docked)) 3.375 gm IVPB NOW ONE PRN Reason: Protocol Stop: 11/26/17 04:46 - Past Medical History Cardio/Vascular: Yes: HTN Pulmonary: Yes: Pulmonary Fibrosis Endocrine: Yes: Diabetes Mellitus - Past Surgical History Past Surgical History: Yes: Joint Replacement - Alcohol/Substance Use Hx Alcohol Use: No History of Substance Use: reports: None - Smoking History Smoking history: Never smoked Home Medications - Allergies Allergies/Adverse Reactions: Allergies Allergy/AdvReac Type Severity Reaction Status Date / Time No Known Allergies Allergy Verified 11/26/17 00:41 - Home Medications Home Medications: Ambulatory Orders Albuterol Sulfate Inhaler - [Ventolin HFA Inhaler -] 1 - 2 inh PO QID 11/01/17 Amlodipine Besylate [Norvasc -] 5 mg PO DAILY 11/01/17 Fluticasone Propionate [Flovent Hfa] 110 mcg IH DAILY 11/01/17 Furosemide [Lasix -] 20 mg PO DAILY 11/01/17 Glipizide 10 mg PO BID 11/01/17 Omeprazole 40 mg PO DAILY 11/01/17 Sitagliptin Phosphate [Januvia] 50 mg PO DAILY 11/01/17 Amox-Tr/K Cl [Augmentin 875-125mg Tablet -] 1 tab PO BID@0800,1730 #10 tablet Losartan Potassium [Cozaar -] 50 mg PO DAILY #30 tablet 11/07/17 Prednisone 10 mg PO DAILY #30 tab.ds.pk 11/07/17 Family Disease History - Family Disease History Family Disease History: CA: Mother (Colon), Sister (Pancreatic CA) Physical Exam Vital Signs: Vital Signs Temperature 99.1 F 11/26/17 01:23 Pulse Rate 95 H 11/26/17 01:23 Respiratory Rate 16 11/26/17 04:02 Blood Pressure 166/109 11/26/17 01:23 O2 Sat by Pulse Oximetry (%) 100 11/26/17 01:41 Cardiovascular: Yes: Regular Rate and Rhythm, S1, S2 Respiratory: Yes: Intubated, Other (coarse BS bilaterally) Gastrointestinal: Yes: Normal Bowel Sounds, Soft. No: Tenderness Edema: No Neurological: Yes: Other (RASS -4) Labs: CBC, BMP 11/25/17 21:44 11/25/17 21:44 Problem List - Problems (1) Hemothorax on left Code(s): J94.2 - HEMOTHORAX (2) Acute hypoxemic respiratory failure Code(s): J96.01 - ACUTE RESPIRATORY FAILURE WITH HYPOXIA (3) Diabetes mellitus Code(s): E11.9 - TYPE 2 DIABETES MELLITUS WITHOUT COMPLICATIONS Qualifiers: Diabetes mellitus type: type 2 Diabetes mellitus [employer] insulin use: without usp use Diabetes mellitus complication status: with circulatory complication Diabetes mellitus complication detail: with other circulatory complications Qualified Code(s): E11.59 - Type 2 diabetes mellitus with other circulatory complications (4) PNA (pneumonia) Code(s): J18.9 - PNEUMONIA, UNSPECIFIED ORGANISM Assessment/Plan Hypoxemic respiratory failure in the setting of L pneumothorax +/- HCAP +/- fluid overload, pt also with h/o pulmonary fibrosis Elevated lactate Elevated Cr DM2 -vent support (TV adjusted to 6cc/kg, PEEP at 5 given pneumo) -cont chest tube to suction -propofol for sedation -send sputum -broad spectrum abx (zosyn/vanco) -narrow once cultures come back -diurese for net out -trend UO and SCr -trend lactate -insulin SS -heparin SubQ -pepcid for GI ppx ZEHRA Monroy Critical Care time: 45 min
[2017-11-26] MEDS ORDERED: PIPERACILLIN/TAZOB 3.375 GM/50 ML PRE-DOCKED IVPB ONE (04:45)
[2017-11-26] MEDS ORDERED: VANCOMYCIN 1,250 MG in DEXTROSE 5%-WATER - 250 ML IVPB ONE (05:00)
[2017-11-26] MEDS: HEPARIN NA (PORCINE) 5,000 UNITS/ML 1ML VIAL SQ SCH ×4 (06:12→22:57)
[2017-11-26 07:03] LABS: ARTERIAL BLD GAS O2 SATURATION 98.7 % (90-98.9); ARTERIAL BLOOD GAS BASE EXCESS 1.9 meq/l (-2-2); ARTERIAL BLOOD GAS PCO2 44.3 mmHg (35-45)
[2017-11-26 07:05] LABS: ALLENS TEST POSITIVE
[2017-11-26 07:19] LABS: ALBUMIN 2.8 g/dl (3.4-5.0); ANION GAP 14 (8-16); BILIRUBIN,TOTAL 0.8 mg/dL (0.2-1.0); BLOOD UREA NITROGEN 35 mg/dL (7-18); CALCIUM 9.4 mg/dL (8.5-10.1); CHLORIDE 94 mmol/L (98-107); CO2 29 mmol/L (21-32); CREATININE 1.6 mg/dL (0.55-1.02); MAGNESIUM 2.5 mg/dL (1.8-2.4); PHOSPHOROUS 4.7 mg/dL (2.5-4.9); POTASSIUM 4.8 mmol/L (3.5-5.1); SGOT/AST 21 U/L (15-37); SGPT/ALT 28 U/L (12-78); SODIUM 137 mmol/L (136-145); TOT PROT 6.3 g/dl (6.4-8.2)
[2017-11-26 07:21] LABS: ALK PHOS 111 U/L (45-117)
[2017-11-26 07:38] LABS: BASO % 0.4 % (0-2.0); EOS % 0.1 % (0-4.5); HEMATOCRIT 39.5 % (32.4-45.2); HEMOGLOBIN 12.4 GM/dL (10.7-15.3); LYMPH % 4.9 % (8-40); MCH 26.7 pg (25.7-33.7); MCHC 31.3 g/dl (32.0-36.0); MEAN CELL VOLUME 85.4 fl (80-96); MEAN PLT VOLUME 10.1 fl (7.5-11.1); MONO % 5.7 % (3.8-10.2); NEUT % 88.9 % (42.8-82.8); PLATELET COUNT 159 K/MM3 (134-434); RBC 4.63 M/mm3 (3.60-5.2); RDW 18.7 % (11.6-15.6)
[2017-11-26 08:01] LABS: GLUCOSE,RANDOM 488 mg/dL (74-106)
[2017-11-26] MEDS: INSULIN SLIDING SCALE (NOVOLOG) 1 VIAL SQ SCH ×6 (08:16→23:26)
[2017-11-26] MEDS: MUPIROCIN 2% TOPICAL OINTMENT FOR DECOLONIZATION NS SCH ×2 (09:45→21:24)
--- NOTE | 2017-11-26 09:48 | EKG ---
Test Reason : Blood Pressure : / mmHG Vent. Rate : 128 BPM Atrial Rate : 128 BPM P-R Int : 154 ms QRS Dur : 072 ms QT Int : 276 ms P-R-T Axes : 063 069 018 degrees QTc Int : 402 ms POOR DATA QUALITY, INTERPRETATION MAY BE ADVERSELY AFFECTED SINUS TACHYCARDIA BIATRIAL ENLARGEMENT ABNORMAL ECG BASELINE ARTIFACT POOR DATA QUALITY, INTERPRETATION MAY BE ADVERSELY AFFECTED Confirmed by GEOVANNI HUERTA MD ([id number]) on 11/26/2017 9:48:25 AM Referred By: Confirmed By:GEOVANNI HUERTA MD
--- NOTE | 2017-11-26 10:20 | PN ---
Progress Note, Physician Chief Complaint: patient intubated sedated on propofol has left sided chest tube in draining blood about 15 cc nagel cath yellow urine - Current Medication List Current Medications: Active Medications Chlorhexidine Gluconate (Hibiclens For Decolonization -) 1 applic TP HS IVON Heparin Sodium (Porcine) (Heparin -) 5,000 unit SQ TID [facility] Last Admin: 11/26/17 06:12 Dose: 5,000 unit Propofol (Diprivan -) 1,000,000 mcg in 100 mls @ 0 mls/hr IVPB TITR IVON; 5 MCG/ KG/MIN PRN Reason: Protocol Last Titration: 11/26/17 06:00 Dose: 25 mcg/kg/min, 14.179 mls/hr Insulin Aspart (Novolog Vial Sliding Scale -) 1 vial SQ TIDAC IVON PRN Reason: Protocol Last Admin: 11/26/17 08:16 Dose: 12 units Metoprolol Tartrate (Lopressor Injection -) 5 mg IVPUSH Q4H PRN PRN Reason: HYPERTENSION Mupirocin (Bactroban Ointment (For Decolonization) -) 1 applic NS BID [facility] Stop: 12/01/17 09:59 Last Admin: 11/26/17 09:45 Dose: 1 applic - Objective Vital Signs: Vital Signs Temperature 99.3 F 11/26/17 08:00 Pulse Rate 80 11/26/17 08:00 Respiratory Rate 28 H 11/26/17 09:30 Blood Pressure 152/73 11/26/17 08:00 O2 Sat by Pulse Oximetry (%) 99 11/26/17 06:53 Constitutional: Yes: Other (sedated intubated) Cardiovascular: Yes: Regular Rate and Rhythm, S1, S2 Respiratory: Yes: Mechanically Ventilated, Other (chest tube with bloody draininage) Gastrointestinal: Yes: Normal Bowel Sounds, Soft Extremities: Yes: Other (scd) Labs: CBC, BMP 11/26/17 05:00 11/26/17 05:00 INR, PTT INR 0.96 (0.82-1.09) 11/25/17 21:44 Problem List - Problems (1) Acute hypoxemic respiratory failure Assessment/Plan: intubated sedated on propofol PNA elevated lactic acid now trending down to normal WBC elevated on abx- on steroids at [place] for IPF( pulm fibrosis) NPO Code(s): J96.01 - ACUTE RESPIRATORY FAILURE WITH HYPOXIA (2) Hemothorax on left Assessment/Plan: s/p chest tube placement improvement in cxr monitor drainage Code(s): J94.2 - HEMOTHORAX (3) CHF (congestive heart failure) Assessment/Plan: got iv lasix in ER amlodipine and cozaar on hold NPO iv metoprolol as needed cardiology evaluation Code(s): I50.9 - HEART FAILURE, UNSPECIFIED Qualifiers: Heart failure type: combined systolic and diastolic Heart failure chronicity: chronic Qualified Code(s): I50.42 - Chronic combined systolic ( congestive) and diastolic (congestive) heart failure (4) Diabetes mellitus Assessment/Plan: [id number] start levemir on sliding scale hold oral hypogycemic meds for now Code(s): E11.9 - TYPE 2 DIABETES MELLITUS WITHOUT COMPLICATIONS Qualifiers: Diabetes mellitus type: type 2 Diabetes mellitus penitentiary insulin use: without penitentiary use Diabetes mellitus complication status: with circulatory complication Diabetes mellitus complication detail: with other circulatory complications Qualified Code(s): E11.59 - Type 2 diabetes mellitus with other circulatory complications (5) CKD (chronic kidney disease) stage 3, GFR 30-59 ml/min Assessment/Plan: monitor lytes cr at baseline for now Code(s): N18.3 - CHRONIC KIDNEY DISEASE, STAGE 3 (MODERATE)
[2017-11-26] MEDS ORDERED: SODIUM CHLORIDE 1,000 ML IV STA (11:27)
--- NOTE | 2017-11-26 12:11 | PN ---
Teaching Attending Note Name of Resident: Miles Cole ATTENDING PHYSICIAN STATEMENT I saw and evaluated the patient. I reviewed the resident's note and discussed the case with the resident. I agree with the resident's findings and plan as documented. SUBJECTIVE: Patient seen and examined in the ICU. Intubated and sedated. No pressors. AC Mode of vent, 60% FiO2. CXR: No airleak. Gen: Intubated and sedated Cardiovascular: Yes: Regular Rate and Rhythm, S1, S2 Respiratory: Yes: Intubated, bilateral coarse rhonchi, Left CT intact,no air leak Gastrointestinal: Yes: Normal Bowel Sounds, Soft. No: Tenderness Edema: No Neurological: Yes: Sedated Labs: Laboratory Results - last 24 hr 11/25/17 11/25/17 11/25/17 21:40 21:44 21:44 WBC 12.2 H RBC 5.06 Hgb 13.6 D Hct 43.1 MCV 85.3 MCH 26.9 MCHC 31.6 L RDW 19.2 H Plt Count 197 D MPV 9.4 Neutrophils % No Result Required. Neutrophils % (Manual) 80.0 Band Neutrophils % 10.0 Lymphocytes % No Result Required. Lymphocytes % (Manual) 7.0 L Monocytes % Monocytes % (Manual) 3 L Eosinophils % Eosinophils % (Manual) 0.0 Basophils % Basophils % (Manual) 0.0 Myelocytes % (Man) 0 Promyelocytes % (Man) 0 Blast Cells % (Manual) 0 Nucleated RBC % 0 Metamyelocytes 0 Hypochromia 0 Platelet Estimate Normal Polychromasia 0 Poikilocytosis 0 Anisocytosis 1+ Microcytosis 0 Macrocytosis 0 PT with INR 10.90 INR 0.96 Puncture Site ABG pH ABG pCO2 at Pt Temp ABG pO2 at Pt Temp ABG HCO3 ABG O2 Sat (Measured) ABG O2 Content ABG Base Excess Yaniv Test O2 Delivery Device Oxygen Flow Rate Vent Mode Vent Rate PEEP Pressure Support Vent Sodium Potassium Chloride Carbon Dioxide Anion Gap BUN Creatinine Creat Clearance w eGFR POC Glucometer Random Glucose Lactic Acid 3.9 H* Calcium Phosphorus Magnesium Total Bilirubin AST ALT Alkaline Phosphatase Creatine Kinase Troponin I B-Natriuretic Peptide Total Protein Albumin Urine Color Urine Appearance Urine pH Ur Specific [place] Urine Protein Urine Glucose (UA) Urine Ketones Urine Blood Urine Nitrite Urine Bilirubin Urine Urobilinogen Ur Leukocyte Esterase Urine WBC (Auto) Urine RBC (Auto) Ur Epithelial Cells Hyaline Casts Urine Mucus 11/25/17 11/25/17 11/26/17 21:44 21:49 04:00 WBC RBC Hgb Hct MCV MCH MCHC RDW Plt Count MPV Neutrophils % Neutrophils % (Manual) Band Neutrophils % Lymphocytes % Lymphocytes % (Manual) Monocytes % Monocytes % (Manual) Eosinophils % Eosinophils % (Manual) Basophils % Basophils % (Manual) Myelocytes % (Man) Promyelocytes % (Man) Blast Cells % (Manual) Nucleated RBC % Metamyelocytes Hypochromia Platelet Estimate Polychromasia Poikilocytosis Anisocytosis Microcytosis Macrocytosis PT with INR INR Puncture Site Left radial ABG pH 7.36 ABG pCO2 at Pt Temp 47.8 H ABG pO2 at Pt Temp 202.0 H* D ABG HCO3 26.0 ABG O2 Sat (Measured) 99.4 H ABG O2 Content 18.1 ABG Base Excess 0.5 Yaniv Test Positive O2 Delivery Device Vent Oxygen Flow Rate 100% Vent Mode Vent Rate 16 PEEP 5.0 Pressure Support Vent 450 Sodium 135 L Potassium 5.2 H Chloride 100 Carbon Dioxide 25 Anion Gap 10 BUN 29 H Creatinine 1.3 H Creat Clearance w eGFR 39.72 POC Glucometer Random Glucose 442 H* Lactic Acid Calcium 9.0 Phosphorus Magnesium 2.4 Total Bilirubin 0.6 D AST 28 ALT 27 Alkaline Phosphatase 126 H Creatine Kinase 76 Troponin I 0.07 H B-Natriuretic Peptide 240.71 Total Protein 6.9 Albumin 2.8 L Urine Color Straw Urine Appearance Clear Urine pH 6.0 Ur Specific [place] 1.021 Urine Protein 1+ H Urine Glucose (UA) 3+ H Urine Ketones Negative Urine Blood Negative Urine Nitrite Negative Urine Bilirubin Negative Urine Urobilinogen Negative Ur Leukocyte Esterase Negative Urine WBC (Auto) 1 Urine RBC (Auto) 1 Ur Epithelial Cells Rare Hyaline Casts 2 Urine Mucus Rare 11/26/17 11/26/17 11/26/17 05:00 05:00 06:06 WBC 12.0 H RBC 4.63 Hgb 12.4 Hct 39.5 MCV 85.4 MCH 26.7 MCHC 31.3 L RDW 18.7 H Plt Count 159 MPV 10.1 Neutrophils % 88.9 H Neutrophils % (Manual) Band Neutrophils % Lymphocytes % 4.9 L D Lymphocytes % (Manual) Monocytes % 5.7 Monocytes % (Manual) Eosinophils % 0.1 D Eosinophils % (Manual) Basophils % 0.4 Basophils % (Manual) Myelocytes % (Man) Promyelocytes % (Man) Blast Cells % (Manual) Nucleated RBC % Metamyelocytes Hypochromia Platelet Estimate Polychromasia Poikilocytosis Anisocytosis Microcytosis Macrocytosis PT with INR INR Puncture Site ABG pH ABG pCO2 at Pt Temp ABG pO2 at Pt Temp ABG HCO3 ABG O2 Sat (Measured) ABG O2 Content ABG Base Excess Yaniv Test O2 Delivery Device Oxygen Flow Rate Vent Mode Vent Rate PEEP Pressure Support Vent Sodium 137 Potassium 4.8 Chloride 94 L Carbon Dioxide 29 Anion Gap 14 BUN 35 H Creatinine 1.6 H Creat Clearance w eGFR 31.26 POC Glucometer > 400 Random Glucose 488 H* Lactic Acid Calcium 9.4 Phosphorus 4.7 Magnesium 2.5 H Total Bilirubin 0.8 D AST 21 ALT 28 Alkaline Phosphatase 111 Creatine Kinase Troponin I B-Natriuretic Peptide Total Protein 6.3 L Albumin 2.8 L Urine Color Urine Appearance Urine pH Ur Specific [place] Urine Protein Urine Glucose (UA) Urine Ketones Urine Blood Urine Nitrite Urine Bilirubin Urine Urobilinogen Ur Leukocyte Esterase Urine WBC (Auto) Urine RBC (Auto) Ur Epithelial Cells Hyaline Casts Urine Mucus 11/26/17 11/26/17 06:51 08:10 WBC RBC Hgb Hct MCV MCH MCHC RDW Plt Count MPV Neutrophils % Neutrophils % (Manual) Band Neutrophils % Lymphocytes % Lymphocytes % (Manual) Monocytes % Monocytes % (Manual) Eosinophils % Eosinophils % (Manual) Basophils % Basophils % (Manual) Myelocytes % (Man) Promyelocytes % (Man) Blast Cells % (Manual) Nucleated RBC % Metamyelocytes Hypochromia Platelet Estimate Polychromasia Poikilocytosis Anisocytosis Microcytosis Macrocytosis PT with INR INR Puncture Site Right radial ABG pH 7.40 ABG pCO2 at Pt Temp 44.3 ABG pO2 at Pt Temp 126.0 H D ABG HCO3 26.6 H ABG O2 Sat (Measured) 98.7 ABG O2 Content 16.1 ABG Base Excess 1.9 Yaniv Test Positive O2 Delivery Device Vent Oxygen Flow Rate 70% Vent Mode A/c Vent Rate 20 PEEP 5.0 Pressure Support Vent 360 Sodium Potassium Chloride Carbon Dioxide Anion Gap BUN Creatinine Creat Clearance w eGFR POC Glucometer Random Glucose Lactic Acid 1.7 Calcium Phosphorus Magnesium Total Bilirubin AST ALT Alkaline Phosphatase Creatine Kinase Troponin I B-Natriuretic Peptide Total Protein Albumin Urine Color Urine Appearance Urine pH Ur Specific [place] Urine Protein Urine Glucose (UA) Urine Ketones Urine Blood Urine Nitrite Urine Bilirubin Urine Urobilinogen Ur Leukocyte Esterase Urine WBC (Auto) Urine RBC (Auto) Ur Epithelial Cells Hyaline Casts Urine Mucus Problem List - Problems (1) Hemothorax on left Code(s): J94.2 - HEMOTHORAX (2) Acute hypoxemic respiratory failure Code(s): J96.01 - ACUTE RESPIRATORY FAILURE WITH HYPOXIA (3) Diabetes mellitus Code(s): E11.9 - TYPE 2 DIABETES MELLITUS WITHOUT COMPLICATIONS Qualifiers: Diabetes mellitus type: type 2 Diabetes mellitus senior care insulin use: without senior care use Diabetes mellitus complication status: with circulatory complication Diabetes mellitus complication detail: with other circulatory complications Qualified Code(s): E11.59 - Type 2 diabetes mellitus with other circulatory complications (4) PNA (pneumonia) Code(s): J18.9 - PNEUMONIA, UNSPECIFIED ORGANISM Assessment/Plan Hypoxemic respiratory failure in the setting of L pneumothorax +/- HCAP +/- fluid overload, pt also with h/o pulmonary fibrosis Elevated lactate Elevated Cr DM2 -vent support (TV adjusted to 6cc/kg, PEEP at 5 given pneumo) -cont chest tube to suction -propofol for sedation -Follow sputum cultures -Broad ABX -trend UO and SCr -Glycemic control -VTE prophylaxis -GI Prophylaxis Dr Garcia Critical care time spent in reviewing chart, evaluating patient and formulating plan - 40 minutes.
[2017-11-26] MEDS ORDERED: INSULIN (LEVEMIR) 100 UNITS/ML UNITS SQ ONE (12:45)
--- NOTE | 2017-11-26 13:19 | PN ---
Progress Note, Physician Chief Complaint: ID Full note dictated Admitted with respiratory failure and what appears to be left pneumothorax spontaneous now intubated with left chest tube - Current Medication List Current Medications: Active Medications Chlorhexidine Gluconate (Hibiclens For Decolonization -) 1 applic TP HS IVON Heparin Sodium (Porcine) (Heparin -) 5,000 unit SQ TID [facility] Last Admin: 11/26/17 06:12 Dose: 5,000 unit Propofol (Diprivan -) 1,000,000 mcg in 100 mls @ 0 mls/hr IVPB TITR IVON; 5 MCG/ KG/MIN PRN Reason: Protocol Last Titration: 11/26/17 06:00 Dose: 25 mcg/kg/min, 14.179 mls/hr Insulin Aspart (Novolog Vial Sliding Scale -) 1 vial SQ Q4H IVON PRN Reason: Protocol Last Admin: 11/26/17 11:30 Dose: 12 units Metoprolol Tartrate (Lopressor Injection -) 5 mg IVPUSH Q4H PRN PRN Reason: HYPERTENSION Mupirocin (Bactroban Ointment (For Decolonization) -) 1 applic NS BID [facility] Stop: 12/01/17 09:59 Last Admin: 11/26/17 09:45 Dose: 1 applic - Objective Vital Signs: Vital Signs Temperature 98.9 F 11/26/17 11:46 Pulse Rate 84 11/26/17 11:46 Respiratory Rate 20 11/26/17 12:13 Blood Pressure 118/56 11/26/17 11:46 O2 Sat by Pulse Oximetry (%) 98 11/26/17 11:00 Cardiovascular: Yes: S1, S2 Respiratory: Yes: Diminished Gastrointestinal: Yes: Soft Edema: No Labs: CBC, BMP 11/26/17 05:00 11/26/17 05:00 INR, PTT INR 0.96 (0.82-1.09) 11/25/17 21:44 Assessment/Plan Microbiology Laboratory Tests 11/25/17 11/26/17 11/26/17 21:40 05:00 05:00 WBC 12.0 H Hgb 12.4 Hct 39.5 Plt Count 159 BUN 35 H Creat Clearance w eGFR 31.26 Random Glucose 488 H* Lactic Acid 3.9 H* Assessment Respiratory failure Left pneumothorax spontaneous Pulmonary fibrosis Cannot rule out serpimposed HAP Plan Panculture and treat with Vanco and Cefepime Vanco level in am Sera GONSALEZ
--- NOTE | 2017-11-26 13:32 | PN ---
Physical Exam: SUBJECTIVE: Patient intubated and unable to respond at this time. OBJECTIVE: Vital Signs Period Temp Pulse Resp BP Sys/Simms Pulse Ox Last 24 Hr 98.3 F-99.3 F 78-128 16-28 96-166/51-115 98-100 GENERAL: +The patient is currently intubated and on ventilator HEAD: Normal with no signs of trauma. EYES: PERRL, extraocular movements intact, sclera anicteric, conjunctiva clear. No ptosis. ENT: Ears normal, nares patent, oropharynx clear without exudates, moist mucous membranes. NECK: Trachea midline, full range of motion, supple. LUNGS: Breath sounds equal, clear to auscultation bilaterally, no wheezes, no crackles, no accessory muscle use. HEART: Regular rate and rhythm, S1, S2 without murmur, rub or gallop. ABDOMEN: Soft, nontender, nondistended, normoactive bowel sounds, no guarding, no rebound, no hepatosplenomegaly, no masses. EXTREMITIES: 2+ pulses, warm, well-perfused, no edema. NEUROLOGICAL: +Unable to assess PSYCH: +Unable to assess SKIN: Warm, dry, normal turgor, no rashes or lesions noted Laboratory Results - last 24 hr 11/25/17 11/25/17 11/25/17 21:40 21:44 21:44 WBC 12.2 H RBC 5.06 Hgb 13.6 D Hct 43.1 MCV 85.3 MCH 26.9 MCHC 31.6 L RDW 19.2 H Plt Count 197 D MPV 9.4 Neutrophils % No Result Required. Neutrophils % (Manual) 80.0 Band Neutrophils % 10.0 Lymphocytes % No Result Required. Lymphocytes % (Manual) 7.0 L Monocytes % Monocytes % (Manual) 3 L Eosinophils % Eosinophils % (Manual) 0.0 Basophils % Basophils % (Manual) 0.0 Myelocytes % (Man) 0 Promyelocytes % (Man) 0 Blast Cells % (Manual) 0 Nucleated RBC % 0 Metamyelocytes 0 Hypochromia 0 Platelet Estimate Normal Polychromasia 0 Poikilocytosis 0 Anisocytosis 1+ Microcytosis 0 Macrocytosis 0 PT with INR 10.90 INR 0.96 Puncture Site ABG pH ABG pCO2 at Pt Temp ABG pO2 at Pt Temp ABG HCO3 ABG O2 Sat (Measured) ABG O2 Content ABG Base Excess Yaniv Test O2 Delivery Device Oxygen Flow Rate Vent Mode Vent Rate PEEP Pressure Support Vent Sodium Potassium Chloride Carbon Dioxide Anion Gap BUN Creatinine Creat Clearance w eGFR POC Glucometer Random Glucose Lactic Acid 3.9 H* Calcium Phosphorus Magnesium Total Bilirubin AST ALT Alkaline Phosphatase Creatine Kinase Troponin I B-Natriuretic Peptide Total Protein Albumin Urine Color Urine Appearance Urine pH Ur Specific [place] Urine Protein Urine Glucose (UA) Urine Ketones Urine Blood Urine Nitrite Urine Bilirubin Urine Urobilinogen Ur Leukocyte Esterase Urine WBC (Auto) Urine RBC (Auto) Ur Epithelial Cells Hyaline Casts Urine Mucus 11/25/17 11/25/17 11/26/17 21:44 21:49 04:00 WBC RBC Hgb Hct MCV MCH MCHC RDW Plt Count MPV Neutrophils % Neutrophils % (Manual) Band Neutrophils % Lymphocytes % Lymphocytes % (Manual) Monocytes % Monocytes % (Manual) Eosinophils % Eosinophils % (Manual) Basophils % Basophils % (Manual) Myelocytes % (Man) Promyelocytes % (Man) Blast Cells % (Manual) Nucleated RBC % Metamyelocytes Hypochromia Platelet Estimate Polychromasia Poikilocytosis Anisocytosis Microcytosis Macrocytosis PT with INR INR Puncture Site Left radial ABG pH 7.36 ABG pCO2 at Pt Temp 47.8 H ABG pO2 at Pt Temp 202.0 H* D ABG HCO3 26.0 ABG O2 Sat (Measured) 99.4 H ABG O2 Content 18.1 ABG Base Excess 0.5 Yaniv Test Positive O2 Delivery Device Vent Oxygen Flow Rate 100% Vent Mode Vent Rate 16 PEEP 5.0 Pressure Support Vent 450 Sodium 135 L Potassium 5.2 H Chloride 100 Carbon Dioxide 25 Anion Gap 10 BUN 29 H Creatinine 1.3 H Creat Clearance w eGFR 39.72 POC Glucometer Random Glucose 442 H* Lactic Acid Calcium 9.0 Phosphorus Magnesium 2.4 Total Bilirubin 0.6 D AST 28 ALT 27 Alkaline Phosphatase 126 H Creatine Kinase 76 Troponin I 0.07 H B-Natriuretic Peptide 240.71 Total Protein 6.9 Albumin 2.8 L Urine Color Straw Urine Appearance Clear Urine pH 6.0 Ur Specific [place] 1.021 Urine Protein 1+ H Urine Glucose (UA) 3+ H Urine Ketones Negative Urine Blood Negative Urine Nitrite Negative Urine Bilirubin Negative Urine Urobilinogen Negative Ur Leukocyte Esterase Negative Urine WBC (Auto) 1 Urine RBC (Auto) 1 Ur Epithelial Cells Rare Hyaline Casts 2 Urine Mucus Rare 11/26/17 11/26/17 11/26/17 05:00 05:00 06:06 WBC 12.0 H RBC 4.63 Hgb 12.4 Hct 39.5 MCV 85.4 MCH 26.7 MCHC 31.3 L RDW 18.7 H Plt Count 159 MPV 10.1 Neutrophils % 88.9 H Neutrophils % (Manual) Band Neutrophils % Lymphocytes % 4.9 L D Lymphocytes % (Manual) Monocytes % 5.7 Monocytes % (Manual) Eosinophils % 0.1 D Eosinophils % (Manual) Basophils % 0.4 Basophils % (Manual) Myelocytes % (Man) Promyelocytes % (Man) Blast Cells % (Manual) Nucleated RBC % Metamyelocytes Hypochromia Platelet Estimate Polychromasia Poikilocytosis Anisocytosis Microcytosis Macrocytosis PT with INR INR Puncture Site ABG pH ABG pCO2 at Pt Temp ABG pO2 at Pt Temp ABG HCO3 ABG O2 Sat (Measured) ABG O2 Content ABG Base Excess Yaniv Test O2 Delivery Device Oxygen Flow Rate Vent Mode Vent Rate PEEP Pressure Support Vent Sodium 137 Potassium 4.8 Chloride 94 L Carbon Dioxide 29 Anion Gap 14 BUN 35 H Creatinine 1.6 H Creat Clearance w eGFR 31.26 POC Glucometer > 400 Random Glucose 488 H* Lactic Acid Calcium 9.4 Phosphorus 4.7 Magnesium 2.5 H Total Bilirubin 0.8 D AST 21 ALT 28 Alkaline Phosphatase 111 Creatine Kinase Troponin I B-Natriuretic Peptide Total Protein 6.3 L Albumin 2.8 L Urine Color Urine Appearance Urine pH Ur Specific [place] Urine Protein Urine Glucose (UA) Urine Ketones Urine Blood Urine Nitrite Urine Bilirubin Urine Urobilinogen Ur Leukocyte Esterase Urine WBC (Auto) Urine RBC (Auto) Ur Epithelial Cells Hyaline Casts Urine Mucus 11/26/17 11/26/17 06:51 08:10 WBC RBC Hgb Hct MCV MCH MCHC RDW Plt Count MPV Neutrophils % Neutrophils % (Manual) Band Neutrophils % Lymphocytes % Lymphocytes % (Manual) Monocytes % Monocytes % (Manual) Eosinophils % Eosinophils % (Manual) Basophils % Basophils % (Manual) Myelocytes % (Man) Promyelocytes % (Man) Blast Cells % (Manual) Nucleated RBC % Metamyelocytes Hypochromia Platelet Estimate Polychromasia Poikilocytosis Anisocytosis Microcytosis Macrocytosis PT with INR INR Puncture Site Right radial ABG pH 7.40 ABG pCO2 at Pt Temp 44.3 ABG pO2 at Pt Temp 126.0 H D ABG HCO3 26.6 H ABG O2 Sat (Measured) 98.7 ABG O2 Content 16.1 ABG Base Excess 1.9 Yaniv Test Positive O2 Delivery Device Vent Oxygen Flow Rate 70% Vent Mode A/c Vent Rate 20 PEEP 5.0 Pressure Support Vent 360 Sodium Potassium Chloride Carbon Dioxide Anion Gap BUN Creatinine Creat Clearance w eGFR POC Glucometer Random Glucose Lactic Acid 1.7 Calcium Phosphorus Magnesium Total Bilirubin AST ALT Alkaline Phosphatase Creatine Kinase Troponin I B-Natriuretic Peptide Total Protein Albumin Urine Color Urine Appearance Urine pH Ur Specific [place] Urine Protein Urine Glucose (UA) Urine Ketones Urine Blood Urine Nitrite Urine Bilirubin Urine Urobilinogen Ur Leukocyte Esterase Urine WBC (Auto) Urine RBC (Auto) Ur Epithelial Cells Hyaline Casts Urine Mucus Active Medications Generic Name Dose Route Start Last Admin Trade Name Freq PRN Reason Stop Dose Admin Chlorhexidine Gluconate 1 applic 11/26/17 22:00 Hibiclens For Decolonization - TP HS IVON Heparin Sodium (Porcine) 5,000 unit 11/26/17 06:00 11/26/17 06:12 Heparin - SQ 5,000 unit TID IVON Administration Propofol 1,000,000 mcg in 100 mls @ 0 mls/hr 11/25/17 22:00 11/26/17 06:00 Diprivan - IVPB 25 mcg/kg/min TITR IVON 14.179 mls/hr Protocol Titration 5 MCG/KG/MIN Cefepime HCl 2 gm/ Dextrose 100 mls @ 200 mls/hr 11/26/17 22:00 IVPB BID IVON Protocol Insulin Aspart 1 vial 11/26/17 11:30 11/26/17 11:30 Novolog Vial Sliding Scale - SQ 12 units Q4H IVON Administration Protocol Metoprolol Tartrate 5 mg 11/26/17 01:09 Lopressor Injection - IVPUSH Q4H PRN HYPERTENSION Mupirocin 1 applic 11/26/17 10:00 11/26/17 09:45 Bactroban Ointment (For Decolonization) - NS 12/01/17 09:59 1 applic BID IVON Administration ASSESSMENT/PLAN: Ms. Carson is a 77 yo female w/ pmh of HTN, DM, global heart failure, and pulmonary fibrosis recently discharged after admission for pneumonia 11/01-11/11 who presented to ED with SOB. Patient currently intubated with chest tube after significant pneumothorax appreciated on CXR. Respiratory -Monitor chest tube output (suction currently) -Serial CXR to evaluate progress -Ventilator support w/ TV at 6cc/kg -propofol for sedation -Sputum cultures -Vancomycin day 2 Endocrine -Q4Hr BG and ISS FEN -NS bolus as needed -Electrolyte replacement PRN PPX -SQH Disposition -Pending improvement in ICU Visit type - Emergency Visit Emergency Visit: Yes ED Registration Date: 11/26/17 Care time: The patient presented to the Emergency Department on the above date and was hospitalized for further evaluation of their emergent condition. - New Patient This patient is new to me today: Yes Date on this admission: 11/26/17 - Critical Care Critical Care patient: Yes Total Critical Care Time (in minutes): 37 Critical Care Statement: The care of this patient involved high complexity decision making to prevent further life threatening deterioration of the patient 's condition and/or to evaluate & treat vital organ system(s) failure or risk of failure.
--- NOTE | 2017-11-26 13:40 | CON.CARD ---
Consult Consult Specialty:: Cardiology Referred by:: Dr. Warren Reason for Consultation:: Dyspnea - History of Present Illness Chief Complaint: Dyspnea History of Present Illness: Patient is a 77 year old female who hails from [place] with underlying history of pulmonary fibrosis/ILD recent hospitalization for hypoxemic respiratory failure, type 2 diabetes mellitus and hypertension who presented from [place] with acute hypoxic respiratory failure, left sided PTX lost chest tube, intubated, repeat CXR with resolution of pneumothorax, bilateral infiltrates. Currently sedated on ventilator, broad spectrum abx and lasix administered. - History Source History Provided By: Medical Record Limitations to Obtaining History: Clinical Condition - Past Medical History Cardio/Vascular: Yes: HTN Pulmonary: Yes: Pulmonary Fibrosis Endocrine: Yes: Diabetes Mellitus - Past Surgical History Past Surgical History: Yes: Joint Replacement - Alcohol/Substance Use Hx Alcohol Use: No History of Substance Use: reports: None - Smoking History Smoking history: Never smoked Home Medications - Allergies Allergies/Adverse Reactions: Allergies Allergy/AdvReac Type Severity Reaction Status Date / Time No Known Allergies Allergy Verified 11/26/17 00:41 - Home Medications Home Medications: Ambulatory Orders Albuterol Sulfate Inhaler - [Ventolin HFA Inhaler -] 1 - 2 inh PO QID 11/01/17 Amlodipine Besylate [Norvasc -] 5 mg PO DAILY 11/01/17 Fluticasone Propionate [Flovent Hfa] 110 mcg IH DAILY 11/01/17 Furosemide [Lasix -] 20 mg PO DAILY 11/01/17 Glipizide 10 mg PO BID 11/01/17 Omeprazole 40 mg PO DAILY 11/01/17 Sitagliptin Phosphate [Januvia] 50 mg PO DAILY 11/01/17 Amox-Tr/K Cl [Augmentin 875-125mg Tablet -] 1 tab PO BID@0800,1730 #10 tablet Losartan Potassium [Cozaar -] 50 mg PO DAILY #30 tablet 11/07/17 Prednisone 10 mg PO DAILY #30 tab.ds.pk 11/07/17 Family Disease History - Family Disease History Family Disease History: CA: Mother (Colon), Sister (Pancreatic CA) Review of Systems Unable to obtain ROS, reason: Sedated and intubated Vital Signs: Vital Signs Temperature 98.9 F 11/26/17 11:46 Pulse Rate 84 11/26/17 11:46 Respiratory Rate 20 11/26/17 12:13 Blood Pressure 118/56 11/26/17 11:46 O2 Sat by Pulse Oximetry (%) 98 11/26/17 11:00 Constitutional: Yes: No Distress, Calm Neck: Yes: Supple Respiratory: Yes: Mechanically Ventilated, Rhonchi Gastrointestinal: Yes: Normal Bowel Sounds, Soft, Abdomen, Obese Cardiovascular: Yes: Regular Rate and Rhythm JVD: No Carotid Bruit: No Heart Sounds: Yes: S1, S2 Edema: No - Other Data Labs, Other Data: CBC, BMP 11/26/17 05:00 11/26/17 05:00 INR, PTT INR 0.96 (0.82-1.09) 11/25/17 21:44 Troponin, BNP 11/25/17 21:44 Troponin I 0.07 H B-Natriuretic Peptide 240.71 Troponin, BNP 11/25/17 21:44 Troponin I 0.07 H B-Natriuretic Peptide 240.71 ST @ 128 Ejection Fraction %: LVEF > or = 40 % Imaging - Results Chest X-ray: Report Reviewed (Bilateral infiltrates) Problem List - Problems (1) CKD (chronic kidney disease) stage 3, GFR 30-59 ml/min Code(s): N18.3 - CHRONIC KIDNEY DISEASE, STAGE 3 (MODERATE) (2) DVT prophylaxis Code(s): [id number] - (3) Hemothorax on left Code(s): J94.2 - HEMOTHORAX (4) Pulmonary fibrosis Code(s): J84.10 - PULMONARY FIBROSIS, UNSPECIFIED (5) Acute respiratory failure with hypoxemia Code(s): J96.01 - ACUTE RESPIRATORY FAILURE WITH HYPOXIA (6) Demand ischemia Code(s): I24.8 - OTHER FORMS OF ACUTE ISCHEMIC HEART DISEASE (7) Diabetes mellitus Code(s): E11.9 - TYPE 2 DIABETES MELLITUS WITHOUT COMPLICATIONS Qualifiers: Diabetes mellitus type: type 2 Diabetes mellitus manager terminal insulin use: without manager terminal use Diabetes mellitus complication status: with circulatory complication Diabetes mellitus complication detail: with other circulatory complications Qualified Code(s): E11.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 Acute hypoxemic respiratory failure with underlying pulmonary fibrosis/ILD, spontaneous left PTX post chest tube and possible hospital-acquired PNA 2. Mildly elevated troponin due to demand ischemia - secondary to above 3. Diabetes mellitus 4. Hypertension 5. Diastolic dysfunction 6. OSAS suspect 7. Acute on CKD PLAN: 1. Vent support and chest tube management per ICU, trend trops to document peak 2. Empiric abx per C&S, oral steroids, BD 3. Continue IV Lopressor pending enteral feeds, resume losartan 50 qd and Lasix 20 po qd once renal fxn stabilizes 4. PSG and PFTs as outpatient 5. DVT and GI prophylaxis
--- NOTE | 2017-11-26 13:47 | CONS ---
DATE OF CONSULTATION: HISTORY: This is a 77-year-old female from the [facility] brought to the emergency room here with acute respiratory failure necessitating intubation. Her O2 was noted to be 45% on nasal cannula, and she was tachycardic and hypertensive. Here, an x-ray was obtained, which documented a large left pneumothorax for which a chest tube was placed. I am asked to see her for antibiotic recommendations regarding empiric coverage for possible hospital-associated pneumonia. The patient was recently here in the hospital in the month of October and November and had been treated with antibiotics for possible pneumonia. She has no fever here but was noted to have a white count with a prominent left shift. She was given a dose of vancomycin and Zosyn, and I am asked to see her for further evaluation and treatment. Note that the patient has severe underlying pulmonary fibrosis, and this was demonstrated on a recent CAT scan of the chest obtained during her last admission. PAST MEDICAL HISTORY: Pulmonary fibrosis, [id number] diabetes, hypertension, bilateral knee replacements, congestive heart failure. SOCIAL HISTORY: Nonsmoker. No history of alcohol or substance abuse. FAMILY HISTORY: Reviewed and noncontributory. CURRENT MEDICATIONS: Metoprolol, insulin. REVIEW OF SYSTEMS: Respiratory: Currently intubated, history of pulmonary fibrosis. Cardiac: No recent chest pain, palpitations, syncope. Gastrointestinal: No abdominal pain, diarrhea, vomiting, blood per rectum. Genitourinary: No history of dysuria, hematuria, urinary frequency. PHYSICAL EXAMINATION: General: She is a heavy-set woman intubated and sedated on a ventilator. Vital Signs: The temperature is 98.9, blood pressure 118/56, respiratory rate 20, O2 saturation 98% on 60% FiO2. HEENT: Reveals an endotracheal tube. Lungs: Diminished breath sounds bilaterally. Heart: S1, S2. Distant heart sounds. Abdomen: Soft and nontender. Extremities: Without edema. LABORATORY DATA: White count 12,000, hemoglobin 12.4, platelets 159, left shift on initial differential with 10% bands, INR 1.2, BUN 26, creatinine 1.1. Liver enzymes within normal limits. Lactic acid 3.9. Two sets of blood cultures pending from November 25. Currently no growth. Urine culture pending. Urinalysis with 1 RBC, 1 WBC. ASSESSMENT: A 77-year-old female with severe pulmonary fibrosis status post recent admission in which she received antibiotics at [facility] several weeks ago presents now with respiratory failure and bilateral infiltrates most likely indicative of her history of pulmonary fibrosis. It is difficult, if not impossible, to rule out a superimposed bacterial infection and, therefore, we will empirically treat her at least pending initial blood, urine, and sputum culture. She has received a dose of vancomycin. Cefepime will be continued, and a vancomycin level for the morning will be ordered. We will follow up in 24 hours. MARISABEL GARCIA M.D. [id number]
[2017-11-26] MEDS: CEFEPIME HCL/D5W 2 GM/50 ML BAG IVPB SCH ×2 (15:30→21:23)
[2017-11-26] MEDS: ALBUTEROL SO4 2.5/IPRATROPIUM 0.5 INH SOL 3 ML VIAL.NEB. NEB SCH (20:17)
[2017-11-26] MEDS ORDERED: PT OWN MED DRAWER 7, Y5N ONE (21:17)
[2017-11-26] MEDS: CHLORHEXIDINE GLUCONATE 4% CLEANSER FOR DECOLONIZATION TP SCH (21:24)
[2017-11-27] MEDS: INSULIN SLIDING SCALE (NOVOLOG) 1 VIAL SQ SCH ×5 (04:39→18:50)
[2017-11-27] MEDS: HEPARIN NA (PORCINE) 5,000 UNITS/ML 1ML VIAL SQ SCH ×2 (05:34→15:07)
[2017-11-27 06:21] LABS: BASO % 0.2 % (0-2.0); EOS % 5.6 % (0-4.5); HEMATOCRIT 39.1 % (32.4-45.2); HEMOGLOBIN 12.8 GM/dL (10.7-15.3); LYMPH % 13.3 % (8-40); MCH 27.5 pg (25.7-33.7); MCHC 32.7 g/dl (32.0-36.0); MEAN CELL VOLUME 84.2 fl (80-96); MEAN PLT VOLUME 9.5 fl (7.5-11.1); MONO % 4.3 % (3.8-10.2); NEUT % 76.6 % (42.8-82.8); PLATELET COUNT 143 K/MM3 (134-434); RBC 4.65 M/mm3 (3.60-5.2); RDW 18.8 % (11.6-15.6)
[2017-11-27 06:37] LABS: ALBUMIN 2.5 g/dl (3.4-5.0); ANION GAP 10 (8-16); BILIRUBIN,TOTAL 0.6 mg/dL (0.2-1.0); BLOOD UREA NITROGEN 40 mg/dL (7-18); CALCIUM 9.3 mg/dL (8.5-10.1); CHLORIDE 99 mmol/L (98-107); CO2 31 mmol/L (21-32); CREATININE 1.5 mg/dL (0.55-1.02); GLUCOSE,RANDOM 155 mg/dL (74-106); POTASSIUM 4.1 mmol/L (3.5-5.1); SGOT/AST 21 U/L (15-37); SGPT/ALT 26 U/L (12-78); SODIUM 140 mmol/L (136-145)
[2017-11-27 06:38] LABS: ALK PHOS 93 U/L (45-117)
[2017-11-27 07:57] LABS: MAGNESIUM 2.3 mg/dL (1.8-2.4)
[2017-11-27] MEDS: ALBUTEROL SO4 2.5/IPRATROPIUM 0.5 INH SOL 3 ML VIAL.NEB. NEB SCH ×3 (08:10→20:53)
--- NOTE | 2017-11-27 08:36 | PN ---
Progress Note (short form) - Note Progress Note: sedated, intubated Vital Signs Period Temp Pulse Resp BP Sys/Simms Pulse Ox Last 24 Hr 97.8 F-98.9 F 64-90 20-30 90-144/56-75 97-99 left sided chest tube nagel cor-rrr lungs decreased bs at bases abd soft,nt ext no edema CBC, BMP 11/27/17 05:50 11/27/17 05:50 Microbiology 11/25/17 21:49 Blood - Peripheral Venous Blood Culture - Preliminary NO GROWTH OBTAINED AFTER 24 HOURS, INCUBATION TO CONTINUE FOR 4 DAYS. 11/25/17 21:49 Blood - Peripheral Venous Blood Culture - Preliminary NO GROWTH OBTAINED AFTER 24 HOURS, INCUBATION TO CONTINUE FOR 4 DAYS. 11/26/17 15:20 Sputum - Endotrachea Suction/Ventilator Gram Stain - Final a/p respiratory failure pneumothorax cannot rule out pneumonia pulmonary fibrosis/ILD continue vancomycin/cefepime f/u cultures
[2017-11-27] MEDS: MUPIROCIN 2% TOPICAL OINTMENT FOR DECOLONIZATION NS SCH ×2 (09:22→22:02)
[2017-11-27] MEDS ORDERED: PT OWN MED DRAWER 7, Y5N ONE ×2 (09:25→22:15)
[2017-11-27] MEDS: CEFEPIME HCL/D5W 2 GM/50 ML BAG IVPB SCH ×2 (09:26→22:57)
[2017-11-27] MEDS: COLLAGENASE CLOSTRIDIUM HIST. 30 GRAMS TUBE TP SCH (09:27)
[2017-11-27] MEDS ORDERED: VANCOMYCIN 1 GRAM (PRE-DOCKED) 1,000 MG/250 ML BAG IVPB SCH (10:00)
[2017-11-27] MEDS: VANCOMYCIN 1,000 MG in DEXTROSE 5%-WATER - 250 ML IVPB SCH (10:32)
--- NOTE | 2017-11-27 12:21 | PN ---
Progress Note (short form) - Note Progress Note: PULM/CCM SUBJECTIVE: Patient seen and examined in the ICU. -L lung remains up -slightly worse cxr, small air leak on CT -gas exchange same -minimal CT output. Gen: Intubated and deeply sedated Cardiovascular: Yes: Regular Rate and Rhythm, S1, S2 Respiratory: Yes: Intubated, clear anterior, Left CT intact, small air leak Gastrointestinal: Yes: Normal Bowel Sounds, Soft. No: Tenderness Edema: trace dependant Neurological: Yes: Sedated Labs: Vital Signs Temp 98.8 F 11/27/17 10:00 Pulse 98 H 11/27/17 12:00 Resp 25 H 11/27/17 12:00 BP 135/81 11/27/17 12:00 Pulse Ox 98 11/27/17 10:00 Intake & Output 11/26/17 11/27/17 11/27/17 23:59 11:59 23:59 Intake Total 1199 805 Output Total 1035 365 Balance 164 440 Weight 95.481 kg Intake: IV 849 805 20 rac 11/25 100 700 Normal Saline - 1,000 ml 500 @ 1000 mls/hr IV ASDIR STA Rx#:[id number] saline lock 249 105 IVPB 350 Output: Chest Tube Drainage 35 15 Left Lateral Chest 35 15 Urine 1000 350 Jones 1000 350 Other: Voiding Method Indwelling Catheter Indwelling Catheter Bowel Movement No No # Bowel Movements 1 Weight Measurement Method Built in Bedscale CBCD WBC 8.0 K/mm3 (4.0-10.0) D 11/27/17 05:50 RBC 4.65 M/mm3 (3.60-5.2) 11/27/17 05:50 Hgb 12.8 GM/dL (10.7-15.3) 11/27/17 05:50 Hct 39.1 % (32.4-45.2) 11/27/17 05:50 MCV 84.2 fl (80-96) 11/27/17 05:50 MCHC 32.7 g/dl (32.0-36.0) 11/27/17 05:50 RDW 18.8 % (11.6-15.6) H 11/27/17 05:50 Plt Count 143 K/MM3 (134-434) 11/27/17 05:50 MPV 9.5 fl (7.5-11.1) 11/27/17 05:50 CMP Sodium 140 mmol/L (136-145) 11/27/17 05:50 Potassium 4.1 mmol/L (3.5-5.1) 11/27/17 05:50 Chloride 99 mmol/L (98-107) 11/27/17 05:50 Carbon Dioxide 31 mmol/L (21-32) 11/27/17 05:50 Anion Gap 10 (8-16) 11/27/17 05:50 BUN 40 mg/dL (7-18) H 11/27/17 05:50 Creatinine 1.5 mg/dL (0.55-1.02) H 11/27/17 05:50 Creat Clearance w eGFR 33.67 (>60) 11/27/17 05:50 Random Glucose 155 mg/dL (74-106) H 11/27/17 05:50 Calcium 9.3 mg/dL (8.5-10.1) 11/27/17 05:50 Total Bilirubin 0.6 mg/dL (0.2-1.0) D 11/27/17 05:50 AST 21 U/L (15-37) 11/27/17 05:50 ALT 26 U/L (12-78) 11/27/17 05:50 Alkaline Phosphatase 93 U/L (45-117) 11/27/17 05:50 Total Protein 6.0 g/dl (6.4-8.2) L 11/27/17 05:50 Albumin 2.5 g/dl (3.4-5.0) L 11/27/17 05:50 CARDIAC ENZYMES Creatine Kinase 85 IU/L (26-192) 11/27/17 05:50 Troponin I 0.25 ng/ml (0.00-0.05) H 11/27/17 05:50 Problem List - Problems (1) Hemothorax on left Code(s): J94.2 - HEMOTHORAX (2) Acute hypoxemic respiratory failure Code(s): J96.01 - ACUTE RESPIRATORY FAILURE WITH HYPOXIA (3) Diabetes mellitus Code(s): E11.9 - TYPE 2 DIABETES MELLITUS WITHOUT COMPLICATIONS Qualifiers: Diabetes mellitus type: type 2 Diabetes mellitus technician terminal and repeater insulin use: without technician terminal and repeater use Diabetes mellitus complication status: with circulatory complication Diabetes mellitus complication detail: with other circulatory complications Qualified Code(s): E11.59 - Type 2 diabetes mellitus with other circulatory complications (4) PNA (pneumonia) Code(s): J18.9 - PNEUMONIA, UNSPECIFIED ORGANISM Assessment/Plan Hypoxemic respiratory failure in the setting of L pneumothorax +/- HCAP +/- fluid overload, pt also with h/o pulmonary fibrosis Elevated lactate Elevated Cr DM2 -vent support (TV adjusted to 6cc/kg, PEEP at 5 given pneumo) -cont chest tube to suction , monitor output, still with leak -need to discuss trach/LTMV with family, unclear pt is weanable -propofol for sedation -Follow sputum cultures -Broad ABX as per ID -trend UO and SCr -Glycemic control -VTE prophylaxis -GI Prophylaxis Sonali ACNP [id number]
--- NOTE | 2017-11-27 12:46 | PN ---
Progress Note, Physician Chief Complaint: Events noted remains in ICU History of Present Illness: Patient was seen and examined. Awake and alert. Chart was reviewed Intubated on mechanical ventilator, chest tube and sedated - Current Medication List Current Medications: Active Medications Albuterol/Ipratropium (Duoneb -) 1 amp NEB RTID [facility] Last Admin: 11/27/17 08:10 Dose: 1 amp Chlorhexidine Gluconate (Hibiclens For Decolonization -) 1 applic TP HS [facility] Last Admin: 11/26/17 21:24 Dose: 1 applic Chlorhexidine Gluconate (Peridex -) 15 ml MM BID [facility] Collagenase (Santyl -) 1 applic TP DAILY [facility] Last Admin: 11/27/17 09:27 Dose: 1 applic Heparin Sodium (Porcine) (Heparin -) 5,000 unit SQ TID [facility] Last Admin: 11/27/17 05:34 Dose: 5,000 unit Propofol (Diprivan -) 1,000,000 mcg in 100 mls @ 0 mls/hr IVPB TITR IVON; 5 MCG/ KG/MIN PRN Reason: Protocol Last Admin: 11/26/17 23:30 Dose: 27 mcg/kg/min, 15.314 mls/hr Cefepime HCl (Maxipime 2gm Ivpb (Premix)) 2 gm in 50 mls @ 200 mls/hr IVPB BID [facility] PRN Reason: Protocol Last Admin: 11/27/17 09:26 Dose: 200 mls/hr Vancomycin HCl 1,000 mg/ (Dextrose) 250 mls @ 166.667 mls/hr IVPB DAILY [facility] Last Admin: 11/27/17 10:32 Dose: 166.667 mls/hr Insulin Aspart (Novolog Vial Sliding Scale -) 1 vial SQ Q4H IVON PRN Reason: Protocol Last Admin: 11/27/17 11:44 Dose: 6 units Metoprolol Tartrate (Lopressor Injection -) 5 mg IVPUSH Q4H PRN PRN Reason: HYPERTENSION Mupirocin (Bactroban Ointment (For Decolonization) -) 1 applic NS BID [facility] Stop: 12/01/17 09:59 Last Admin: 11/27/17 09:22 Dose: 1 applic - Objective Vital Signs: Vital Signs Temperature 98.8 F 11/27/17 10:00 Pulse Rate 98 H 11/27/17 12:00 Respiratory Rate 25 H 11/27/17 12:00 Blood Pressure 135/81 11/27/17 12:00 O2 Sat by Pulse Oximetry (%) 98 11/27/17 10:00 Neck: Yes: Supple Cardiovascular: Yes: Regular Rate and Rhythm, S1, S2 Respiratory: Yes: Diminished, Mechanically Ventilated Gastrointestinal: Yes: Normal Bowel Sounds, Soft. No: Tenderness Edema: No Labs: CBC, BMP 11/27/17 05:50 11/27/17 05:50 Problem List - Problems (1) CKD (chronic kidney disease) stage 3, GFR 30-59 ml/min Code(s): N18.3 - CHRONIC KIDNEY DISEASE, STAGE 3 (MODERATE) (2) Hemothorax on left Code(s): J94.2 - HEMOTHORAX (3) Pulmonary fibrosis Code(s): J84.10 - PULMONARY FIBROSIS, UNSPECIFIED (4) Acute hypoxemic respiratory failure Code(s): J96.01 - ACUTE RESPIRATORY FAILURE WITH HYPOXIA (5) Acute respiratory failure with hypoxemia Code(s): J96.01 - ACUTE RESPIRATORY FAILURE WITH HYPOXIA (6) Demand ischemia Code(s): I24.8 - OTHER FORMS OF ACUTE ISCHEMIC HEART DISEASE (7) Diabetes mellitus Code(s): E11.9 - TYPE 2 DIABETES MELLITUS WITHOUT COMPLICATIONS Qualifiers: Diabetes mellitus type: type 2 Diabetes mellitus middle or intermediate school principal insulin use: without middle or intermediate school principal use Diabetes mellitus complication status: with circulatory complication Diabetes mellitus complication detail: with other circulatory complications Qualified Code(s): E11.59 - Type 2 diabetes mellitus with other circulatory complications (8) Diastolic dysfunction without heart failure Code(s): I51.9 - HEART DISEASE, UNSPECIFIED (9) HTN (hypertension) Code(s): I10 - ESSENTIAL (PRIMARY) HYPERTENSION Qualifiers: Hypertension type: essential hypertension Qualified Code(s): I10 - Essential (primary) hypertension (10) PNA (pneumonia) Code(s): J18.9 - PNEUMONIA, UNSPECIFIED ORGANISM Assessment/Plan 1. Acute hypoxemic respiratory failure with underlying pulmonary fibrosis/ILD, spontaneous left pnemothorax post chest tube and possible hospital-acquired PNA 2. Mildly elevated troponin due to demand ischemia 3. Diabetes mellitus 4. Hypertension 5. Diastolic dysfunction 6. OSAS 7. Acute on CKD PLAN: 1. Ventilator support and chest tube management per ICU 2. Trend troponin to document peak 3. Empiric antibiotics 4. Continue IV Lopressor. Resume Losartan 50 qd and Lasix 20 po qd once renal function stabilizes 5. DVT and GI prophylaxis Supportive care Further plans are to follow Frankie Dueñas MD
[2017-11-27] MEDS: PROPOFOL 1,000,000 MCG/100 ML VIAL IVPB SCH ×2 (13:14→22:02)
[2017-11-27] MEDS: CHLORHEXIDINE GLUCONATE 0.12% 15ML CUP MM SCH ×2 (13:14→22:57)
[2017-11-27] MEDS ORDERED: INSULIN SLIDING SCALE (NOVOLOG) 1 VIAL SQ SCH (19:45)
[2017-11-27] MEDS: CHLORHEXIDINE GLUCONATE 4% CLEANSER FOR DECOLONIZATION TP SCH (22:02)
--- NOTE | 2017-11-27 22:27 | PN ---
Progress Note, Physician Chief Complaint: Pneumothorax Respiratory distress History of Present Illness: Chest tube mechanically vented on AC seen by pulmonary, ID and cardiology - Current Medication List Current Medications: Active Medications Albuterol/Ipratropium (Duoneb -) 1 amp NEB RTID [facility] Last Admin: 11/27/17 20:53 Dose: 1 amp Chlorhexidine Gluconate (Hibiclens For Decolonization -) 1 applic TP HS [facility] Last Admin: 11/27/17 22:02 Dose: 1 applic Chlorhexidine Gluconate (Peridex -) 15 ml MM BID [facility] Last Admin: 11/27/17 13:14 Dose: 15 ml Collagenase (Santyl -) 1 applic TP DAILY [facility] Last Admin: 11/27/17 09:27 Dose: 1 applic Heparin Sodium (Porcine) (Heparin -) 5,000 unit SQ TID [facility] Last Admin: 11/27/17 15:07 Dose: 5,000 unit Propofol (Diprivan -) 1,000,000 mcg in 100 mls @ 0 mls/hr IVPB TITR IVON; 5 MCG/ KG/MIN PRN Reason: Protocol Last Admin: 11/27/17 22:02 Dose: Not Given Cefepime HCl (Maxipime 2gm Ivpb (Premix)) 2 gm in 50 mls @ 200 mls/hr IVPB BID [facility] PRN Reason: Protocol Last Admin: 11/27/17 09:26 Dose: 200 mls/hr Vancomycin HCl 1,000 mg/ (Dextrose) 250 mls @ 166.667 mls/hr IVPB DAILY [facility] Last Admin: 11/27/17 10:32 Dose: 166.667 mls/hr Insulin Aspart (Novolog Vial Sliding Scale -) 1 vial SQ Q6H [facility] PRN Reason: Protocol Last Admin: 11/27/17 21:01 Dose: 2 units Metoprolol Tartrate (Lopressor Injection -) 5 mg IVPUSH Q4H PRN PRN Reason: HYPERTENSION Mupirocin (Bactroban Ointment (For Decolonization) -) 1 applic NS BID [facility] Stop: 12/01/17 09:59 Last Admin: 11/27/17 22:02 Dose: 1 applic - Objective Vital Signs: Vital Signs Temperature 98.6 F 11/27/17 18:00 Pulse Rate 86 11/27/17 20:00 Respiratory Rate 24 11/27/17 21:05 Blood Pressure 110/72 11/27/17 20:00 O2 Sat by Pulse Oximetry (%) 99 11/27/17 20:29 Constitutional: Yes: Well Nourished, No Distress, Calm Cardiovascular: Yes: Regular Rate and Rhythm Respiratory: Yes: Mechanically Ventilated Gastrointestinal: Yes: Soft Labs: CBC, BMP 11/27/17 05:50 11/27/17 05:50 INR, PTT INR 0.96 (0.82-1.09) 11/25/17 21:44 Problem List - Problems (1) CKD (chronic kidney disease) stage 3, GFR 30-59 ml/min Assessment/Plan: -Improving -monitor trend -monitor I&O's Code(s): N18.3 - CHRONIC KIDNEY DISEASE, STAGE 3 (MODERATE) (2) Hemothorax on left Assessment/Plan: -Chest tube with minimal air leak -CXR Code(s): J94.2 - HEMOTHORAX (3) Acute respiratory failure with hypoxemia Assessment/Plan: -mechanical vent -pulmonary management Code(s): J96.01 - ACUTE RESPIRATORY FAILURE WITH HYPOXIA (4) CHF (congestive heart failure) Assessment/Plan: cardiology consult last echo mild LVH, EF-58% Code(s): I50.9 - HEART FAILURE, UNSPECIFIED Qualifiers: Heart failure type: combined systolic and diastolic Heart failure chronicity: chronic Qualified Code(s): I50.42 - Chronic combined systolic ( congestive) and diastolic (congestive) heart failure (5) Diabetes mellitus Assessment/Plan: -uncontrolled -Endocrinology consult -insulin -BGM Code(s): E11.9 - TYPE 2 DIABETES MELLITUS WITHOUT COMPLICATIONS Qualifiers: Diabetes mellitus type: type 2 Diabetes mellitus steel layer insulin use: without steel layer use Diabetes mellitus complication status: with circulatory complication Diabetes mellitus complication detail: with other circulatory complications Qualified Code(s): E11.59 - Type 2 diabetes mellitus with other circulatory complications Assessment/Plan see problem list
--- NOTE | 2017-11-28 01:02 | CONSULT ---
Consult Consult Specialty:: endocrine Referred by:: duong lyon NP Reason for Consultation:: diabetes mellitus uncontrolled - History of Present Illness Chief Complaint: intubated sedated/ family at bedside History of Present Illness: 77 yo F with h/o HTN, NIDDM, combined systolic and diastolic HF, pulmonary fibrosis, presented from [facility] with acute respiratory failure. Per EMS nursing facility noted patient with labored breathing and hypxoic to 45% O2 NC, with improvement to 85 % 02 on 25 L non rebreather and BMV on EMS arriva. Patient noted to be HTN 172/114, and tachycardic 124 at SNF. since admission,has required iv antibiotic and iv steroid for respiratory failure. blood sugars have been elevated because of underlying stress state. - Past Medical History Cardio/Vascular: Yes: HTN Pulmonary: Yes: Pulmonary Fibrosis Endocrine: Yes: Diabetes Mellitus - Past Surgical History Past Surgical History: Yes: Joint Replacement - Alcohol/Substance Use Hx Alcohol Use: No History of Substance Use: reports: None - Smoking History Smoking history: Never smoked Home Medications - Allergies Allergies/Adverse Reactions: Allergies Allergy/AdvReac Type Severity Reaction Status Date / Time No Known Allergies Allergy Verified 11/26/17 00:41 - Home Medications Home Medications: Ambulatory Orders Albuterol Sulfate Inhaler - [Ventolin HFA Inhaler -] 1 - 2 inh PO QID 11/01/17 Amlodipine Besylate [Norvasc -] 5 mg PO DAILY 11/01/17 Fluticasone Propionate [Flovent Hfa] 110 mcg IH DAILY 11/01/17 Furosemide [Lasix -] 20 mg PO DAILY 11/01/17 Glipizide 10 mg PO BID 11/01/17 Omeprazole 40 mg PO DAILY 11/01/17 Sitagliptin Phosphate [Januvia] 50 mg PO DAILY 11/01/17 Amox-Tr/K Cl [Augmentin 875-125mg Tablet -] 1 tab PO BID@0800,1730 #10 tablet Losartan Potassium [Cozaar -] 50 mg PO DAILY #30 tablet 11/07/17 Prednisone 10 mg PO DAILY #30 tab.ds.pk 11/07/17 Family Disease History - Family Disease History Family Disease History: CA: Mother (Colon), Sister (Pancreatic CA) Review of Systems Unable to obtain ROS, reason: sedated Physical Exam Vital Signs: Vital Signs Temperature 98.2 F 11/27/17 22:00 Pulse Rate 111 H 11/27/17 22:00 Respiratory Rate 25 H 11/28/17 00:03 Blood Pressure 133/75 11/27/17 22:00 O2 Sat by Pulse Oximetry (%) 99 11/27/17 20:29 Constitutional: Yes: Calm Eyes: Yes: EOM Intact HENT: Yes: Normocephalic Neck: Yes: Trachea Midline Cardiovascular: Yes: Tachycardia Respiratory: Yes: Tachypnea Gastrointestinal: Yes: Normal Bowel Sounds ...Rectal Exam: Yes: Deferred Renal/: Yes: WNL Musculoskeletal: Yes: WNL Extremities: Yes: WNL Labs: CBC, BMP 11/27/17 05:50 11/27/17 05:50 Problem List - Problems (1) Type 2 diabetes mellitus with autonomic neuropathy Code(s): E11.43 - TYPE 2 DIABETES W DIABETIC AUTONOMIC (POLY)NEUROPATHY Qualifiers: Diabetes mellitus lean manufacturing engineer insulin use: without intermediate use Qualified Code(s): E11.43 - Type 2 diabetes mellitus with diabetic autonomic (poly) neuropathy (2) CKD (chronic kidney disease) stage 3, GFR 30-59 ml/min Code(s): N18.3 - CHRONIC KIDNEY DISEASE, STAGE 3 (MODERATE) (3) Pulmonary fibrosis Code(s): J84.10 - PULMONARY FIBROSIS, UNSPECIFIED (4) Respiratory distress Code(s): R06.03 - ACUTE RESPIRATORY DISTRESS (5) Acute respiratory failure with hypoxemia Code(s): J96.01 - ACUTE RESPIRATORY FAILURE WITH HYPOXIA Assessment/Plan Current Active Problems CKD (chronic kidney disease) stage 3, GFR 30-59 ml/min (Acute) DVT prophylaxis (Acute) Hemothorax on left (Acute) Pulmonary fibrosis (Acute) Respiratory distress (Acute) diabetes mellitus hyperglycemia Abnormal Lab Results 11/27/17 11/27/17 11/27/17 05:50 05:50 05:50 RDW 18.8 H Eosinophils % 5.6 H D BUN 40 H Creatinine 1.5 H Random Glucose 155 H Hemoglobin A1c % 9.5 H Troponin I Total Protein 6.0 L Albumin 2.5 L 11/27/17 05:50 RDW Eosinophils % BUN Creatinine Random Glucose Hemoglobin A1c % Troponin I 0.25 H Total Protein Albumin Laboratory Results - last 24 hr 11/27/17 11/27/17 11/27/17 04:31 05:50 05:50 WBC 8.0 D RBC 4.65 Hgb 12.8 Hct 39.1 MCV 84.2 MCH 27.5 MCHC 32.7 RDW 18.8 H Plt Count 143 MPV 9.5 Neutrophils % 76.6 Lymphocytes % 13.3 D Monocytes % 4.3 Eosinophils % 5.6 H D Basophils % 0.2 Sodium 140 Potassium 4.1 Chloride 99 Carbon Dioxide 31 Anion Gap 10 BUN 40 H Creatinine 1.5 H Creat Clearance w eGFR 33.67 POC Glucometer [phone] Random Glucose 155 H Hemoglobin A1c % Calcium 9.3 Phosphorus Magnesium Total Bilirubin 0.6 D AST 21 ALT 26 Alkaline Phosphatase 93 Creatine Kinase Troponin I Total Protein 6.0 L Albumin 2.5 L Random Vancomycin 11/27/17 11/27/17 11/27/17 05:50 05:50 06:46 WBC RBC Hgb Hct MCV MCH MCHC RDW Plt Count MPV Neutrophils % Lymphocytes % Monocytes % Eosinophils % Basophils % Sodium Potassium Chloride Carbon Dioxide Anion Gap BUN Creatinine Creat Clearance w eGFR POC Glucometer [phone] Random Glucose Hemoglobin A1c % 9.5 H Calcium Phosphorus 4.0 Magnesium 2.3 Total Bilirubin AST ALT Alkaline Phosphatase Creatine Kinase 85 Troponin I 0.25 H Total Protein Albumin Random Vancomycin 11/27/17 11/27/17 11/27/17 09:05 11:34 15:29 WBC RBC Hgb Hct MCV MCH MCHC RDW Plt Count MPV Neutrophils % Lymphocytes % Monocytes % Eosinophils % Basophils % Sodium Potassium Chloride Carbon Dioxide Anion Gap BUN Creatinine Creat Clearance w eGFR POC Glucometer 260.25566 [phone] Random Glucose Hemoglobin A1c % Calcium Phosphorus Magnesium Total Bilirubin AST ALT Alkaline Phosphatase Creatine Kinase Troponin I Total Protein Albumin Random Vancomycin 10.235 11/27/17 18:47 WBC RBC Hgb Hct MCV MCH MCHC RDW Plt Count MPV Neutrophils % Lymphocytes % Monocytes % Eosinophils % Basophils % Sodium Potassium Chloride Carbon Dioxide Anion Gap BUN Creatinine Creat Clearance w eGFR POC Glucometer 138.28117 Random Glucose Hemoglobin A1c % Calcium Phosphorus Magnesium Total Bilirubin AST ALT Alkaline Phosphatase Creatine Kinase Troponin I Total Protein Albumin Random Vancomycin plan: bgm q4hrs novolog insulin levemir doses bid as needed iv fluid for hydration/nutrition bmp
[2017-11-28] MEDS: INSULIN SLIDING SCALE (NOVOLOG) 1 VIAL SQ SCH ×6 (03:01→23:00)
[2017-11-28] MEDS: HEPARIN NA (PORCINE) 5,000 UNITS/ML 1ML VIAL SQ SCH ×3 (05:40→22:58)
[2017-11-28 07:18] LABS: MCH 26.8 pg (25.7-33.7); MCHC 31.8 g/dl (32.0-36.0); MEAN CELL VOLUME 84.1 fl (80-96); MEAN PLT VOLUME 9.4 fl (7.5-11.1); PLATELET COUNT 131 K/MM3 (134-434); RBC 4.87 M/mm3 (3.60-5.2); RDW 18.4 % (11.6-15.6); WHITE BLOOD COUNT 7.2 K/mm3 (4.0-10.0)
[2017-11-28] MEDS: ALBUTEROL SO4 2.5/IPRATROPIUM 0.5 INH SOL 3 ML VIAL.NEB. NEB SCH ×3 (08:41→20:08)
--- NOTE | 2017-11-28 09:57 | PN ---
Progress Note (short form) - Note Progress Note: sedated, intubated NAD Vital Signs Period Temp Pulse Resp BP Sys/Simms Pulse Ox Last 24 Hr 97.9 F-99.0 F 80-111 20-28 110-164/57-94 98-99 cor-rrr lungs decreased bs at bases abd soft,nt ext +edema CBC, BMP 11/28/17 06:00 Microbiology 11/25/17 21:49 Blood - Peripheral Venous Blood Culture - Preliminary NO GROWTH OBTAINED AFTER 48 HOURS, INCUBATION TO CONTINUE FOR 3 DAYS. 11/25/17 21:49 Blood - Peripheral Venous Blood Culture - Preliminary NO GROWTH OBTAINED AFTER 48 HOURS, INCUBATION TO CONTINUE FOR 3 DAYS. 11/27/17 12:20 Urine For Antigen Detection Legionella Antigen - Final 11/27/17 12:20 Urine For Antigen Detection Streptococcus pneumoniae Antigen (M - Final 11/26/17 15:20 Sputum - Endotrachea Suction/Ventilator Gram Stain - Final 11/26/17 15:20 Sputum - Endotrachea Suction/Ventilator Sputum Culture - Preliminary [facility]ORMAL [facility]PIRAT[facility] [place] 11/25/17 21:49 Urine - Urine Jones Urine Culture - Final NO GROWTH OBTAINED a/p respiratory failure pneumothorax cannot rule out pneumonia pulmonary fibrosis/ILD continue vancomycin/cefepime f/u cultures f/u chemistries repeat cxray
--- NOTE | 2017-11-28 10:13 | PN ---
Progress Note (short form) - Note Progress Note: Seen and examined in the ICU Remains intubated and sedated Still air leak on left chest tube cont to have poor pulmonary mechanics Pplt 30 Current Medications Albuterol/Ipratropium (Duoneb -) 1 amp NEB RTID [facility] Last Admin: 11/28/17 08:41 Dose: 1 amp Chlorhexidine Gluconate (Hibiclens For Decolonization -) 1 applic TP HS [facility] Last Admin: 11/27/17 22:02 Dose: 1 applic Chlorhexidine Gluconate (Peridex -) 15 ml MM BID [facility] Last Admin: 11/27/17 22:57 Dose: 15 ml Collagenase (Santyl -) 1 applic TP DAILY [facility] Last Admin: 11/27/17 09:27 Dose: 1 applic Heparin Sodium (Porcine) (Heparin -) 5,000 unit SQ TID [facility] Last Admin: 11/28/17 05:40 Dose: 5,000 unit Propofol (Diprivan -) 1,000,000 mcg in 100 mls @ 0 mls/hr IVPB TITR IVON; 5 MCG/ KG/MIN PRN Reason: Protocol Last Admin: 11/27/17 22:02 Dose: Not Given Cefepime HCl (Maxipime 2gm Ivpb (Premix)) 2 gm in 50 mls @ 200 mls/hr IVPB BID [facility] PRN Reason: Protocol Last Admin: 11/27/17 22:57 Dose: 200 mls/hr Vancomycin HCl 1,000 mg/ (Dextrose) 250 mls @ 166.667 mls/hr IVPB DAILY [facility] Last Admin: 11/27/17 10:32 Dose: 166.667 mls/hr Insulin Aspart (Novolog Vial Sliding Scale -) 1 vial SQ Q4HPO [facility] PRN Reason: Protocol Last Admin: 11/28/17 05:40 Dose: 4 units Metoprolol Tartrate (Lopressor Injection -) 5 mg IVPUSH Q4H PRN PRN Reason: HYPERTENSION Mupirocin (Bactroban Ointment (For Decolonization) -) 1 applic NS BID [facility] Stop: 12/01/17 09:59 Last Admin: 11/27/17 22:02 Dose: 1 applic Vital Signs Period Temp Pulse Resp BP Sys/Simms Pulse Ox Last 24 Hr 97.9 F-99.0 F 80-111 20-28 110-164/57-94 99-99 Intake & Output 11/25/17 11/26/17 11/27/17 11/28/17 23:59 23:59 23:59 23:59 Intake Total 1674 1510 140 Output Total 0375 890 255 Balance -296 620 -115 Weight 94.529 kg 95.481 kg 95.572 kg General: intubated and sedated. comfort able on vent HEENT: PERRL Pulm: bilateral coarse crackles, suctioning thich yellow secreations CV: s1, s2 Abd: obese, SNTND Ext: WWP +2pulses trace edema Neuro: RASS -4 CBC, BMP 11/28/17 06:00 BMP: pending CXR: none this AM Microbiology 11/25/17 21:49 Blood - Peripheral Venous Blood Culture - Preliminary NO GROWTH OBTAINED AFTER 48 HOURS, INCUBATION TO CONTINUE FOR 3 DAYS. 11/25/17 21:49 Blood - Peripheral Venous Blood Culture - Preliminary NO GROWTH OBTAINED AFTER 48 HOURS, INCUBATION TO CONTINUE FOR 3 DAYS. 11/27/17 12:20 Urine For Antigen Detection Legionella Antigen - Final 11/27/17 12:20 Urine For Antigen Detection Streptococcus pneumoniae Antigen (M - Final 11/26/17 15:20 Sputum - Endotrachea Suction/Ventilator Gram Stain - Final 11/26/17 15:20 Sputum - Endotrachea Suction/Ventilator Sputum Culture - Preliminary NORMAL RESPIRATORY [place] 11/25/17 21:49 Urine - Urine Jones Urine Culture - Final NO GROWTH OBTAINED Problem List - Problems (1) Hemothorax on left Code(s): J94.2 - HEMOTHORAX (2) Acute hypoxemic respiratory failure Code(s): J96.01 - ACUTE RESPIRATORY FAILURE WITH HYPOXIA (3) Diabetes mellitus Code(s): E11.9 - TYPE 2 DIABETES MELLITUS WITHOUT COMPLICATIONS Qualifiers: Diabetes mellitus type: type 2 Diabetes mellitus nursing home insulin use: without local intermodal truck driver use Diabetes mellitus complication status: with circulatory complication Diabetes mellitus complication detail: with other circulatory complications Qualified Code(s): E11.59 - Type 2 diabetes mellitus with other circulatory complications (4) PNA (pneumonia) Code(s): J18.9 - PNEUMONIA, UNSPECIFIED ORGANISM Assessment/Plan Hypoxemic respiratory failure in the setting of L pneumothorax +/- HCAP +/- fluid overload, pt also with h/o pulmonary fibrosis Elevated lactate Elevated Cr DM2 -vent support (TV adjusted to 6cc/kg, PEEP at 5 given pneumo) goal Pplat < 30 -cont chest tube to suction , monitor output, still with leak -propofol for sedation, patient uncomfortable and dyssynchronous when awake -Broad ABX as per ID -trend UO and SCr, would attempt diuresis for possible pulmonary vascular congestion if SCr stable -place feeding tube today and start TFs -Glycemic control -VTE prophylaxis -GI Prophylaxis -Given underlying ILD will be difficult to wean from vent, cont goals of care and management of expectations Sisi ACNP Pulm/CCM CCT: 35m
[2017-11-28] MEDS ORDERED: PT OWN MED DRAWER 7, Y5N ONE ×3 (10:19→22:55)
[2017-11-28] MEDS: CEFEPIME HCL/D5W 2 GM/50 ML BAG IVPB SCH ×2 (10:24→22:57)
[2017-11-28] MEDS: MUPIROCIN 2% TOPICAL OINTMENT FOR DECOLONIZATION NS SCH ×2 (10:24→22:58)
[2017-11-28] MEDS: CHLORHEXIDINE GLUCONATE 0.12% 15ML CUP MM SCH ×2 (10:24→23:01)
--- NOTE | 2017-11-28 10:24 | PN ---
Progress Note, Physician Chief Complaint: Events noted remains in ICU History of Present Illness: Patient was seen and examined. Awake and alert. Chart was reviewed Intubated on mechanical ventilator, chest tube and sedated - Current Medication List Current Medications: Active Medications Albuterol/Ipratropium (Duoneb -) 1 amp NEB RTID [facility] Last Admin: 11/28/17 08:41 Dose: 1 amp Chlorhexidine Gluconate (Hibiclens For Decolonization -) 1 applic TP HS [facility] Last Admin: 11/27/17 22:02 Dose: 1 applic Chlorhexidine Gluconate (Peridex -) 15 ml MM BID [facility] Last Admin: 11/27/17 22:57 Dose: 15 ml Collagenase (Santyl -) 1 applic TP DAILY [facility] Last Admin: 11/27/17 09:27 Dose: 1 applic Heparin Sodium (Porcine) (Heparin -) 5,000 unit SQ TID [facility] Last Admin: 11/28/17 05:40 Dose: 5,000 unit Propofol (Diprivan -) 1,000,000 mcg in 100 mls @ 0 mls/hr IVPB TITR IVON; 5 MCG/ KG/MIN PRN Reason: Protocol Last Admin: 11/27/17 22:02 Dose: Not Given Cefepime HCl (Maxipime 2gm Ivpb (Premix)) 2 gm in 50 mls @ 200 mls/hr IVPB BID [facility] PRN Reason: Protocol Last Admin: 11/27/17 22:57 Dose: 200 mls/hr Insulin Aspart (Novolog Vial Sliding Scale -) 1 vial SQ Q4HPO [facility] PRN Reason: Protocol Last Admin: 11/28/17 05:40 Dose: 4 units Metoprolol Tartrate (Lopressor Injection -) 5 mg IVPUSH Q4H PRN PRN Reason: HYPERTENSION Mupirocin (Bactroban Ointment (For Decolonization) -) 1 applic NS BID [facility] Stop: 12/01/17 09:59 Last Admin: 11/27/17 22:02 Dose: 1 applic - Objective Vital Signs: Vital Signs Temperature 98.6 F 11/28/17 06:00 Pulse Rate 93 H 11/28/17 08:00 Respiratory Rate 20 11/28/17 08:05 Blood Pressure 121/82 11/28/17 08:00 O2 Sat by Pulse Oximetry (%) 99 11/28/17 08:05 Neck: Yes: Supple Cardiovascular: Yes: Regular Rate and Rhythm, S1, S2 Respiratory: Yes: Mechanically Ventilated Gastrointestinal: Yes: Normal Bowel Sounds, Soft. No: Tenderness Edema: No Labs: CBC, BMP 11/28/17 06:00 Problem List - Problems (1) CKD (chronic kidney disease) stage 3, GFR 30-59 ml/min Code(s): N18.3 - CHRONIC KIDNEY DISEASE, STAGE 3 (MODERATE) (2) Hemothorax on left Code(s): J94.2 - HEMOTHORAX (3) Pulmonary fibrosis Code(s): J84.10 - PULMONARY FIBROSIS, UNSPECIFIED (4) Acute hypoxemic respiratory failure Code(s): J96.01 - ACUTE RESPIRATORY FAILURE WITH HYPOXIA (5) Acute respiratory failure with hypoxemia Code(s): J96.01 - ACUTE RESPIRATORY FAILURE WITH HYPOXIA (6) Demand ischemia Code(s): I24.8 - OTHER FORMS OF ACUTE ISCHEMIC HEART DISEASE (7) Diabetes mellitus Code(s): E11.9 - TYPE 2 DIABETES MELLITUS WITHOUT COMPLICATIONS Qualifiers: Diabetes mellitus type: type 2 Diabetes mellitus termite treater helper insulin use: without termite treater helper use Diabetes mellitus complication status: with circulatory complication Diabetes mellitus complication detail: with other circulatory complications Qualified Code(s): E11.59 - Type 2 diabetes mellitus with other circulatory complications (8) Diastolic dysfunction without heart failure Code(s): I51.9 - HEART DISEASE, UNSPECIFIED (9) HTN (hypertension) Code(s): I10 - ESSENTIAL (PRIMARY) HYPERTENSION Qualifiers: Hypertension type: essential hypertension Qualified Code(s): I10 - Essential (primary) hypertension (10) PNA (pneumonia) Code(s): J18.9 - PNEUMONIA, UNSPECIFIED ORGANISM Assessment/Plan 1. Acute hypoxemic respiratory failure with underlying pulmonary fibrosis/ILD, spontaneous left pnemothorax post chest tube and possible hospital-acquired PNA 2. Mildly elevated troponin due to demand ischemia 3. Diabetes mellitus 4. Hypertension 5. Diastolic dysfunction 6. OSAS 7. Acute on CKD PLAN: 1. Ventilator support and chest tube management per critical care team 2. Trend troponin to document peak 3. Empiric antibiotics 4. Continue IV Lopressor. Resume Losartan and Lasix once renal function stabilizes 5. DVT and GI prophylaxis Supportive care Further plans are to follow Frankie Dueñas MD
[2017-11-28] MEDS: VANCOMYCIN 1,000 MG in DEXTROSE 5%-WATER - 250 ML IVPB SCH (10:29)
[2017-11-28 14:32] LABS: BLOOD UREA NITROGEN 32 mg/dL (7-18); CREATININE 1.3 mg/dL (0.55-1.02); GLUCOSE,RANDOM 191 mg/dL (74-106); SODIUM 138 mmol/L (136-145)
[2017-11-28 14:33] LABS: ANION GAP 7 (8-16); CALCIUM 9.5 mg/dL (8.5-10.1); CHLORIDE 103 mmol/L (98-107); CO2 28 mmol/L (21-32); POTASSIUM 4.2 mmol/L (3.5-5.1)
[2017-11-28] MEDS ORDERED: INSULIN (NOVOLOG) ASPART 100 UNITS/ML 10ML VIAL ONE (15:44)
[2017-11-28] MEDS: COLLAGENASE CLOSTRIDIUM HIST. 30 GRAMS TUBE TP SCH (15:53)
--- NOTE | 2017-11-28 19:50 | PN ---
Progress Note, Physician Chief Complaint: Pneumothorax Respiratory distress History of Present Illness: Chest tube mechanically vented on AC seen by pulmonary, ID and cardiology - Current Medication List Current Medications: Active Medications Albuterol/Ipratropium (Duoneb -) 1 amp NEB RTID [facility] Last Admin: 11/28/17 14:27 Dose: 1 amp Chlorhexidine Gluconate (Hibiclens For Decolonization -) 1 applic TP HS [facility] Last Admin: 11/27/17 22:02 Dose: 1 applic Chlorhexidine Gluconate (Peridex -) 15 ml MM BID [facility] Last Admin: 11/28/17 10:24 Dose: 15 ml Collagenase (Santyl -) 1 applic TP DAILY [facility] Last Admin: 11/28/17 15:53 Dose: 1 applic Heparin Sodium (Porcine) (Heparin -) 5,000 unit SQ TID [facility] Last Admin: 11/28/17 15:00 Dose: 5,000 unit Propofol (Diprivan -) 1,000,000 mcg in 100 mls @ 0 mls/hr IVPB TITR IVON; 5 MCG/ KG/MIN PRN Reason: Protocol Last Admin: 11/27/17 22:02 Dose: Not Given Cefepime HCl (Maxipime 2gm Ivpb (Premix)) 2 gm in 50 mls @ 200 mls/hr IVPB BID [facility] PRN Reason: Protocol Last Admin: 11/28/17 10:24 Dose: 200 mls/hr Insulin Aspart (Novolog Vial Sliding Scale -) 1 vial SQ Q4HPO IVON PRN Reason: Protocol Last Admin: 11/28/17 18:40 Dose: Not Given Metoprolol Tartrate (Lopressor Injection -) 5 mg IVPUSH Q4H PRN PRN Reason: HYPERTENSION Mupirocin (Bactroban Ointment (For Decolonization) -) 1 applic NS BID [facility] Stop: 12/01/17 09:59 Last Admin: 11/28/17 10:24 Dose: 1 applic - Objective Vital Signs: Vital Signs Temperature 98.6 F 11/28/17 06:00 Pulse Rate 96 H 11/28/17 18:46 Respiratory Rate 20 11/28/17 18:46 Blood Pressure 151/72 11/28/17 18:46 O2 Sat by Pulse Oximetry (%) 99 11/28/17 08:05 Constitutional: Yes: Well Nourished, No Distress, Calm Cardiovascular: Yes: Regular Rate and Rhythm Respiratory: Yes: Mechanically Ventilated Gastrointestinal: Yes: Soft, Hypoactive Bowel Sounds Labs: CBC, BMP 11/28/17 06:00 11/28/17 06:00 INR, PTT INR 0.96 (0.82-1.09) 11/25/17 21:44 Problem List - Problems (1) CKD (chronic kidney disease) stage 3, GFR 30-59 ml/min Assessment/Plan: -Improving -monitor trend -monitor I&O's Code(s): N18.3 - CHRONIC KIDNEY DISEASE, STAGE 3 (MODERATE) (2) Hemothorax on left Assessment/Plan: -Chest tube with minimal air leak -CXR Code(s): J94.2 - HEMOTHORAX (3) Acute respiratory failure with hypoxemia Assessment/Plan: -mechanical vent -pulmonary management Code(s): J96.01 - ACUTE RESPIRATORY FAILURE WITH HYPOXIA (4) CHF (congestive heart failure) Assessment/Plan: cardiology consult last echo mild LVH, EF-58% Code(s): I50.9 - HEART FAILURE, UNSPECIFIED Qualifiers: Heart failure type: combined systolic and diastolic Heart failure chronicity: chronic Qualified Code(s): I50.42 - Chronic combined systolic ( congestive) and diastolic (congestive) heart failure (5) Diabetes mellitus Assessment/Plan: -uncontrolled -Endocrinology consult -insulin -BGM Code(s): E11.9 - TYPE 2 DIABETES MELLITUS WITHOUT COMPLICATIONS Qualifiers: Diabetes mellitus type: type 2 Diabetes mellitus intermediate insulin use: without computer terminal operator use Diabetes mellitus complication status: with circulatory complication Diabetes mellitus complication detail: with other circulatory complications Qualified Code(s): E11.59 - Type 2 diabetes mellitus with other circulatory complications Assessment/Plan see problem list
[2017-11-28] MEDS: ACETAMINOPHEN 325 MG TABLET (FP) PO PRN (20:32)
[2017-11-28 20:33] LABS: URINE APPEARANCE SLCLOUDY; URINE BILIRUBIN NEGATIVE (<2.0 mg/dL); URINE COLOR YELLOW; URINE GLUCOSE (UA) NEGATIVE (NEGATIVE); URINE KETONE TRACE (NEGATIVE); URINE LEUK ESTERASE NEGATIVE (NEGATIVE); URINE NITRITE NEGATIVE (NEGATIVE); URINE UROBILINOGEN NEGATIVE mg/dL (0.2-1.0)
[2017-11-28 20:37] LABS: URINE PROTEIN 2+ (NEGATIVE)
[2017-11-28 20:38] LABS: EPI CELLS RARE /HPF (FEW); URINE BACTERIA RARE /hpf (NONE SEEN); URINE MUCUS RARE; YEAST RARE
[2017-11-28] MEDS: CHLORHEXIDINE GLUCONATE 4% CLEANSER FOR DECOLONIZATION TP SCH (22:57)
[2017-11-28] MEDS: PROPOFOL 1,000,000 MCG/100 ML VIAL IVPB SCH (22:58)
[2017-11-29] MEDS: INSULIN SLIDING SCALE (NOVOLOG) 1 VIAL SQ SCH ×6 (02:37→21:53)
[2017-11-29] MEDS: ACETAMINOPHEN 325 MG TABLET (FP) PO PRN (02:38)
[2017-11-29] MEDS ORDERED: PROPOFOL 1,000,000 MCG/100 ML VIAL ONE (04:46)
[2017-11-29] MEDS: HEPARIN NA (PORCINE) 5,000 UNITS/ML 1ML VIAL SQ SCH ×3 (06:14→21:52)
[2017-11-29 06:29] LABS: HEMOGLOBIN 11.8 GM/dL (10.7-15.3); MCH 27.6 pg (25.7-33.7); MCHC 32.8 g/dl (32.0-36.0); MEAN CELL VOLUME 83.9 fl (80-96); MEAN PLT VOLUME 9.7 fl (7.5-11.1); PLATELET COUNT 142 K/MM3 (134-434); RBC 4.29 M/mm3 (3.60-5.2); RDW 18.5 % (11.6-15.6); WHITE BLOOD COUNT 7.9 K/mm3 (4.0-10.0)
[2017-11-29] MEDS: ALBUTEROL SO4 2.5/IPRATROPIUM 0.5 INH SOL 3 ML VIAL.NEB. NEB SCH ×3 (07:40→20:10)
--- NOTE | 2017-11-29 07:56 | PN ---
Progress Note, Physician Chief Complaint: ID Cefepime day 4 Intubated Had fever and recultured - Current Medication List Current Medications: Active Medications Acetaminophen (Tylenol -) 650 mg PO Q6H PRN PRN Reason: FEVER Last Admin: 11/29/17 02:38 Dose: 650 mg Albuterol/Ipratropium (Duoneb -) 1 amp NEB RTID [facility] Last Admin: 11/28/17 20:08 Dose: 1 amp Chlorhexidine Gluconate (Hibiclens For Decolonization -) 1 applic TP HS [facility] Last Admin: 11/28/17 22:57 Dose: 1 applic Chlorhexidine Gluconate (Peridex -) 15 ml MM BID [facility] Last Admin: 11/28/17 23:01 Dose: 15 ml Collagenase (Santyl -) 1 applic TP DAILY [facility] Last Admin: 11/28/17 15:53 Dose: 1 applic Heparin Sodium (Porcine) (Heparin -) 5,000 unit SQ TID [facility] Last Admin: 11/29/17 06:14 Dose: 5,000 unit Propofol (Diprivan -) 1,000,000 mcg in 100 mls @ 0 mls/hr IVPB TITR IVON; 5 MCG/ KG/MIN PRN Reason: Protocol Last Admin: 11/28/17 22:58 Dose: 28 mcg/kg/min, 15.881 mls/hr Cefepime HCl (Maxipime 2gm Ivpb (Premix)) 2 gm in 50 mls @ 200 mls/hr IVPB BID [facility] PRN Reason: Protocol Last Admin: 11/28/17 22:57 Dose: 200 mls/hr Insulin Aspart (Novolog Vial Sliding Scale -) 1 vial SQ Q4HPO [facility] PRN Reason: Protocol Last Admin: 11/29/17 06:14 Dose: 2 units Metoprolol Tartrate (Lopressor Injection -) 5 mg IVPUSH Q4H PRN PRN Reason: HYPERTENSION Mupirocin (Bactroban Ointment (For Decolonization) -) 1 applic NS BID [facility] Stop: 12/01/17 09:59 Last Admin: 11/28/17 22:58 Dose: 1 applic - Objective Vital Signs: Vital Signs Temperature 98.8 F 11/29/17 06:00 Pulse Rate 74 11/29/17 06:00 Respiratory Rate 22 11/29/17 07:18 Blood Pressure 110/66 11/29/17 06:00 O2 Sat by Pulse Oximetry (%) 100 11/28/17 22:00 Constitutional: Yes: Other (INtubated NGT) Cardiovascular: Yes: S1, S2 Respiratory: Yes: Diminished, Other (Left chest tube) Gastrointestinal: Yes: Soft Edema: No Labs: CBC, BMP 11/29/17 05:25 INR, PTT INR 0.96 (0.82-1.09) 11/25/17 21:44 Assessment/Plan Microbiology 11/27/17 12:20 Urine For Antigen Detection Legionella Antigen - Final 11/27/17 12:20 Urine For Antigen Detection Streptococcus pneumoniae Antigen (M - Final 11/26/17 15:20 Sputum - Endotrachea Suction/Ventilator Gram Stain - Final 11/26/17 15:20 Sputum - Endotrachea Suction/Ventilator Sputum Culture - Final [facility] [place] 11/25/17 21:49 Urine - Urine Jones Urine Culture - Final NO GROWTH OBTAINED 11/25/17 21:49 Blood - Peripheral Venous Blood Culture - Preliminary NO GROWTH OBTAINED AFTER 72 HOURS, INCUBATION TO CONTINUE FOR 2 DAYS. 11/25/17 21:49 Blood - Peripheral Venous Blood Culture - Preliminary NO GROWTH OBTAINED AFTER 72 HOURS, INCUBATION TO CONTINUE FOR 2 DAYS. Laboratory Tests 11/27/17 11/28/17 11/29/17 09:05 06:00 05:25 WBC 7.9 Hgb 11.8 Plt Count 142 BUN 32 H Creatinine 1.3 H Random Vancomycin 10.235 Assessment Respiratory failure ILD S/P left pneumothorax spontaneous with left chest tube Empiric therapy Plan Continue current therapy as ordered Repeat cultures sent again Sera GONSALEZ
--- NOTE | 2017-11-29 08:42 | PN ---
Progress Note, Physician - Current Medication List Current Medications: Active Medications Acetaminophen (Tylenol -) 650 mg PO Q6H PRN PRN Reason: FEVER Last Admin: 11/29/17 02:38 Dose: 650 mg Albuterol/Ipratropium (Duoneb -) 1 amp NEB RTID [facility] Last Admin: 11/28/17 20:08 Dose: 1 amp Chlorhexidine Gluconate (Hibiclens For Decolonization -) 1 applic TP HS [facility] Last Admin: 11/28/17 22:57 Dose: 1 applic Chlorhexidine Gluconate (Peridex -) 15 ml MM BID [facility] Last Admin: 11/28/17 23:01 Dose: 15 ml Collagenase (Santyl -) 1 applic TP DAILY [facility] Last Admin: 11/28/17 15:53 Dose: 1 applic Heparin Sodium (Porcine) (Heparin -) 5,000 unit SQ TID [facility] Last Admin: 11/29/17 06:14 Dose: 5,000 unit Propofol (Diprivan -) 1,000,000 mcg in 100 mls @ 0 mls/hr IVPB TITR IVON; 5 MCG/ KG/MIN PRN Reason: Protocol Last Admin: 11/28/17 22:58 Dose: 28 mcg/kg/min, 15.881 mls/hr Cefepime HCl (Maxipime 2gm Ivpb (Premix)) 2 gm in 50 mls @ 200 mls/hr IVPB BID [facility]ON PRN Reason: Protocol Last Admin: 11/28/17 22:57 Dose: 200 mls/hr Insulin Aspart (Novolog Vial Sliding Scale -) 1 vial SQ Q4HPO IVON PRN Reason: Protocol Last Admin: 11/29/17 06:14 Dose: 2 units Metoprolol Tartrate (Lopressor Injection -) 5 mg IVPUSH Q4H PRN PRN Reason: HYPERTENSION Mupirocin (Bactroban Ointment (For Decolonization) -) 1 applic NS BID [facility] Stop: 12/01/17 09:59 Last Admin: 11/28/17 22:58 Dose: 1 applic - Objective Vital Signs: Vital Signs Temperature 99.8 F H 11/29/17 08:00 Pulse Rate 86 11/29/17 08:00 Respiratory Rate 18 11/29/17 08:00 Blood Pressure 121/71 11/29/17 08:00 O2 Sat by Pulse Oximetry (%) 97 03/26/18 07:57 Cardiovascular: Yes: S1, S2 Respiratory: Yes: Mechanically Ventilated, Rhonchi Gastrointestinal: Yes: Normal Bowel Sounds, Soft Neurological: Yes: Other (sedated) Labs: CBC, BMP 11/29/17 05:25 INR, PTT INR 0.96 (0.82-1.09) 11/25/17 21:44 Assessment/Plan - Problems (1) Acute hypoxemic respiratory failure Assessment/Plan: intubated sedated on propofol PNA elevated lactic acid now trending down to normal Laboratory Tests 11/26/17 08:10 Lactic Acid 1.7 WBC elevated on abx- on steroids at [facility] for IPF( pulm fibrosis) NPO Code(s): J96.01 - ACUTE RESPIRATORY FAILURE WITH HYPOXIA (2) Hemothorax on left Assessment/Plan: s/p chest tube placement improvement in cxr monitor drainage Code(s): J94.2 - HEMOTHORAX (3) CHF (congestive heart failure) Assessment/Plan: got iv lasix in ER amlodipine and cozaar on hold NPO iv metoprolol as needed cardiology evaluation noted Code(s): I50.9 - HEART FAILURE, UNSPECIFIED Qualifiers: Heart failure type: combined systolic and diastolic Heart failure chronicity: chronic Qualified Code(s): I50.42 - Chronic combined systolic ( congestive) and diastolic (congestive) heart failure (4) Diabetes mellitus Assessment/Plan: [id number] start levemir on sliding scale hold oral hypogycemic meds for now Code(s): E11.9 - TYPE 2 DIABETES MELLITUS WITHOUT COMPLICATIONS Qualifiers: Diabetes mellitus type: type 2 Diabetes mellitus accounting support specialist insulin use: without senior care use Diabetes mellitus complication status: with circulatory complication Diabetes mellitus complication detail: with other circulatory complications Qualified Code(s): E11.59 - Type 2 diabetes mellitus with other circulatory complications (5) CKD (chronic kidney disease) stage 3, GFR 30-59 ml/min Assessment/Plan: monitor lytes cr at baseline for now Code(s): N18.3 - CHRONIC KIDNEY DISEASE, STAGE 3 (MODERATE)
[2017-11-29 08:46] LABS: ANION GAP 6 (8-16); BLOOD UREA NITROGEN 30 mg/dL (7-18); CHLORIDE 107 mmol/L (98-107); CO2 27 mmol/L (21-32); CREATININE 1.3 mg/dL (0.55-1.02); GLUCOSE,RANDOM 156 mg/dL (74-106); MAGNESIUM 2.5 mg/dL (1.8-2.4); PHOSPHOROUS 3.2 mg/dL (2.5-4.9); POTASSIUM 3.8 mmol/L (3.5-5.1); SODIUM 140 mmol/L (136-145)
[2017-11-29] MEDS ORDERED: PT OWN MED DRAWER 7, Y5N ONE ×2 (09:06→20:09)
[2017-11-29] MEDS: PROPOFOL 1,000,000 MCG/100 ML VIAL IVPB SCH ×2 (09:13→21:51)
[2017-11-29] MEDS: CHLORHEXIDINE GLUCONATE 0.12% 15ML CUP MM SCH ×2 (09:18→21:54)
[2017-11-29] MEDS: CEFEPIME HCL/D5W 2 GM/50 ML BAG IVPB SCH ×2 (09:19→21:52)
[2017-11-29] MEDS: MUPIROCIN 2% TOPICAL OINTMENT FOR DECOLONIZATION NS SCH ×2 (09:20→21:51)
[2017-11-29] MEDS ORDERED: BENZOIN/ALOE VERA/STORAX/TOLU 58 ML BOTTLE ONE (09:39)
--- NOTE | 2017-11-29 11:29 | PN ---
Progress Note, Physician - Current Medication List Current Medications: Active Medications Acetaminophen (Tylenol -) 650 mg PO Q6H PRN PRN Reason: FEVER Last Admin: 11/29/17 02:38 Dose: 650 mg Albuterol/Ipratropium (Duoneb -) 1 amp NEB RTID [facility] Last Admin: 11/29/17 07:40 Dose: 1 amp Chlorhexidine Gluconate (Hibiclens For Decolonization -) 1 applic TP HS [facility] Last Admin: 11/28/17 22:57 Dose: 1 applic Chlorhexidine Gluconate (Peridex -) 15 ml MM BID [facility] Last Admin: 11/29/17 09:18 Dose: 15 ml Collagenase (Santyl -) 1 applic TP DAILY [facility] Last Admin: 11/28/17 15:53 Dose: 1 applic Heparin Sodium (Porcine) (Heparin -) 5,000 unit SQ TID [facility] Last Admin: 11/29/17 06:14 Dose: 5,000 unit Propofol (Diprivan -) 1,000,000 mcg in 100 mls @ 0 mls/hr IVPB TITR IVON; 5 MCG/ KG/MIN PRN Reason: Protocol Last Titration: 11/29/17 09:30 Dose: 20 mcg/kg/min, 11.343 mls/hr Cefepime HCl (Maxipime 2gm Ivpb (Premix)) 2 gm in 50 mls @ 200 mls/hr IVPB BID [facility] PRN Reason: Protocol Last Admin: 11/29/17 09:19 Dose: 200 mls/hr Insulin Aspart (Novolog Vial Sliding Scale -) 1 vial SQ Q4HPO [facility] PRN Reason: Protocol Last Admin: 11/29/17 09:36 Dose: 4 units Metoprolol Tartrate (Lopressor Injection -) 5 mg IVPUSH Q4H PRN PRN Reason: HYPERTENSION Mupirocin (Bactroban Ointment (For Decolonization) -) 1 applic NS BID [facility] Stop: 12/01/17 09:59 Last Admin: 11/29/17 09:20 Dose: 1 applic Pantoprazole Sodium (Protonix Iv) 40 mg IVPUSH BID [facility] - Objective Vital Signs: Vital Signs Temperature 99.2 F 11/29/17 10:00 Pulse Rate 84 11/29/17 10:00 Respiratory Rate 30 H 11/29/17 11:10 Blood Pressure 134/72 11/29/17 10:00 O2 Sat by Pulse Oximetry (%) 97 11/29/17 07:57 Labs: CBC, BMP 11/29/17 05:25 11/29/17 05:25 INR, PTT INR 0.96 (0.82-1.09) 11/25/17 21:44 Problem List - Problems (1) CKD (chronic kidney disease) stage 3, GFR 30-59 ml/min Code(s): N18.3 - CHRONIC KIDNEY DISEASE, STAGE 3 (MODERATE) (2) Hemothorax on left Code(s): J94.2 - HEMOTHORAX (3) Pulmonary fibrosis Code(s): J84.10 - PULMONARY FIBROSIS, UNSPECIFIED (4) Acute hypoxemic respiratory failure Code(s): J96.01 - ACUTE RESPIRATORY FAILURE WITH HYPOXIA (5) Acute respiratory failure with hypoxemia Code(s): J96.01 - ACUTE RESPIRATORY FAILURE WITH HYPOXIA (6) Demand ischemia Code(s): I24.8 - OTHER FORMS OF ACUTE ISCHEMIC HEART DISEASE (7) Diabetes mellitus Code(s): E11.9 - TYPE 2 DIABETES MELLITUS WITHOUT COMPLICATIONS Qualifiers: Diabetes mellitus type: type 2 Diabetes mellitus chcf insulin use: without intermediate frame tender use Diabetes mellitus complication status: with circulatory complication Diabetes mellitus complication detail: with other circulatory complications Qualified Code(s): E11.59 - Type 2 diabetes mellitus with other circulatory complications (8) Diastolic dysfunction without heart failure Code(s): I51.9 - HEART DISEASE, UNSPECIFIED (9) HTN (hypertension) Code(s): I10 - ESSENTIAL (PRIMARY) HYPERTENSION Qualifiers: Hypertension type: essential hypertension Qualified Code(s): I10 - Essential (primary) hypertension (10) PNA (pneumonia) Code(s): J18.9 - PNEUMONIA, UNSPECIFIED ORGANISM
[2017-11-29] MEDS ORDERED: PANTOPRAZOLE SODIUM 40 MG VIAL IVPUSH SCH (13:00)
[2017-11-29] MEDS: COLLAGENASE CLOSTRIDIUM HIST. 30 GRAMS TUBE TP SCH (13:39)
--- NOTE | 2017-11-29 14:47 | PN ---
Teaching Attending Note Name of Resident: Eric Castillo ATTENDING PHYSICIAN STATEMENT I saw and evaluated the patient. I reviewed the resident's note and discussed the case with the resident. I agree with the resident's findings and plan as documented. SUBJECTIVE: Pt seen and examined in the ICU. Remains intubated, sedated. Vented on volume assist control with 50% FiO2, PEEP 5. +air leak on chest tube. OBJECTIVE: Last Vital Signs Temp Pulse Resp BP Pulse Ox 99.8 F H 95 H 19 158/81 97 11/29/17 14:00 11/29/17 14:00 11/29/17 14:15 11/29/17 14:00 11/29/17 11:48 Intake & Output 11/26/17 11/27/17 11/28/17 11/29/17 23:59 23:59 23:59 23:59 Intake Total 1674 1510 385 796.4 Output Total 8148 925 0312 454 Balance -296 620 -783 342.4 Weight 94.529 kg 95.481 kg 95.572 kg 94.064 kg Gen: intubated, sedated Heart: RRR Lung: distant breath sounds Abd: soft, nontender Ext: no edema Chest tube: + air leak, minimal drainage CBC, BMP 11/29/17 05:25 11/29/17 05:25 Active Medications Acetaminophen (Tylenol -) 650 mg PO Q6H PRN PRN Reason: FEVER Last Admin: 11/29/17 02:38 Dose: 650 mg Albuterol/Ipratropium (Duoneb -) 1 amp NEB RTID [facility] Last Admin: 11/29/17 14:17 Dose: 1 amp Bacitracin (Bacitracin -) 1 applic TP BID [facility] Chlorhexidine Gluconate (Hibiclens For Decolonization -) 1 applic TP HS [facility] Last Admin: 11/28/17 22:57 Dose: 1 applic Chlorhexidine Gluconate (Peridex -) 15 ml MM BID [facility] Last Admin: 11/29/17 09:18 Dose: 15 ml Heparin Sodium (Porcine) (Heparin -) 5,000 unit SQ TID [facility] Last Admin: 11/29/17 06:14 Dose: 5,000 unit Propofol (Diprivan -) 1,000,000 mcg in 100 mls @ 0 mls/hr IVPB TITR [facility]ON; 5 MCG/ KG/MIN PRN Reason: Protocol Last Titration: 11/29/17 09:30 Dose: 20 mcg/kg/min, 11.343 mls/hr Cefepime HCl (Maxipime 2gm Ivpb (Premix)) 2 gm in 50 mls @ 200 mls/hr IVPB BID [facility] PRN Reason: Protocol Last Admin: 11/29/17 09:19 Dose: 200 mls/hr Insulin Aspart (Novolog Vial Sliding Scale -) 1 vial SQ Q4HPO [facility] PRN Reason: Protocol Last Admin: 11/29/17 09:36 Dose: 4 units Metoprolol Tartrate (Lopressor Injection -) 5 mg IVPUSH Q4H PRN PRN Reason: HYPERTENSION Mupirocin (Bactroban Ointment (For Decolonization) -) 1 applic NS BID [facility] Stop: 12/01/17 09:59 Last Admin: 11/29/17 09:20 Dose: 1 applic Pantoprazole Sodium (Protonix Iv) 40 mg IVPUSH DAILY [facility] ASSESSMENT AND PLAN: Acute on Chronic Hypoxic Respiratory Failure Left Pneumothorax s/p chest tube placement r/o Pneumonia Interstitial Lung Disease +Troponins likely Demand Ischemia HTN DM LV Diastolic Dysfunction Acute Kidney Injury Obstructive Sleep Apnea - on empiric antibiotics - f/u cultures - decreased PEEP to 0 - taper FiO2 to keep SpO2 >90% - low tidal volume ventilation - lighten sedation to assess mental status - spontaneous breathing trials as tolerated when mental status improved - enteral feeds - DVT/GI prophylaxis - continue ICU monitoring critical care time spent in reviewing chart, evaluating patient and formulating plan 35 min
[2017-11-29 19:42] LABS: ARTERIAL BLOOD GAS BASE EXCESS 2.2 meq/l (-2-2)
[2017-11-29 19:43] LABS: ALLENS TEST POSITIVE
[2017-11-29 19:45] LABS: ARTERIAL BLOOD GAS pH 7.35 (7.35-7.45)
--- NOTE | 2017-11-29 19:56 | PN ---
Physical Exam: SUBJECTIVE: Briefly, 77yo F with history of pulmonary fibrosis, systolic and diastolic CHF, NIDDM, HTN who presented originally from [facility] due to acute hypoxic respiratory failure down to 45% on NC. Pt was placed on NRB and only improved to 85%. In the ED pt was found to be to have L PTX and had chest tube placed. In addition, pt continued to develop respiratory failure and was subsequently intubate and sedated with propofol. NGT was placed and tube feeds were commenced. Repeat imaging showed re-expanision of her L lung, however pt developed bilaterally opacifications with differential of HCAP (due to recent abx usage), ARDS, and volume overload. Antibiotics and diuresis imminantly began Pt intubated and sedated currently, tube feeds through NGT continue to run. Pt continues to be sedated with propofol and CXR showing improving opacifications/ effusions with continued re-expansion of the lung. Pt's chest tube continues to remain to -20 wall suction. OBJECTIVE: Vital Signs Period Temp Pulse Resp BP Sys/Simms Pulse Ox Last 24 Hr 98.8 F-101.8 F 74-116 17-30 107-161/66-81 95-100 GENERAL: Intubated and sedated, pt looks comfortable HEENT: Pinpoint pupils reactive to light bilaterally, sclera anicteric, NGT to L nare, ETT intact LUNGS: Coarse breath sounds noted anteriorly, AC mode vent with 360 TV/20 rate/ FiO2 50%/PEEP 5 HEART: RRR, S1, S2 without murmur ABDOMEN: Soft, nondistended, hypoactive bowel sounds, no guarding, no hepatomegaly EXTREMITIES: 2+ DP pulses, warm, well-perfused, no edema. NEUROLOGICAL: Could not assess due to clinical status Laboratory Results - last 24 hr 11/28/17 11/28/17 11/29/17 20:00 21:27 02:32 WBC RBC Hgb Hct MCV MCH MCHC RDW Plt Count MPV Anticoagulation Therapy Puncture Site ABG pH ABG pCO2 at Pt Temp ABG pO2 at Pt Temp ABG HCO3 ABG O2 Sat (Measured) ABG O2 Content ABG Base Excess Yaniv Test O2 Delivery Device Oxygen Flow Rate Vent Mode Vent Rate Mechanical Rate PEEP Pressure Support Vent Sodium Potassium Chloride Carbon Dioxide Anion Gap BUN Creatinine POC Glucometer 210.95784 198.75049 Random Glucose Calcium Phosphorus Magnesium Urine Color Yellow Urine Appearance Slcloudy Urine pH 5.0 Ur Specific Sixes 1.029 Urine Protein 2+ H Urine Glucose (UA) Negative Urine Ketones Trace H Urine Blood 1+ H Urine Nitrite Negative Urine Bilirubin Negative Urine Urobilinogen Negative Ur Leukocyte Esterase Negative Urine WBC (Auto) 2 Urine RBC (Auto) 1 Ur Epithelial Cells Rare Urine Bacteria Rare Urine Mucus Rare Urine Yeast Rare 11/29/17 11/29/17 11/29/17 05:25 05:25 06:02 WBC 7.9 RBC 4.29 Hgb 11.8 Hct 36.0 MCV 83.9 MCH 27.6 MCHC 32.8 RDW 18.5 H Plt Count 142 MPV 9.7 Anticoagulation Therapy Puncture Site ABG pH ABG pCO2 at Pt Temp ABG pO2 at Pt Temp ABG HCO3 ABG O2 Sat (Measured) ABG O2 Content ABG Base Excess Yaniv Test O2 Delivery Device Oxygen Flow Rate Vent Mode Vent Rate Mechanical Rate PEEP Pressure Support Vent Sodium 140 Potassium 3.8 Chloride 107 Carbon Dioxide 27 Anion Gap 6 L BUN 30 H Creatinine 1.3 H POC Glucometer 175.87473 Random Glucose 156 H Calcium 9.0 Phosphorus 3.2 Magnesium 2.5 H Urine Color Urine Appearance Urine pH Ur Specific Sixes Urine Protein Urine Glucose (UA) Urine Ketones Urine Blood Urine Nitrite Urine Bilirubin Urine Urobilinogen Ur Leukocyte Esterase Urine WBC (Auto) Urine RBC (Auto) Ur Epithelial Cells Urine Bacteria Urine Mucus Urine Yeast 11/29/17 11/29/17 11/29/17 06:30 09:27 16:32 WBC RBC Hgb Hct MCV MCH MCHC RDW Plt Count MPV Anticoagulation Therapy No Result Required. Puncture Site Right radial ABG pH 7.35 ABG pCO2 at Pt Temp 52.0 H ABG pO2 at Pt Temp 65.0 L D ABG HCO3 28.7 H ABG O2 Sat (Measured) 91.0 ABG O2 Content No Result Required. ABG Base Excess 2.2 H Yaniv Test Positive O2 Delivery Device Vent Oxygen Flow Rate 50 Vent Mode No Result Required. Vent Rate 20 Mechanical Rate No Result Required. PEEP -5.0 Pressure Support Vent 360 Sodium Potassium Chloride Carbon Dioxide Anion Gap BUN Creatinine POC Glucometer 208.77135 302.06087 Random Glucose Calcium Phosphorus Magnesium Urine Color Urine Appearance Urine pH Ur Specific Sixes Urine Protein Urine Glucose (UA) Urine Ketones Urine Blood Urine Nitrite Urine Bilirubin Urine Urobilinogen Ur Leukocyte Esterase Urine WBC (Auto) Urine RBC (Auto) Ur Epithelial Cells Urine Bacteria Urine Mucus Urine Yeast 11/29/17 18:26 WBC RBC Hgb Hct MCV MCH MCHC RDW Plt Count MPV Anticoagulation Therapy Puncture Site ABG pH ABG pCO2 at Pt Temp ABG pO2 at Pt Temp ABG HCO3 ABG O2 Sat (Measured) ABG O2 Content ABG Base Excess Yaniv Test O2 Delivery Device Oxygen Flow Rate Vent Mode Vent Rate Mechanical Rate PEEP Pressure Support Vent Sodium Potassium Chloride Carbon Dioxide Anion Gap BUN Creatinine POC Glucometer [phone] Random Glucose Calcium Phosphorus Magnesium Urine Color Urine Appearance Urine pH Ur Specific Sixes Urine Protein Urine Glucose (UA) Urine Ketones Urine Blood Urine Nitrite Urine Bilirubin Urine Urobilinogen Ur Leukocyte Esterase Urine WBC (Auto) Urine RBC (Auto) Ur Epithelial Cells Urine Bacteria Urine Mucus Urine Yeast Active Medications Generic Name Dose Route Start Last Admin Trade Name Freq PRN Reason Stop Dose Admin Acetaminophen 650 mg 11/28/17 20:01 11/29/17 02:38 Tylenol - PO 650 mg Q6H PRN Administration FEVER Albuterol/Ipratropium 1 amp 11/26/17 20:00 11/29/17 14:17 Duoneb - NEB 1 amp RTID IVON Administration Bacitracin 1 applic 11/29/17 22:00 Bacitracin - TP BID IVON Chlorhexidine Gluconate 1 applic 11/26/17 22:00 11/28/17 22:57 Hibiclens For Decolonization - TP 1 applic HS IVON Administration Chlorhexidine Gluconate 15 ml 11/27/17 12:30 11/29/17 09:18 Peridex - MM 15 ml BID IVON Administration Heparin Sodium (Porcine) 5,000 unit 11/26/17 06:00 11/29/17 14:00 Heparin - SQ 5,000 unit TID IVON Administration Propofol 1,000,000 mcg in 100 mls @ 0 mls/hr 11/25/17 22:00 11/29/17 17:18 Diprivan - IVPB 20 mcg/kg/min TITR IVON 11.343 mls/hr Protocol Titration 5 MCG/KG/MIN Cefepime HCl 2 gm in 50 mls @ 200 mls/hr 11/26/17 14:15 11/29/17 09:19 Maxipime 2gm Ivpb (Premix) IVPB 200 mls/hr BID [facility] Administration Protocol Insulin Aspart 1 vial 11/28/17 02:00 11/29/17 18:31 Novolog Vial Sliding Scale - SQ 6 units Q4HPO [facility] Administration Protocol Metoprolol Tartrate 5 mg 11/26/17 01:09 Lopressor Injection - IVPUSH Q4H PRN HYPERTENSION Mupirocin 1 applic 11/26/17 10:00 11/29/17 09:20 Bactroban Ointment (For Decolonization) - NS 12/01/17 09:59 1 applic BID [facility] Administration Pantoprazole Sodium 40 mg 11/30/17 10:00 Protonix Iv IVPUSH DAILY [facility] ASSESSMENT/PLAN: Neuro: Stop sedation for assessment of mental funciton If not weanable will resume and continue sedation vacations Respiratory: Acute on chronic hypoxic respiratory failure --Currently intubated and sedated --Reduced FiO2 to 40% this morning --Maintain SpO2 >90% --F/U ABG --Trial on CPAP once off sedation for possible wean --Doubt pt being weanable today because RSI >100 --Decreased PEEP to 0 due to PTX --Continue low tidal volume ventilation to not exacerbate air leak --Duoneb QID to continue Left Pneumothorax --s/p Chest tube placement --Continue -20 wall suction --Most likely will need to wean off intubation before reassessing air leak Cardiovascular: Currently hemodynamically stable History of hypertension --continue Lopressor 5mg q4h PRN Renal: Acute kidney dysfunction --Monitor Cr (1.3 today) --Monitor urine output --Jones to maintain ID: ? HCAP --Pt currently afebrile --Cefepime day 4 --Tylenol PRN for fevers --Cultures pending; will f/u FEN: Fluids: Avoid due to history of chf Electrolyte abnormalities: None currently Nutrition: Tube feeds (held while weaning due to aspiration risk, but will reinitiate if cannot wean today) PPX: DVT - Heparin 5000 TID GI - Protonix 40mg IVP BID Dispo: continue ICU monitoring; sedation vacation with wean trials Case discussed with Dr. Grimes and pt's family Eric Castillo, DO - IM PGY-1 Visit type - Emergency Visit Emergency Visit: No - New Patient This patient is new to me today: No - Critical Care Critical Care patient: Yes Total Critical Care Time (in minutes): 37 Critical Care Statement: The care of this patient involved high complexity decision making to prevent further life threatening deterioration of the patient 's condition and/or to evaluate & treat vital organ system(s) failure or risk of failure.
[2017-11-29] MEDS: CHLORHEXIDINE GLUCONATE 4% CLEANSER FOR DECOLONIZATION TP SCH (21:52)
[2017-11-29] MEDS ORDERED: ACETAMINOPHEN 1000 MG/100 ML VIAL (NON FORMULARY) IVPB ONE (22:08)
--- NOTE | 2017-11-29 22:31 | PN ---
Progress Note (short form) - Note Progress Note: 2100: Patient noted to be desatturating; peep increased to 5 from 0 and propofol resumed as patient was noted to have movement of limbs with increased BP and was fighting ventilator. 2220: patient again found to be desatturating. Endotracheal tube noted to have become displaced. Endotracheal tube replaced with carvajal increase in oxygenation status. Intubation confirmed with bilateral equal breath sounds. STAT ABG/CXR ordered to confirm placement of tube. Propofol increased to maintain sedation.
--- NOTE | 2017-11-29 23:52 | PN ---
Progress Note, Physician History of Present Illness: dm intubated ventilated sedated - Current Medication List Current Medications: Active Medications Acetaminophen (Ofirmev Injection -) 1,000 mg IVPB Q6H PRN PRN Reason: FEVER Albuterol/Ipratropium (Duoneb -) 1 amp NEB RTID [facility] Last Admin: 11/29/17 20:10 Dose: 1 amp Bacitracin (Bacitracin -) 1 applic TP BID IVON Chlorhexidine Gluconate (Hibiclens For Decolonization -) 1 applic TP HS [facility] Last Admin: 11/29/17 21:52 Dose: 1 applic Chlorhexidine Gluconate (Peridex -) 15 ml MM BID [facility] Last Admin: 11/29/17 21:54 Dose: 15 ml Heparin Sodium (Porcine) (Heparin -) 5,000 unit SQ TID [facility] Last Admin: 11/29/17 21:52 Dose: 5,000 unit Propofol (Diprivan -) 1,000,000 mcg in 100 mls @ 0 mls/hr IVPB TITR IVON; 5 MCG/ KG/MIN PRN Reason: Protocol Last Admin: 11/29/17 21:51 Dose: 28 mcg/kg/min, 15.881 mls/hr Cefepime HCl (Maxipime 2gm Ivpb (Premix)) 2 gm in 50 mls @ 200 mls/hr IVPB BID [facility] PRN Reason: Protocol Last Admin: 11/29/17 21:52 Dose: 200 mls/hr Insulin Aspart (Novolog Vial Sliding Scale -) 1 vial SQ Q4HPO [facility] PRN Reason: Protocol Last Admin: 11/29/17 21:53 Dose: 2 units Metoprolol Tartrate (Lopressor Injection -) 5 mg IVPUSH Q4H PRN PRN Reason: HYPERTENSION Mupirocin (Bactroban Ointment (For Decolonization) -) 1 applic NS BID [facility] Stop: 12/01/17 09:59 Last Admin: 11/29/17 21:51 Dose: 1 applic Pantoprazole Sodium (Protonix Iv) 40 mg IVPUSH DAILY [facility] - Objective Vital Signs: Vital Signs Temperature 102.2 F H 11/29/17 22:00 Pulse Rate 112 H 11/29/17 23:00 Respiratory Rate 27 H 11/29/17 23:39 Blood Pressure 168/86 11/29/17 23:00 O2 Sat by Pulse Oximetry (%) 98 11/29/17 22:00 HENT: Yes: Normocephalic Neck: Yes: Trachea Midline Cardiovascular: Yes: Regular Rate and Rhythm Respiratory: Yes: Mechanically Ventilated Gastrointestinal: Yes: Normal Bowel Sounds ...Rectal Exam: Yes: Deferred Musculoskeletal: Yes: WNL Extremities: Yes: WNL Edema: No Labs: CBC, BMP 11/29/17 05:25 11/29/17 05:25 INR, PTT INR 0.96 (0.82-1.09) 11/25/17 21:44 Problem List - Problems (1) Type 2 diabetes mellitus with autonomic neuropathy Code(s): E11.43 - TYPE 2 DIABETES W DIABETIC AUTONOMIC (POLY)NEUROPATHY Qualifiers: Diabetes mellitus shelter insulin use: without intermediate card tender use Qualified Code(s): E11.43 - Type 2 diabetes mellitus with diabetic autonomic (poly) neuropathy (2) CKD (chronic kidney disease) stage 3, GFR 30-59 ml/min Code(s): N18.3 - CHRONIC KIDNEY DISEASE, STAGE 3 (MODERATE) (3) Pulmonary fibrosis Code(s): J84.10 - PULMONARY FIBROSIS, UNSPECIFIED (4) Respiratory distress Code(s): R06.03 - ACUTE RESPIRATORY DISTRESS (5) Acute respiratory failure with hypoxemia Code(s): J96.01 - ACUTE RESPIRATORY FAILURE WITH HYPOXIA Assessment/Plan Current Active Problems CKD (chronic kidney disease) stage 3, GFR 30-59 ml/min (Acute) DVT prophylaxis (Acute) Hemothorax on left (Acute) Pulmonary fibrosis (Acute) Respiratory distress (Acute) Type 2 diabetes mellitus with autonomic neuropathy (Acute) Abnormal Lab Results 11/29/17 11/29/17 11/29/17 05:25 05:25 06:30 RDW 18.5 H ABG pCO2 at Pt Temp 52.0 H ABG pO2 at Pt Temp 65.0 L D ABG HCO3 28.7 H ABG Base Excess 2.2 H Anion Gap 6 L BUN 30 H Creatinine 1.3 H Random Glucose 156 H Magnesium 2.5 H Laboratory Results - last 24 hr 11/29/17 11/29/17 11/29/17 02:32 05:25 05:25 WBC 7.9 RBC 4.29 Hgb 11.8 Hct 36.0 MCV 83.9 MCH 27.6 MCHC 32.8 RDW 18.5 H Plt Count 142 MPV 9.7 Anticoagulation Therapy Puncture Site ABG pH ABG pCO2 at Pt Temp ABG pO2 at Pt Temp ABG HCO3 ABG O2 Sat (Measured) ABG O2 Content ABG Base Excess Yaniv Test O2 Delivery Device Oxygen Flow Rate Vent Mode Vent Rate Mechanical Rate PEEP Pressure Support Vent Sodium 140 Potassium 3.8 Chloride 107 Carbon Dioxide 27 Anion Gap 6 L BUN 30 H Creatinine 1.3 H POC Glucometer 198.87383 Random Glucose 156 H Calcium 9.0 Phosphorus 3.2 Magnesium 2.5 H 11/29/17 11/29/17 11/29/17 06:02 06:30 09:27 WBC RBC Hgb Hct MCV MCH MCHC RDW Plt Count MPV Anticoagulation Therapy No Result Required. Puncture Site Right radial ABG pH 7.35 ABG pCO2 at Pt Temp 52.0 H ABG pO2 at Pt Temp 65.0 L D ABG HCO3 28.7 H ABG O2 Sat (Measured) 91.0 ABG O2 Content No Result Required. ABG Base Excess 2.2 H Yaniv Test Positive O2 Delivery Device Vent Oxygen Flow Rate 50 Vent Mode No Result Required. Vent Rate 20 Mechanical Rate No Result Required. PEEP -5.0 Pressure Support Vent 360 Sodium Potassium Chloride Carbon Dioxide Anion Gap BUN Creatinine POC Glucometer 175.44708 208.79732 Random Glucose Calcium Phosphorus Magnesium 11/29/17 11/29/17 11/29/17 16:32 18:26 20:30 WBC RBC Hgb Hct MCV MCH MCHC RDW Plt Count MPV Anticoagulation Therapy Puncture Site ABG pH ABG pCO2 at Pt Temp ABG pO2 at Pt Temp ABG HCO3 ABG O2 Sat (Measured) ABG O2 Content ABG Base Excess Yaniv Test O2 Delivery Device Oxygen Flow Rate Vent Mode Vent Rate Mechanical Rate PEEP Pressure Support Vent Sodium Potassium Chloride Carbon Dioxide Anion Gap BUN Creatinine POC Glucometer 302.49256 262.30828 200.79119 Random Glucose Calcium Phosphorus Magnesium plan: bgm q4 hr novolog insulin doses iv fluid rehydration nutrition calorie count nepro nutrition
[2017-11-30] MEDS: BACITRACIN 15 GM TUBE TOPICAL OINTMENT TP SCH ×3 (00:11→21:59)
[2017-11-30] MEDS: PROPOFOL 1,000,000 MCG/100 ML VIAL IVPB SCH ×4 (00:59→21:59)
[2017-11-30] MEDS: INSULIN SLIDING SCALE (NOVOLOG) 1 VIAL SQ SCH ×6 (01:09→22:22)
[2017-11-30 01:39] LABS: ARTERIAL BLOOD GAS BASE EXCESS 2.3 meq/l (-2-2); ARTERIAL BLOOD GAS pH 7.39 (7.35-7.45)
[2017-11-30 01:42] LABS: ALLENS TEST POSITIVE
[2017-11-30] MEDS: HEPARIN NA (PORCINE) 5,000 UNITS/ML 1ML VIAL SQ SCH ×3 (05:41→21:58)
--- NOTE | 2017-11-30 05:53 | PN ---
Physical Exam: SUBJECTIVE: Febrile to 102.2 max last night and tylenol was administered. Repeat cultures previously drawn on 11/28 currently negative. ETT was also withdrawn last night due to slip down to marking 22; recorrection to marking 20 with repeat xray showing appropriate placement. In addition, overnight pt had desaturation down to 88%. PEEP was changed from 0 to 5 and FiO2 increased to 60% . Otherwise no other events. Pt remains intubated and sedated with propofol. Chest tube continues to have leak with PEEP 5, however PEEP 0 shows no leak; still to -20 wall suction OBJECTIVE: Vital Signs Period Temp Pulse Resp BP Sys/Simms Pulse Ox Last 24 Hr 98.8 F-102.2 F 74-112 17-30 94-168/63-86 91-98 GENERAL: Intubated and sedated, pt looks comfortable HEENT: Pinpoint pupils reactive to light bilaterally, sclera anicteric, NGT to L nare, ETT intact, no JVD LUNGS: Coarse breath sounds noted anteriorly, AC mode vent with 360 TV/25 rate/ FiO2 60%/PEEP 5 HEART: RRR, S1, S2 without murmur ABDOMEN: Soft, nondistended, hypoactive bowel sounds, no guarding, no hepatomegaly EXTREMITIES: 2+ DP pulses, warm, well-perfused, no edema. NEUROLOGICAL: Could not assess due to clinical status Laboratory Results - last 24 hr 11/29/17 11/29/17 11/29/17 02:32 05:25 05:25 WBC 7.9 RBC 4.29 Hgb 11.8 Hct 36.0 MCV 83.9 MCH 27.6 MCHC 32.8 RDW 18.5 H Plt Count 142 MPV 9.7 Anticoagulation Therapy Puncture Site ABG pH ABG pCO2 at Pt Temp ABG pO2 at Pt Temp ABG HCO3 ABG O2 Sat (Measured) ABG O2 Content ABG Base Excess Yaniv Test O2 Delivery Device Oxygen Flow Rate Vent Mode Vent Rate Mechanical Rate PEEP Pressure Support Vent Sodium 140 Potassium 3.8 Chloride 107 Carbon Dioxide 27 Anion Gap 6 L BUN 30 H Creatinine 1.3 H POC Glucometer 198.44270 Random Glucose 156 H Calcium 9.0 Phosphorus 3.2 Magnesium 2.5 H 11/29/17 11/29/17 11/29/17 06:02 06:30 09:27 WBC RBC Hgb Hct MCV MCH MCHC RDW Plt Count MPV Anticoagulation Therapy No Result Required. Puncture Site Right radial ABG pH 7.35 ABG pCO2 at Pt Temp 52.0 H ABG pO2 at Pt Temp 65.0 L D ABG HCO3 28.7 H ABG O2 Sat (Measured) 91.0 ABG O2 Content No Result Required. ABG Base Excess 2.2 H Yaniv Test Positive O2 Delivery Device Vent Oxygen Flow Rate 50 Vent Mode No Result Required. Vent Rate 20 Mechanical Rate No Result Required. PEEP -5.0 Pressure Support Vent 360 Sodium Potassium Chloride Carbon Dioxide Anion Gap BUN Creatinine POC Glucometer 175.07197 208.71043 Random Glucose Calcium Phosphorus Magnesium 11/29/17 11/29/17 11/29/17 16:32 18:26 20:30 WBC RBC Hgb Hct MCV MCH MCHC RDW Plt Count MPV Anticoagulation Therapy Puncture Site ABG pH ABG pCO2 at Pt Temp ABG pO2 at Pt Temp ABG HCO3 ABG O2 Sat (Measured) ABG O2 Content ABG Base Excess Yaniv Test O2 Delivery Device Oxygen Flow Rate Vent Mode Vent Rate Mechanical Rate PEEP Pressure Support Vent Sodium Potassium Chloride Carbon Dioxide Anion Gap BUN Creatinine POC Glucometer 302.19473 262.37184 200.99057 Random Glucose Calcium Phosphorus Magnesium 11/29/17 11/30/17 22:22 01:08 WBC RBC Hgb Hct MCV MCH MCHC RDW Plt Count MPV Anticoagulation Therapy No Result Required. Puncture Site Left radial ABG pH 7.39 ABG pCO2 at Pt Temp 46.0 H ABG pO2 at Pt Temp 97.0 D ABG HCO3 27.8 H ABG O2 Sat (Measured) 97.0 ABG O2 Content No Result Required. ABG Base Excess 2.3 H Yaniv Test Positive O2 Delivery Device Vent Oxygen Flow Rate 60% Vent Mode No Result Required. Vent Rate 25 Mechanical Rate No Result Required. PEEP 5.0 Pressure Support Vent 360 Sodium Potassium Chloride Carbon Dioxide Anion Gap BUN Creatinine POC Glucometer 198.84773 Random Glucose Calcium Phosphorus Magnesium Active Medications Generic Name Dose Route Start Last Admin Trade Name Freq PRN Reason Stop Dose Admin Acetaminophen 1,000 mg 11/29/17 22:25 Ofirmev Injection - IVPB Q6H PRN FEVER Albuterol/Ipratropium 1 amp 11/26/17 20:00 11/29/17 20:10 Duoneb - NEB 1 amp RTID IVON Administration Bacitracin 1 applic 11/29/17 22:00 11/30/17 00:11 Bacitracin - TP 1 applic BID IVON Administration Chlorhexidine Gluconate 1 applic 11/26/17 22:00 11/29/17 21:52 Hibiclens For Decolonization - TP 1 applic HS IVON Administration Chlorhexidine Gluconate 15 ml 11/27/17 12:30 11/29/17 21:54 Peridex - MM 15 ml BID IVON Administration Heparin Sodium (Porcine) 5,000 unit 11/26/17 06:00 11/30/17 05:41 Heparin - SQ 5,000 unit TID IVON Administration Propofol 1,000,000 mcg in 100 mls @ 0 mls/hr 11/25/17 22:00 11/30/17 00:59 Diprivan - IVPB 28 mcg/kg/min TITR IVON 15.881 mls/hr Protocol Administration 5 MCG/KG/MIN Cefepime HCl 2 gm in 50 mls @ 200 mls/hr 11/26/17 14:15 11/29/17 21:52 Maxipime 2gm Ivpb (Premix) IVPB 200 mls/hr BID [facility]ON Administration Protocol Insulin Aspart 1 vial 11/28/17 02:00 11/30/17 01:09 Novolog Vial Sliding Scale - SQ 2 units Q4HPO [facility]ON Administration Protocol Metoprolol Tartrate 5 mg 11/26/17 01:09 Lopressor Injection - IVPUSH Q4H PRN HYPERTENSION Mupirocin 1 applic 11/26/17 10:00 11/29/17 21:51 Bactroban Ointment (For Decolonization) - NS 12/01/17 09:59 1 applic BID IVON Administration Pantoprazole Sodium 40 mg 11/30/17 10:00 Protonix Iv IVPUSH DAILY [facility]PLAN: Neuro: Stop sedation this morning for continued vacations --Prior sedation vacation showed spontaneous 4 extremity movement Respiratory: Acute on chronic hypoxic respiratory failure --Currently intubated and sedated --FiO2 currently 60% --Will wean back down as tolerated --Maintain SpO2 >90% --Prior CPAP wean trial failed --CPAP wean trialed; RSI 150 and not tolerating however pt not fully awake; will reassess with better mentation today --Decreased PEEP to 0 due to PTX --Continue low tidal volume ventilation to not exacerbate air leak --Duoneb QID to continue --CXR today improved R pleural effusions, however bilateral fluffy opacities remain with some peribronchial cuffing noted, L pleural effusion noted ; ETT 3.3cm from [place], NGT below diaphragm, central line in SVC/RA junction Left Pneumothorax --s/p Chest tube placement --Continue -20 wall suction --Most likely will need to wean off intubation before reassessing air leak Cardiovascular: Currently hemodynamically stable History of hypertension --Changed lopressor to PO (25mg BID NGT) --Monitor BP; currently stable normotensive pressures Renal: Acute kidney dysfunction --Monitor Cr (1.2 today) --Monitor urine output --Jones to maintain ID: HCAP --Pt currently febrile episodes --Repeat cultures on 11/28 negative --Cefepime day 5 --ID on board; appreciate recommendations --Tylenol PRN for fevers FEN: Fluids: Avoid due to history of chf Electrolyte abnormalities: None currently Nutrition: Tube feeds (held while weaning due to aspiration risk, but will reinitiate if cannot wean today) PPX: DVT - Heparin 5000 TID GI - Protonix 40mg IVP BID Dispo: continue ICU monitoring; sedation vacation with wean trials Case discussed with Dr. Cornelio Castillo, DO - IM PGY-1 Visit type - Emergency Visit Emergency Visit: No - New Patient This patient is new to me today: No - Critical Care Critical Care patient: Yes Total Critical Care Time (in minutes): 38 Critical Care Statement: The care of this patient involved high complexity decision making to prevent further life threatening deterioration of the patient 's condition and/or to evaluate & treat vital organ system(s) failure or risk of failure.
--- NOTE | 2017-11-30 06:51 | PN ---
Progress Note (short form) - Note Progress Note: Chief Complaint: Events noted, notes reviewed, intubated and sedated, in no distress, sinus rhythm is noted History of Present Illness: Seen and examined in the ICU. Events noted, notes reviewed, intubated and sedated, in no distress, sinus rhythm is noted Echocardiography dated 11/02/2017 revealed Mild LVH, normal bi-ventricular size and function, mild TR, RVSP of 32 mmHg - Current Medication List Current Medications Acetaminophen (Ofirmev Injection -) 1,000 mg IVPB Q6H PRN PRN Reason: FEVER Albuterol/Ipratropium (Duoneb -) 1 amp NEB RTID [facility] Last Admin: 11/29/17 20:10 Dose: 1 amp Bacitracin (Bacitracin -) 1 applic TP BID [facility] Last Admin: 11/30/17 00:11 Dose: 1 applic Chlorhexidine Gluconate (Hibiclens For Decolonization -) 1 applic TP HS [facility] Last Admin: 11/29/17 21:52 Dose: 1 applic Chlorhexidine Gluconate (Peridex -) 15 ml MM BID [facility] Last Admin: 11/29/17 21:54 Dose: 15 ml Heparin Sodium (Porcine) (Heparin -) 5,000 unit SQ TID [facility] Last Admin: 11/30/17 05:41 Dose: 5,000 unit Propofol (Diprivan -) 1,000,000 mcg in 100 mls @ 0 mls/hr IVPB TITR IVON; 5 MCG/ KG/MIN PRN Reason: Protocol Last Admin: 11/30/17 06:41 Dose: 28 mcg/kg/min, 15.881 mls/hr Cefepime HCl (Maxipime 2gm Ivpb (Premix)) 2 gm in 50 mls @ 200 mls/hr IVPB BID IVON PRN Reason: Protocol Last Admin: 11/29/17 21:52 Dose: 200 mls/hr Insulin Aspart (Novolog Vial Sliding Scale -) 1 vial SQ Q4HPO [facility] PRN Reason: Protocol Last Admin: 11/30/17 06:23 Dose: 4 units Metoprolol Tartrate (Lopressor Injection -) 5 mg IVPUSH Q4H PRN PRN Reason: HYPERTENSION Mupirocin (Bactroban Ointment (For Decolonization) -) 1 applic NS BID [facility] Stop: 12/01/17 09:59 Last Admin: 11/29/17 21:51 Dose: 1 applic Pantoprazole Sodium (Protonix Iv) 40 mg IVPUSH DAILY [facility] Review Of Systems: Unable to obtain, intubated and sedated - Objective Vital Signs: Last Vital Signs Temp Pulse Resp BP Pulse Ox 99.6 F 93 H 26 H 147/78 91 L 11/30/17 06:00 11/30/17 06:00 11/30/17 06:30 11/30/17 06:00 11/29/17 23:30 Intake & Output 11/27/17 11/28/17 11/29/17 11/30/17 23:59 23:59 23:59 23:59 Intake Total 6608 043 3455.4 Output Total 890 1168 722 300 Balance 620 -783 381.4 -300 Weight 210 lb 8 oz 210 lb 11.2 oz 207 lb 6 oz 204 lb 1.6 oz Constitutional: No Distress, Sedated Neck: Supple Negative JVD Cardiovascular: S1 S2 Regular Rate and Rhythm Respiratory: Diminished Breath Sounds at the Bases Bilateral Scattered Rhonchi Gastrointestinal: Soft Benign, Normal Bowel Sounds Ext: Trace Edema Labs: Labs pending from this AM Assessment/Plan ASSESSMENT: 1. Acute hypoxemic respiratory failure with underlying pulmonary fibrosis/ILD, spontaneous left pnemothorax post chest tube insertion and probable hospital- acquired pneumonia 2. 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 Diastolic LV dysfunction with chronic class I NYHA classification LV failure , compensated/euvolemic 4. HTN 5. Diabetes mellitus 6. OSAS 7. Acute on CKD PLAN: 1. Ventilator management and chest tube management as per critical care team 2. Antibiotics as per the primary team 3. Continue Lopressor but change to PO 4. Resume Losartan once renal function at baseline 5. Add ASA unless contraindicated Rodney Chester MD
[2017-11-30 07:10] LABS: BASO % 0.4 % (0-2.0); EOS % 9.6 % (0-4.5); HEMATOCRIT 37.4 % (32.4-45.2); LYMPH % 10.6 % (8-40); MCH 27.2 pg (25.7-33.7); MEAN CELL VOLUME 84.9 fl (80-96); MEAN PLT VOLUME 9.5 fl (7.5-11.1); MONO % 5.1 % (3.8-10.2); NEUT % 74.3 % (42.8-82.8); PLATELET COUNT 142 K/MM3 (134-434); RDW 18.6 % (11.6-15.6); WHITE BLOOD COUNT 10.7 K/mm3 (4.0-10.0)
[2017-11-30 07:19] LABS: ALBUMIN 2.1 g/dl (3.4-5.0); ANION GAP 11 (8-16); BLOOD UREA NITROGEN 40 mg/dL (7-18); CALCIUM 9.2 mg/dL (8.5-10.1); CHLORIDE 106 mmol/L (98-107); CO2 25 mmol/L (21-32); GLUCOSE,RANDOM 184 mg/dL (74-106); SODIUM 142 mmol/L (136-145)
[2017-11-30 07:24] LABS: ALK PHOS 82 U/L (45-117); BILIRUBIN,TOTAL 0.4 mg/dL (0.2-1.0); CREATININE 1.2 mg/dL (0.55-1.02); PHOSPHOROUS 3.2 mg/dL (2.5-4.9); SGPT/ALT 25 U/L (12-78); TOT PROT 5.7 g/dl (6.4-8.2)
[2017-11-30 07:52] LABS: MAGNESIUM 2.9 mg/dL (1.8-2.4); POTASSIUM 3.9 mmol/L (3.5-5.1); SGOT/AST 29 U/L (15-37)
[2017-11-30] MEDS: ALBUTEROL SO4 2.5/IPRATROPIUM 0.5 INH SOL 3 ML VIAL.NEB. NEB SCH ×3 (08:17→20:00)
--- NOTE | 2017-11-30 09:19 | PN ---
Progress Note, Physician History of Present Illness: on vent daughter at bedside - Current Medication List Current Medications: Active Medications Acetaminophen (Ofirmev Injection -) 1,000 mg IVPB Q6H PRN PRN Reason: FEVER Albuterol/Ipratropium (Duoneb -) 1 amp NEB RTID [facility] Last Admin: 11/30/17 08:17 Dose: 1 amp Aspirin (Asa -) 81 mg NGT DAILY [facility] Bacitracin (Bacitracin -) 1 applic TP BID [facility] Last Admin: 11/30/17 00:11 Dose: 1 applic Chlorhexidine Gluconate (Hibiclens For Decolonization -) 1 applic TP HS [facility] Last Admin: 11/29/17 21:52 Dose: 1 applic Chlorhexidine Gluconate (Peridex -) 15 ml MM BID [facility] Last Admin: 11/29/17 21:54 Dose: 15 ml Heparin Sodium (Porcine) (Heparin -) 5,000 unit SQ TID [facility] Last Admin: 11/30/17 05:41 Dose: 5,000 unit Propofol (Diprivan -) 1,000,000 mcg in 100 mls @ 0 mls/hr IVPB TITR IVON; 5 MCG/ KG/MIN PRN Reason: Protocol Last Admin: 11/30/17 06:41 Dose: 28 mcg/kg/min, 15.881 mls/hr Cefepime HCl (Maxipime 2gm Ivpb (Premix)) 2 gm in 50 mls @ 200 mls/hr IVPB BID [facility] PRN Reason: Protocol Last Admin: 11/29/17 21:52 Dose: 200 mls/hr Insulin Aspart (Novolog Vial Sliding Scale -) 1 vial SQ Q4HPO [facility] PRN Reason: Protocol Last Admin: 11/30/17 06:23 Dose: 4 units Metoprolol Tartrate (Lopressor -) 25 mg NGT BID [facility] Mupirocin (Bactroban Ointment (For Decolonization) -) 1 applic NS BID [facility] Stop: 12/01/17 09:59 Last Admin: 11/29/17 21:51 Dose: 1 applic Pantoprazole Sodium (Protonix Iv) 40 mg IVPUSH DAILY [facility] - Objective Vital Signs: Vital Signs Temperature 99.6 F 11/30/17 06:00 Pulse Rate 93 H 11/30/17 06:00 Respiratory Rate 28 H 11/30/17 08:17 Blood Pressure 147/78 11/30/17 06:00 O2 Sat by Pulse Oximetry (%) 91 L 11/29/17 23:30 Cardiovascular: Yes: S1, S2 Respiratory: Yes: Mechanically Ventilated, Rhonchi Gastrointestinal: Yes: Normal Bowel Sounds, Soft Edema: No Labs: CBC, BMP 11/30/17 05:46 11/30/17 05:46 INR, PTT INR 0.96 (0.82-1.09) 11/25/17 21:44 Assessment/Plan - Problems (1) Acute hypoxemic respiratory failure Assessment/Plan: intubated sedated on propofol PNA elevated lactic acid now trending down to normal Laboratory Tests 11/26/17 08:10 Lactic Acid 1.7 WBC elevated on abx- on steroids at [facility] for IPF( pulm fibrosis) NPO Code(s): J96.01 - ACUTE RESPIRATORY FAILURE WITH HYPOXIA (2) Hemothorax on left Assessment/Plan: s/p chest tube placement improvement in cxr monitor drainage Code(s): J94.2 - HEMOTHORAX (3) CHF (congestive heart failure) Assessment/Plan: got iv lasix in ER amlodipine and cozaar on hold NPO iv metoprolol as needed cardiology evaluation noted Code(s): I50.9 - HEART FAILURE, UNSPECIFIED Qualifiers: Heart failure type: combined systolic and diastolic Heart failure chronicity: chronic Qualified Code(s): I50.42 - Chronic combined systolic ( congestive) and diastolic (congestive) heart failure (4) Diabetes mellitus Assessment/Plan: [id number] start levemir on sliding scale hold oral hypogycemic meds for now Code(s): E11.9 - TYPE 2 DIABETES MELLITUS WITHOUT COMPLICATIONS Qualifiers: Diabetes mellitus type: type 2 Diabetes mellitus shelter insulin use: without shelter use Diabetes mellitus complication status: with circulatory complication Diabetes mellitus complication detail: with other circulatory complications Qualified Code(s): E11.59 - Type 2 diabetes mellitus with other circulatory complications (5) CKD (chronic kidney disease) stage 3, GFR 30-59 ml/min Assessment/Plan: monitor lytes cr at baseline for now Code(s): N18.3 - CHRONIC KIDNEY DISEASE, STAGE 3 (MODERATE) (6) Fever/Pneumonia Assessment/Plan: abx per id 'follow labs and cxr
[2017-11-30] MEDS ORDERED: PT OWN MED DRAWER 7, Y5N ONE ×2 (09:37→21:57)
[2017-11-30] MEDS: CEFEPIME HCL/D5W 2 GM/50 ML BAG IVPB SCH ×2 (09:39→21:58)
[2017-11-30] MEDS: METOPROLOL TARTRATE 25 MG TABLET (FP) NGT SCH ×2 (09:39→21:58)
[2017-11-30] MEDS: ASPIRIN 81 MG CHEWABLE TABLETS NGT SCH (09:40)
[2017-11-30] MEDS: CHLORHEXIDINE GLUCONATE 0.12% 15ML CUP MM SCH ×2 (09:40→22:22)
[2017-11-30] MEDS: PANTOPRAZOLE SODIUM 40 MG VIAL IVPUSH SCH (09:40)
[2017-11-30] MEDS: MUPIROCIN 2% TOPICAL OINTMENT FOR DECOLONIZATION NS SCH ×2 (09:41→21:59)
--- NOTE | 2017-11-30 11:56 | PN ---
Teaching Attending Note Name of Resident: Eric Castillo ATTENDING PHYSICIAN STATEMENT I saw and evaluated the patient. I reviewed the resident's note and discussed the case with the resident. I agree with the resident's findings and plan as documented. SUBJECTIVE: Pt seen and examined in the ICU. Remains intubated, sedated. Hypoxic event yesterday likely due to low ETT. OBJECTIVE: Last Vital Signs Temp Pulse Resp BP Pulse Ox 98.9 F 80 27 H 151/76 91 L 11/30/17 11:14 11/30/17 10:00 11/30/17 10:54 11/30/17 10:00 11/29/17 23:30 Intake & Output 11/27/17 11/28/17 11/29/17 11/30/17 23:59 23:59 23:59 23:59 Intake Total 7237 379 8672.4 932 Output Total 890 1168 722 320 Balance 620 -783 381.4 612 Weight 95.481 kg 95.572 kg 94.064 kg 92.578 kg Gen: intubated, sedated Heart: RRR Lung: decreased breath sounds at the bases Abd: soft, nontender Ext: no edema Chest tube: no air leak, minimal drainage CBC, BMP 11/30/17 05:46 11/30/17 05:46 Active Medications Acetaminophen (Ofirmev Injection -) 1,000 mg IVPB Q6H PRN PRN Reason: FEVER Albuterol/Ipratropium (Duoneb -) 1 amp NEB RTID [facility] Last Admin: 11/30/17 08:17 Dose: 1 amp Aspirin (Asa -) 81 mg NGT DAILY [facility] Last Admin: 11/30/17 09:40 Dose: 81 mg Bacitracin (Bacitracin -) 1 applic TP BID [facility] Last Admin: 11/30/17 09:40 Dose: 1 applic Chlorhexidine Gluconate (Hibiclens For Decolonization -) 1 applic TP HS [facility] Last Admin: 11/29/17 21:52 Dose: 1 applic Chlorhexidine Gluconate (Peridex -) 15 ml MM BID [facility] Last Admin: 11/30/17 09:40 Dose: 15 ml Heparin Sodium (Porcine) (Heparin -) 5,000 unit SQ TID [facility] Last Admin: 11/30/17 05:41 Dose: 5,000 unit Propofol (Diprivan -) 1,000,000 mcg in 100 mls @ 0 mls/hr IVPB TITR IVON; 5 MCG/ KG/MIN PRN Reason: Protocol Last Admin: 11/30/17 06:41 Dose: 28 mcg/kg/min, 15.881 mls/hr Cefepime HCl (Maxipime 2gm Ivpb (Premix)) 2 gm in 50 mls @ 200 mls/hr IVPB BID IVON PRN Reason: Protocol Last Admin: 11/30/17 09:39 Dose: 200 mls/hr Insulin Aspart (Novolog Vial Sliding Scale -) 1 vial SQ Q4HPO [facility] PRN Reason: Protocol Last Admin: 11/30/17 10:59 Dose: 7 units Metoprolol Tartrate (Lopressor -) 25 mg NGT BID [facility] Last Admin: 11/30/17 09:39 Dose: 25 mg Mupirocin (Bactroban Ointment (For Decolonization) -) 1 applic NS BID [facility] Stop: 12/01/17 09:59 Last Admin: 11/30/17 09:41 Dose: 1 applic Pantoprazole Sodium (Protonix Iv) 40 mg IVPUSH DAILY [facility] Last Admin: 11/30/17 09:40 Dose: 40 mg ASSESSMENT AND PLAN: Acute on Chronic Hypoxic Respiratory Failure Left Pneumothorax s/p chest tube placement r/o Pneumonia Interstitial Lung Disease +Troponins likely Demand Ischemia HTN DM LV Diastolic Dysfunction Acute Kidney Injury Obstructive Sleep Apnea - on empiric antibiotics - keep PEEP 0 - taper FiO2 to keep SpO2 >90% - low tidal volume ventilation - lighten sedation to assess mental status - spontaneous breathing trials as tolerated when mental status improved - will likely need tracheostomy given severity of underlying lung disease - enteral feeds - DVT/GI prophylaxis - continue ICU monitoring critical care time spent in reviewing chart, evaluating patient and formulating plan 35 min
--- NOTE | 2017-11-30 13:31 | PN ---
Progress Note (short form) - Note Progress Note: awake intubated intermittent fevers Vital Signs Period Temp Pulse Resp BP Sys/Simms Pulse Ox Last 24 Hr 98.9 F-102.2 F 80-112 17-29 94-168/63-86 91-98 cor-rrr lungs decreased bs at bases +chest tube abd soft,nt ext no edema no central lines CBC, BMP 11/30/17 05:46 11/30/17 05:46 cxray unchanged Microbiology 11/28/17 20:00 Urine - Urine Jones Urine Culture - Final NO GROWTH OBTAINED 11/28/17 20:00 Sputum - Endotrachea Suction/Ventilator Gram Stain - Final 11/28/17 20:00 Sputum - Endotrachea Suction/Ventilator Sputum Culture - Preliminary Yeast Like Organism 11/25/17 21:49 Blood - Peripheral Venous Blood Culture - Preliminary NO GROWTH OBTAINED AFTER 96 HOURS, INCUBATION TO CONTINUE FOR 1 DAYS. 11/25/17 21:49 Blood - Peripheral Venous Blood Culture - Preliminary NO GROWTH OBTAINED AFTER 96 HOURS, INCUBATION TO CONTINUE FOR 1 DAYS. 11/28/17 20:18 Blood - Peripheral Venous Blood Culture - Preliminary NO GROWTH OBTAINED AFTER 24 HOURS, INCUBATION TO CONTINUE FOR 4 DAYS. 11/28/17 20:10 Blood - Peripheral Venous Blood Culture - Preliminary NO GROWTH OBTAINED AFTER 24 HOURS, INCUBATION TO CONTINUE FOR 4 DAYS. 11/26/17 15:20 Sputum - Endotrachea Suction/Ventilator Gram Stain - Final 11/26/17 15:20 Sputum - Endotrachea Suction/Ventilator Sputum Culture - Final NORMAL RESPIRATORY [place] 11/27/17 12:20 Urine For Antigen Detection Legionella Antigen - Final 11/27/17 12:20 Urine For Antigen Detection Streptococcus pneumoniae Antigen (M - Final 11/25/17 21:49 Urine - Urine Jones Urine Culture - Final NO GROWTH OBTAINED Active Medications Acetaminophen (Ofirmev Injection -) 1,000 mg IVPB Q6H PRN PRN Reason: FEVER Albuterol/Ipratropium (Duoneb -) 1 amp NEB RTID [facility] Last Admin: 11/30/17 08:17 Dose: 1 amp Aspirin (Asa -) 81 mg NGT DAILY [facility] Last Admin: 11/30/17 09:40 Dose: 81 mg Bacitracin (Bacitracin -) 1 applic TP BID [facility] Last Admin: 11/30/17 09:40 Dose: 1 applic Chlorhexidine Gluconate (Hibiclens For Decolonization -) 1 applic TP HS [facility] Last Admin: 11/29/17 21:52 Dose: 1 applic Chlorhexidine Gluconate (Peridex -) 15 ml MM BID [facility] Last Admin: 11/30/17 09:40 Dose: 15 ml Heparin Sodium (Porcine) (Heparin -) 5,000 unit SQ TID [facility] Last Admin: 11/30/17 05:41 Dose: 5,000 unit Propofol (Diprivan -) 1,000,000 mcg in 100 mls @ 0 mls/hr IVPB TITR IVON; 5 MCG/ KG/MIN PRN Reason: Protocol Last Admin: 11/30/17 06:41 Dose: 28 mcg/kg/min, 15.881 mls/hr Cefepime HCl (Maxipime 2gm Ivpb (Premix)) 2 gm in 50 mls @ 200 mls/hr IVPB BID [facility] PRN Reason: Protocol Last Admin: 11/30/17 09:39 Dose: 200 mls/hr Insulin Aspart (Novolog Vial Sliding Scale -) 1 vial SQ Q4HPO [facility] PRN Reason: Protocol Last Admin: 11/30/17 10:59 Dose: 7 units Metoprolol Tartrate (Lopressor -) 25 mg NGT BID [facility] Last Admin: 11/30/17 09:39 Dose: 25 mg Mupirocin (Bactroban Ointment (For Decolonization) -) 1 applic NS BID [facility] Stop: 12/01/17 09:59 Last Admin: 11/30/17 09:41 Dose: 1 applic Pantoprazole Sodium (Protonix Iv) 40 mg IVPUSH DAILY [facility] Last Admin: 11/30/17 09:40 Dose: 40 mg a/p intermittent fevers respiratory failure pneumothorax cannot rule out pneumonia pulmonary fibrosis/ILD continue cefepime day #5 fevers trending down she is alert today
[2017-11-30] MEDS: CHLORHEXIDINE GLUCONATE 4% CLEANSER FOR DECOLONIZATION TP SCH (22:00)
[2017-12-01] MEDS ORDERED: HEMOQUE TEST 1 EACH EACH ONE (01:57)
[2017-12-01] MEDS: INSULIN SLIDING SCALE (NOVOLOG) 1 VIAL SQ SCH ×6 (02:09→23:57)
--- NOTE | 2017-12-01 05:49 | PN ---
Physical Exam: SUBJECTIVE: Overnight events: CPAP trial last night for 1 hour. Pt put back to sedation overnight. Pt currently has continued fever spikes with good response with antipyretic. This morning sedation was held and another CPAP trial was performed. Pt's RSI was 85 this morning with averages of 350 TV on PSV of 15 due to history of pulmonary fibrosis. After 40 minutes of toleration, PSV was decreased to 12 however acutely desaturated to SpO2 88% quickly. PSV changed back to 15. At this point, pt started to desaturate and reported being tired with some abdominal accessory muscles seen. AC mode was returned to (TV360, rate 25, FiO2 50%, PEEP 0) and sedation was started again at 13mcg. Total CPAP trial 45minutes. Feeds were held during CPAP trial; now restarted. OBJECTIVE: Vital Signs Period Temp Pulse Resp BP Sys/Simms Pulse Ox Last 24 Hr 98.8 F-100.4 F 72-102 20-31 112-151/53-78 95-95 Initial assessment this morning: GENERAL: NAD, alert, nods to talking in Polish and listening to commands. HEENT: NC/AT, EOMI, KYLER, NGT in place, ETT in place to 20 onofre, No JVD LUNGS: Slightly coarse breath sounds bilaterally, no overt wheezing, no accessory muscle use (this assessment prior to CPAP trial). HEART: Slightly tachycardic with normal rhythm, S1, S2 without murmur ABDOMEN: Soft, nontender, nondistended, normoactive bowel sounds, no guarding, no hepatomegaly EXTREMITIES: 2+ DP pulses, warm, well-perfused, trace dependent edema. NEUROLOGICAL: Could not fully assess; handgrip on command noted to be 5/5. SKIN: Warm, dry, no rashes or lesions noted Laboratory Results - last 24 hr CBC, BMP 12/01/17 06:20 12/01/17 06:20 Active Medications Generic Name Dose Route Start Last Admin Trade Name Freq PRN Reason Stop Dose Admin Acetaminophen 1,000 mg 11/29/17 22:25 Ofirmev Injection - IVPB Q6H PRN FEVER Albuterol/Ipratropium 1 amp 11/26/17 20:00 11/30/17 20:00 Duoneb - NEB 1 amp RTID [facility] Administration Aspirin 81 mg 11/30/17 10:00 11/30/17 09:40 Asa - NGT 81 mg DAILY [facility] Administration Bacitracin 1 applic 11/29/17 22:00 11/30/17 21:59 Bacitracin - TP 1 applic BID [facility] Administration Chlorhexidine Gluconate 1 applic 11/26/17 22:00 11/30/17 22:00 Hibiclens For Decolonization - TP 1 applic HS [facility] Administration Chlorhexidine Gluconate 15 ml 11/27/17 12:30 11/30/17 22:22 Peridex - MM 15 ml BID [facility] Administration Heparin Sodium (Porcine) 5,000 unit 11/26/17 06:00 11/30/17 21:58 Heparin - SQ 5,000 unit TID [facility] Administration Propofol 1,000,000 mcg in 100 mls @ 0 mls/hr 11/25/17 22:00 11/30/17 21:59 Diprivan - IVPB 15 mcg/kg/min TITR [facility] 8.508 mls/hr Protocol Administration 5 MCG/KG/MIN Cefepime HCl 2 gm in 50 mls @ 200 mls/hr 11/26/17 14:15 11/30/17 21:58 Maxipime 2gm Ivpb (Premix) IVPB 200 mls/hr BID [facility] Administration Protocol Insulin Aspart 1 vial 11/28/17 02:00 12/01/17 02:09 Novolog Vial Sliding Scale - SQ 2 units Q4HPO [facility] Administration Protocol Metoprolol Tartrate 25 mg 11/30/17 10:00 11/30/17 21:58 Lopressor - NGT 25 mg BID [facility] Administration Mupirocin 1 applic 11/26/17 10:00 11/30/17 21:59 Bactroban Ointment (For Decolonization) - NS 12/01/17 09:59 1 applic BID [facility] Administration Pantoprazole Sodium 40 mg 11/30/17 10:00 11/30/17 09:40 Protonix Iv IVPUSH 40 mg DAILY [facility] Administration ASSESSMENT/PLAN: Neuro: Continued sedation vacations daily Respiratory: Acute on chronic hypoxic respiratory failure --CPAP trials to continue daily --2x already with duration around 45min to 1hr --Most recent RSBI ~85 --Will introduce the idea of tracheostomy; given advanced pulm fibrosis conditions and unable to tolerate lower PSV's --Palliative consulted to aid in future discussion of tracheostomy --Sedation and feeds to continue while sedated for vent asynchrony --AC mode currently TV 360/ Rate 25/ FiO2 50%/ PEEP 0 --PEEP 0 due to PTX (currently no leak at PEEP 0); low tidal volumes avoid exacerbation of PTX --Duoneb QID to continue --CXR was delayed due to CPAP trial; will await study Left Pneumothorax --s/p Chest tube placement --Continue -20 wall suction --Most likely will need to wean off intubation before reassessing air leak Cardiovascular: Currently hemodynamically stable History of hypertension --Continue Lopressor to PO (25mg BID NGT) --Monitor BP; currently stable normotensive pressures Renal: Acute kidney dysfunction --Monitor Cr (1.2 today) --Monitor urine output --Jones to maintain ID: HCAP --Pt currently febrile episodes --Repeat cultures on 11/28 negative --Cefepime day 5 --ID on board; appreciate recommendations --Tylenol PRN for fevers FEN: Fluids: Avoid due to history of chf Electrolyte abnormalities: Hypophosphatemia (repleted with KPhos IV) Nutrition: Tube feeds (held while weaning due to aspiration risk, but will reinitiate if cannot wean today); PPX: DVT - Heparin 5000 TID GI - Protonix 40mg IVP BID Dispo: continue ICU monitoring; sedation vacation with wean trials Case discussed with Dr. Cornelio Castillo, DO - IM PGY-1 Visit type - Emergency Visit Emergency Visit: No - New Patient This patient is new to me today: No - Critical Care Critical Care patient: Yes Total Critical Care Time (in minutes): 40 Critical Care Statement: The care of this patient involved high complexity decision making to prevent further life threatening deterioration of the patient 's condition and/or to evaluate & treat vital organ system(s) failure or risk of failure.
[2017-12-01] MEDS: HEPARIN NA (PORCINE) 5,000 UNITS/ML 1ML VIAL SQ SCH ×3 (06:07→23:17)
[2017-12-01] MEDS: PROPOFOL 1,000,000 MCG/100 ML VIAL IVPB SCH ×3 (06:07→20:21)
[2017-12-01 06:32] LABS: HEMATOCRIT 34.6 % (32.4-45.2); HEMOGLOBIN 11.2 GM/dL (10.7-15.3); MCH 27.4 pg (25.7-33.7); MCHC 32.4 g/dl (32.0-36.0); MEAN CELL VOLUME 84.4 fl (80-96); PLATELET COUNT 148 K/MM3 (134-434); RDW 18.6 % (11.6-15.6); WHITE BLOOD COUNT 9.5 K/mm3 (4.0-10.0)
--- NOTE | 2017-12-01 07:12 | PN ---
Progress Note, Physician Chief Complaint: ID Intubated Responds to verbal stimuli Moves her extremities Cefepime since admission Low grade temps only - Current Medication List Current Medications: Active Medications Acetaminophen (Ofirmev Injection -) 1,000 mg IVPB Q6H PRN PRN Reason: FEVER Albuterol/Ipratropium (Duoneb -) 1 amp NEB RTID [facility] Last Admin: 11/30/17 20:00 Dose: 1 amp Aspirin (Asa -) 81 mg NGT DAILY [facility] Last Admin: 11/30/17 09:40 Dose: 81 mg Bacitracin (Bacitracin -) 1 applic TP BID [facility] Last Admin: 11/30/17 21:59 Dose: 1 applic Chlorhexidine Gluconate (Hibiclens For Decolonization -) 1 applic TP HS [facility] Last Admin: 11/30/17 22:00 Dose: 1 applic Chlorhexidine Gluconate (Peridex -) 15 ml MM BID [facility] Last Admin: 11/30/17 22:22 Dose: 15 ml Heparin Sodium (Porcine) (Heparin -) 5,000 unit SQ TID [facility] Last Admin: 12/01/17 06:07 Dose: 5,000 unit Propofol (Diprivan -) 1,000,000 mcg in 100 mls @ 0 mls/hr IVPB TITR [facility]; 5 MCG/ KG/MIN PRN Reason: Protocol Last Admin: 12/01/17 06:07 Dose: 15 mcg/kg/min, 8.508 mls/hr Cefepime HCl (Maxipime 2gm Ivpb (Premix)) 2 gm in 50 mls @ 200 mls/hr IVPB BID [facility] PRN Reason: Protocol Last Admin: 11/30/17 21:58 Dose: 200 mls/hr Insulin Aspart (Novolog Vial Sliding Scale -) 1 vial SQ Q4HPO [facility] PRN Reason: Protocol Last Admin: 12/01/17 06:12 Dose: 4 units Metoprolol Tartrate (Lopressor -) 25 mg NGT BID [facility] Last Admin: 11/30/17 21:58 Dose: 25 mg Mupirocin (Bactroban Ointment (For Decolonization) -) 1 applic NS BID [facility] Stop: 12/01/17 09:59 Last Admin: 11/30/17 21:59 Dose: 1 applic Pantoprazole Sodium (Protonix Iv) 40 mg IVPUSH DAILY [facility] Last Admin: 11/30/17 09:40 Dose: 40 mg - Objective Vital Signs: Vital Signs Temperature 99.6 F 12/01/17 06:00 Pulse Rate 94 H 12/01/17 06:00 Respiratory Rate 26 H 12/01/17 06:45 Blood Pressure 154/74 12/01/17 06:00 O2 Sat by Pulse Oximetry (%) 95 11/30/17 21:13 Constitutional: Yes: Well Nourished HENT: Yes: Other (ET tube) Cardiovascular: Yes: S1, S2 Respiratory: Yes: WNL, Regular, CTA Bilaterally Gastrointestinal: Yes: WNL, Normal Bowel Sounds. No: Tenderness Labs: CBC, BMP 12/01/17 06:20 INR, PTT INR 0.96 (0.82-1.09) 11/25/17 21:44 Assessment/Plan Microbiology 11/28/17 20:00 Urine - Urine Jones Urine Culture - Final NO GROWTH OBTAINED 11/28/17 20:00 Sputum - Endotrachea Suction/Ventilator Gram Stain - Final 11/28/17 20:18 Blood - Peripheral Venous Blood Culture - Preliminary NO GROWTH OBTAINED AFTER 48 HOURS, INCUBATION TO CONTINUE FOR 3 DAYS. 11/28/17 20:10 Blood - Peripheral Venous Blood Culture - Preliminary NO GROWTH OBTAINED AFTER 48 HOURS, INCUBATION TO CONTINUE FOR 3 DAYS. 11/28/17 20:00 Sputum - Endotrachea Suction/Ventilator Sputum Culture - Preliminary Yeast Like Organism Laboratory Tests 11/30/17 12/01/17 05:46 06:20 WBC 9.5 Hgb 11.2 Plt Count 148 BUN 40 H Assessment Respiratory failure ILD Possible superimposed PNA Pneumothorax left chest tube Plan Complete Cefepime another day or 2 Sera GONSALEZ
[2017-12-01 07:33] LABS: ALBUMIN 1.9 g/dl (3.4-5.0); ALK PHOS 79 U/L (45-117); ANION GAP 7 (8-16); BILIRUBIN,TOTAL 0.2 mg/dL (0.2-1.0); BLOOD UREA NITROGEN 39 mg/dL (7-18); CALCIUM 9.1 mg/dL (8.5-10.1); CHLORIDE 108 mmol/L (98-107); CO2 26 mmol/L (21-32); CREATININE 1.3 mg/dL (0.55-1.02); GLUCOSE,RANDOM 195 mg/dL (74-106); MAGNESIUM 2.6 mg/dL (1.8-2.4); PHOSPHOROUS 1.7 mg/dL (2.5-4.9); POTASSIUM 3.8 mmol/L (3.5-5.1); SGOT/AST 20 U/L (15-37); SGPT/ALT 21 U/L (12-78); SODIUM 141 mmol/L (136-145); TOT PROT 5.4 g/dl (6.4-8.2)
[2017-12-01] MEDS: ALBUTEROL SO4 2.5/IPRATROPIUM 0.5 INH SOL 3 ML VIAL.NEB. NEB SCH ×3 (08:30→21:40)
--- NOTE | 2017-12-01 09:25 | PN ---
Progress Note, Physician History of Present Illness: ON VENT SEDATED DAUGHTER AT BEDSIDE--CURRENT CONDITION AND PLAN DISCUSSED - Current Medication List Current Medications: Active Medications Acetaminophen (Ofirmev Injection -) 1,000 mg IVPB Q6H PRN PRN Reason: FEVER Albuterol/Ipratropium (Duoneb -) 1 amp NEB RTID [facility] Last Admin: 12/01/17 08:30 Dose: 1 amp Aspirin (Asa -) 81 mg NGT DAILY [facility] Last Admin: 11/30/17 09:40 Dose: 81 mg Bacitracin (Bacitracin -) 1 applic TP BID [facility] Last Admin: 11/30/17 21:59 Dose: 1 applic Chlorhexidine Gluconate (Hibiclens For Decolonization -) 1 applic TP HS [facility] Last Admin: 11/30/17 22:00 Dose: 1 applic Chlorhexidine Gluconate (Peridex -) 15 ml MM BID [facility] Last Admin: 11/30/17 22:22 Dose: 15 ml Heparin Sodium (Porcine) (Heparin -) 5,000 unit SQ TID [facility] Last Admin: 12/01/17 06:07 Dose: 5,000 unit Propofol (Diprivan -) 1,000,000 mcg in 100 mls @ 0 mls/hr IVPB TITR [facility]; 5 MCG/ KG/MIN PRN Reason: Protocol Last Titration: 12/01/17 07:00 Dose: 2 mcg/kg/min, 1.134 mls/hr Cefepime HCl (Maxipime 2gm Ivpb (Premix)) 2 gm in 50 mls @ 200 mls/hr IVPB BID [facility] PRN Reason: Protocol Last Admin: 11/30/17 21:58 Dose: 200 mls/hr Potassium Phosphate 30 mm/ (Sodium Chloride) 260 mls @ 62.5 mls/hr IVPB ONCE ONE Stop: 12/01/17 13:12 Insulin Aspart (Novolog Vial Sliding Scale -) 1 vial SQ Q4HPO [facility] PRN Reason: Protocol Last Admin: 12/01/17 06:12 Dose: 4 units Metoprolol Tartrate (Lopressor -) 25 mg NGT BID [facility] Last Admin: 11/30/17 21:58 Dose: 25 mg Mupirocin (Bactroban Ointment (For Decolonization) -) 1 applic NS BID [facility] Stop: 03/28/18 09:59 Last Admin: 11/30/17 21:59 Dose: 1 applic Pantoprazole Sodium (Protonix Iv) 40 mg IVPUSH DAILY [facility] Last Admin: 11/30/17 09:40 Dose: 40 mg - Objective Vital Signs: Vital Signs Temperature 99.5 F 12/01/17 08:00 Pulse Rate 95 H 12/01/17 08:00 Respiratory Rate 29 H 12/01/17 08:30 Blood Pressure 166/73 12/01/17 08:00 O2 Sat by Pulse Oximetry (%) 93 L 12/01/17 08:14 Cardiovascular: Yes: S1, S2 Respiratory: Yes: Mechanically Ventilated, Rhonchi Gastrointestinal: Yes: Normal Bowel Sounds, Soft Labs: CBC, BMP 12/01/17 06:20 12/01/17 06:20 INR, PTT INR 0.96 (0.82-1.09) 11/25/17 21:44 Assessment/Plan - Problems (1) Acute hypoxemic respiratory failure Assessment/Plan: intubated sedated on propofol PNA elevated lactic acid now trending down to normal Laboratory Tests 11/26/17 08:10 Lactic Acid 1.7 WBC elevated on abx- on steroids at [place] for IPF( pulm fibrosis) NPO DID NOT TOERATE CPAP X 2 Code(s): J96.01 - ACUTE RESPIRATORY FAILURE WITH HYPOXIA (2) Hemothorax on left Assessment/Plan: s/p chest tube placement improvement in cxr monitor drainage Code(s): J94.2 - HEMOTHORAX (3) CHF (congestive heart failure) Assessment/Plan: got iv lasix in ER amlodipine and cozaar on hold NPO iv metoprolol as needed cardiology evaluation noted Code(s): I50.9 - HEART FAILURE, UNSPECIFIED Qualifiers: Heart failure type: combined systolic and diastolic Heart failure chronicity: chronic Qualified Code(s): I50.42 - Chronic combined systolic ( congestive) and diastolic (congestive) heart failure (4) Diabetes mellitus Assessment/Plan: [id number] start levemir on sliding scale hold oral hypogycemic meds for now Code(s): E11.9 - TYPE 2 DIABETES MELLITUS WITHOUT COMPLICATIONS Qualifiers: Diabetes mellitus type: type 2 Diabetes mellitus assisted insulin use: without assisted use Diabetes mellitus complication status: with circulatory complication Diabetes mellitus complication detail: with other circulatory complications Qualified Code(s): E11.59 - Type 2 diabetes mellitus with other circulatory complications (5) CKD (chronic kidney disease) stage 3, GFR 30-59 ml/min Assessment/Plan: monitor lytes cr at baseline for now Code(s): N18.3 - CHRONIC KIDNEY DISEASE, STAGE 3 (MODERATE) (6) Fever/Pneumonia Assessment/Plan: abx per id 'follow labs and cxr
[2017-12-01] MEDS ORDERED: PT OWN MED DRAWER 7, Y5N ONE ×2 (09:53→22:55)
[2017-12-01] MEDS: CEFEPIME HCL/D5W 2 GM/50 ML BAG IVPB SCH ×2 (09:56→23:18)
[2017-12-01] MEDS: METOPROLOL TARTRATE 25 MG TABLET (FP) NGT SCH ×2 (09:56→23:19)
[2017-12-01] MEDS: ASPIRIN 81 MG CHEWABLE TABLETS NGT SCH (09:56)
[2017-12-01] MEDS: BACITRACIN 15 GM TUBE TOPICAL OINTMENT TP SCH ×2 (09:58→23:17)
[2017-12-01] MEDS: PANTOPRAZOLE SODIUM 40 MG VIAL IVPUSH SCH (09:58)
[2017-12-01] MEDS ORDERED: POTASSIUM PHOSPHATE 30 MM in SODIUM CHLORIDE 250 ML IVPB ONE (10:00)
[2017-12-01] MEDS: CHLORHEXIDINE GLUCONATE 0.12% 15ML CUP MM SCH ×2 (10:20→23:18)
--- NOTE | 2017-12-01 12:00 | PN ---
Teaching Attending Note Name of Resident: Eric Castillo ATTENDING PHYSICIAN STATEMENT I saw and evaluated the patient. I reviewed the resident's note and discussed the case with the resident. I agree with the resident's findings and plan as documented. SUBJECTIVE: Pt seen and examined in the ICU. Remains intubated, sedated on propofol gtt. Chest tube migrating a little with mild subcutaneous emphysema. Not tolerating spontaneous breathing trials even with high pressure support. Family at bedside. OBJECTIVE: Last Vital Signs Temp Pulse Resp BP Pulse Ox 100.2 F H 88 28 H 156/63 93 L 12/01/17 10:00 12/01/17 10:00 12/01/17 10:56 12/01/17 10:00 12/01/17 08:14 Intake & Output 11/28/17 11/29/17 11/30/17 12/01/17 23:59 23:59 23:59 23:59 Intake Total 385 1103.4 932 886 Output Total 1168 722 620 210 Balance -783 381.4 312 676 Weight 95.572 kg 94.064 kg 92.578 kg 91.172 kg Gen: intubated, sedated Heart: RRR Lung: decreased breath sounds at the bases Abd: soft, nontender Ext: no edema CBC, BMP 12/01/17 06:20 12/01/17 06:20 Active Medications Acetaminophen (Ofirmev Injection -) 1,000 mg IVPB Q6H PRN PRN Reason: FEVER Albuterol/Ipratropium (Duoneb -) 1 amp NEB RTID [facility] Last Admin: 12/01/17 08:30 Dose: 1 amp Aspirin (Asa -) 81 mg NGT DAILY [facility] Last Admin: 12/01/17 09:56 Dose: 81 mg Bacitracin (Bacitracin -) 1 applic TP BID [facility] Last Admin: 12/01/17 09:58 Dose: 1 applic Chlorhexidine Gluconate (Hibiclens For Decolonization -) 1 applic TP HS [facility] Last Admin: 11/30/17 22:00 Dose: 1 applic Chlorhexidine Gluconate (Peridex -) 15 ml MM BID [facility] Last Admin: 12/01/17 10:20 Dose: 15 ml Heparin Sodium (Porcine) (Heparin -) 5,000 unit SQ TID [facility] Last Admin: 12/01/17 06:07 Dose: 5,000 unit Propofol (Diprivan -) 1,000,000 mcg in 100 mls @ 0 mls/hr IVPB TITR [facility]; 5 MCG/ KG/MIN PRN Reason: Protocol Last Titration: 12/01/17 08:45 Dose: 15 mcg/kg/min, 8.508 mls/hr Cefepime HCl (Maxipime 2gm Ivpb (Premix)) 2 gm in 50 mls @ 200 mls/hr IVPB BID [facility] PRN Reason: Protocol Last Admin: 12/01/17 09:56 Dose: 200 mls/hr Potassium Phosphate 30 mm/ (Sodium Chloride) 260 mls @ 62.5 mls/hr IVPB ONCE ONE Stop: 12/01/17 14:09 Last Admin: 12/01/17 11:44 Dose: 62.5 mls/hr Insulin Aspart (Novolog Vial Sliding Scale -) 1 vial SQ Q4HPO [facility] PRN Reason: Protocol Last Admin: 12/01/17 09:56 Dose: 4 units Metoprolol Tartrate (Lopressor -) 25 mg NGT BID [facility] Last Admin: 12/01/17 09:56 Dose: 25 mg Pantoprazole Sodium (Protonix Iv) 40 mg IVPUSH DAILY [facility] Last Admin: 12/01/17 09:58 Dose: 40 mg ASSESSMENT AND PLAN: Acute on Chronic Hypoxic Respiratory Failure Left Pneumothorax s/p chest tube placement r/o Pneumonia Interstitial Lung Disease +Troponins likely Demand Ischemia HTN DM LV Diastolic Dysfunction Acute Kidney Injury Obstructive Sleep Apnea - on empiric antibiotics - keep PEEP 0 - taper FiO2 to keep SpO2 >90% - low tidal volume ventilation - lighten sedation to assess mental status - spontaneous breathing trials as tolerated when mental status improved - will likely need tracheostomy given severity of underlying lung disease - enteral feeds - DVT/GI prophylaxis - continue ICU monitoring - discussed with daughter likelihood of tracheostomy, she will discuss with family critical care time spent in reviewing chart, evaluating patient and formulating plan 35 min
--- NOTE | 2017-12-01 13:16 | PN ---
Progress Note, Physician History of Present Illness: Currently sedated on ventilator, difficult wean. - Current Medication List Current Medications: Active Medications Acetaminophen (Ofirmev Injection -) 1,000 mg IVPB Q6H PRN PRN Reason: FEVER Albuterol/Ipratropium (Duoneb -) 1 amp NEB RTID [facility] Last Admin: 12/01/17 08:30 Dose: 1 amp Aspirin (Asa -) 81 mg NGT DAILY [facility] Last Admin: 12/01/17 09:56 Dose: 81 mg Bacitracin (Bacitracin -) 1 applic TP BID [facility] Last Admin: 12/01/17 09:58 Dose: 1 applic Chlorhexidine Gluconate (Hibiclens For Decolonization -) 1 applic TP HS [facility] Last Admin: 11/30/17 22:00 Dose: 1 applic Chlorhexidine Gluconate (Peridex -) 15 ml MM BID [facility] Last Admin: 12/01/17 10:20 Dose: 15 ml Heparin Sodium (Porcine) (Heparin -) 5,000 unit SQ TID [facility] Last Admin: 12/01/17 06:07 Dose: 5,000 unit Propofol (Diprivan -) 1,000,000 mcg in 100 mls @ 0 mls/hr IVPB TITR [facility]; 5 MCG/ KG/MIN PRN Reason: Protocol Last Titration: 12/01/17 08:45 Dose: 15 mcg/kg/min, 8.508 mls/hr Cefepime HCl (Maxipime 2gm Ivpb (Premix)) 2 gm in 50 mls @ 200 mls/hr IVPB BID [facility] PRN Reason: Protocol Last Admin: 12/01/17 09:56 Dose: 200 mls/hr Potassium Phosphate 30 mm/ (Sodium Chloride) 260 mls @ 62.5 mls/hr IVPB ONCE ONE Stop: 12/01/17 14:09 Last Admin: 12/01/17 11:44 Dose: 62.5 mls/hr Insulin Aspart (Novolog Vial Sliding Scale -) 1 vial SQ Q4HPO [facility] PRN Reason: Protocol Last Admin: 12/01/17 09:56 Dose: 4 units Metoprolol Tartrate (Lopressor -) 25 mg NGT BID [facility] Last Admin: 12/01/17 09:56 Dose: 25 mg Pantoprazole Sodium (Protonix Iv) 40 mg IVPUSH DAILY [facility] Last Admin: 12/01/17 09:58 Dose: 40 mg - Objective Vital Signs: Vital Signs Temperature 98.3 F 12/01/17 12:00 Pulse Rate 84 12/01/17 12:00 Respiratory Rate 27 H 12/01/17 12:00 Blood Pressure 142/65 12/01/17 12:00 O2 Sat by Pulse Oximetry (%) 93 L 12/01/17 08:14 Constitutional: Yes: No Distress, Calm Neck: Yes: Supple Cardiovascular: Yes: Regular Rate and Rhythm Respiratory: Yes: Mechanically Ventilated, Rhonchi Gastrointestinal: Yes: Normal Bowel Sounds, Soft, Abdomen, Obese Edema: No Labs: CBC, BMP 12/01/17 06:20 12/01/17 06:20 INR, PTT INR 0.96 (0.82-1.09) 11/25/17 21:44 - ....Imaging Chest X-ray: Report Reviewed (Congestion) Problem List - Problems (1) CKD (chronic kidney disease) stage 3, GFR 30-59 ml/min Code(s): N18.3 - CHRONIC KIDNEY DISEASE, STAGE 3 (MODERATE) (2) DVT prophylaxis Code(s): [id number] - (3) Hemothorax on left Code(s): J94.2 - HEMOTHORAX (4) Pulmonary fibrosis Code(s): J84.10 - PULMONARY FIBROSIS, UNSPECIFIED (5) Acute respiratory failure with hypoxemia Code(s): J96.01 - ACUTE RESPIRATORY FAILURE WITH HYPOXIA (6) Demand ischemia Code(s): I24.8 - OTHER FORMS OF ACUTE ISCHEMIC HEART DISEASE (7) Diabetes mellitus Code(s): E11.9 - TYPE 2 DIABETES MELLITUS WITHOUT COMPLICATIONS Qualifiers: Diabetes mellitus type: type 2 Diabetes mellitus landscape architect insulin use: without group home use Diabetes mellitus complication status: with circulatory complication Diabetes mellitus complication detail: with other circulatory complications Qualified Code(s): E11.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 Acute hypoxemic respiratory failure with underlying pulmonary fibrosis/ILD, spontaneous left PTX post chest tube and possible hospital-acquired PNA 2. Mildly elevated troponin due to demand ischemia - secondary to above 3. Diabetes mellitus 4. Hypertension 5. Diastolic dysfunction 6. OSAS suspect 7. Acute on CKD improved PLAN: 1. Vent wean as tolerated, possible tracheostomy and chest tube management per ICU, 2. Empiric abx per C&S, oral steroids, BD 3. Continue Lopressor 25 bid, ASA 81 qd, resume losartan 50 qd and Lasix 20 po qd as renal fxn stabilized 4. DVT and GI prophylaxis
[2017-12-01] MEDS: FUROSEMIDE 20 MG TABLET (FP) NGT SCH (17:04)
[2017-12-01] MEDS: LOSARTAN POTASSIUM 25 MG TABLET NGT SCH (17:04)
[2017-12-01] MEDS: CHLORHEXIDINE GLUCONATE 4% CLEANSER FOR DECOLONIZATION TP SCH (23:17)
[2017-12-02] MEDS: PROPOFOL 1,000,000 MCG/100 ML VIAL IVPB SCH ×4 (05:30→21:31)
[2017-12-02] MEDS: HEPARIN NA (PORCINE) 5,000 UNITS/ML 1ML VIAL SQ SCH ×3 (05:55→21:30)
[2017-12-02 06:41] LABS: HEMATOCRIT 31.8 % (32.4-45.2); HEMOGLOBIN 10.6 GM/dL (10.7-15.3); MCHC 33.3 g/dl (32.0-36.0); MEAN CELL VOLUME 83.9 fl (80-96); MEAN PLT VOLUME 10.2 fl (7.5-11.1); PLATELET COUNT 180 K/MM3 (134-434); RBC 3.78 M/mm3 (3.60-5.2); RDW 18.4 % (11.6-15.6); WHITE BLOOD COUNT 8.6 K/mm3 (4.0-10.0)
--- NOTE | 2017-12-02 07:05 | PN ---
Progress Note, Physician Chief Complaint: ID Cefepime day 6 therapy Temps continue 101 despite antibiotic - Current Medication List Current Medications: Active Medications Acetaminophen (Ofirmev Injection -) 1,000 mg IVPB Q6H PRN PRN Reason: FEVER Albuterol/Ipratropium (Duoneb -) 1 amp NEB RTID [facility] Last Admin: 12/01/17 21:40 Dose: 1 amp Aspirin (Asa -) 81 mg NGT DAILY [facility] Last Admin: 12/01/17 09:56 Dose: 81 mg Bacitracin (Bacitracin -) 1 applic TP BID [facility] Last Admin: 12/01/17 23:17 Dose: 1 applic Chlorhexidine Gluconate (Hibiclens For Decolonization -) 1 applic TP HS [facility] Last Admin: 12/01/17 23:17 Dose: 1 applic Chlorhexidine Gluconate (Peridex -) 15 ml MM BID [facility] Last Admin: 12/01/17 23:18 Dose: 15 ml Furosemide (Lasix -) 20 mg NGT DAILY [facility] Last Admin: 12/01/17 17:04 Dose: 20 mg Heparin Sodium (Porcine) (Heparin -) 5,000 unit SQ TID [facility] Last Admin: 12/02/17 05:55 Dose: 5,000 unit Propofol (Diprivan -) 1,000,000 mcg in 100 mls @ 0 mls/hr IVPB TITR [facility]; 5 MCG/ KG/MIN PRN Reason: Protocol Last Admin: 12/02/17 05:30 Dose: 25 mcg/kg/min, 14.179 mls/hr Cefepime HCl (Maxipime 2gm Ivpb (Premix)) 2 gm in 50 mls @ 200 mls/hr IVPB BID [facility] PRN Reason: Protocol Last Admin: 12/01/17 23:18 Dose: 200 mls/hr Insulin Aspart (Novolog Vial Sliding Scale -) 1 vial SQ Q4HPO [facility] PRN Reason: Protocol Last Admin: 12/01/17 23:57 Dose: 8 units Losartan Potassium (Cozaar -) 25 mg NGT DAILY [facility] Last Admin: 12/01/17 17:04 Dose: 25 mg Metoprolol Tartrate (Lopressor -) 25 mg NGT BID [facility] Last Admin: 12/01/17 23:19 Dose: 25 mg Pantoprazole Sodium (Protonix Iv) 40 mg IVPUSH DAILY [facility] Last Admin: 12/01/17 09:58 Dose: 40 mg - Objective Vital Signs: Vital Signs Temperature 100.9 F H 12/02/17 02:00 Pulse Rate 100 H 12/02/17 02:00 Respiratory Rate 26 H 12/02/17 03:00 Blood Pressure 126/81 12/02/17 02:00 O2 Sat by Pulse Oximetry (%) 93 L 12/01/17 21:00 Constitutional: Yes: Other (INtubated) Cardiovascular: Yes: Tachycardia, S1, S2 Respiratory: Yes: WNL, Regular, CTA Bilaterally, Other (chest tube) Gastrointestinal: Yes: Soft Labs: INR, PTT INR 0.96 (0.82-1.09) 11/25/17 21:44 Assessment/Plan Microbiology 11/28/17 20:00 Urine - Urine Jones Urine Culture - Final NO GROWTH OBTAINED 11/28/17 20:00 Sputum - Endotrachea Suction/Ventilator Gram Stain - Final 11/28/17 20:00 Sputum - Endotrachea Suction/Ventilator Sputum Culture - Final Yeast Like Organism 11/28/17 20:18 Blood - Peripheral Venous Blood Culture - Preliminary NO GROWTH OBTAINED AFTER 72 HOURS, INCUBATION TO CONTINUE FOR 2 DAYS. 11/28/17 20:10 Blood - Peripheral Venous Blood Culture - Preliminary NO GROWTH OBTAINED AFTER 72 HOURS, INCUBATION TO CONTINUE FOR 2 DAYS. Laboratory Tests 12/01/17 12/01/17 12/02/17 06:20 06:20 06:15 WBC 9.5 Pending Hgb Pending Hct Pending Plt Count Pending BUN 39 H Creatinine 1.3 H Creat Clearance w eGFR 39.72 12/02/17 06:15 WBC Hgb Hct Plt Count BUN Pending Creatinine Pending Creat Clearance w eGFR Pending Assessment Fevers on antibiotics Respiratory failure Pulmonary fibrosis Left pneumothorax Plan Given persistent fevers reasonable to stop antibiotics now and observe for 24 hours with repeat cultures tomorrow if fevers continue Sera GONSALEZ
[2017-12-02] MEDS: INSULIN SLIDING SCALE (NOVOLOG) 1 VIAL SQ SCH ×6 (07:26→21:52)
[2017-12-02 07:50] LABS: ALBUMIN 1.8 g/dl (3.4-5.0); ALK PHOS 74 U/L (45-117); ANION GAP 8 (8-16); BILIRUBIN,TOTAL 0.2 mg/dL (0.2-1.0); BLOOD UREA NITROGEN 44 mg/dL (7-18); CALCIUM 9.1 mg/dL (8.5-10.1); CHLORIDE 108 mmol/L (98-107); CO2 25 mmol/L (21-32); CREATININE 1.5 mg/dL (0.55-1.02); GLUCOSE,RANDOM 259 mg/dL (74-106); MAGNESIUM 2.4 mg/dL (1.8-2.4); PHOSPHOROUS 2.4 mg/dL (2.5-4.9); POTASSIUM 4.1 mmol/L (3.5-5.1); SGOT/AST 19 U/L (15-37); SGPT/ALT 20 U/L (12-78); SODIUM 141 mmol/L (136-145); TOT PROT 5.4 g/dl (6.4-8.2)
[2017-12-02] MEDS: ALBUTEROL SO4 2.5/IPRATROPIUM 0.5 INH SOL 3 ML VIAL.NEB. NEB SCH ×3 (08:00→20:33)
[2017-12-02 09:17] LABS: URINE APPEARANCE CLOUDY; URINE BILIRUBIN NEGATIVE (<2.0 mg/dL); URINE COLOR DKYELLOW; URINE GLUCOSE (UA) NEGATIVE (NEGATIVE); URINE KETONE TRACE (NEGATIVE); URINE LEUK ESTERASE NEGATIVE (NEGATIVE); URINE NITRITE NEGATIVE (NEGATIVE); URINE UROBILINOGEN NEGATIVE mg/dL (0.2-1.0)
[2017-12-02] MEDS ORDERED: INSULIN (NOVOLOG) ASPART 100 UNITS/ML 10ML VIAL ONE ×3 (09:45→14:35)
[2017-12-02 09:53] LABS: URINE PROTEIN 2+ (NEGATIVE)
[2017-12-02 10:03] LABS: EPI CELLS RARE /HPF (FEW); GRANULAR CASTS 10 /lpf; URINE HYALINE CAST 1 /lpf; URINE MUCUS RARE; YEAST RARE
[2017-12-02] MEDS: FUROSEMIDE 20 MG TABLET (FP) NGT SCH (10:16)
[2017-12-02] MEDS: METOPROLOL TARTRATE 25 MG TABLET (FP) NGT SCH ×2 (10:16→21:30)
[2017-12-02] MEDS: LOSARTAN POTASSIUM 25 MG TABLET NGT SCH (10:17)
[2017-12-02] MEDS: BACITRACIN 15 GM TUBE TOPICAL OINTMENT TP SCH ×2 (10:17→21:31)
[2017-12-02] MEDS: ASPIRIN 81 MG CHEWABLE TABLETS NGT SCH (10:17)
[2017-12-02] MEDS: CHLORHEXIDINE GLUCONATE 0.12% 15ML CUP MM SCH ×2 (10:18→21:30)
[2017-12-02] MEDS: PANTOPRAZOLE SODIUM 40 MG VIAL IVPUSH SCH (10:19)
--- NOTE | 2017-12-02 10:36 | PN ---
Progress Note, Physician Chief Complaint: Pneumothorax Respiratory distress History of Present Illness: Chest tube mechanically vented on AC seen by pulmonary, ID and cardiology family at bedside plan to do tracheotomy, family agrees has been febrile repeat UC,SC,BC final pending ID on board no leukocytosis - Current Medication List Current Medications: Active Medications Acetaminophen (Ofirmev Injection -) 1,000 mg IVPB Q6H PRN PRN Reason: FEVER Albuterol/Ipratropium (Duoneb -) 1 amp NEB RTID [facility] Last Admin: 12/02/17 08:00 Dose: 1 amp Aspirin (Asa -) 81 mg NGT DAILY [facility] Last Admin: 12/02/17 10:17 Dose: 81 mg Bacitracin (Bacitracin -) 1 applic TP BID [facility] Last Admin: 12/02/17 10:17 Dose: 1 applic Chlorhexidine Gluconate (Hibiclens For Decolonization -) 1 applic TP HS [facility] Last Admin: 12/01/17 23:17 Dose: 1 applic Chlorhexidine Gluconate (Peridex -) 15 ml MM BID [facility] Last Admin: 12/02/17 10:18 Dose: 15 ml Furosemide (Lasix -) 20 mg NGT DAILY [facility] Last Admin: 12/02/17 10:16 Dose: 20 mg Heparin Sodium (Porcine) (Heparin -) 5,000 unit SQ TID [facility] Last Admin: 12/02/17 05:55 Dose: 5,000 unit Propofol (Diprivan -) 1,000,000 mcg in 100 mls @ 0 mls/hr IVPB TITR [facility]; 5 MCG/ KG/MIN PRN Reason: Protocol Last Admin: 12/02/17 07:36 Dose: 30 mcg/kg/min, 17.015 mls/hr Insulin Aspart (Novolog Vial Sliding Scale -) 1 vial SQ Q4HPO [facility] PRN Reason: Protocol Last Admin: 12/02/17 09:49 Dose: 4 units Losartan Potassium (Cozaar -) 25 mg NGT DAILY [facility] Last Admin: 12/02/17 10:17 Dose: 25 mg Metoprolol Tartrate (Lopressor -) 25 mg NGT BID [facility] Last Admin: 12/02/17 10:16 Dose: 25 mg Pantoprazole Sodium (Protonix Iv) 40 mg IVPUSH DAILY [facility] Last Admin: 12/02/17 10:19 Dose: 40 mg - Objective Vital Signs: Vital Signs Temperature 99.1 F 12/02/17 10:00 Pulse Rate 88 12/02/17 10:00 Respiratory Rate 30 H 12/02/17 10:00 Blood Pressure 123/65 12/02/17 10:00 O2 Sat by Pulse Oximetry (%) 95 12/02/17 08:53 Constitutional: Yes: Well Nourished, No Distress, Calm Cardiovascular: Yes: Regular Rate and Rhythm Respiratory: Yes: Mechanically Ventilated, Rhonchi Gastrointestinal: Yes: Normal Bowel Sounds, Soft Musculoskeletal: Yes: WNL Extremities: Yes: WNL Neurological: Yes: Lethargy Labs: CBC, BMP 12/02/17 06:15 12/02/17 06:15 INR, PTT INR 0.96 (0.82-1.09) 11/25/17 21:44 Problem List - Problems (1) CKD (chronic kidney disease) stage 3, GFR 30-59 ml/min Assessment/Plan: -Improving -monitor trend -monitor I&O's Code(s): N18.3 - CHRONIC KIDNEY DISEASE, STAGE 3 (MODERATE) (2) Hemothorax on left Assessment/Plan: -Chest tube with minimal air leak -Repeat CXR shows improvement Code(s): J94.2 - HEMOTHORAX (3) Acute respiratory failure with hypoxemia Assessment/Plan: -mechanical vent -pulmonary management -plan Tracheotomy Code(s): J96.01 - ACUTE RESPIRATORY FAILURE WITH HYPOXIA (4) CHF (congestive heart failure) Assessment/Plan: cardiology consult last echo mild LVH, EF-58% on Furosemide Code(s): I50.9 - HEART FAILURE, UNSPECIFIED Qualifiers: Heart failure type: combined systolic and diastolic Heart failure chronicity: chronic Qualified Code(s): I50.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 -BGM Code(s): E11.9 - TYPE 2 DIABETES MELLITUS WITHOUT COMPLICATIONS Qualifiers: Diabetes mellitus type: type 2 Diabetes mellitus termite control servicer insulin use: without termite control servicer use Diabetes mellitus complication status: with circulatory complication Diabetes mellitus complication detail: with other circulatory complications Qualified Code(s): E11.59 - Type 2 diabetes mellitus with other circulatory complications (6) Fever Assessment/Plan: -repeat cultures pending acetaminophen for fever over 100.0 F ID on board off abx for now Code(s): R50.9 - FEVER, UNSPECIFIED Assessment/Plan see problem list
[2017-12-02] MEDS ORDERED: POTASSIUM PHOSPHATE 30 MM in DEXTROSE 5%-WATER - 250 ML IVPB ONE (11:30)
--- NOTE | 2017-12-02 11:32 | PN ---
Physical Exam: SUBJECTIVE: Pt spiked fevers again last night. Spoke with ID this morning and will observe off antibiotics and if spikes during the day will reculture for assessment. Currently remains on AC 360/16/50%/PEEP 0. Pt is sedated at this time and HPI is limited due to this. OBJECTIVE: Vital Signs Period Temp Pulse Resp BP Sys/Simms Pulse Ox Last 24 Hr 98.3 F-100.9 F 84-100 24-32 101-164/56-81 93-95 GENERAL: NAD, sedated and intubated at this time HEENT: NC/AT, EOMI, KYLER, NGT in place, ETT in place to 20 onofre, No JVD LUNGS: Coarse breath sounds bilaterally, no overt wheezing, no accessory muscle use HEART: Slightly tachycardic with normal rhythm, S1, S2 without murmur ABDOMEN: Soft, nontender, nondistended, hypoactive bowel sounds, no guarding EXTREMITIES: 2+ DP pulses, warm, well-perfused, trace dependent edema. NEUROLOGICAL: Could not fully assess due to pt sedation at this time SKIN: Warm, dry, no rashes or lesions noted Laboratory Results - last 24 hr 12/02/17 12/02/17 06:15 06:15 WBC 8.6 RBC 3.78 Hgb 10.6 L Hct 31.8 L MCV 83.9 MCH 28.0 MCHC 33.3 RDW 18.4 H Plt Count 180 D MPV 10.2 D Sodium 141 Potassium 4.1 Chloride 108 H Carbon Dioxide 25 Anion Gap 8 BUN 44 H Creatinine 1.5 H Creat Clearance w eGFR 33.67 POC Glucometer Random Glucose 259 H Calcium 9.1 Phosphorus 2.4 L Magnesium 2.4 Total Bilirubin 0.2 AST 19 ALT 20 Alkaline Phosphatase 74 Total Protein 5.4 L Albumin 1.8 L Urine Color Urine Appearance Urine pH Ur Specific [place] Urine Protein Urine Glucose (UA) Urine Ketones Urine Blood Urine Nitrite Urine Bilirubin Urine Urobilinogen Ur Leukocyte Esterase Urine WBC (Auto) Urine RBC (Auto) Ur Epithelial Cells Hyaline Casts Granular Casts Urine Mucus Urine Yeast Active Medications Generic Name Dose Route Start Last Admin Trade Name Freq PRN Reason Stop Dose Admin Acetaminophen 1,000 mg 11/29/17 22:25 Ofirmev Injection - IVPB Q6H PRN FEVER Albuterol/Ipratropium 1 amp 11/26/17 20:00 12/02/17 08:00 Duoneb - NEB 1 amp RTID IVON Administration Aspirin 81 mg 11/30/17 10:00 12/02/17 10:17 Asa - NGT 81 mg DAILY IVON Administration Bacitracin 1 applic 11/29/17 22:00 12/02/17 10:17 Bacitracin - TP 1 applic BID IVON Administration Chlorhexidine Gluconate 1 applic 11/26/17 22:00 12/01/17 23:17 Hibiclens For Decolonization - TP 1 applic HS IVON Administration Chlorhexidine Gluconate 15 ml 11/27/17 12:30 12/02/17 10:18 Peridex - MM 15 ml BID IVON Administration Furosemide 20 mg 12/01/17 17:00 12/02/17 10:16 Lasix - NGT 20 mg DAILY IVON Administration Heparin Sodium (Porcine) 5,000 unit 11/26/17 06:00 12/02/17 05:55 Heparin - SQ 5,000 unit TID IVON Administration Propofol 1,000,000 mcg in 100 mls @ 0 mls/hr 11/25/17 22:00 12/02/17 10:00 Diprivan - IVPB 0 mcg/kg/min TITR IVON 0 mls/hr Protocol Titration 5 MCG/KG/MIN Potassium Phosphate 30 mm/ 260 mls @ 62.5 mls/hr 12/02/17 11:30 Dextrose IVPB 12/02/17 15:39 ONCE ONE Insulin Aspart 1 vial 11/28/17 02:00 12/02/17 09:49 Novolog Vial Sliding Scale - SQ 4 units Q4HPO IVON Administration Protocol Losartan Potassium 25 mg 12/01/17 16:45 12/02/17 10:17 Cozaar - NGT 25 mg DAILY IVON Administration Metoprolol Tartrate 25 mg 11/30/17 10:00 12/02/17 10:16 Lopressor - NGT 25 mg BID IVON Administration Pantoprazole Sodium 40 mg 11/30/17 10:00 12/02/17 10:19 Protonix Iv IVPUSH 40 mg DAILY IVON Administration ASSESSMENT/PLAN: Neuro: Continued sedation vacations daily --Will hold sedation now to time with family meeting because pt can nod yes or no to questions/commands on prior assessments Respiratory: Acute on chronic hypoxic respiratory failure --CPAP trials to continue daily --Palliative on board for discussion about tracheostomy sites --Continue to speak with family about clear GOC in regards to tracheostomy sites --Sedation and feeds to continue while sedated for vent asynchrony --AC mode currently TV 360/ Rate 25/ FiO2 50%/ PEEP 0 --PEEP 0 due to PTX (currently no leak at PEEP 0); low tidal volumes avoid exacerbation of PTX --Duoneb QID to continue --Pulmonary toilet Left Pneumothorax --s/p Chest tube placement --Continue -20 wall suction; no air leak on PEEP 0 --Most likely will need to wean off intubation before reassessing air leak Cardiovascular: Currently hemodynamically stable History of hypertension --Continue Lopressor to PO (25mg BID NGT) --Monitor BP; currently stable normotensive pressures Renal: Acute kidney dysfunction --Monitor Cr (1.4 today) --Monitor urine output; continues to have 1200 nagel output yesterday --Nagel to maintain ID: HCAP --Pt currently febrile episodes --Repeat cultures on 11/28 negative --will hold off antibiotics today and if pt spikes another fever will reculture for assessment --ID on board; appreciate recommendations --Tylenol PRN for fevers FEN: Fluids: Avoid due to history of chf Electrolyte abnormalities: Hypophosphatemia (repleted with KPhos 30mm IV) Nutrition: Tube feeds (held while weaning due to aspiration risk, but will reinitiate if unable to wean) PPX: DVT - Heparin 5000 TID GI - Protonix 40mg IVP BID Dispo: Continue ICU monitoring; sedation vacation with wean trials; discuss trach GOC Case discussed with Dr. Cornelio Castillo, DO - IM PGY-1 Visit type - Emergency Visit Emergency Visit: No - New Patient This patient is new to me today: No - Critical Care Critical Care patient: Yes Total Critical Care Time (in minutes): 38 Critical Care Statement: The care of this patient involved high complexity decision making to prevent further life threatening deterioration of the patient 's condition and/or to evaluate & treat vital organ system(s) failure or risk of failure.
--- NOTE | 2017-12-02 12:11 | PN ---
Teaching Attending Note Name of Resident: Eric Castillo ATTENDING PHYSICIAN STATEMENT I saw and evaluated the patient. I reviewed the resident's note and discussed the case with the resident. I agree with the resident's findings and plan as documented. SUBJECTIVE: Pt seen and examined in the ICU. Remains intubated, sedated. Vented on volume assist control with 50% FiO2, PEEP 0. Not tolerating spontaneous breathing trials. Still with intermittent fevers. OBJECTIVE: Last Vital Signs Temp Pulse Resp BP Pulse Ox 99.0 F 92 H 26 H 145/72 95 12/02/17 12:00 12/02/17 12:00 12/02/17 12:00 12/02/17 12:00 12/02/17 08:53 Intake & Output 11/29/17 11/30/17 12/01/17 12/02/17 23:59 23:59 23:59 23:59 Intake Total 1103.4 932 1823 760 Output Total 649 403 7178 308 Balance 381.4 312 600 452 Weight 94.064 kg 92.578 kg 91.172 kg 93.576 kg Gen: intubated, sedated Heart: RRR Lung: decreased breath sounds at the bases Abd: soft, nontender Ext: no edema Chest tube: minimal drainage, no air leak CBC, BMP 12/02/17 06:15 12/02/17 06:15 Active Medications Acetaminophen (Ofirmev Injection -) 1,000 mg IVPB Q6H PRN PRN Reason: FEVER Albuterol/Ipratropium (Duoneb -) 1 amp NEB RTID [facility] Last Admin: 12/02/17 08:00 Dose: 1 amp Aspirin (Asa -) 81 mg NGT DAILY [facility] Last Admin: 12/02/17 10:17 Dose: 81 mg Bacitracin (Bacitracin -) 1 applic TP BID [facility] Last Admin: 12/02/17 10:17 Dose: 1 applic Chlorhexidine Gluconate (Hibiclens For Decolonization -) 1 applic TP HS [facility] Last Admin: 12/01/17 23:17 Dose: 1 applic Chlorhexidine Gluconate (Peridex -) 15 ml MM BID [facility] Last Admin: 12/02/17 10:18 Dose: 15 ml Furosemide (Lasix -) 20 mg NGT DAILY [facility] Last Admin: 12/02/17 10:16 Dose: 20 mg Heparin Sodium (Porcine) (Heparin -) 5,000 unit SQ TID [facility] Last Admin: 12/02/17 05:55 Dose: 5,000 unit Propofol (Diprivan -) 1,000,000 mcg in 100 mls @ 0 mls/hr IVPB TITR IVON; 5 MCG/ KG/MIN PRN Reason: Protocol Last Titration: 12/02/17 10:00 Dose: 0 mcg/kg/min, 0 mls/hr Potassium Phosphate 30 mm/ (Dextrose) 260 mls @ 65 mls/hr IVPB ONCE ONE Stop: 12/02/17 15:29 Insulin Aspart (Novolog Vial Sliding Scale -) 1 vial SQ Q4HPO IVON PRN Reason: Protocol Last Admin: 12/02/17 09:49 Dose: 4 units Losartan Potassium (Cozaar -) 25 mg NGT DAILY [facility] Last Admin: 12/02/17 10:17 Dose: 25 mg Metoprolol Tartrate (Lopressor -) 25 mg NGT BID [facility] Last Admin: 12/02/17 10:16 Dose: 25 mg Pantoprazole Sodium (Protonix Iv) 40 mg IVPUSH DAILY [facility] Last Admin: 12/02/17 10:19 Dose: 40 mg ASSESSMENT AND PLAN: Acute on Chronic Hypoxic Respiratory Failure Left Pneumothorax s/p chest tube placement r/o Pneumonia Interstitial Lung Disease +Troponins likely Demand Ischemia HTN DM LV Diastolic Dysfunction Acute Kidney Injury Obstructive Sleep Apnea - monitor off antibiotics, reculture if febrile - keep PEEP 0 - taper FiO2 to keep SpO2 >90% - low tidal volume ventilation - lighten sedation to assess mental status - spontaneous breathing trials as tolerated when mental status improved - will likely need tracheostomy given severity of underlying lung disease - enteral feeds - DVT/GI prophylaxis - continue ICU monitoring - discussed with family at bedside critical care time spent in reviewing chart, evaluating patient and formulating plan 35 min
--- NOTE | 2017-12-02 12:26 | PN ---
Progress Note, Physician History of Present Illness: Currently sedated on ventilator, difficult wean, family agrees to tracheostomy. - Current Medication List Current Medications: Active Medications Acetaminophen (Ofirmev Injection -) 1,000 mg IVPB Q6H PRN PRN Reason: FEVER Albuterol/Ipratropium (Duoneb -) 1 amp NEB RTID [facility] Last Admin: 12/02/17 08:00 Dose: 1 amp Aspirin (Asa -) 81 mg NGT DAILY [facility] Last Admin: 12/02/17 10:17 Dose: 81 mg Bacitracin (Bacitracin -) 1 applic TP BID [facility] Last Admin: 12/02/17 10:17 Dose: 1 applic Chlorhexidine Gluconate (Hibiclens For Decolonization -) 1 applic TP HS [facility] Last Admin: 12/01/17 23:17 Dose: 1 applic Chlorhexidine Gluconate (Peridex -) 15 ml MM BID [facility] Last Admin: 12/02/17 10:18 Dose: 15 ml Furosemide (Lasix -) 20 mg NGT DAILY [facility] Last Admin: 12/02/17 10:16 Dose: 20 mg Heparin Sodium (Porcine) (Heparin -) 5,000 unit SQ TID [facility] Last Admin: 12/02/17 05:55 Dose: 5,000 unit Propofol (Diprivan -) 1,000,000 mcg in 100 mls @ 0 mls/hr IVPB TITR IVON; 5 MCG/ KG/MIN PRN Reason: Protocol Last Titration: 12/02/17 10:00 Dose: 0 mcg/kg/min, 0 mls/hr Potassium Phosphate 30 mm/ (Dextrose) 260 mls @ 65 mls/hr IVPB ONCE ONE Stop: 12/02/17 15:29 Insulin Aspart (Novolog Vial Sliding Scale -) 1 vial SQ Q4HPO [facility] PRN Reason: Protocol Last Admin: 12/02/17 09:49 Dose: 4 units Losartan Potassium (Cozaar -) 25 mg NGT DAILY [facility] Last Admin: 12/02/17 10:17 Dose: 25 mg Metoprolol Tartrate (Lopressor -) 25 mg NGT BID [facility] Last Admin: 12/02/17 10:16 Dose: 25 mg Pantoprazole Sodium (Protonix Iv) 40 mg IVPUSH DAILY [facility] Last Admin: 12/02/17 10:19 Dose: 40 mg - Objective Vital Signs: Vital Signs Temperature 99.0 F 03/29/18 12:00 Pulse Rate 92 H 12/02/17 12:00 Respiratory Rate 26 H 12/02/17 12:00 Blood Pressure 145/72 12/02/17 12:00 O2 Sat by Pulse Oximetry (%) 95 12/02/17 08:53 Constitutional: Yes: No Distress, Calm Neck: Yes: Supple Cardiovascular: Yes: Regular Rate and Rhythm Respiratory: Yes: Mechanically Ventilated, Rhonchi Gastrointestinal: Yes: Normal Bowel Sounds, Soft, Abdomen, Obese Edema: No Labs: CBC, BMP 12/02/17 06:15 12/02/17 06:15 INR, PTT INR 0.96 (0.82-1.09) 11/25/17 21:44 - ....Imaging Chest X-ray: Report Reviewed (Improved) Problem List - Problems (1) CKD (chronic kidney disease) stage 3, GFR 30-59 ml/min Code(s): N18.3 - CHRONIC KIDNEY DISEASE, STAGE 3 (MODERATE) (2) DVT prophylaxis Code(s): [id number] - (3) Hemothorax on left Code(s): J94.2 - HEMOTHORAX (4) Pulmonary fibrosis Code(s): J84.10 - PULMONARY FIBROSIS, UNSPECIFIED (5) Acute respiratory failure with hypoxemia Code(s): J96.01 - ACUTE RESPIRATORY FAILURE WITH HYPOXIA (6) Demand ischemia Code(s): I24.8 - OTHER FORMS OF ACUTE ISCHEMIC HEART DISEASE (7) Diabetes mellitus Code(s): E11.9 - TYPE 2 DIABETES MELLITUS WITHOUT COMPLICATIONS Qualifiers: Diabetes mellitus type: type 2 Diabetes mellitus termite inspector insulin use: without detention use Diabetes mellitus complication status: with circulatory complication Diabetes mellitus complication detail: with other circulatory complications Qualified Code(s): E11.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 Acute on chronic hypoxemic respiratory failure with underlying pulmonary fibrosis/ILD, spontaneous left PTX post chest tube and possible hospital- acquired PNA 2. Mildly elevated troponin due to demand ischemia - secondary to above 3. Diabetes mellitus 4. Hypertension 5. Diastolic dysfunction 6. OSAS suspect 7. Acute on CKD PLAN: 1. Vent wean as tolerated, sedation holiday, likely tracheostomy and chest tube management per ICU 2. Monitor off abx, reculture if febrile, oral steroids, BD, enteral feeds 3. Continue Lopressor 25 bid, ASA 81 qd, losartan 25 qd and Lasix 20 po qd as renal fxn stabilized 4. DVT and GI prophylaxis
[2017-12-02] MEDS: AMINO ACIDS/PROTEIN HYDROLYS 30 ML LIQUID.PKT PO SCH (18:09)
--- NOTE | 2017-12-02 18:29 | PN ---
Progress Note (short form) - Note Progress Note: Spoke to Dr. Block on the phone and is aware of the consult. He will perform Tracheostomy on Wednesday (11/05/17).
--- NOTE | 2017-12-02 20:58 | PN ---
Progress Note (short form) - Note Progress Note: Blood cultures ordered after patient noted to have temperature of 101.6.
[2017-12-02] MEDS: CHLORHEXIDINE GLUCONATE 4% CLEANSER FOR DECOLONIZATION TP SCH (21:30)
[2017-12-03] MEDS: INSULIN SLIDING SCALE (NOVOLOG) 1 VIAL SQ SCH ×6 (03:39→21:41)
[2017-12-03] MEDS: ACETAMINOPHEN 1000 MG/100 ML VIAL (NON FORMULARY) IVPB PRN (03:41)
[2017-12-03] MEDS: HEPARIN NA (PORCINE) 5,000 UNITS/ML 1ML VIAL SQ SCH ×3 (05:48→21:35)
[2017-12-03 06:03] LABS: HEMATOCRIT 31.5 % (32.4-45.2); HEMOGLOBIN 10.3 GM/dL (10.7-15.3); MCH 27.5 pg (25.7-33.7); MCHC 32.6 g/dl (32.0-36.0); MEAN CELL VOLUME 84.3 fl (80-96); MEAN PLT VOLUME 9.5 fl (7.5-11.1); PLATELET COUNT 188 K/MM3 (134-434); RBC 3.73 M/mm3 (3.60-5.2); RDW 19.1 % (11.6-15.6); WHITE BLOOD COUNT 10.1 K/mm3 (4.0-10.0)
[2017-12-03 06:27] LABS: CHLORIDE 104 mmol/L (98-107); POTASSIUM 4.2 mmol/L (3.5-5.1); SODIUM 137 mmol/L (136-145)
[2017-12-03 06:57] LABS: ALBUMIN 1.7 g/dl (3.4-5.0); ALK PHOS 73 U/L (45-117); ANION GAP 10 (8-16); BILIRUBIN,TOTAL 0.3 mg/dL (0.2-1.0); BLOOD UREA NITROGEN 64 mg/dL (7-18); CALCIUM 8.9 mg/dL (8.5-10.1); CO2 23 mmol/L (21-32); CREATININE 2.2 mg/dL (0.55-1.02); MAGNESIUM 2.3 mg/dL (1.8-2.4); PHOSPHOROUS 3.4 mg/dL (2.5-4.9); SGOT/AST 21 U/L (15-37); SGPT/ALT 21 U/L (12-78); TOT PROT 5.5 g/dl (6.4-8.2)
[2017-12-03] MEDS: PROPOFOL 1,000,000 MCG/100 ML VIAL IVPB SCH (08:18)
[2017-12-03 09:08] LABS: GLUCOSE,RANDOM 357 mg/dL (74-106)
[2017-12-03] MEDS: ALBUTEROL SO4 2.5/IPRATROPIUM 0.5 INH SOL 3 ML VIAL.NEB. NEB SCH ×3 (09:18→19:56)
[2017-12-03] MEDS ORDERED: INSULIN (LEVEMIR) 100 UNITS/ML UNITS SQ SCH (10:03)
--- NOTE | 2017-12-03 10:08 | PN ---
Progress Note, Physician Chief Complaint: Pneumothorax Respiratory distress History of Present Illness: Chest tube mechanically vented on AC, seems worse than before seen by pulmonary, ID and cardiology plan to do tracheotomy, family agrees, would need PEG as well has been febrile repeat NH,BC final pending Stool for cdiff UC negative ID on board mild leukocytosis - Current Medication List Current Medications: Active Medications Acetaminophen (Ofirmev Injection -) 1,000 mg IVPB Q6H PRN PRN Reason: FEVER Last Admin: 12/03/17 03:41 Dose: 1,000 mg Albuterol/Ipratropium (Duoneb -) 1 amp NEB RTID [facility] Last Admin: 12/03/17 09:18 Dose: 1 amp Amino Acids (Prosource No Carb Liquid Pkt) 30 ml PO BID@0800,1730 [facility] Last Admin: 12/02/17 18:09 Dose: 30 ml Aspirin (Asa -) 81 mg NGT DAILY [facility] Last Admin: 12/02/17 10:17 Dose: 81 mg Bacitracin (Bacitracin -) 1 applic TP BID [facility] Last Admin: 12/02/17 21:31 Dose: 1 applic Chlorhexidine Gluconate (Hibiclens For Decolonization -) 1 applic TP HS [facility] Last Admin: 12/02/17 21:30 Dose: 1 applic Chlorhexidine Gluconate (Peridex -) 15 ml MM BID [facility] Last Admin: 12/02/17 21:30 Dose: 15 ml Furosemide (Lasix -) 20 mg NGT DAILY [facility] Last Admin: 12/02/17 10:16 Dose: 20 mg Heparin Sodium (Porcine) (Heparin -) 5,000 unit SQ TID [facility] Last Admin: 12/03/17 05:48 Dose: 5,000 unit Propofol (Diprivan -) 1,000,000 mcg in 100 mls @ 0 mls/hr IVPB TITR IVON; 5 MCG/ KG/MIN PRN Reason: Protocol Last Admin: 12/03/17 08:18 Dose: 30 mcg/kg/min, 17.015 mls/hr Insulin Aspart (Novolog Vial Sliding Scale -) 1 vial SQ Q4HPO IVON PRN Reason: Protocol Last Admin: 12/03/17 06:05 Dose: 10 units Insulin Detemir (Levemir Vial) 14 units SQ AM IVON Losartan Potassium (Cozaar -) 25 mg NGT DAILY [facility] Last Admin: 12/02/17 10:17 Dose: 25 mg Metoprolol Tartrate (Lopressor -) 25 mg NGT BID [facility] Last Admin: 12/02/17 21:30 Dose: 25 mg Pantoprazole Sodium (Protonix Iv) 40 mg IVPUSH DAILY [facility] Last Admin: 12/02/17 10:19 Dose: 40 mg - Objective Vital Signs: Vital Signs Temperature 100.3 F H 12/03/17 08:00 Pulse Rate 97 H 12/03/17 09:43 Respiratory Rate 34 H 12/03/17 09:43 Blood Pressure 108/54 12/03/17 08:00 O2 Sat by Pulse Oximetry (%) 91 L 12/03/17 09:43 Constitutional: Yes: Well Nourished, Calm, Mild Distress Respiratory: Yes: Mechanically Ventilated, Rhonchi Gastrointestinal: Yes: Normal Bowel Sounds, Soft, Abdomen, Obese Musculoskeletal: Yes: WNL Extremities: Yes: WNL Edema: No Peripheral Pulses WNL: Yes Labs: CBC, BMP 12/03/17 05:45 12/03/17 05:45 INR, PTT INR 0.96 (0.82-1.09) 11/25/17 21:44 Problem List - Problems (1) CKD (chronic kidney disease) stage 3, GFR 30-59 ml/min Assessment/Plan: -Improving -monitor trend -monitor I&O's Code(s): N18.3 - CHRONIC KIDNEY DISEASE, STAGE 3 (MODERATE) (2) Hemothorax on left Assessment/Plan: -Chest tube with minimal air leak -Repeat CXR shows improvement on hemothorax -CT still draining Code(s): J94.2 - HEMOTHORAX (3) Acute respiratory failure with hypoxemia Assessment/Plan: -mechanical vent -pulmonary management -plan Tracheotomy and PEG -on Sedation Code(s): J96.01 - ACUTE RESPIRATORY FAILURE WITH HYPOXIA (4) CHF (congestive heart failure) Assessment/Plan: cardiology consult last echo mild LVH, EF-58% on Furosemide I&O's Code(s): I50.9 - HEART FAILURE, UNSPECIFIED Qualifiers: Heart failure type: combined systolic and diastolic Heart failure chronicity: chronic Qualified Code(s): I50.42 - Chronic combined systolic ( congestive) and diastolic (congestive) heart failure (5) Diabetes mellitus Assessment/Plan: -uncontrolled -Endocrinology consult -insulin Novolog sliding scale -Levemir start at 14 units today, titrate up, to follow BGM trend -Consider alternative ways to replenish protein source, prosource, albumin IV? as liam has a lot of carbs -BGM -RD consult Code(s): E11.9 - TYPE 2 DIABETES MELLITUS WITHOUT COMPLICATIONS Qualifiers: Diabetes mellitus type: type 2 Diabetes mellitus custodial insulin use: without terminal gauger supervisor use Diabetes mellitus complication status: with circulatory complication Diabetes mellitus complication detail: with other circulatory complications Qualified Code(s): E11.59 - Type 2 diabetes mellitus with other circulatory complications (6) Fever Assessment/Plan: -repeat cultures pending acetaminophen for fever over 100.0 F ID on board off abx for now Code(s): R50.9 - FEVER, UNSPECIFIED Assessment/Plan see problem list
[2017-12-03] MEDS: FUROSEMIDE 20 MG TABLET (FP) NGT SCH (11:10)
[2017-12-03] MEDS: AMINO ACIDS/PROTEIN HYDROLYS 30 ML LIQUID.PKT PO SCH ×2 (11:10→18:58)
[2017-12-03] MEDS: METOPROLOL TARTRATE 25 MG TABLET (FP) NGT SCH ×2 (11:10→21:35)
[2017-12-03] MEDS: LOSARTAN POTASSIUM 25 MG TABLET NGT SCH (11:10)
[2017-12-03] MEDS: ASPIRIN 81 MG CHEWABLE TABLETS NGT SCH (11:11)
[2017-12-03] MEDS: PANTOPRAZOLE SODIUM 40 MG VIAL IVPUSH SCH (11:13)
[2017-12-03] MEDS ORDERED: INSULIN (LEVEMIR) 100 UNITS/ML UNITS SQ ONE (11:15)
--- NOTE | 2017-12-03 11:15 | PN ---
Progress Note (short form) - Note Progress Note: awake intubated intermittent fevers Vital Signs Period Temp Pulse Resp BP Sys/Simms Pulse Ox Last 24 Hr 98.9 F-102.2 F 88-108 26-34 104-145/54-72 91-91 cor-rrr lungs decreased bs at bases chest tube abd soft,nt ext no edema +NGT, nagel no central lines CBC, BMP 12/03/17 05:45 12/03/17 05:45 Microbiology 12/02/17 08:00 Urine - Urine Nagel Urine Culture - Final NO GROWTH OBTAINED 11/28/17 20:18 Blood - Peripheral Venous Blood Culture - Preliminary NO GROWTH OBTAINED AFTER 96 HOURS, INCUBATION TO CONTINUE FOR 1 DAYS. 11/28/17 20:10 Blood - Peripheral Venous Blood Culture - Preliminary NO GROWTH OBTAINED AFTER 96 HOURS, INCUBATION TO CONTINUE FOR 1 DAYS. Current Medications Acetaminophen (Ofirmev Injection -) 1,000 mg IVPB Q6H PRN PRN Reason: FEVER Last Admin: 12/03/17 03:41 Dose: 1,000 mg Albuterol/Ipratropium (Duoneb -) 1 amp NEB RTID [facility] Last Admin: 12/03/17 09:18 Dose: 1 amp Amino Acids (Prosource No Carb Liquid Pkt) 30 ml PO BID@0800,1730 [facility] Last Admin: 12/02/17 18:09 Dose: 30 ml Aspirin (Asa -) 81 mg NGT DAILY [facility] Last Admin: 12/02/17 10:17 Dose: 81 mg Bacitracin (Bacitracin -) 1 applic TP BID [facility] Last Admin: 12/02/17 21:31 Dose: 1 applic Chlorhexidine Gluconate (Hibiclens For Decolonization -) 1 applic TP HS [facility] Last Admin: 12/02/17 21:30 Dose: 1 applic Chlorhexidine Gluconate (Peridex -) 15 ml MM BID [facility] Last Admin: 12/02/17 21:30 Dose: 15 ml Furosemide (Lasix -) 20 mg NGT DAILY [facility] Last Admin: 12/02/17 10:16 Dose: 20 mg Heparin Sodium (Porcine) (Heparin -) 5,000 unit SQ TID [facility] Last Admin: 12/03/17 05:48 Dose: 5,000 unit Propofol (Diprivan -) 1,000,000 mcg in 100 mls @ 0 mls/hr IVPB TITR IVON; 5 MCG/ KG/MIN PRN Reason: Protocol Last Admin: 12/03/17 08:18 Dose: 30 mcg/kg/min, 17.015 mls/hr Insulin Aspart (Novolog Vial Sliding Scale -) 1 vial SQ Q4HPO IVON PRN Reason: Protocol Last Admin: 12/03/17 06:05 Dose: 10 units Insulin Detemir (Levemir Vial) 14 units SQ AM IVON Losartan Potassium (Cozaar -) 25 mg NGT DAILY [facility] Last Admin: 12/02/17 10:17 Dose: 25 mg Metoprolol Tartrate (Lopressor -) 25 mg NGT BID [facility] Last Admin: 12/02/17 21:30 Dose: 25 mg Pantoprazole Sodium (Protonix Iv) 40 mg IVPUSH DAILY [facility] Last Admin: 12/02/17 10:19 Dose: 40 mg a/p intermittent fevers respiratory failure pneumothorax pulmonary fibrosis/ILD antibiotics stopped - last dose 12/01 reculture today duplex legs r/o DVT consider sinus ct/chest ct hemodynamically stable at present vanco/zosyn empiric if she decompensates chart reviewed d/w icu team and icu nurse over 35 minutes spent in the care of this patient
--- NOTE | 2017-12-03 11:17 | CONSULT ---
Consult - text type - Consultation Consultation Note: Renal Consult for CHRISTOPHER on CKD This is a 77 year old woman with PMHx of Hypertension, IDDM, CHF, pulmonary fibrosis, CKD [place] with respiratory failure requring mechanical ventalation with pnumothroax and now CHRISTOPHER. Pt currently in the ICU on Vent via ET tube. No overt hypotension but BP has been nornmal/low normal. On ARB and oral diuretics. Making urine. No contrast exposure. No NSAID use. Was on Abx. Pt not able to provide history. Daughter at the bedside. PMhx: as above Allergies: NKDA Family Hx: NC Social Hx: unable to obtain ROS: unable to obtain Home Medications Medication Instructions Recorded Albuterol Sulfate Inhaler - 1 - 2 inh PO QID 11/01/17 [Ventolin HFA Inhaler -] Amlodipine Besylate [Norvasc -] 5 mg PO DAILY 11/01/17 Fluticasone Propionate [Flovent 110 mcg IH DAILY 11/01/17 Hfa] Furosemide [Lasix -] 20 mg PO DAILY 11/01/17 Glipizide 10 mg PO BID 11/01/17 Omeprazole 40 mg PO DAILY 11/01/17 Sitagliptin Phosphate [Januvia] 50 mg PO DAILY 11/01/17 Amox-Tr/K Cl [Augmentin 875-125mg 1 tab PO BID@0800,1730 #10 tablet 11/07/17 Tablet -] Losartan Potassium [Cozaar -] 50 mg PO DAILY #30 tablet 11/07/17 Prednisone 10 mg PO DAILY #30 tab.ds.pk 11/07/17 Vital Signs Temperature 100.3 F H 12/03/17 08:00 Pulse Rate 97 H 12/03/17 09:43 Respiratory Rate 34 H 12/03/17 09:43 Blood Pressure 108/54 12/03/17 08:00 O2 Sat by Pulse Oximetry (%) 91 L 12/03/17 09:43 Intake & Output 11/30/17 12/01/17 12/02/17 12/03/17 23:59 23:59 23:59 23:59 Intake Total 932 1823 1697 675 Output Total 620 1223 928 200 Balance 312 600 769 475 Weight 92.578 kg 91.172 kg 93.576 kg 91.4 kg NAD, on vent Chest tube in place MMM, No JVD, Neck supple RRR, No M/R Dec Bs at lung bases, no overt rales soft NT/ND No LE edema, clubbing or cyanosis. Extremities as warm. CBC, BMP 12/03/17 05:45 12/03/17 05:45 Laboratory Tests 12/01/17 12/03/17 12/03/17 08:00 05:45 05:45 MCV 84.3 Calcium 8.9 Phosphorus 3.4 Magnesium 2.3 Albumin 1.7 L Urine Protein 2+ H Urine Blood 2+ H Current Medications Acetaminophen (Ofirmev Injection -) 1,000 mg IVPB Q6H PRN PRN Reason: FEVER Last Admin: 12/03/17 03:41 Dose: 1,000 mg Albuterol/Ipratropium (Duoneb -) 1 amp NEB RTID [facility] Last Admin: 12/03/17 09:18 Dose: 1 amp Amino Acids (Prosource No Carb Liquid Pkt) 30 ml PO BID@0800,1730 [facility] Last Admin: 12/02/17 18:09 Dose: 30 ml Aspirin (Asa -) 81 mg NGT DAILY [facility] Last Admin: 12/02/17 10:17 Dose: 81 mg Bacitracin (Bacitracin -) 1 applic TP BID [facility] [place] Last Admin: 12/02/17 21:31 Dose: 1 applic Chlorhexidine Gluconate (Hibiclens For Decolonization -) 1 applic TP HS [facility] Last Admin: 12/02/17 21:30 Dose: 1 applic Chlorhexidine Gluconate (Peridex -) 15 ml MM BID [facility] Last Admin: 12/02/17 21:30 Dose: 15 ml Furosemide (Lasix -) 20 mg NGT DAILY [facility] Last Admin: 12/02/17 10:16 Dose: 20 mg Heparin Sodium (Porcine) (Heparin -) 5,000 unit SQ TID [facility] Last Admin: 12/03/17 05:48 Dose: 5,000 unit Propofol (Diprivan -) 1,000,000 mcg in 100 mls @ 0 mls/hr IVPB TITR IVON; 5 MCG/ KG/MIN PRN Reason: Protocol Last Admin: 12/03/17 08:18 Dose: 30 mcg/kg/min, 17.015 mls/hr Insulin Aspart (Novolog Vial Sliding Scale -) 1 vial SQ Q4HPO IVON PRN Reason: Protocol Last Admin: 12/03/17 06:05 Dose: 10 units Insulin Detemir (Levemir Vial) 14 units SQ AM [facility] Losartan Potassium (Cozaar -) 25 mg NGT DAILY [facility] Last Admin: 12/02/17 10:17 Dose: 25 mg Metoprolol Tartrate (Lopressor -) 25 mg NGT BID [facility] Last Admin: 12/02/17 21:30 Dose: 25 mg Pantoprazole Sodium (Protonix Iv) 40 mg IVPUSH DAILY [facility] Last Admin: 12/02/17 10:19 Dose: 40 mg 77 yo F with h/o HTN, NIDDM, combined systolic and diastolic HF, pulmonary fibrosis, presented from [facility] with acute respiratory failure. #CHRISTOPHER on CKD likely secondary to renal hyprofusion/relative hypotension in setting of ARB #Proteinuria #Respiratory FAilure on Vent #Punmothorax #Hx of Hypertension #CHF would hold ARB and Diuretics for now Check FeUra, UPCR check Renal and Bladder US keep MAP > 65 would not start IVF given CXR findings of congestion can given PRN Lasix for worsening hypoxia as needed if diuresis is warranted can start Lasix as standing dose but would consider montorign renal function of diuretics for 24 hours as Cr just ayan from 1.5-2.4 continue venet support per ICU Chest tube as per ICU Keep MAP > 65 avoid nephrotoxins Dose all meds for CrCl less then 30 no indication for ELECTRIC MOTOR ANALYST at thsi time
--- NOTE | 2017-12-03 11:56 | PN ---
Teaching Attending Note Name of Resident: Eric Castillo ATTENDING PHYSICIAN STATEMENT I saw and evaluated the patient. I reviewed the resident's note and discussed the case with the resident. I agree with the resident's findings and plan as documented. SUBJECTIVE: Patient seen and examined in the ICU. Remains intubated, sedated. Vented on volume assist control with 50% FiO2, PEEP 0. Not tolerating spontaneous breathing trials. Still with intermittent fevers. OBJECTIVE: Intake & Output 11/30/17 12/01/17 12/02/17 12/03/17 23:59 23:59 23:59 23:59 Intake Total 932 1823 1697 675 Output Total 620 1223 928 200 Balance 312 600 769 475 Weight 204 lb 1.6 oz 201 lb 206 lb 4.8 oz 201 lb 8.04 oz Last Vital Signs Temp Pulse Resp BP Pulse Ox 100.3 F H 97 H 34 H 108/54 91 L 12/03/17 08:00 12/03/17 09:43 12/03/17 09:43 12/03/17 08:00 12/03/17 09:43 Active Medications Acetaminophen (Ofirmev Injection -) 1,000 mg IVPB Q6H PRN PRN Reason: FEVER Last Admin: 12/03/17 03:41 Dose: 1,000 mg Albuterol/Ipratropium (Duoneb -) 1 amp NEB RTID [facility] Last Admin: 12/03/17 09:18 Dose: 1 amp Amino Acids (Prosource No Carb Liquid Pkt) 30 ml PO BID@0800,1730 [facility] Last Admin: 12/03/17 11:10 Dose: 30 ml Aspirin (Asa -) 81 mg NGT DAILY [facility] Last Admin: 12/03/17 11:11 Dose: 81 mg Bacitracin (Bacitracin -) 1 applic TP BID [facility] Last Admin: 12/02/17 21:31 Dose: 1 applic Chlorhexidine Gluconate (Hibiclens For Decolonization -) 1 applic TP HS [facility] Last Admin: 12/02/17 21:30 Dose: 1 applic Chlorhexidine Gluconate (Peridex -) 15 ml MM BID [facility] Last Admin: 12/02/17 21:30 Dose: 15 ml Heparin Sodium (Porcine) (Heparin -) 5,000 unit SQ TID [facility] Last Admin: 12/03/17 05:48 Dose: 5,000 unit Propofol (Diprivan -) 1,000,000 mcg in 100 mls @ 0 mls/hr IVPB TITR IVON; 5 MCG/ KG/MIN PRN Reason: Protocol Last Admin: 12/03/17 08:18 Dose: 30 mcg/kg/min, 17.015 mls/hr Insulin Aspart (Novolog Vial Sliding Scale -) 1 vial SQ Q4HPO IVON PRN Reason: Protocol Last Admin: 12/03/17 06:05 Dose: 10 units Insulin Detemir (Levemir Vial) 14 units SQ AM [facility] Last Admin: 12/03/17 11:15 Dose: 14 units Metoprolol Tartrate (Lopressor -) 25 mg NGT BID IVON Last Admin: 12/03/17 11:10 Dose: 25 mg Pantoprazole Sodium (Protonix Iv) 40 mg IVPUSH DAILY [facility] Last Admin: 12/03/17 11:13 Dose: 40 mg Gen: intubated, sedated Heart: RRR Lung: decreased breath sounds at the bases Abd: soft, nontender Ext: no edema Chest tube: minimal drainage, no air leak Laboratory Results - last 24 hr 12/02/17 12/02/17 12/02/17 13:13 14:52 17:22 WBC RBC Hgb Hct MCV MCH MCHC RDW Plt Count MPV Sodium Potassium Chloride Carbon Dioxide Anion Gap BUN Creatinine Creat Clearance w eGFR POC Glucometer 290.23776 326.95350 305.81716 Random Glucose Calcium Phosphorus Magnesium Total Bilirubin AST ALT Alkaline Phosphatase Total Protein Albumin 12/02/17 12/03/17 12/03/17 21:51 03:35 05:45 WBC 10.1 H RBC 3.73 Hgb 10.3 L Hct 31.5 L MCV 84.3 MCH 27.5 MCHC 32.6 RDW 19.1 H Plt Count 188 MPV 9.5 Sodium Potassium Chloride Carbon Dioxide Anion Gap BUN Creatinine Creat Clearance w eGFR POC Glucometer 273.30791 > 400 Random Glucose Calcium Phosphorus Magnesium Total Bilirubin AST ALT Alkaline Phosphatase Total Protein Albumin 12/03/17 12/03/17 05:45 05:59 WBC RBC Hgb Hct MCV MCH MCHC RDW Plt Count MPV Sodium 137 Potassium 4.2 Chloride 104 Carbon Dioxide 23 Anion Gap 10 BUN 64 H Creatinine 2.2 H Creat Clearance w eGFR 21.64 POC Glucometer 361.18801 Random Glucose 357 H* Calcium 8.9 Phosphorus 3.4 Magnesium 2.3 Total Bilirubin 0.3 D AST 21 ALT 21 Alkaline Phosphatase 73 Total Protein 5.5 L Albumin 1.7 L ASSESSMENT AND PLAN: Acute on Chronic Hypoxic Respiratory Failure Left Pneumothorax s/p chest tube placement Pneumonia Interstitial Lung Disease +Troponins likely Demand Ischemia HTN DM LV Diastolic Dysfunction Acute Kidney Injury Obstructive Sleep Apnea - monitor off antibiotics and reculture per ID - keep PEEP 0 due to intermittent air leak - taper FiO2 to keep SpO2 >90% - low tidal volume ventilation - lighten sedation to assess mental status - Will need tracheostomy (likely Wednesday) - Enteral feeds - DVT/GI prophylaxis - continue ICU monitoring Dr Garcia Critical care time spent in reviewing chart, evaluating patient and formulating plan 35 min
--- NOTE | 2017-12-03 12:18 | PN ---
Progress Note, Physician Chief Complaint: intubated sedated,daughter at bedside,aware need for tracheostomy History of Present Illness: dm hypergycemia,respiratory failure,sepsis - Current Medication List Current Medications: Active Medications Acetaminophen (Ofirmev Injection -) 1,000 mg IVPB Q6H PRN PRN Reason: FEVER Last Admin: 12/03/17 03:41 Dose: 1,000 mg Albuterol/Ipratropium (Duoneb -) 1 amp NEB RTID [facility] Last Admin: 12/03/17 09:18 Dose: 1 amp Amino Acids (Prosource No Carb Liquid Pkt) 30 ml PO BID@0800,1730 [facility] Last Admin: 12/03/17 11:10 Dose: 30 ml Aspirin (Asa -) 81 mg NGT DAILY [facility] Last Admin: 12/03/17 11:11 Dose: 81 mg Bacitracin (Bacitracin -) 1 applic TP BID [facility] Last Admin: 12/02/17 21:31 Dose: 1 applic Chlorhexidine Gluconate (Hibiclens For Decolonization -) 1 applic TP HS [facility] Last Admin: 12/02/17 21:30 Dose: 1 applic Chlorhexidine Gluconate (Peridex -) 15 ml MM BID [facility] Last Admin: 12/02/17 21:30 Dose: 15 ml Heparin Sodium (Porcine) (Heparin -) 5,000 unit SQ TID [facility] Last Admin: 12/03/17 05:48 Dose: 5,000 unit Propofol (Diprivan -) 1,000,000 mcg in 100 mls @ 0 mls/hr IVPB TITR IVON; 5 MCG/ KG/MIN PRN Reason: Protocol Last Admin: 12/03/17 08:18 Dose: 30 mcg/kg/min, 17.015 mls/hr Insulin Aspart (Novolog Vial Sliding Scale -) 1 vial SQ Q4HPO [facility] PRN Reason: Protocol Last Admin: 12/03/17 06:05 Dose: 10 units Insulin Detemir (Levemir Vial) 20 units SQ BID [facility] Metoprolol Tartrate (Lopressor -) 25 mg NGT BID [facility] Last Admin: 12/03/17 11:10 Dose: 25 mg Pantoprazole Sodium (Protonix Iv) 40 mg IVPUSH DAILY [facility] Last Admin: 12/03/17 11:13 Dose: 40 mg - Objective Vital Signs: Vital Signs Temperature 100.3 F H 12/03/17 08:00 Pulse Rate 107 H 12/03/17 11:30 Respiratory Rate 35 H 12/03/17 11:30 Blood Pressure 108/54 12/03/17 08:00 O2 Sat by Pulse Oximetry (%) 90 L 12/03/17 11:30 Constitutional: Yes: Well Nourished Eyes: Yes: EOM Intact HENT: Yes: Normocephalic Neck: Yes: Trachea Midline Cardiovascular: Yes: Tachycardia Respiratory: Yes: Intubated Gastrointestinal: Yes: Normal Bowel Sounds ...Rectal Exam: Yes: Deferred Genitourinary: Yes: WNL Breast(s): Yes: WNL Musculoskeletal: Yes: WNL Extremities: Yes: WNL Labs: CBC, BMP 12/03/17 05:45 12/03/17 05:45 INR, PTT INR 0.96 (0.82-1.09) 11/25/17 21:44 Problem List - Problems (1) Type 2 diabetes mellitus with autonomic neuropathy Code(s): E11.43 - TYPE 2 DIABETES W DIABETIC AUTONOMIC (POLY)NEUROPATHY Qualifiers: Diabetes mellitus terminal block assembler insulin use: without assisted use Qualified Code(s): E11.43 - Type 2 diabetes mellitus with diabetic autonomic (poly) neuropathy (2) CKD (chronic kidney disease) stage 3, GFR 30-59 ml/min Code(s): N18.3 - CHRONIC KIDNEY DISEASE, STAGE 3 (MODERATE) (3) Pulmonary fibrosis Code(s): J84.10 - PULMONARY FIBROSIS, UNSPECIFIED (4) Respiratory distress Code(s): R06.03 - ACUTE RESPIRATORY DISTRESS (5) Acute respiratory failure with hypoxemia Code(s): J96.01 - ACUTE RESPIRATORY FAILURE WITH HYPOXIA Assessment/Plan Current Active Problems CKD (chronic kidney disease) stage 3, GFR 30-59 ml/min (Acute) DVT prophylaxis (Acute) Fever (Acute) Hemothorax on left (Acute) Pulmonary fibrosis (Acute) Respiratory distress (Acute) Type 2 diabetes mellitus with autonomic neuropathy (Acute) Abnormal Lab Results 12/03/17 12/03/17 05:45 05:45 WBC 10.1 H Hgb 10.3 L Hct 31.5 L RDW 19.1 H BUN 64 H Creatinine 2.2 H Random Glucose 357 H* Total Protein 5.5 L Albumin 1.7 L Laboratory Results - last 24 hr 12/02/17 12/02/17 12/02/17 13:13 14:52 17:22 WBC RBC Hgb Hct MCV MCH MCHC RDW Plt Count MPV Sodium Potassium Chloride Carbon Dioxide Anion Gap BUN Creatinine Creat Clearance w eGFR POC Glucometer 290.98972 326.87920 305.92831 Random Glucose Calcium Phosphorus Magnesium Total Bilirubin AST ALT Alkaline Phosphatase Total Protein Albumin 12/02/17 12/03/17 12/03/17 21:51 03:35 05:45 WBC 10.1 H RBC 3.73 Hgb 10.3 L Hct 31.5 L MCV 84.3 MCH 27.5 MCHC 32.6 RDW 19.1 H Plt Count 188 MPV 9.5 Sodium Potassium Chloride Carbon Dioxide Anion Gap BUN Creatinine Creat Clearance w eGFR POC Glucometer 273.34993 > 400 Random Glucose Calcium Phosphorus Magnesium Total Bilirubin AST ALT Alkaline Phosphatase Total Protein Albumin 12/03/17 12/03/17 05:45 05:59 WBC RBC Hgb Hct MCV MCH MCHC RDW Plt Count MPV Sodium 137 Potassium 4.2 Chloride 104 Carbon Dioxide 23 Anion Gap 10 BUN 64 H Creatinine 2.2 H Creat Clearance w eGFR 21.64 POC Glucometer 361.80752 Random Glucose 357 H* Calcium 8.9 Phosphorus 3.4 Magnesium 2.3 Total Bilirubin 0.3 D AST 21 ALT 21 Alkaline Phosphatase 73 Total Protein 5.5 L Albumin 1.7 L plan: bgm q4 hr levemir 20 unints bid continue supportive care tracheostomy
[2017-12-03] MEDS: BACITRACIN 15 GM TUBE TOPICAL OINTMENT TP SCH ×2 (12:37→21:34)
[2017-12-03] MEDS: CHLORHEXIDINE GLUCONATE 0.12% 15ML CUP MM SCH ×2 (12:38→21:36)
--- NOTE | 2017-12-03 12:48 | PN ---
Progress Note, Physician History of Present Illness: Currently sedated on ventilator, difficult wean, family agrees to tracheostomy. - Current Medication List Current Medications: Active Medications Acetaminophen (Ofirmev Injection -) 1,000 mg IVPB Q6H PRN PRN Reason: FEVER Last Admin: 12/03/17 03:41 Dose: 1,000 mg Albuterol/Ipratropium (Duoneb -) 1 amp NEB RTID [facility] Last Admin: 12/03/17 09:18 Dose: 1 amp Amino Acids (Prosource No Carb Liquid Pkt) 30 ml PO BID@0800,1730 [facility] Last Admin: 12/03/17 11:10 Dose: 30 ml Aspirin (Asa -) 81 mg NGT DAILY [facility] Last Admin: 12/03/17 11:11 Dose: 81 mg Bacitracin (Bacitracin -) 1 applic TP BID [facility] Last Admin: 12/03/17 12:37 Dose: 1 applic Chlorhexidine Gluconate (Hibiclens For Decolonization -) 1 applic TP HS [facility] Last Admin: 12/02/17 21:30 Dose: 1 applic Chlorhexidine Gluconate (Peridex -) 15 ml MM BID [facility] Last Admin: 12/03/17 12:38 Dose: 15 ml Heparin Sodium (Porcine) (Heparin -) 5,000 unit SQ TID [facility] Last Admin: 12/03/17 05:48 Dose: 5,000 unit Propofol (Diprivan -) 1,000,000 mcg in 100 mls @ 0 mls/hr IVPB TITR IVON; 5 MCG/ KG/MIN PRN Reason: Protocol Last Admin: 12/03/17 08:18 Dose: 30 mcg/kg/min, 17.015 mls/hr Insulin Aspart (Novolog Vial Sliding Scale -) 1 vial SQ Q4HPO [facility] PRN Reason: Protocol Insulin Detemir (Levemir Vial) 20 units SQ BID [facility] Metoprolol Tartrate (Lopressor -) 25 mg NGT BID [facility] Last Admin: 12/03/17 11:10 Dose: 25 mg Pantoprazole Sodium (Protonix Iv) 40 mg IVPUSH DAILY [facility] Last Admin: 12/03/17 11:13 Dose: 40 mg - Objective Vital Signs: Vital Signs Temperature 99.8 F H 12/03/17 12:00 Pulse Rate 104 H 12/03/17 12:00 Respiratory Rate 28 H 12/03/17 12:00 Blood Pressure 97/47 12/03/17 12:00 O2 Sat by Pulse Oximetry (%) 90 L 12/03/17 11:30 Constitutional: Yes: No Distress, Calm Neck: Yes: Supple Cardiovascular: Yes: Regular Rate and Rhythm Respiratory: Yes: Mechanically Ventilated, Rhonchi Gastrointestinal: Yes: Normal Bowel Sounds, Soft, Abdomen, Obese Edema: Yes Labs: CBC, BMP 12/03/17 05:45 12/03/17 05:45 INR, PTT INR 0.96 (0.82-1.09) 11/25/17 21:44 - ....Imaging Chest X-ray: Report Reviewed (Stable changes) Ultrasound: Report Reviewed (Neg DVT) Problem List - Problems (1) CKD (chronic kidney disease) stage 3, GFR 30-59 ml/min Code(s): N18.3 - CHRONIC KIDNEY DISEASE, STAGE 3 (MODERATE) (2) DVT prophylaxis Code(s): QSB3318 - (3) Hemothorax on left Code(s): J94.2 - HEMOTHORAX (4) Pulmonary fibrosis Code(s): J84.10 - PULMONARY FIBROSIS, UNSPECIFIED (5) Acute respiratory failure with hypoxemia Code(s): J96.01 - ACUTE RESPIRATORY FAILURE WITH HYPOXIA (6) Demand ischemia Code(s): I24.8 - OTHER FORMS OF ACUTE ISCHEMIC HEART DISEASE (7) Diabetes mellitus Code(s): E11.9 - TYPE 2 DIABETES MELLITUS WITHOUT COMPLICATIONS Qualifiers: Diabetes mellitus type: type 2 Diabetes mellitus exterminator helper termite insulin use: without exterminator helper termite use Diabetes mellitus complication status: with circulatory complication Diabetes mellitus complication detail: with other circulatory complications Qualified Code(s): E11.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 Acute on chronic hypoxemic respiratory failure with underlying pulmonary fibrosis/ILD, spontaneous left PTX post chest tube and possible hospital- acquired PNA 2. Mildly elevated troponin due to demand ischemia - secondary to above 3. Diabetes mellitus 4. Hypertension 5. Diastolic dysfunction 6. OSAS suspect 7. Acute on CKD PLAN: 1. Vent wean as tolerated, sedation holiday, likely tracheostomy Wednesday 2. Monitor off abx, reculture if febrile, oral steroids, BD, enteral feeds 3. Continue Lopressor 25 bid and ASA 81 qd. Resume losartan 25 qd and Lasix 20 po qd once renal fxn stabilized 4. DVT and GI prophylaxis
[2017-12-03] MEDS ORDERED: INSULIN (NOVOLOG) ASPART 100 UNITS/ML 10ML VIAL ONE (15:22)
[2017-12-03] MEDS: INSULIN (LEVEMIR) 100 UNITS/ML UNITS SQ SCH (16:10)
[2017-12-03] MEDS ORDERED: HEMOQUE TEST 1 EACH EACH ONE (16:42)
--- NOTE | 2017-12-03 17:03 | PN ---
Progress Note (short form) - Note Progress Note: Thoracic Surgery: Plan for tracheostomy on Wednesday. Please make NPO Wednesday night and obtain consent from family. Full consult to follow.
--- NOTE | 2017-12-03 17:56 | CON.GI ---
Consult Consult Specialty:: Gastroenterology Referred by:: Yodit Barron NP Reason for Consultation:: PEG insertion - History of Present Illness Chief Complaint: Respiratory failure History of Present Illness: 77F transferred from [facility] for respiratory distress and left pneumothorax. She has been unweanable and will be having a tracheostomy created next week. No history can be obtained. The siblings who are present tell me that her daughter will have to make this decision but she is not here. - History Source History Provided By: Medical Record Limitations to Obtaining History: Intubated - Past Medical History Cardio/Vascular: Yes: HTN Pulmonary: Yes: Pulmonary Fibrosis Endocrine: Yes: Diabetes Mellitus - Past Surgical History Past Surgical History: Yes: Joint Replacement - Alcohol/Substance Use Hx Alcohol Use: No History of Substance Use: reports: None - Smoking History Smoking history: Never smoked - Social History Usual Living Arrangement: [facility] Place of : Other ([facility]) Home Medications - Allergies Allergies/Adverse Reactions: Allergies Allergy/AdvReac Type Severity Reaction Status Date / Time No Known Allergies Allergy Verified 11/26/17 00:41 - Home Medications Home Medications: Ambulatory Orders Albuterol Sulfate Inhaler - [Ventolin HFA Inhaler -] 1 - 2 inh PO QID 11/01/17 Amlodipine Besylate [Norvasc -] 5 mg PO DAILY 11/01/17 Fluticasone Propionate [Flovent Hfa] 110 mcg IH DAILY 11/01/17 Furosemide [Lasix -] 20 mg PO DAILY 11/01/17 Glipizide 10 mg PO BID 11/01/17 Omeprazole 40 mg PO DAILY 11/01/17 Sitagliptin Phosphate [Januvia] 50 mg PO DAILY 11/01/17 Amox-Tr/K Cl [Augmentin 875-125mg Tablet -] 1 tab PO BID@0800,1730 #10 tablet Losartan Potassium [Cozaar -] 50 mg PO DAILY #30 tablet 11/07/17 Prednisone 10 mg PO DAILY #30 tab.ds.pk 11/07/17 Family Disease History - Family Disease History Family History: Unable to Obtain Family Disease History: CA: Mother (Colon), Sister (Pancreatic CA) Review of Systems Unable to obtain ROS, reason: intubated Physical Exam-GI Vital Signs: Vital Signs Temperature 100.2 F H 12/03/17 16:00 Pulse Rate 114 H 12/03/17 17:33 Respiratory Rate 28 H 12/03/17 17:33 Blood Pressure 140/52 12/03/17 17:33 O2 Sat by Pulse Oximetry (%) 90 L 12/03/17 11:30 CBC,CMP WBC 10.1 K/mm3 (4.0-10.0) H 12/03/17 05:45 RBC 3.73 M/mm3 (3.60-5.2) 12/03/17 05:45 Hgb 10.3 GM/dL (10.7-15.3) L 12/03/17 05:45 Hct 31.5 % (32.4-45.2) L 12/03/17 05:45 MCV 84.3 fl (80-96) 12/03/17 05:45 MCH 27.5 pg (25.7-33.7) 12/03/17 05:45 MCHC 32.6 g/dl (32.0-36.0) 12/03/17 05:45 RDW 19.1 % (11.6-15.6) H 12/03/17 05:45 Plt Count 188 K/MM3 (134-434) 12/03/17 05:45 MPV 9.5 fl (7.5-11.1) 12/03/17 05:45 Neutrophils % 74.3 % (42.8-82.8) 11/30/17 05:46 Neutrophils % (Manual) 80.0 % (42.8-82.8) 11/25/17 21:44 Band Neutrophils % 10.0 % 11/25/17 21:44 Lymphocytes % 10.6 % (8-40) D 11/30/17 05:46 Lymphocytes % (Manual) 7.0 % (8-40) L 11/25/17 21:44 Monocytes % 5.1 % (3.8-10.2) 11/30/17 05:46 Monocytes % (Manual) 3 % (3.8-10.2) L 11/25/17 21:44 Eosinophils % 9.6 % (0-4.5) H 11/30/17 05:46 Eosinophils % (Manual) 0.0 % (0-4.5) 11/25/17 21:44 Basophils % 0.4 % (0-2.0) 11/30/17 05:46 Basophils % (Manual) 0.0 % (0-2.0) 11/25/17 21:44 Myelocytes % (Man) 0 % (0-2) 11/25/17 21:44 Promyelocytes % (Man) 0 % (0-2) 11/25/17 21:44 Blast Cells % (Manual) 0 % (0-0) 11/25/17 21:44 Nucleated RBC % 0 % (0-0) 11/25/17 21:44 Metamyelocytes 0 % (0-2) 11/25/17 21:44 Hypochromia 0 11/25/17 21:44 Platelet Estimate Normal 11/25/17 21:44 Polychromasia 0 11/25/17 21:44 Poikilocytosis 0 11/25/17 21:44 Anisocytosis 1+ 11/25/17 21:44 Microcytosis 0 11/25/17 21:44 Macrocytosis 0 11/25/17 21:44 Sodium 137 mmol/L (136-145) 12/03/17 05:45 Potassium 4.2 mmol/L (3.5-5.1) 12/03/17 05:45 Chloride 104 mmol/L (98-107) 12/03/17 05:45 Carbon Dioxide 23 mmol/L (21-32) 12/03/17 05:45 Anion Gap 10 (8-16) 12/03/17 05:45 BUN 64 mg/dL (7-18) H 12/03/17 05:45 Creatinine 2.2 mg/dL (0.55-1.02) H 12/03/17 05:45 Creat Clearance w eGFR 21.64 (>60) 12/03/17 05:45 POC Glucometer 396.76900 UNITS (80-120) 12/03/17 12:26 Random Glucose 357 mg/dL (74-106) H* 12/03/17 05:45 Hemoglobin A1c % 9.5 % (4.8-6.0) H 11/27/17 05:50 Lactic Acid 1.7 mmol/L (0.0-2.0) 11/26/17 08:10 Calcium 8.9 mg/dL (8.5-10.1) 12/03/17 05:45 Phosphorus 3.4 mg/dL (2.5-4.9) 12/03/17 05:45 Magnesium 2.3 mg/dL (1.8-2.4) 12/03/17 05:45 Total Bilirubin 0.3 mg/dL (0.2-1.0) D 12/03/17 05:45 AST 21 U/L (15-37) 12/03/17 05:45 ALT 21 U/L (12-78) 12/03/17 05:45 Alkaline Phosphatase 73 U/L (45-117) 12/03/17 05:45 Creatine Kinase 85 IU/L (26-192) 11/27/17 05:50 Troponin I 0.25 ng/ml (0.00-0.05) H 11/27/17 05:50 B-Natriuretic Peptide 240.71 pg/ml (5-450) 11/25/17 21:44 Total Protein 5.5 g/dl (6.4-8.2) L 12/03/17 05:45 Albumin 1.7 g/dl (3.4-5.0) L 12/03/17 05:45 Current Medications Generic Name Dose Route Start Last Admin Trade Name Freq PRN Reason Stop Dose Admin Acetaminophen 1,000 mg 11/29/17 22:25 12/03/17 03:41 Ofirmev Injection - IVPB 1,000 mg Q6H PRN Administration FEVER Albuterol/Ipratropium 1 amp 11/26/17 20:00 12/03/17 17:48 Duoneb - NEB 1 amp RTID IVON Administration Amino Acids 30 ml 12/02/17 17:30 12/03/17 11:10 Prosource No Carb Liquid Pkt PO 30 ml BID@0800,1730 IVON Administration Aspirin 81 mg 11/30/17 10:00 12/03/17 11:11 Asa - NGT 81 mg DAILY IVON Administration Bacitracin 1 applic 11/29/17 22:00 12/03/17 12:37 Bacitracin - TP 1 applic BID IVON Administration Chlorhexidine Gluconate 1 applic 11/26/17 22:00 12/02/17 21:30 Hibiclens For Decolonization - TP 1 applic HS IVON Administration Chlorhexidine Gluconate 15 ml 11/27/17 12:30 12/03/17 12:38 Peridex - MM 15 ml BID IVON Administration Heparin Sodium (Porcine) 5,000 unit 11/26/17 06:00 12/03/17 15:18 Heparin - SQ 5,000 unit TID IVON Administration Propofol 1,000,000 mcg in 100 mls @ 0 mls/hr 11/25/17 22:00 12/03/17 08:18 Diprivan - IVPB 30 mcg/kg/min TITR IVON 17.015 mls/hr Protocol Administration 5 MCG/KG/MIN Insulin Aspart 1 vial 12/03/17 12:19 12/03/17 15:19 Novolog Vial Sliding Scale - SQ 12 unit Q4HPO IVON Administration Protocol Insulin Detemir 20 units 12/03/17 16:30 12/03/17 16:10 Levemir Vial SQ 20 units BIDI IVON Administration Metoprolol Tartrate 25 mg 11/30/17 10:00 12/03/17 11:10 Lopressor - NGT 25 mg BID IVON Administration Pantoprazole Sodium 40 mg 11/30/17 10:00 12/03/17 11:13 Protonix Iv IVPUSH 40 mg DAILY IVON Administration Constitutional: Yes: Other (Intubated and sedated) Eyes: Yes: Conjunctiva Clear Neck: Yes: Supple Cardiovascular: Yes: Regular Rate and Rhythm Respiratory: Yes: Rhonchi (scatted rhonchi), Other (left chest tube) Gastrointestinal Inspection: Yes: Other (obese) ...Auscultate: Yes: Normoactive Bowel Sounds ...Palpate: Yes: Soft, Other (nontender, no masses) Labs: CBC, BMP 12/03/17 05:45 12/03/17 05:45 INR, PTT INR 0.96 (0.82-1.09) 11/25/17 21:44 Assessment/Plan Given her longer term need for ventilator support I agree that the patient would benefit form G tube placement to free her from the NG tube. I will discuss the procedure with her daughter when the opportunity arises.
[2017-12-03] MEDS: CHLORHEXIDINE GLUCONATE 4% CLEANSER FOR DECOLONIZATION TP SCH (21:35)
--- NOTE | 2017-12-03 23:35 | PN ---
Physical Exam: SUBJECTIVE: 24h events: Pt agreeable to tracheostomy and family in agreement. CT surgery aware and anticipates Wednesday for tracheostomy procedure. Pt continues to spoke fevers with Tmax 102.2 in past 24h without clear source. OBJECTIVE: Vital Signs Period Temp Pulse Resp BP Sys/Simms Pulse Ox Last 24 Hr 99.8 F-102.2 F 88-118 20-35 97-140/47-64 90-93 GENERAL: NAD, sedated and intubated at this time HEENT: NC/AT, EOMI, KYLER, NGT in place, ETT in place to 20 onofre, No JVD LUNGS: Coarse breath sounds bilaterally, no overt wheezing, no accessory muscle use HEART: Slightly tachycardic with normal rhythm, S1, S2 without murmur ABDOMEN: Soft, nontender, nondistended, hypoactive bowel sounds, no guarding EXTREMITIES: 2+ DP pulses, warm, well-perfused, trace dependent edema. NEUROLOGICAL: Could not fully assess due to pt sedation at this time SKIN: Warm, dry, no rashes or lesions noted Laboratory Results 12/03/17 12/03/17 12/03/17 05:45 05:45 05:59 WBC 10.1 H RBC 3.73 Hgb 10.3 L Hct 31.5 L MCV 84.3 MCH 27.5 MCHC 32.6 RDW 19.1 H Plt Count 188 MPV 9.5 Sodium 137 Potassium 4.2 Chloride 104 Carbon Dioxide 23 Anion Gap 10 BUN 64 H Creatinine 2.2 H Creat Clearance w eGFR 21.64 POC Glucometer [phone] Random Glucose 357 H* Calcium 8.9 Phosphorus 3.4 Magnesium 2.3 Total Bilirubin 0.3 D AST 21 ALT 21 Alkaline Phosphatase 73 Total Protein 5.5 L Albumin 1.7 L U Random Total Protein Ur Random Urea Nitrogn Urine Creatinine Active Medications Generic Name Dose Route Start Last Admin Trade Name Freq PRN Reason Stop Dose Admin Acetaminophen 1,000 mg 11/29/17 22:25 12/03/17 03:41 Ofirmev Injection - IVPB 1,000 mg Q6H PRN Administration FEVER Albuterol/Ipratropium 1 amp 11/26/17 20:00 12/03/17 19:56 Duoneb - NEB 1 amp RTID IVON Administration Amino Acids 30 ml 12/02/17 17:30 12/03/17 18:58 Prosource No Carb Liquid Pkt PO 30 ml BID@0800,1730 IVNO Administration Aspirin 81 mg 11/30/17 10:00 12/03/17 11:11 Asa - NGT 81 mg DAILY IVON Administration Bacitracin 1 applic 11/29/17 22:00 12/03/17 21:34 Bacitracin - TP 1 applic BID IVON Administration Chlorhexidine Gluconate 1 applic 11/26/17 22:00 12/03/17 21:35 Hibiclens For Decolonization - TP 1 applic HS IVON Administration Chlorhexidine Gluconate 15 ml 11/27/17 12:30 12/03/17 21:36 Peridex - MM 15 ml BID IVON Administration Heparin Sodium (Porcine) 5,000 unit 11/26/17 06:00 12/03/17 21:35 Heparin - SQ 5,000 unit TID IVON Administration Propofol 1,000,000 mcg in 100 mls @ 0 mls/hr 11/25/17 22:00 12/03/17 20:30 Diprivan - IVPB 30 mcg/kg/min TITR IVON 17.015 mls/hr Protocol Titration 5 MCG/KG/MIN Insulin Aspart 1 vial 12/03/17 12:19 12/03/17 21:41 Novolog Vial Sliding Scale - SQ 6 unit Q4HPO IVON Administration Protocol Insulin Detemir 20 units 12/03/17 16:30 12/03/17 16:10 Levemir Vial SQ 20 units BIDI IVON Administration Metoprolol Tartrate 25 mg 11/30/17 10:00 12/03/17 21:35 Lopressor - NGT 25 mg BID IVON Administration Pantoprazole Sodium 40 mg 11/30/17 10:00 12/03/17 11:13 Protonix Iv IVPUSH 40 mg DAILY IVON Administration ASSESSMENT/PLAN: Neuro: Continued sedation vacations daily Respiratory: Acute on chronic hypoxic respiratory failure --CPAP trials to continue daily to prevent deconditioning of diaphragm --Peak pressures today noted to be 18-20 --Pt and family in agreement for tracheostomy --CT surgery consulted and spoke with afternoon team yesterday --Anticipate tracheostomy to be performed this wednesday --NPO wednesday --Hold heparin wednesday --Obtain consents from family --Palliative on board for discussion about tracheostomy sites --Sedation and feeds to continue while sedated for vent asynchrony --AC mode currently TV 360/ Rate 25/ FiO2 50%/ PEEP 0 --PEEP 0 due to PTX (currently no leak at PEEP 0); low tidal volumes avoid exacerbation of PTX --Duoneb QID to continue Left Pneumothorax --s/p Chest tube placement --Continue -20 wall suction; no air leak on PEEP 0 --Most likely will need to wean off intubation before reassessing air leak Cardiovascular: Currently hemodynamically stable History of hypertension --Continue Lopressor to PO (25mg BID NGT) --Monitor BP; currently stable normotensive pressures Renal: Acute kidney dysfunction --Monitor BUN/Cr (64/2.2 today) --Renal on board --Assessment of fractional excretion of urea --Monitor urine output; continues to have 1200 nagel output yesterday --Nagel to maintain ID: Fevers of clear origin --? HCAP --R/O DVT with duplex of LE ordered --New cultures ordered; pending currently --ID on board --Cover with Vanc/Zosyn if needed for broad spectrum --Tylenol PRN for fevers Endocrine: Hyperglycemia --Pt has had persistant hyperglycemia today --ISS coverage --BGM ACHS --Spoke with primary team and add Levemir for long acting coverage --Will confirm carbohydrate intake from feed change is the same FEN: Fluids: Avoid due to history of chf Electrolyte abnormalities: None today Nutrition: Tube feeds (held while weaning due to aspiration risk, but will reinitiate if unable to wean) PPX: DVT - Heparin 5000 TID GI - Protonix 40mg IVP BID Dispo: Continue ICU monitoring; sedation vacations; Trach Wednesday Case discussed with Dr. Jose Castillo, DO - IM PGY-1 Visit type - Emergency Visit Emergency Visit: No - New Patient This patient is new to me today: No - Critical Care Critical Care patient: Yes Total Critical Care Time (in minutes): 38 Critical Care Statement: The care of this patient involved high complexity decision making to prevent further life threatening deterioration of the patient 's condition and/or to evaluate & treat vital organ system(s) failure or risk of failure.
[2017-12-04] MEDS: INSULIN SLIDING SCALE (NOVOLOG) 1 VIAL SQ SCH ×6 (01:24→21:55)
[2017-12-04] MEDS ORDERED: PROPOFOL 1,000,000 MCG/100 ML VIAL ONE (05:12)
[2017-12-04] MEDS: PROPOFOL 1,000,000 MCG/100 ML VIAL IVPB SCH (06:04)
[2017-12-04] MEDS: HEPARIN NA (PORCINE) 5,000 UNITS/ML 1ML VIAL SQ SCH ×3 (06:04→21:43)
[2017-12-04] MEDS: INSULIN (LEVEMIR) 100 UNITS/ML UNITS SQ SCH ×2 (06:11→16:50)
[2017-12-04 06:29] LABS: HEMATOCRIT 30.2 % (32.4-45.2); MCH 27.8 pg (25.7-33.7); MEAN CELL VOLUME 84.1 fl (80-96); MEAN PLT VOLUME 9.5 fl (7.5-11.1); PLATELET COUNT 188 K/MM3 (134-434); RBC 3.59 M/mm3 (3.60-5.2); RDW 19.2 % (11.6-15.6); WHITE BLOOD COUNT 10.8 K/mm3 (4.0-10.0)
--- NOTE | 2017-12-04 07:11 | PN ---
Progress Note, Physician Chief Complaint: ID On and off fevers since a week of Cefepime Currently off antibiotic Intubated Seen by CT surgery for planned trach - Current Medication List Current Medications: Active Medications Acetaminophen (Ofirmev Injection -) 1,000 mg IVPB Q6H PRN PRN Reason: FEVER Last Admin: 12/03/17 03:41 Dose: 1,000 mg Albuterol/Ipratropium (Duoneb -) 1 amp NEB RTID [facility] Last Admin: 12/03/17 19:56 Dose: 1 amp Amino Acids (Prosource No Carb Liquid Pkt) 30 ml PO BID@0800,1730 [facility] Last Admin: 12/03/17 18:58 Dose: 30 ml Aspirin (Asa -) 81 mg NGT DAILY [facility] Last Admin: 12/03/17 11:11 Dose: 81 mg Bacitracin (Bacitracin -) 1 applic TP BID [facility] Last Admin: 12/03/17 21:34 Dose: 1 applic Chlorhexidine Gluconate (Hibiclens For Decolonization -) 1 applic TP HS [facility] Last Admin: 12/03/17 21:35 Dose: 1 applic Chlorhexidine Gluconate (Peridex -) 15 ml MM BID [facility] Last Admin: 12/03/17 21:36 Dose: 15 ml Heparin Sodium (Porcine) (Heparin -) 5,000 unit SQ TID [facility] Last Admin: 12/04/17 06:04 Dose: 5,000 unit Propofol (Diprivan -) 1,000,000 mcg in 100 mls @ 0 mls/hr IVPB TITR IVON; 5 MCG/ KG/MIN PRN Reason: Protocol Last Admin: 12/04/17 06:04 Dose: Not Given Insulin Aspart (Novolog Vial Sliding Scale -) 1 vial SQ Q4HPO [facility] PRN Reason: Protocol Last Admin: 12/04/17 06:05 Dose: 6 unit Insulin Detemir (Levemir Vial) 20 units SQ BIDI [facility] Last Admin: 12/04/17 06:11 Dose: 20 units Metoprolol Tartrate (Lopressor -) 25 mg NGT BID [facility] Last Admin: 12/03/17 21:35 Dose: 25 mg Pantoprazole Sodium (Protonix Iv) 40 mg IVPUSH DAILY [facility] Last Admin: 12/03/17 11:13 Dose: 40 mg - Objective Vital Signs: Vital Signs Temperature 99.5 F 12/04/17 06:00 Pulse Rate 95 H 12/04/17 06:00 Respiratory Rate 34 H 12/04/17 06:27 Blood Pressure 105/51 12/04/17 06:00 O2 Sat by Pulse Oximetry (%) 93 L 12/03/17 21:01 Constitutional: Yes: Other (INtubated) Cardiovascular: Yes: Tachycardia, S1, S2 Respiratory: Yes: WNL, Regular, CTA Bilaterally, Rhonchi Gastrointestinal: Yes: Soft. No: Tenderness Edema: No Labs: CBC, BMP 12/04/17 05:35 INR, PTT INR 0.96 (0.82-1.09) 11/25/17 21:44 Assessment/Plan Microbiology 12/03/17 07:00 Stool Clostridium difficile Antigen (MANJULA) - Final 12/03/17 07:00 Stool Clostridium difficile Toxin Assay - Final 12/02/17 08:00 Urine - Urine Jones Urine Culture - Final NO GROWTH OBTAINED 12/02/17 22:30 Blood - Peripheral Venous Blood Culture - Preliminary NO GROWTH OBTAINED AFTER 24 HOURS, INCUBATION TO CONTINUE FOR 4 DAYS. 12/02/17 21:10 Blood - Peripheral Venous Blood Culture - Preliminary NO GROWTH OBTAINED AFTER 24 HOURS, INCUBATION TO CONTINUE FOR 4 DAYS. Laboratory Tests 12/03/17 12/04/17 12/04/17 05:45 05:35 05:35 WBC 10.8 H Hgb 10.0 L Hct 30.2 L Plt Count 188 BUN 64 H Creatinine 2.2 H Pending Creat Clearance w eGFR Pending Assessment Persistent fever intubated in the ICU NLF growing in trach culture Chest tube left Pulmonary fibrosis Plan Reasonable to reinitiate antibiotic this time with Pip Tazo to cover respiratory GNB NLF ? Gladys Zamora MD
[2017-12-04 07:53] LABS: CHLORIDE 105 mmol/L (98-107); POTASSIUM 4.8 mmol/L (3.5-5.1); SODIUM 137 mmol/L (136-145)
[2017-12-04 08:06] LABS: ALBUMIN 1.6 g/dl (3.4-5.0); ALK PHOS 83 U/L (45-117); ANION GAP 10 (8-16); BILIRUBIN,TOTAL 0.3 mg/dL (0.2-1.0); BLOOD UREA NITROGEN 100 mg/dL (7-18); CALCIUM 8.4 mg/dL (8.5-10.1); CO2 22 mmol/L (21-32); CREATININE 3.6 mg/dL (0.55-1.02); GLUCOSE,RANDOM 169 mg/dL (74-106); MAGNESIUM 2.5 mg/dL (1.8-2.4); PHOSPHOROUS 3.5 mg/dL (2.5-4.9); SGOT/AST 24 U/L (15-37); SGPT/ALT 22 U/L (12-78); TOT PROT 5.3 g/dl (6.4-8.2)
--- NOTE | 2017-12-04 08:17 | PN ---
Progress Note (short form) - Note Progress Note: Chief Complaint: Events noted, notes reviewed, remains intubated and sedated, unable to wean off the ventilator, in no distress, plan to proceed with tracheostomy this coming week, sinus rhythm is noted, family member at the bedside History of Present Illness: Seen and examined in the ICU. Events noted, notes reviewed, remains intubated and sedated, unable to wean off the ventilator, in no distress, plan to proceed with tracheostomy this coming week, sinus rhythm is noted, family member at the bedside Echocardiography dated 11/02/2017 revealed Mild LVH, normal bi-ventricular size and function, mild TR, RVSP of 32 mmHg - Current Medication List Current Medications Acetaminophen (Ofirmev Injection -) 1,000 mg IVPB Q6H PRN PRN Reason: FEVER Last Admin: 12/03/17 03:41 Dose: 1,000 mg Albuterol/Ipratropium (Duoneb -) 1 amp NEB RTID [facility] Last Admin: 12/03/17 19:56 Dose: 1 amp Amino Acids (Prosource No Carb Liquid Pkt) 30 ml PO BID@0800,1730 [facility] Last Admin: 12/03/17 18:58 Dose: 30 ml Aspirin (Asa -) 81 mg NGT DAILY [facility] Last Admin: 12/03/17 11:11 Dose: 81 mg Bacitracin (Bacitracin -) 1 applic TP BID [facility] Last Admin: 12/03/17 21:34 Dose: 1 applic Chlorhexidine Gluconate (Hibiclens For Decolonization -) 1 applic TP HS [facility] Last Admin: 12/03/17 21:35 Dose: 1 applic Chlorhexidine Gluconate (Peridex -) 15 ml MM BID [facility] Last Admin: 12/03/17 21:36 Dose: 15 ml Heparin Sodium (Porcine) (Heparin -) 5,000 unit SQ TID [facility] Last Admin: 12/04/17 06:04 Dose: 5,000 unit Propofol (Diprivan -) 1,000,000 mcg in 100 mls @ 0 mls/hr IVPB TITR IVON; 5 MCG/ KG/MIN PRN Reason: Protocol Last Admin: 12/04/17 06:04 Dose: Not Given Piperacillin Sod/Tazobactam (Sod 2.25 gm/ Dextrose) 50 mls @ 100 mls/hr IVPB Q6H-IV IVON PRN Reason: Protocol Insulin Aspart (Novolog Vial Sliding Scale -) 1 vial SQ Q4HPO [facility] PRN Reason: Protocol Last Admin: 12/04/17 06:05 Dose: 6 unit Insulin Detemir (Levemir Vial) 20 units SQ BIDI [facility] Last Admin: 12/04/17 06:11 Dose: 20 units Metoprolol Tartrate (Lopressor -) 25 mg NGT BID [facility] Last Admin: 12/03/17 21:35 Dose: 25 mg Pantoprazole Sodium (Protonix Iv) 40 mg IVPUSH DAILY [facility] Last Admin: 12/03/17 11:13 Dose: 40 mg Review Of Systems: Unable to obtain, intubated and sedated - Objective Vital Signs: Last Vital Signs Temp Pulse Resp BP Pulse Ox 99.5 F 95 H 34 H 105/51 93 L 12/04/17 06:00 12/04/17 06:00 12/04/17 06:27 12/04/17 06:00 12/03/17 21:01 Intake & Output 12/01/17 12/02/17 12/03/17 12/04/17 23:59 23:59 23:59 23:59 Intake Total 1823 1697 1523 924 Output Total 1223 928 700 0 Balance 600 769 823 924 Weight 201 lb 206 lb 4.8 oz 201 lb 8.04 oz 208 lb 1 oz Constitutional: No Distress, Sedated Neck: Supple Negative JVD Cardiovascular: S1 S2 Regular Rate and Rhythm Respiratory: Diminished Breath Sounds at the Bases Bilateral Scattered Rhonchi Gastrointestinal: Soft Benign, Normal Bowel Sounds Ext: Trace Edema Labs: CBC, BMP 12/04/17 05:35 BMP pending from this AM Assessment/Plan ASSESSMENT: 1. Acute hypoxemic respiratory failure with underlying pulmonary fibrosis/ILD, spontaneous left pnemothorax post chest tube insertion and probable hospital- acquired pneumonia, unable to wean off the ventilator to proceed with tracheostomy this coming week 2. 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 Diastolic LV dysfunction with chronic class I NYHA classification LV failure , compensated/euvolemic 4. HTN 5. Diabetes mellitus 6. OSAS 7. Acute on CKD PLAN: 1. Ventilator management and chest tube management as per critical care team, for tracheostomy this coming week as noted above 2. Antibiotics as per the primary team 3. Continue Lopressor hemodynamics permitting 4. Resume Losartan once renal function at baseline 5. Continue ASA Rodney Chester MD
[2017-12-04] MEDS: ALBUTEROL SO4 2.5/IPRATROPIUM 0.5 INH SOL 3 ML VIAL.NEB. NEB SCH ×3 (08:20→20:50)
[2017-12-04] MEDS ORDERED: PT OWN MED DRAWER 7, Y5N ONE (09:23)
[2017-12-04] MEDS: PIPERACILLIN/TAZOB 2.25 GM 2.25 GM in DEXTROSE 5%-WATER - 50 ML IVPB SCH ×3 (09:42→21:44)
[2017-12-04] MEDS: AMINO ACIDS/PROTEIN HYDROLYS 30 ML LIQUID.PKT PO SCH ×2 (09:42→16:51)
[2017-12-04 09:44] LABS: PLATELET ESTIMATE NORMAL
[2017-12-04] MEDS: METOPROLOL TARTRATE 25 MG TABLET (FP) NGT SCH ×2 (09:45→21:43)
[2017-12-04] MEDS: ASPIRIN 81 MG CHEWABLE TABLETS NGT SCH (09:45)
[2017-12-04] MEDS: PANTOPRAZOLE SODIUM 40 MG VIAL IVPUSH SCH (09:45)
[2017-12-04] MEDS: CHLORHEXIDINE GLUCONATE 0.12% 15ML CUP MM SCH ×2 (09:46→21:44)
[2017-12-04] MEDS: BACITRACIN 15 GM TUBE TOPICAL OINTMENT TP SCH ×2 (09:46→21:41)
--- NOTE | 2017-12-04 10:09 | PN ---
Progress Note (short form) - Note Progress Note: PULMONARY/CCM Pt seen and examined in the ICU. Remains intubated, sedated. Persistently febrile, restarted on antibiotics per ID. Vented on volume assist control with 50% FiO2, PEEP 0. BUN/Cr rising Last Vital Signs Temp Pulse Resp BP Pulse Ox 99.5 F 95 H 34 H 105/51 93 L 12/04/17 06:00 12/04/17 06:00 12/04/17 06:27 12/04/17 06:00 12/03/17 21:01 Intake & Output 12/01/17 12/02/17 12/03/17 12/04/17 23:59 23:59 23:59 23:59 Intake Total 1823 1697 1523 924 Output Total 1223 928 700 0 Balance 600 769 823 924 Weight 91.172 kg 93.576 kg 91.4 kg 94.376 kg Gen: intubated, sedated Heart: RRR Lung: distant breath sounds Abd: soft, nontender Ext: trace edema Chest tube: minimal drainage, no air leak CBC, BMP 12/04/17 05:35 12/04/17 05:35 Active Medications Acetaminophen (Ofirmev Injection -) 1,000 mg IVPB Q6H PRN PRN Reason: FEVER Last Admin: 12/03/17 03:41 Dose: 1,000 mg Albuterol/Ipratropium (Duoneb -) 1 amp NEB RTID [facility] Last Admin: 12/03/17 19:56 Dose: 1 amp Amino Acids (Prosource No Carb Liquid Pkt) 30 ml PO BID@0800,1730 [facility] Last Admin: 12/04/17 09:42 Dose: 30 ml Aspirin (Asa -) 81 mg NGT DAILY [facility] Last Admin: 12/04/17 09:45 Dose: 81 mg Bacitracin (Bacitracin -) 1 applic TP BID [facility] Last Admin: 12/04/17 09:46 Dose: 1 applic Chlorhexidine Gluconate (Hibiclens For Decolonization -) 1 applic TP HS [facility] Last Admin: 12/03/17 21:35 Dose: 1 applic Chlorhexidine Gluconate (Peridex -) 15 ml MM BID [facility] Last Admin: 12/04/17 09:46 Dose: 15 ml Heparin Sodium (Porcine) (Heparin -) 5,000 unit SQ TID [facility] Last Admin: 12/04/17 06:04 Dose: 5,000 unit Propofol (Diprivan -) 1,000,000 mcg in 100 mls @ 0 mls/hr IVPB TITR IVON; 5 MCG/ KG/MIN PRN Reason: Protocol Last Admin: 12/04/17 06:04 Dose: Not Given Piperacillin Sod/Tazobactam (Sod 2.25 gm/ Dextrose) 50 mls @ 100 mls/hr IVPB Q6H-IV IVON PRN Reason: Protocol Last Admin: 12/04/17 09:42 Dose: 100 mls/hr Insulin Aspart (Novolog Vial Sliding Scale -) 1 vial SQ Q4HPO IVON PRN Reason: Protocol Last Admin: 12/04/17 06:05 Dose: 6 unit Insulin Detemir (Levemir Vial) 20 units SQ BIDI [facility] Last Admin: 12/04/17 06:11 Dose: 20 units Metoprolol Tartrate (Lopressor -) 25 mg NGT BID [facility] Last Admin: 12/04/17 09:45 Dose: 25 mg Pantoprazole Sodium (Protonix Iv) 40 mg IVPUSH DAILY [facility] Last Admin: 12/04/17 09:45 Dose: 40 mg A/P Acute on Chronic Hypoxic Respiratory Failure Left Pneumothorax s/p chest tube placement r/o Pneumonia Interstitial Lung Disease +Troponins likely Demand Ischemia HTN DM LV Diastolic Dysfunction Acute Kidney Injury Obstructive Sleep Apnea - continue antibiotics per ID - f/u cultures - keep PEEP 0 - taper FiO2 to keep SpO2 >90% - low tidal volume ventilation - start IVF - monitor urine output, creatinine - lighten sedation to assess mental status - spontaneous breathing trials as tolerated when mental status improved - will need tracheostomy given severity of underlying lung disease and failure to wean - enteral feeds - DVT/GI prophylaxis - continue ICU monitoring - discussed with family at bedside critical care time spent in reviewing chart, evaluating patient and formulating plan 35 min
[2017-12-04] MEDS: SODIUM CHLORIDE 1,000 ML IV SCH (10:30)
--- NOTE | 2017-12-04 10:59 | PN ---
Progress Note, Physician - Current Medication List Current Medications: Active Medications Acetaminophen (Ofirmev Injection -) 1,000 mg IVPB Q6H PRN PRN Reason: FEVER Last Admin: 12/03/17 03:41 Dose: 1,000 mg Albuterol/Ipratropium (Duoneb -) 1 amp NEB RTID [facility] Last Admin: 12/04/17 08:20 Dose: 1 amp Amino Acids (Prosource No Carb Liquid Pkt) 30 ml PO BID@0800,1730 [facility] Last Admin: 12/04/17 09:42 Dose: 30 ml Aspirin (Asa -) 81 mg NGT DAILY [facility] Last Admin: 12/04/17 09:45 Dose: 81 mg Bacitracin (Bacitracin -) 1 applic TP BID [facility] Last Admin: 12/04/17 09:46 Dose: 1 applic Chlorhexidine Gluconate (Hibiclens For Decolonization -) 1 applic TP HS [facility] Last Admin: 12/03/17 21:35 Dose: 1 applic Chlorhexidine Gluconate (Peridex -) 15 ml MM BID [facility] Last Admin: 12/04/17 09:46 Dose: 15 ml Heparin Sodium (Porcine) (Heparin -) 5,000 unit SQ TID [facility] Last Admin: 12/04/17 06:04 Dose: 5,000 unit Propofol (Diprivan -) 1,000,000 mcg in 100 mls @ 0 mls/hr IVPB TITR IVON; 5 MCG/ KG/MIN PRN Reason: Protocol Last Admin: 12/04/17 06:04 Dose: Not Given Piperacillin Sod/Tazobactam (Sod 2.25 gm/ Dextrose) 50 mls @ 100 mls/hr IVPB Q6H-IV IVON PRN Reason: Protocol Last Admin: 12/04/17 09:42 Dose: 100 mls/hr Sodium Chloride (Normal Saline -) 1,000 mls @ 75 mls/hr IV ASDIR [facility] Insulin Aspart (Novolog Vial Sliding Scale -) 1 vial SQ Q4HPO [facility] PRN Reason: Protocol Last Admin: 12/04/17 06:05 Dose: 6 unit Insulin Detemir (Levemir Vial) 20 units SQ BIDI [facility] Last Admin: 12/04/17 06:11 Dose: 20 units Metoprolol Tartrate (Lopressor -) 25 mg NGT BID [facility] Last Admin: 12/04/17 09:45 Dose: 25 mg Pantoprazole Sodium (Protonix Iv) 40 mg IVPUSH DAILY [facility] Last Admin: 12/04/17 09:45 Dose: 40 mg - Objective Vital Signs: Vital Signs Temperature 99.5 F 12/04/17 06:00 Pulse Rate 95 H 12/04/17 06:00 Respiratory Rate 33 H 12/04/17 09:00 Blood Pressure 105/51 12/04/17 06:00 O2 Sat by Pulse Oximetry (%) 93 L 12/03/17 21:01 Cardiovascular: Yes: S1, S2 Respiratory: Yes: Mechanically Ventilated Gastrointestinal: Yes: Normal Bowel Sounds, Soft Neurological: Yes: Other (sedated) Labs: CBC, BMP 12/04/17 05:35 12/04/17 05:35 INR, PTT INR 0.96 (0.82-1.09) 11/25/17 21:44 Assessment/Plan - Problems (1) CKD (chronic kidney disease) stage 3, GFR 30-59 ml/min Assessment/Plan: -Improving -monitor trend -monitor I&O's Code(s): N18.3 - CHRONIC KIDNEY DISEASE, STAGE 3 (MODERATE) (2) Hemothorax on left Assessment/Plan: -Chest tube with minimal air leak -Repeat CXR shows improvement on hemothorax -CT still draining Code(s): J94.2 - HEMOTHORAX (3) Acute respiratory failure with hypoxemia Assessment/Plan: -mechanical vent -pulmonary management -plan Tracheotomy and PEG -on Sedation Code(s): J96.01 - ACUTE RESPIRATORY FAILURE WITH HYPOXIA (4) CHF (congestive heart failure) Assessment/Plan: cardiology consult last echo mild LVH, EF-58% on Furosemide I&O's Code(s): I50.9 - HEART FAILURE, UNSPECIFIED Qualifiers: Heart failure type: combined systolic and diastolic Heart failure chronicity: chronic Qualified Code(s): I50.42 - Chronic combined systolic ( congestive) and diastolic (congestive) heart failure (5) Diabetes mellitus Assessment/Plan: -uncontrolled -Endocrinology consult -insulin Novolog sliding scale -Levemir start at 14 units today, titrate up, to follow BGM trend -Consider alternative ways to replenish protein source, prosource, albumin IV? as liam has a lot of carbs -BGM -RD consult Code(s): E11.9 - TYPE 2 DIABETES MELLITUS WITHOUT COMPLICATIONS Qualifiers: Diabetes mellitus type: type 2 Diabetes mellitus ferry terminal agent insulin use: without ferry terminal agent use Diabetes mellitus complication status: with circulatory complication Diabetes mellitus complication detail: with other circulatory complications Qualified Code(s): E11.59 - Type 2 diabetes mellitus with other circulatory complications (6) Fever Assessment/Plan: -repeat cultures pending acetaminophen for fever over 100.0 F ID on board off abx for now Code(s): R50.9 - FEVER, UNSPECIFIED
[2017-12-04] MEDS: POTASSIUM CHLORIDE 10 MEQ in SODIUM CHLORIDE 0.45% 1,000 ML IVPB SCH (15:30)
--- NOTE | 2017-12-04 17:27 | PN ---
Progress Note (short form) - Note Progress Note: 77 yo F with h/o HTN, NIDDM, combined systolic and diastolic HF, pulmonary fibrosis, from [facility] with acute respiratory failure. #CHRISTOPHER on CKD likely secondary to renal hyprofusion/relative hypotension in setting of ARB #Proteinuria #Respiratory FAilure on Vent #Punmothorax #Hx of Hypertension #CHF Current Medications Acetaminophen (Ofirmev Injection -) 1,000 mg IVPB Q6H PRN PRN Reason: FEVER Last Admin: 12/03/17 03:41 Dose: 1,000 mg Albuterol/Ipratropium (Duoneb -) 1 amp NEB RTID [facility] Last Admin: 12/04/17 14:15 Dose: 1 amp Amino Acids (Prosource No Carb Liquid Pkt) 30 ml PO BID@0800,1730 [facility] Last Admin: 12/04/17 16:51 Dose: 30 ml Aspirin (Asa -) 81 mg NGT DAILY [facility] Last Admin: 12/04/17 09:45 Dose: 81 mg Bacitracin (Bacitracin -) 1 applic TP BID [facility] Last Admin: 12/04/17 09:46 Dose: 1 applic Chlorhexidine Gluconate (Hibiclens For Decolonization -) 1 applic TP HS [facility] Last Admin: 12/03/17 21:35 Dose: 1 applic Chlorhexidine Gluconate (Peridex -) 15 ml MM BID [facility] Last Admin: 12/04/17 09:46 Dose: 15 ml Heparin Sodium (Porcine) (Heparin -) 5,000 unit SQ TID [facility] Last Admin: 12/04/17 14:32 Dose: 5,000 unit Propofol (Diprivan -) 1,000,000 mcg in 100 mls @ 0 mls/hr IVPB TITR IVON; 5 MCG/ KG/MIN PRN Reason: Protocol Last Admin: 12/04/17 06:04 Dose: Not Given Piperacillin Sod/Tazobactam (Sod 2.25 gm/ Dextrose) 50 mls @ 100 mls/hr IVPB Q6H-IV IVON PRN Reason: Protocol Last Admin: 12/04/17 14:37 Dose: 100 mls/hr Sodium Chloride (Normal Saline -) 1,000 mls @ 75 mls/hr IV ASDIR [facility] Last Admin: 12/04/17 10:30 Dose: 75 mls/hr Potassium Chloride 10 meq/ (Sodium Chloride) 1,005 mls @ 75 mls/hr IVPB Q13H [facility] Last Admin: 12/04/17 15:30 Dose: 75 mls/hr Insulin Aspart (Novolog Vial Sliding Scale -) 1 vial SQ Q4HPO [facility] PRN Reason: Protocol Last Admin: 12/04/17 14:36 Dose: 8 unit Insulin Detemir (Levemir Vial) 20 units SQ BIDI [facility] Last Admin: 12/04/17 16:50 Dose: 20 units Metoprolol Tartrate (Lopressor -) 25 mg NGT BID [facility] Last Admin: 12/04/17 09:45 Dose: 25 mg Pantoprazole Sodium (Protonix Iv) 40 mg IVPUSH DAILY [facility] Last Admin: 12/04/17 09:45 Dose: 40 mg Last Vital Signs Temp Pulse Resp BP Pulse Ox 99.3 F 88 25 H 131/56 94 L 12/04/17 14:00 12/04/17 16:00 12/04/17 16:00 12/04/17 16:00 12/04/17 10:00 on vent CBC, BMP 12/04/17 05:35 12/04/17 05:35 would hold ARB and Diuretics for now Check FeUra, UPCR check Renal and Bladder US keep MAP > 65 would not start IVF given CXR findings of congestion can given PRN Lasix for worsening hypoxia as needed if diuresis is warranted can start Lasix as standing dose but would consider montorign renal function of diuretics for 24 hours as Cr just ayan from 1.5-2.4 continue venet support per ICU Chest tube as per ICU Keep MAP > 65 avoid nephrotoxins Dose all meds for CrCl less then 30 no indication for D[employer]IA DIRECTOR at [facility] time
[2017-12-04] MEDS: CHLORHEXIDINE GLUCONATE 4% CLEANSER FOR DECOLONIZATION TP SCH (21:41)
[2017-12-05] MEDS: INSULIN SLIDING SCALE (NOVOLOG) 1 VIAL SQ SCH ×5 (01:24→17:45)
[2017-12-05] MEDS: PIPERACILLIN/TAZOB 2.25 GM 2.25 GM in DEXTROSE 5%-WATER - 50 ML IVPB SCH ×2 (02:12→08:27)
[2017-12-05 06:11] LABS: BASO % 0.7 % (0-2.0); EOS % 5.1 % (0-4.5); HEMATOCRIT 29.4 % (32.4-45.2); HEMOGLOBIN 9.7 GM/dL (10.7-15.3); LYMPH % 21.3 % (8-40); MCH 27.7 pg (25.7-33.7); MCHC 32.9 g/dl (32.0-36.0); MEAN CELL VOLUME 84.2 fl (80-96); MEAN PLT VOLUME 9.2 fl (7.5-11.1); MONO % 9.1 % (3.8-10.2); NEUT % 63.8 % (42.8-82.8); PLATELET COUNT 199 K/MM3 (134-434); RBC 3.49 M/mm3 (3.60-5.2); RDW 19.8 % (11.6-15.6); WHITE BLOOD COUNT 10.8 K/mm3 (4.0-10.0)
[2017-12-05] MEDS: POTASSIUM CHLORIDE 10 MEQ in SODIUM CHLORIDE 0.45% 1,000 ML IVPB SCH (06:19)
[2017-12-05] MEDS: HEPARIN NA (PORCINE) 5,000 UNITS/ML 1ML VIAL SQ SCH ×3 (06:19→23:17)
[2017-12-05] MEDS: INSULIN (LEVEMIR) 100 UNITS/ML UNITS SQ SCH ×2 (06:22→16:32)
[2017-12-05 06:33] LABS: CHLORIDE 101 mmol/L (98-107); POTASSIUM 5.8 mmol/L (3.5-5.1); SODIUM 135 mmol/L (136-145)
[2017-12-05 06:46] LABS: ALBUMIN 1.5 g/dl (3.4-5.0); ALK PHOS 75 U/L (45-117); ANION GAP 13 (8-16); BILIRUBIN,TOTAL 0.4 mg/dL (0.2-1.0); CALCIUM 8.2 mg/dL (8.5-10.1); CO2 21 mmol/L (21-32); CREATININE 4.9 mg/dL (0.55-1.02); GLUCOSE,RANDOM 129 mg/dL (74-106); MAGNESIUM 2.6 mg/dL (1.8-2.4); SGOT/AST 32 U/L (15-37); SGPT/ALT 24 U/L (12-78); TOT PROT 5.5 g/dl (6.4-8.2)
[2017-12-05 07:15] LABS: BLOOD UREA NITROGEN 140 mg/dL (7-18)
[2017-12-05] MEDS: PROPOFOL 1,000,000 MCG/100 ML VIAL IVPB SCH ×4 (08:00→23:15)
--- NOTE | 2017-12-05 08:02 | PN ---
Progress Note (short form) - Note Progress Note: Chief Complaint: Events noted, notes reviewed, remains intubated and sedated, unable to wean off the ventilator, mild respiratory distress, plan to proceed with tracheostomy this coming week, sinus rhythm is noted, family member remains at the bedside History of Present Illness: Seen and examined in the ICU. Events noted, notes reviewed, remains intubated and sedated, unable to wean off the ventilator, mild respiratory distress, plan to proceed with tracheostomy this coming week, sinus rhythm is noted, family member remains at the bedside Chest x-ray from yesterday noted, renal F/U note also noted Echocardiography dated 11/02/2017 revealed Mild LVH, normal bi-ventricular size and function, mild TR, RVSP of 32 mmHg - Current Medication List Current Medications Acetaminophen (Ofirmev Injection -) 1,000 mg IVPB Q6H PRN PRN Reason: FEVER Last Admin: 12/03/17 03:41 Dose: 1,000 mg Albuterol/Ipratropium (Duoneb -) 1 amp NEB RTID [facility] BEDS [facility] Last Admin: 12/04/17 20:50 Dose: 1 amp Amino Acids (Prosource No Carb Liquid Pkt) 30 ml PO BID@0800,1730 [facility]S [facility] Last Admin: 12/04/17 16:51 Dose: 30 ml Aspirin (Asa -) 81 mg NGT DAILY [facility]S [facility] Last Admin: 12/04/17 09:45 Dose: 81 mg Bacitracin (Bacitracin -) 1 applic TP BID [facility] Last Admin: 12/04/17 21:41 Dose: 1 applic Chlorhexidine Gluconate (Hibiclens For Decolonization -) 1 applic TP HS [facility]S [facility] Last Admin: 12/04/17 21:41 Dose: 1 applic Chlorhexidine Gluconate (Peridex -) 15 ml MM BID [facility]S [facility] Last Admin: 12/04/17 21:44 Dose: 15 ml Heparin Sodium (Porcine) (Heparin -) 5,000 unit SQ TID [facility]S [facility] Last Admin: 12/05/17 06:19 Dose: 5,000 unit Propofol (Diprivan -) 1,000,000 mcg in 100 mls @ 0 mls/hr IVPB TITR IVON; 5 MCG/ KG/MIN PRN Reason: Protocol Last Titration: 12/05/17 06:19 Dose: 30 mcg/kg/min, 17.015 mls/hr Piperacillin Sod/Tazobactam (Sod 2.25 gm/ Dextrose) 50 mls @ 100 mls/hr IVPB Q6H-IV IVON PRN Reason: Protocol Last Admin: 12/05/17 02:12 Dose: 100 mls/hr Sodium Chloride (Normal Saline -) 1,000 mls @ 75 mls/hr IV ASDIR [facility]S [facility]CLUDE 234 BEDS AT [facility] Last Admin: 12/04/17 10:30 Dose: 75 mls/hr Potassium Chloride 10 meq/ (Sodium Chloride) 1,005 mls @ 75 mls/hr IVPB Q13H [facility]S [facility]CLUDE 234 BEDS AT [facility] Last Admin: 12/05/17 06:19 Dose: 75 mls/hr Insulin Aspart (Novolog Vial Sliding Scale -) 1 vial SQ Q4HPO [facility] 234 BEDS AT [facility] PRN Reason: Protocol Last Admin: 12/05/17 06:22 Dose: 6 unit Insulin Detemir (Levemir Vial) 20 units SQ BIDI [facility] 234 BEDS [facility] Last Admin: 12/05/17 06:22 Dose: 20 units Metoprolol Tartrate (Lopressor -) 25 mg NGT BID [facility] 234 BEDS [facility] Last Admin: 12/04/17 21:43 Dose: 25 mg Pantoprazole Sodium (Protonix Iv) 40 mg IVPUSH DAILY [facility] 234 BEDS AT [facility] Last Admin: 12/04/17 09:45 Dose: 40 mg Review Of Systems: Unable to obtain, intubated and sedated - Objective Vital Signs: Last Vital Signs Temp Pulse Resp BP Pulse Ox 98.3 F 97 H 28 H 127/50 98 12/05/17 06:00 12/05/17 06:00 12/05/17 07:38 12/05/17 06:00 12/04/17 21:00 Intake & Output 12/02/17 12/03/17 12/04/17 12/05/17 23:59 23:59 23:59 23:59 Intake Total 1697 1523 2284 1944 Output Total 928 700 200 100 Balance 545 691 4621 1844 Weight 206 lb 4.8 oz 201 lb 8.04 oz 208 lb 1 oz 207 lb 6.4 oz Constitutional: No Distress, Sedated Neck: Supple Negative JVD Cardiovascular: S1 S2 Regular Rate and Rhythm Respiratory: Diminished Breath Sounds at the Bases Bilateral Scattered Rhonchi Gastrointestinal: Soft Benign, Normal Bowel Sounds Ext: Trace to 1+ Edema Labs: CBC, BMP 12/05/17 05:20 12/05/17 05:20 Assessment/Plan ASSESSMENT: 1. Acute hypoxemic respiratory failure with underlying pulmonary fibrosis/ILD, spontaneous left pnemothorax post chest tube insertion and probable hospital- acquired pneumonia, unable to wean off the ventilator to proceed with tracheostomy this coming week 2. 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 Diastolic LV dysfunction with chronic class I NYHA classification LV failure , clinically compensated/euvolemic, but difficult to assess, worsening chest x- ray and renal function 4. HTN 5. Diabetes mellitus 6. OSAS 7. Acute on CKD, worsening function 8. Hyperkalemia 9. Hyponatremia 10. Anemia PLAN: 1. Ventilator management and chest tube management as per critical care team, for tracheostomy this coming week as noted above 2. Antibiotics as per the primary team 3. Continue Lopressor hemodynamics permitting 4. Differ resumption of Losartan till renal function at baseline 5. Continue ASA 6. D/V IVF in view of worsening chest x-ray 7. Correction of Hyperkalemia, repeat BMP 8. Considering patient's worsening pulmonary status, worsening renal function and to determine volume status consider RHC/Front[place] Palmer catheter insertion for evaluation and management Discussed in detail with the patient's daughter Rodney Chester MD
[2017-12-05] MEDS: ALBUTEROL SO4 2.5/IPRATROPIUM 0.5 INH SOL 3 ML VIAL.NEB. NEB SCH ×3 (08:10→20:14)
[2017-12-05] MEDS ORDERED: PT OWN MED DRAWER 7, Y5N ONE (08:23)
[2017-12-05] MEDS: AMINO ACIDS/PROTEIN HYDROLYS 30 ML LIQUID.PKT PO SCH ×2 (08:25→17:37)
--- NOTE | 2017-12-05 09:06 | PN ---
Progress Note (short form) - Note Progress Note: sedated remains on vent Vital Signs Period Temp Pulse Resp BP Sys/Simms Pulse Ox Last 24 Hr 98.3 F-99.6 F 85-102 16-30 104-159/45-78 94-98 cor-rrr lungs decreased bs at bases abd soft,nt ext no edema rectal tube nagel CBC, BMP 12/05/17 05:20 12/05/17 05:20 Microbiology 12/02/17 22:30 Blood - Peripheral Venous Blood Culture - Preliminary NO GROWTH OBTAINED AFTER 48 HOURS, INCUBATION TO CONTINUE FOR 3 DAYS. 12/02/17 21:10 Blood - Peripheral Venous Blood Culture - Preliminary NO GROWTH OBTAINED AFTER 48 HOURS, INCUBATION TO CONTINUE FOR 3 DAYS. 12/02/17 08:00 Sputum - Endotrachea Suction/Ventilator Gram Stain - Final 12/02/17 08:00 Sputum - Endotrachea Suction/Ventilator Sputum Culture - Final Pseudomonas Aeruginosa Current Medications Acetaminophen (Ofirmev Injection -) 1,000 mg IVPB Q6H PRN PRN Reason: FEVER Last Admin: 12/03/17 03:41 Dose: 1,000 mg Albuterol/Ipratropium (Duoneb -) 1 amp NEB RTID [facility] Last Admin: 12/04/17 20:50 Dose: 1 amp Amino Acids (Prosource No Carb Liquid Pkt) 30 ml PO BID@0800,1730 [facility] Last Admin: 12/05/17 08:25 Dose: 30 ml Aspirin (Asa -) 81 mg NGT DAILY [facility] Last Admin: 12/04/17 09:45 Dose: 81 mg Bacitracin (Bacitracin -) 1 applic TP BID [facility] Last Admin: 12/04/17 21:41 Dose: 1 applic Chlorhexidine Gluconate (Hibiclens For Decolonization -) 1 applic TP HS [facility] Last Admin: 12/04/17 21:41 Dose: 1 applic Chlorhexidine Gluconate (Peridex -) 15 ml MM BID [facility] Last Admin: 12/04/17 21:44 Dose: 15 ml Heparin Sodium (Porcine) (Heparin -) 5,000 unit SQ TID [facility] Last Admin: 12/05/17 06:19 Dose: 5,000 unit Propofol (Diprivan -) 1,000,000 mcg in 100 mls @ 0 mls/hr IVPB TITR IVON; 5 MCG/ KG/MIN PRN Reason: Protocol Last Titration: 12/05/17 06:19 Dose: 30 mcg/kg/min, 17.015 mls/hr Piperacillin Sod/Tazobactam (Sod 2.25 gm/ Dextrose) 50 mls @ 100 mls/hr IVPB Q6H-IV [facility] PRN Reason: Protocol Last Admin: 12/05/17 08:27 Dose: 100 mls/hr Sodium Chloride (Normal Saline -) 1,000 mls @ 75 mls/hr IV ASDIR [facility] Last Admin: 12/04/17 10:30 Dose: 75 mls/hr Insulin Aspart (Novolog Vial Sliding Scale -) 1 vial SQ Q4HPO [facility] PRN Reason: Protocol Last Admin: 12/05/17 06:22 Dose: 6 unit Insulin Detemir (Levemir Vial) 20 units SQ BIDI [facility] Last Admin: 12/05/17 06:22 Dose: 20 units Metoprolol Tartrate (Lopressor -) 25 mg NGT BID [facility] Last Admin: 12/04/17 21:43 Dose: 25 mg Pantoprazole Sodium (Protonix Iv) 40 mg IVPUSH DAILY [facility] Last Admin: 12/04/17 09:45 Dose: 40 mg cxray-increased bilateral infiltrates a/p intermittent fevers-improved respiratory failure pneumothorax pulmonary fibrosis/ILD zosyn started yesterday-ws on cefepime prior to this worsening renal failure switch to levaquin- has peripheral eosinophilia- ?AIN send urine eosinophils f/u with renal ?steroids ?dialysis will d/w ICU team over 30 minutes spent in the care of this
[2017-12-05] MEDS: ASPIRIN 81 MG CHEWABLE TABLETS NGT SCH (09:22)
[2017-12-05] MEDS: PANTOPRAZOLE SODIUM 40 MG VIAL IVPUSH SCH (09:22)
[2017-12-05] MEDS: METOPROLOL TARTRATE 25 MG TABLET (FP) NGT SCH ×2 (09:22→22:46)
[2017-12-05] MEDS: CHLORHEXIDINE GLUCONATE 0.12% 15ML CUP MM SCH ×2 (09:23→22:46)
[2017-12-05] MEDS: BACITRACIN 15 GM TUBE TOPICAL OINTMENT TP SCH ×2 (09:24→22:45)
--- NOTE | 2017-12-05 09:30 | PN ---
Progress Note, Physician - Current Medication List Current Medications: Active Medications Acetaminophen (Ofirmev Injection -) 1,000 mg IVPB Q6H PRN PRN Reason: FEVER Last Admin: 12/03/17 03:41 Dose: 1,000 mg Albuterol/Ipratropium (Duoneb -) 1 amp NEB RTID [facility] Last Admin: 12/05/17 08:10 Dose: 1 amp Amino Acids (Prosource No Carb Liquid Pkt) 30 ml PO BID@0800,1730 [facility] Last Admin: 12/05/17 08:25 Dose: 30 ml Aspirin (Asa -) 81 mg NGT DAILY [facility] Last Admin: 12/05/17 09:22 Dose: 81 mg Bacitracin (Bacitracin -) 1 applic TP BID [facility] Last Admin: 12/05/17 09:24 Dose: 1 applic Chlorhexidine Gluconate (Hibiclens For Decolonization -) 1 applic TP HS [facility] Last Admin: 12/04/17 21:41 Dose: 1 applic Chlorhexidine Gluconate (Peridex -) 15 ml MM BID [facility] Last Admin: 12/05/17 09:23 Dose: 15 ml Heparin Sodium (Porcine) (Heparin -) 5,000 unit SQ TID [facility] Last Admin: 12/05/17 06:19 Dose: 5,000 unit Propofol (Diprivan -) 1,000,000 mcg in 100 mls @ 0 mls/hr IVPB TITR IVON; 5 MCG/ KG/MIN PRN Reason: Protocol Last Titration: 12/05/17 06:19 Dose: 30 mcg/kg/min, 17.015 mls/hr Sodium Chloride (Normal Saline -) 1,000 mls @ 75 mls/hr IV ASDIR [facility] Last Admin: 12/04/17 10:30 Dose: 75 mls/hr Insulin Aspart (Novolog Vial Sliding Scale -) 1 vial SQ Q4HPO [facility] PRN Reason: Protocol Last Admin: 12/05/17 09:21 Dose: 4 unit Insulin Detemir (Levemir Vial) 20 units SQ BIDI [facility] Last Admin: 12/05/17 06:22 Dose: 20 units Metoprolol Tartrate (Lopressor -) 25 mg NGT BID [facility] Last Admin: 12/05/17 09:22 Dose: 25 mg Pantoprazole Sodium (Protonix Iv) 40 mg IVPUSH DAILY [facility] Last Admin: 12/05/17 09:22 Dose: 40 mg - Objective Vital Signs: Vital Signs Temperature 99.6 F 12/05/17 08:00 Pulse Rate 102 H 12/05/17 08:00 Respiratory Rate 25 H 12/05/17 08:00 Blood Pressure 124/48 12/05/17 08:00 O2 Sat by Pulse Oximetry (%) 98 12/04/17 21:00 Cardiovascular: Yes: S1, S2 Respiratory: Yes: Mechanically Ventilated, Rhonchi Gastrointestinal: Yes: Normal Bowel Sounds, Soft Labs: CBC, BMP 12/05/17 05:20 12/05/17 05:20 INR, PTT INR 0.96 (0.82-1.09) 11/25/17 21:44 Assessment/Plan - Problems (1) CKD (chronic kidney disease) stage 3, GFR 30-59 ml/min--worsening Assessment/Plan: -monitor trend -monitor I&O's -off ivf--renal follow up--?dialysis Code(s): N18.3 - CHRONIC KIDNEY DISEASE, STAGE 3 (MODERATE) (2) Pneumothorax on left Assessment/Plan: -Chest tube with minimal air leak -Repeat CXR shows improvement on hemothorax -CT minimal draining (3) Acute respiratory failure with hypoxemia Assessment/Plan: -mechanical vent -pulmonary management -plan Tracheotomy and PEG -on Sedation Code(s): J96.01 - ACUTE RESPIRATORY FAILURE WITH HYPOXIA (4) CHF (congestive heart failure) Assessment/Plan: cardiology consult last echo mild LVH, EF-58% on Furosemide I&O's Code(s): I50.9 - HEART FAILURE, UNSPECIFIED Qualifiers: Heart failure type: combined systolic and diastolic Heart failure chronicity: chronic Qualified Code(s): I50.42 - Chronic combined systolic ( congestive) and diastolic (congestive) heart failure (5) Diabetes mellitus Assessment/Plan: -uncontrolled -Endocrinology consult -insulin Novolog sliding scale -Levemir start at 14 units today, titrate up, to follow BGM trend -Consider alternative ways to replenish protein source, prosource, albumin IV? as pivot has a lot of carbs -BGM -RD consult Code(s): E11.9 - TYPE 2 DIABETES MELLITUS WITHOUT COMPLICATIONS Qualifiers: Diabetes mellitus type: type 2 Diabetes mellitus assisted insulin use: without assisted use Diabetes mellitus complication status: with circulatory complication Diabetes mellitus complication detail: with other circulatory complications Qualified Code(s): E11.59 - Type 2 diabetes mellitus with other circulatory complications (6) Fever Assessment/Plan: -repeat cultures pending acetaminophen for fever over 100.0 F ID on board off abx for now Code(s): R50.9 - FEVER, UNSPECIFIED daughter at bedside--discussed condition
[2017-12-05] MEDS ORDERED: SODIUM POLYSTYRENE SULFONATE 15 GM/60 ML BOTTLE PO ONE (10:10)
--- NOTE | 2017-12-05 10:12 | PN ---
Progress Note (short form) - Note Progress Note: PULMONARY/CCM Pt seen and examined in the ICU. Remains intubated, sedated. Persistently febrile, restarted on antibiotics per ID. Started on IVF yesterday for worsening renal failure but now oxygen requirements worsening with CXR more congested. BUN/Cr still rising Last Vital Signs Temp Pulse Resp BP Pulse Ox 99.6 F 102 H 25 H 124/48 98 12/05/17 08:00 12/05/17 08:00 12/05/17 08:00 12/05/17 08:00 12/04/17 21:00 Intake & Output 12/02/17 12/03/17 12/04/17 12/05/17 23:59 23:59 23:59 23:59 Intake Total 1697 1523 2284 1944 Output Total 928 700 200 100 Balance 753 310 4923 1844 Weight 93.576 kg 91.4 kg 94.376 kg 94.075 kg Gen: intubated, sedated Heart: RRR Lung: distant breath sounds Abd: soft, nontender Ext: trace edema Chest tube: minimal drainage, no air leak CBC, BMP 12/05/17 05:20 12/05/17 05:20 Active Medications Acetaminophen (Ofirmev Injection -) 1,000 mg IVPB Q6H PRN PRN Reason: FEVER Last Admin: 12/03/17 03:41 Dose: 1,000 mg Albuterol/Ipratropium (Duoneb -) 1 amp NEB RTID [facility] Last Admin: 12/05/17 08:10 Dose: 1 amp Amino Acids (Prosource No Carb Liquid Pkt) 30 ml PO BID@0800,1730 [facility] Last Admin: 12/05/17 08:25 Dose: 30 ml Aspirin (Asa -) 81 mg NGT DAILY [facility] Last Admin: 12/05/17 09:22 Dose: 81 mg Bacitracin (Bacitracin -) 1 applic TP BID [facility] Last Admin: 12/05/17 09:24 Dose: 1 applic Chlorhexidine Gluconate (Hibiclens For Decolonization -) 1 applic TP HS [facility] Last Admin: 12/04/17 21:41 Dose: 1 applic Chlorhexidine Gluconate (Peridex -) 15 ml MM BID [facility] Last Admin: 12/05/17 09:23 Dose: 15 ml Heparin Sodium (Porcine) (Heparin -) 5,000 unit SQ TID [facility] Last Admin: 12/05/17 06:19 Dose: 5,000 unit Propofol (Diprivan -) 1,000,000 mcg in 100 mls @ 0 mls/hr IVPB TITR IVON; 5 MCG/ KG/MIN PRN Reason: Protocol Last Titration: 12/05/17 06:19 Dose: 30 mcg/kg/min, 17.015 mls/hr Sodium Chloride (Normal Saline -) 1,000 mls @ 75 mls/hr IV ASDIR [facility] Last Admin: 12/04/17 10:30 Dose: 75 mls/hr Levofloxacin (Levaquin 750 Mg Premixed Ivpb -) 750 mg in 150 mls @ 100 mls/hr IVPB ONCE ONE Stop: 12/05/17 11:15 Levofloxacin (Levaquin 500 Mg Premixed Ivpb -) 500 mg in 100 mls @ 100 mls/hr IVPB Q2D@1000 IVON Insulin Aspart (Novolog Vial Sliding Scale -) 1 vial SQ Q4HPO [facility] PRN Reason: Protocol Last Admin: 12/05/17 09:21 Dose: 4 unit Insulin Detemir (Levemir Vial) 20 units SQ BIDI [facility] Last Admin: 12/05/17 06:22 Dose: 20 units Metoprolol Tartrate (Lopressor -) 25 mg NGT BID [facility] Last Admin: 12/05/17 09:22 Dose: 25 mg Pantoprazole Sodium (Protonix Iv) 40 mg IVPUSH DAILY [facility] Last Admin: 12/05/17 09:22 Dose: 40 mg A/P Acute on Chronic Hypoxic Respiratory Failure Left Pneumothorax s/p chest tube placement r/o Pneumonia Interstitial Lung Disease +Troponins likely Demand Ischemia HTN DM LV Diastolic Dysfunction Acute Kidney Injury Obstructive Sleep Apnea - lasix today - monitor urine output, creatinine - f/u urine eosinophils - antibiotics changed per ID - f/u cultures - keep PEEP 0 - taper FiO2 to keep SpO2 >90% - low tidal volume ventilation - not a candidate for weaning at this time - will need tracheostomy given severity of underlying lung disease and failure to wean - enteral feeds - DVT/GI prophylaxis - continue ICU monitoring - discussed with family at bedside critical care time spent in reviewing chart, evaluating patient and formulating plan 35 min
[2017-12-05] MEDS ORDERED: FUROSEMIDE 40 MG/4 ML INJECTABLE VIAL IVPUSH ONE (10:16)
[2017-12-05] MEDS ORDERED: FUROSEMIDE 40 MG/4 ML INJECTABLE VIAL ONE (10:19)
[2017-12-05] MEDS: SODIUM CHLORIDE 1,000 ML IV SCH (12:50)
--- NOTE | 2017-12-05 16:43 | PN ---
Progress Note (short form) - Note Progress Note: 77 yo F with h/o HTN, NIDDM, combined systolic and diastolic HF, pulmonary fibrosis, from [facility] with acute respiratory failure. on vent oliguric jennifer no response to IVF now congested lungs Current Medications Acetaminophen (Ofirmev Injection -) 1,000 mg IVPB Q6H PRN PRN Reason: FEVER Last Admin: 12/03/17 03:41 Dose: 1,000 mg Albuterol/Ipratropium (Duoneb -) 1 amp NEB RTID [facility] Last Admin: 12/05/17 14:20 Dose: 1 amp Amino Acids (Prosource No Carb Liquid Pkt) 30 ml PO BID@0800,1730 [facility] Last Admin: 12/05/17 08:25 Dose: 30 ml Aspirin (Asa -) 81 mg NGT DAILY [facility] Last Admin: 12/05/17 09:22 Dose: 81 mg Bacitracin (Bacitracin -) 1 applic TP BID [facility] Last Admin: 12/05/17 09:24 Dose: 1 applic Chlorhexidine Gluconate (Hibiclens For Decolonization -) 1 applic TP HS [facility] Last Admin: 12/04/17 21:41 Dose: 1 applic Chlorhexidine Gluconate (Peridex -) 15 ml MM BID [facility] Last Admin: 12/05/17 09:23 Dose: 15 ml Heparin Sodium (Porcine) (Heparin -) 5,000 unit SQ TID [facility] Last Admin: 12/05/17 14:06 Dose: 5,000 unit Propofol (Diprivan -) 1,000,000 mcg in 100 mls @ 0 mls/hr IVPB TITR IVON; 5 MCG/ KG/MIN PRN Reason: Protocol Last Admin: 12/05/17 14:14 Dose: 25 mcg/kg/min, 14.179 mls/hr Sodium Chloride (Normal Saline -) 1,000 mls @ 75 mls/hr IV ASDIR [facility] Last Admin: 12/05/17 12:50 Dose: Not Given Levofloxacin (Levaquin 500 Mg Premixed Ivpb -) 500 mg in 100 mls @ 100 mls/hr IVPB Q2D@1000 VION Insulin Aspart (Novolog Vial Sliding Scale -) 1 vial SQ Q4HPO IVON PRN Reason: Protocol Last Admin: 12/05/17 14:12 Dose: 8 unit Insulin Detemir (Levemir Vial) 20 units SQ BIDI [facility] Last Admin: 12/05/17 06:22 Dose: 20 units Metoprolol Tartrate (Lopressor -) 25 mg NGT BID [facility] Last Admin: 12/05/17 09:22 Dose: 25 mg Pantoprazole Sodium (Protonix Iv) 40 mg IVPUSH DAILY [facility] Last Admin: 12/05/17 09:22 Dose: 40 mg Last Vital Signs Temp Pulse Resp BP Pulse Ox 99.3 F 106 H 26 H 97/41 93 L 12/05/17 14:00 12/05/17 14:00 12/05/17 14:40 12/05/17 14:00 12/05/17 10:00 on vent sedated vs noted NGT and feeding in progress lungs vented sounds heart reg abd soft Ext mod edema CBC, BMP 12/05/17 05:20 12/05/17 05:20 Sodium 135 L Potassium 5.8 H BUN 140 H* D Creatinine 4.9 H Calcium 8.2 L Phosphorus 6.0 H Magnesium 2.6 H Albumin 1.5 L IMP- acute resp failure on vent for trach in am oliguric jennifer Hyperkalemia Hypermagnesemia Hyperphosphatemia PLAN daughter and son at bedside were explained the situation we discussed imminent need for [employer] and they agree to starting hemodialysis after the pros and cons of the treatment were reviewed see hemodialysis orders
[2017-12-05 17:04] LABS: ANION GAP 14 (8-16); CALCIUM 7.9 mg/dL (8.5-10.1); CHLORIDE 100 mmol/L (98-107); CO2 19 mmol/L (21-32); SODIUM 133 mmol/L (136-145)
[2017-12-05 17:16] LABS: BLOOD UREA NITROGEN 142 mg/dL (7-18); GLUCOSE,RANDOM 299 mg/dL (74-106)
[2017-12-05 17:17] LABS: CREATININE 5.5 mg/dL (0.55-1.02); POTASSIUM 6.3 mmol/L (3.5-5.1)
[2017-12-05 19:11] LABS: ARTERIAL BLD GAS O2 SATURATION 92.8 % (90-98.9); ARTERIAL BLOOD GAS BASE EXCESS -9.5 meq/l (-2-2); ARTERIAL BLOOD GAS PCO2 52.4 mmHg (35-45); ARTERIAL BLOOD GAS PO2 75.6 mmHg (70-100); ARTERIAL BLOOD GAS pH 7.17 (7.35-7.45)
[2017-12-05 19:13] LABS: ALLENS TEST POSITIVE
[2017-12-05] MEDS ORDERED: SODIUM CHLORIDE 500 ML IV STA (21:01)
[2017-12-05] MEDS: CHLORHEXIDINE GLUCONATE 4% CLEANSER FOR DECOLONIZATION TP SCH (22:46)
--- NOTE | 2017-12-05 23:01 | PROC ---
Procedure Note Procedure: Consent for central cath signed. Rt neck prepped with chlorhexidene , 5cc 1% lidocaine injected. Rt IJ trialysis cath inserted using Seldinger technique. pt on propofol drip for procedre, tolerated procedure well. Placement verified by CXR. No pneumothorax noted.
[2017-12-06] MEDS: INSULIN SLIDING SCALE (NOVOLOG) 1 VIAL SQ SCH ×7 (00:21→22:37)
[2017-12-06] MEDS ORDERED: NOREPINEPHRINE BITARTRATE 4 MG/4 ML ML IV ONE (00:36)
[2017-12-06] MEDS: NOREPINEPHRINE BITARTRATE 8,000 MCG in DEXTROSE 5%-WATER - 492 ML IV SCH ×2 (00:40→20:00)
[2017-12-06] MEDS: HEPARIN NA (PORCINE) 5,000 UNITS/ML 1ML VIAL SQ SCH ×3 (05:10→22:03)
--- NOTE | 2017-12-06 06:00 | PN ---
Progress Note (short form) - Note Progress Note: Ms Carson now with progressively worsening CHRISTOPHER, metabolic acidosis and fluid overload. Also with worsening hyperkalemia refractory to medical management. Overnight desaturated and FiO2 on vent up to 100%. Seen by assistant buyer Dr Ya. Rt IJ Trialysis cath placed. iHD done. Levophed drip 5mcg/min started for hypotension during HD. Able to remove 2L fluid. Levophed weaned to 2mcg/ min. FiO2 to 70%. Post HD labs are pending. Of note Rt fem catherization was unsuccessful. No hematoma noted at femoral site. CBC,CMP WBC 10.8 K/mm3 (4.0-10.0) H 12/05/17 05:20 RBC 3.49 M/mm3 (3.60-5.2) L 12/05/17 05:20 Hgb 9.7 GM/dL (10.7-15.3) L 12/05/17 05:20 Hct 29.4 % (32.4-45.2) L 12/05/17 05:20 MCV 84.2 fl (80-96) 12/05/17 05:20 MCH 27.7 pg (25.7-33.7) 12/05/17 05:20 MCHC 32.9 g/dl (32.0-36.0) 12/05/17 05:20 RDW 19.8 % (11.6-15.6) H 12/05/17 05:20 Plt Count 199 K/MM3 (134-434) 12/05/17 05:20 MPV 9.2 fl (7.5-11.1) 12/05/17 05:20 Neutrophils % 63.8 % (42.8-82.8) 12/05/17 05:20 Neutrophils % (Manual) 50.5 % (42.8-82.8) D 12/04/17 05:35 Band Neutrophils % 21.0 % 12/04/17 05:35 Lymphocytes % 21.3 % (8-40) D 12/05/17 05:20 Lymphocytes % (Manual) 17.9 % (8-40) D 12/04/17 05:35 Monocytes % 9.1 % (3.8-10.2) 12/05/17 05:20 Monocytes % (Manual) 5 % (3.8-10.2) 12/04/17 05:35 Eosinophils % 5.1 % (0-4.5) H 12/05/17 05:20 Eosinophils % (Manual) 1.0 % (0-4.5) D 12/04/17 05:35 Basophils % 0.7 % (0-2.0) 12/05/17 05:20 Basophils % (Manual) 0.0 % (0-2.0) 12/04/17 05:35 Myelocytes % (Man) 1 % (0-2) D 12/04/17 05:35 Promyelocytes % (Man) 0 % (0-2) 12/04/17 05:35 Blast Cells % (Manual) 0 % (0-0) 12/04/17 05:35 Nucleated RBC % 2 % (0-0) H 12/04/17 05:35 Metamyelocytes 0 % (0-2) 12/04/17 05:35 Hypochromia 0 11/25/17 21:44 Platelet Estimate Normal 12/04/17 05:35 Polychromasia 0 11/25/17 21:44 Poikilocytosis 0 11/25/17 21:44 Anisocytosis 1+ 11/25/17 21:44 Microcytosis 0 11/25/17 21:44 Macrocytosis 0 11/25/17 21:44 Sodium 133 mmol/L (136-145) L 12/05/17 15:50 Potassium 6.3 mmol/L (3.5-5.1) H* 12/05/17 15:50 Chloride 100 mmol/L (98-107) 12/05/17 15:50 Carbon Dioxide 19 mmol/L (21-32) L 12/05/17 15:50 Anion Gap 14 (8-16) 12/05/17 15:50 BUN 142 mg/dL (7-18) H* 12/05/17 15:50 Creatinine 5.5 mg/dL (0.55-1.02) H 12/05/17 15:50 Creat Clearance w eGFR 8.59 (>60) 12/05/17 05:20 POC Glucometer 196.21110 UNITS (80-120) 12/06/17 05:08 Random Glucose 299 mg/dL (74-106) H 12/05/17 15:50 Hemoglobin A1c % 9.5 % (4.8-6.0) H 11/27/17 05:50 Lactic Acid 1.7 mmol/L (0.0-2.0) 11/26/17 08:10 Calcium 7.9 mg/dL (8.5-10.1) L 12/05/17 15:50 Phosphorus 6.0 mg/dL (2.5-4.9) H 12/05/17 05:20 Magnesium 2.6 mg/dL (1.8-2.4) H 12/05/17 05:20 Total Bilirubin 0.4 mg/dL (0.2-1.0) D 12/05/17 05:20 AST 32 U/L (15-37) 12/05/17 05:20 ALT 24 U/L (12-78) 12/05/17 05:20 Alkaline Phosphatase 75 U/L (45-117) 12/05/17 05:20 Creatine Kinase 85 IU/L (26-192) 11/27/17 05:50 Troponin I 0.25 ng/ml (0.00-0.05) H 11/27/17 05:50 B-Natriuretic Peptide 240.71 pg/ml (5-450) 11/25/17 21:44 Total Protein 5.5 g/dl (6.4-8.2) L 12/05/17 05:20 Albumin 1.5 g/dl (3.4-5.0) L 12/05/17 05:20 ABG Results ABG pH 7.17 (7.35-7.45) L* D 12/05/17 18:40 ABG pCO2 at Pt Temp 52.4 mmHg (35-45) H 12/05/17 18:40 ABG pO2 at Pt Temp 75.6 mmHg (70-100) D 12/05/17 18:40 ABG HCO3 18.5 meq/L (22-26) L 12/05/17 18:40 ABG O2 Sat (Measured) 92.8 % (90-98.9) 12/05/17 18:40 ABG O2 Content 13.4 % vol (15-22) L 12/05/17 18:40 ABG Base Excess -9.5 meq/l (-2-2) L 12/05/17 18:40 dory Samuel, ACNP CC time 45mins
[2017-12-06 06:03] LABS: BASO % 0.6 % (0-2.0); EOS % 2.4 % (0-4.5); HEMATOCRIT 27.1 % (32.4-45.2); HEMOGLOBIN 9.1 GM/dL (10.7-15.3); LYMPH % 12.9 % (8-40); MCH 27.4 pg (25.7-33.7); MCHC 33.5 g/dl (32.0-36.0); MEAN CELL VOLUME 81.8 fl (80-96); MEAN PLT VOLUME 9.2 fl (7.5-11.1); MONO % 7.8 % (3.8-10.2); NEUT % 76.3 % (42.8-82.8); PLATELET COUNT 224 K/MM3 (134-434); RBC 3.31 M/mm3 (3.60-5.2); RDW 18.8 % (11.6-15.6); WHITE BLOOD COUNT 8.1 K/mm3 (4.0-10.0)
[2017-12-06 06:18] LABS: INR 1.19 (0.82-1.09); PROTHROMBIN TIME (PATIENT) 13.4 SEC (9.98-11.88)
[2017-12-06 06:19] LABS: ACTIVATED PTT 32.6 SECONDS (26.9-34.4)
[2017-12-06 06:25] LABS: ALBUMIN 1.4 g/dl (3.4-5.0); ANION GAP 10 (8-16); BILIRUBIN,TOTAL 0.3 mg/dL (0.2-1.0); BLOOD UREA NITROGEN 85 mg/dL (7-18); CALCIUM 7.4 mg/dL (8.5-10.1); CHLORIDE 103 mmol/L (98-107); CO2 28 mmol/L (21-32); CREATININE 3.5 mg/dL (0.55-1.02); GLUCOSE,RANDOM 178 mg/dL (74-106); MAGNESIUM 2.1 mg/dL (1.8-2.4); PHOSPHOROUS 5.8 mg/dL (2.5-4.9); POTASSIUM 3.8 mmol/L (3.5-5.1); SGOT/AST 37 U/L (15-37); SGPT/ALT 24 U/L (12-78); SODIUM 141 mmol/L (136-145); TOT PROT 5.6 g/dl (6.4-8.2)
[2017-12-06 06:26] LABS: ALK PHOS 71 U/L (45-117)
[2017-12-06 06:45] LABS: ARTERIAL BLD GAS O2 SATURATION 92.3 % (90-98.9); ARTERIAL BLOOD GAS BASE EXCESS -1.1 meq/l (-2-2); ARTERIAL BLOOD GAS PCO2 57.4 mmHg (35-45); ARTERIAL BLOOD GAS PO2 69.2 mmHg (70-100); ARTERIAL BLOOD GAS pH 7.28 (7.35-7.45)
[2017-12-06 06:51] LABS: ALLENS TEST POSITIVE
[2017-12-06] MEDS: INSULIN (LEVEMIR) 100 UNITS/ML UNITS SQ SCH ×2 (07:37→17:22)
--- NOTE | 2017-12-06 07:43 | PN ---
Progress Note, Physician Chief Complaint: ID Levofloxacin started yesterday Concern re eosinophilia Now on 80 % FIO2 and initiated dialysis overnight Pressors down overnight - Current Medication List Current Medications: Active Medications Acetaminophen (Ofirmev Injection -) 1,000 mg IVPB Q6H PRN PRN Reason: FEVER Last Admin: 12/03/17 03:41 Dose: 1,000 mg Albuterol/Ipratropium (Duoneb -) 1 amp NEB RTID [facility] Last Admin: 12/05/17 20:14 Dose: 1 amp Amino Acids (Prosource No Carb Liquid Pkt) 30 ml PO BID@0800,1730 [facility] Last Admin: 12/05/17 17:37 Dose: 30 ml Aspirin (Asa -) 81 mg NGT DAILY [facility] Last Admin: 12/05/17 09:22 Dose: 81 mg Bacitracin (Bacitracin -) 1 applic TP BID [facility] Last Admin: 12/05/17 22:45 Dose: 1 applic Chlorhexidine Gluconate (Hibiclens For Decolonization -) 1 applic TP HS [facility] Last Admin: 12/05/17 22:46 Dose: 1 applic Chlorhexidine Gluconate (Peridex -) 15 ml MM BID [facility] Last Admin: 12/05/17 22:46 Dose: 15 ml Heparin Sodium (Porcine) (Heparin -) 5,000 unit SQ TID [facility] Last Admin: 12/06/17 05:10 Dose: 5,000 unit Propofol (Diprivan -) 1,000,000 mcg in 100 mls @ 0 mls/hr IVPB TITR IVON; 5 MCG/ KG/MIN PRN Reason: Protocol Last Admin: 12/05/17 23:15 Dose: Not Given Sodium Chloride (Normal Saline -) 1,000 mls @ 75 mls/hr IV ASDIR [facility] Last Admin: 12/05/17 12:50 Dose: Not Given Levofloxacin (Levaquin 500 Mg Premixed Ivpb -) 500 mg in 100 mls @ 100 mls/hr IVPB Q2D@1000 IVON Norepinephrine Bitartrate 8, (000 mcg/ Dextrose) 500 mls @ 18.75 mls/hr IV TITR IVON; 5 MCG/MIN PRN Reason: Protocol Last Admin: 12/06/17 00:40 Dose: 5 mcg/min, 18.75 mls/hr Insulin Aspart (Novolog Vial Sliding Scale -) 1 vial SQ Q4HPO [facility] PRN Reason: Protocol Last Admin: 12/06/17 05:11 Dose: 4 unit Insulin Detemir (Levemir Vial) 20 units SQ BIDI [facility] Last Admin: 12/05/17 16:32 Dose: 20 units Metoprolol Tartrate (Lopressor -) 25 mg NGT BID [facility] Last Admin: 12/05/17 22:46 Dose: 25 mg Pantoprazole Sodium (Protonix Iv) 40 mg IVPUSH DAILY [facility] Last Admin: 12/05/17 09:22 Dose: 40 mg - Objective Vital Signs: Vital Signs Temperature 98.6 F 12/06/17 05:43 Pulse Rate 98 H 12/06/17 05:43 Respiratory Rate 28 H 12/06/17 05:43 Blood Pressure 120/53 12/06/17 05:43 O2 Sat by Pulse Oximetry (%) 97 12/05/17 22:00 Constitutional: Yes: No Distress Neck: Yes: WNL, Supple Cardiovascular: Yes: S1, S2 Respiratory: Yes: WNL, Regular, CTA Bilaterally, Rhonchi Gastrointestinal: Yes: Soft, Distention Labs: CBC, BMP 12/06/17 05:00 12/06/17 05:00 INR, PTT INR 1.19 (0.82-1.09) H 12/06/17 05:00 Assessment/Plan Laboratory Tests 12/06/17 12/06/17 12/06/17 05:00 05:00 05:00 WBC 8.1 Hgb 9.1 L Hct 27.1 L Plt Count 224 INR 1.19 H Creat Clearance w eGFR 12.67 Assessment Sepsis syndrome Respiratory failure Acute kidney injury now on dialysis Pulmonary fibrosis by history Superimposed PNA Chest tube for pneumothorax Pseudomonas in sputum now on Levoflox Plan Antibiotic management as ordered and based on sensitivity Sera GONSALEZ
--- NOTE | 2017-12-06 08:05 | CONSULT ---
Consult Consult Specialty:: Thoracic Surgery Referred by:: ICU Reason for Consultation:: Tracheostomy - History of Present Illness Chief Complaint: Respiratory failure History of Present Illness: 77F with ESRD, pulmonary fibrosis, and DM p/w respiratory failure, ptx, s/p chest tube. Intubated and failing to wean. ICU requests tracheostomy. - History Source History Provided By: Medical Record - Past Medical History Cardio/Vascular: Yes: HTN Pulmonary: Yes: Pulmonary Fibrosis Renal/: Yes: Renal Failure Endocrine: Yes: Diabetes Mellitus - Past Surgical History Past Surgical History: Yes: Joint Replacement - Alcohol/Substance Use Hx Alcohol Use: No History of Substance Use: reports: None - Smoking History Smoking history: Never smoked - Social History Usual Living Arrangement: Residential Home Medications - Allergies Allergies/Adverse Reactions: Allergies Allergy/AdvReac Type Severity Reaction Status Date / Time No Known Allergies Allergy Verified 11/26/17 00:41 - Home Medications Home Medications: Ambulatory Orders Albuterol Sulfate Inhaler - [Ventolin HFA Inhaler -] 1 - 2 inh PO QID 11/01/17 Amlodipine Besylate [Norvasc -] 5 mg PO DAILY 11/01/17 Fluticasone Propionate [Flovent Hfa] 110 mcg IH DAILY 11/01/17 Furosemide [Lasix -] 20 mg PO DAILY 11/01/17 Glipizide 10 mg PO BID 11/01/17 Omeprazole 40 mg PO DAILY 11/01/17 Sitagliptin Phosphate [Januvia] 50 mg PO DAILY 11/01/17 Amox-Tr/K Cl [Augmentin 875-125mg Tablet -] 1 tab PO BID@0800,1730 #10 tablet Losartan Potassium [Cozaar -] 50 mg PO DAILY #30 tablet 11/07/17 Prednisone 10 mg PO DAILY #30 tab.ds.pk 11/07/17 Family Disease History - Family Disease History Family Disease History: CA: Mother (Colon), Sister (Pancreatic CA) Review of Systems - Review of Systems Constitutional: reports: Malaise Eyes: reports: No Symptoms Cardiovascular: reports: Shortness of Breath Respiratory: reports: SOB Physical Exam Vital Signs: Vital Signs Temperature 98.6 F 12/06/17 05:43 Pulse Rate 98 H 12/06/17 05:43 Respiratory Rate 28 H 12/06/17 05:43 Blood Pressure 120/53 12/06/17 05:43 O2 Sat by Pulse Oximetry (%) 97 12/05/17 22:00 Labs: CBC, BMP 12/06/17 05:00 12/06/17 05:00 Imaging - Results Chest X-ray: Report Reviewed, Image Reviewed Problem List - Problems (1) Respiratory distress Code(s): R06.03 - ACUTE RESPIRATORY DISTRESS Assessment/Plan Respiratory failure secondary to IPF, now with renal failure, oxygen requirements ~90% to maintain low 90's: -Currently not weanable, rather increasing oxygen requirements and cannot decrease sedation; -Recommend waiting for tracheostomy until some improvement although prognosis poor.
[2017-12-06] MEDS: AMINO ACIDS/PROTEIN HYDROLYS 30 ML LIQUID.PKT PO SCH ×2 (08:16→17:22)
[2017-12-06] MEDS: ALBUTEROL SO4 2.5/IPRATROPIUM 0.5 INH SOL 3 ML VIAL.NEB. NEB SCH ×3 (08:37→21:45)
--- NOTE | 2017-12-06 09:33 | PN ---
Progress Note, Physician History of Present Illness: Restarted on antibiotics and started on HD for progressive renal failure, volume overload with increased O2 requirements, metabolic acidosis and hyperkalemia - Current Medication List Current Medications: Active Medications Acetaminophen (Ofirmev Injection -) 1,000 mg IVPB Q6H PRN PRN Reason: FEVER Last Admin: 12/03/17 03:41 Dose: 1,000 mg Albuterol/Ipratropium (Duoneb -) 1 amp NEB RTID [facility] Last Admin: 12/06/17 08:37 Dose: 1 amp Amino Acids (Prosource No Carb Liquid Pkt) 30 ml PO BID@0800,1730 [facility] Last Admin: 12/06/17 08:16 Dose: 30 ml Aspirin (Asa -) 81 mg NGT DAILY [facility] Last Admin: 12/05/17 09:22 Dose: 81 mg Bacitracin (Bacitracin -) 1 applic TP BID [facility] Last Admin: 12/05/17 22:45 Dose: 1 applic Chlorhexidine Gluconate (Hibiclens For Decolonization -) 1 applic TP HS [facility] Last Admin: 12/05/17 22:46 Dose: 1 applic Chlorhexidine Gluconate (Peridex -) 15 ml MM BID [facility] Last Admin: 12/05/17 22:46 Dose: 15 ml Heparin Sodium (Porcine) (Heparin -) 5,000 unit SQ TID [facility] Last Admin: 12/06/17 05:10 Dose: 5,000 unit Propofol (Diprivan -) 1,000,000 mcg in 100 mls @ 0 mls/hr IVPB TITR IVON; 5 MCG/ KG/MIN PRN Reason: Protocol Last Admin: 12/05/17 23:15 Dose: Not Given Sodium Chloride (Normal Saline -) 1,000 mls @ 75 mls/hr IV ASDIR [facility] Last Admin: 12/05/17 12:50 Dose: Not Given Levofloxacin (Levaquin 500 Mg Premixed Ivpb -) 500 mg in 100 mls @ 100 mls/hr IVPB Q2D@1000 IVON Norepinephrine Bitartrate 8, (000 mcg/ Dextrose) 500 mls @ 18.75 mls/hr IV TITR IVON; 5 MCG/MIN PRN Reason: Protocol Last Admin: 12/06/17 00:40 Dose: 5 mcg/min, 18.75 mls/hr Insulin Aspart (Novolog Vial Sliding Scale -) 1 vial SQ Q4HPO [facility] PRN Reason: Protocol Last Admin: 12/06/17 05:11 Dose: 4 unit Insulin Detemir (Levemir Vial) 20 units SQ BIDI [facility] Last Admin: 12/06/17 07:37 Dose: 20 units Metoprolol Tartrate (Lopressor -) 25 mg NGT BID [facility] Last Admin: 12/05/17 22:46 Dose: 25 mg Pantoprazole Sodium (Protonix Iv) 40 mg IVPUSH DAILY [facility] Last Admin: 12/05/17 09:22 Dose: 40 mg - Objective Vital Signs: Vital Signs Temperature 99.9 F H 12/06/17 08:00 Pulse Rate 103 H 12/06/17 08:00 Respiratory Rate 26 H 12/06/17 08:31 Blood Pressure 117/54 12/06/17 08:00 O2 Sat by Pulse Oximetry (%) 92 L 12/06/17 08:05 Constitutional: Yes: No Distress, Calm Neck: Yes: Supple Cardiovascular: Yes: Regular Rate and Rhythm Respiratory: Yes: Mechanically Ventilated Gastrointestinal: Yes: Normal Bowel Sounds, Soft, Abdomen, Obese Edema: Yes Labs: CBC, BMP 12/06/17 05:00 12/06/17 05:00 INR, PTT INR 1.19 (0.82-1.09) H 12/06/17 05:00 - ....Imaging Chest X-ray: Report Reviewed (Congestion) Problem List - Problems (1) DVT prophylaxis Code(s): AEP2253 - (2) Hemothorax on left Code(s): J94.2 - HEMOTHORAX (3) Pulmonary fibrosis Code(s): J84.10 - PULMONARY FIBROSIS, UNSPECIFIED (4) Acute respiratory failure with hypoxemia Code(s): J96.01 - ACUTE RESPIRATORY FAILURE WITH HYPOXIA (5) Demand ischemia Code(s): I24.8 - OTHER FORMS OF ACUTE ISCHEMIC HEART DISEASE (6) Diabetes mellitus Code(s): E11.9 - TYPE 2 DIABETES MELLITUS WITHOUT COMPLICATIONS Qualifiers: Diabetes mellitus type: type 2 Diabetes mellitus group home insulin use: without terminal system operator use Diabetes mellitus complication status: with circulatory complication Diabetes mellitus complication detail: with other circulatory complications Qualified Code(s): E11.59 - Type 2 diabetes mellitus with other circulatory complications (7) Diastolic dysfunction without heart failure Code(s): I51.9 - HEART DISEASE, UNSPECIFIED (8) HTN (hypertension) Code(s): I10 - ESSENTIAL (PRIMARY) HYPERTENSION Qualifiers: Hypertension type: essential hypertension Qualified Code(s): I10 - Essential (primary) hypertension (9) PNA (pneumonia) Code(s): J18.9 - PNEUMONIA, UNSPECIFIED ORGANISM (10) Septic shock Code(s): A41.9 - SEPSIS, UNSPECIFIED ORGANISM; R65.21 - SEVERE SEPSIS WITH SEPTIC SHOCK (11) [id number] kidney injury Code(s): N17.9 - ACUTE KIDNEY FAILURE, UNSPECIFIED; N18.9 - CHRONIC KIDNEY DISEASE, UNSPECIFIED Assessment/Plan 11/02/2017 Echo: Mild LVH, normal biventricular size and fxn, mild TR, RVSP 32 mmHG 11/03/[address]: Extensive interstitial lung disease with likely acute diffuse pneumonitis most prominent RUL 1. Acute on chronic hypoxemic respiratory failure with underlying pulmonary fibrosis/ILD, spontaneous left PTX post chest tube and possible hospital- acquired PNA with septic shock 2. Mildly elevated troponin due to demand ischemia - secondary to above 3. Diabetes mellitus 4. Hypertension 5. Diastolic dysfunction 6. OSAS suspect 7. Acute on CKD with hyperkalemia on hemodialysis 8. Anemia PLAN: 1. Vent wean as tolerated, sedation holiday, plan for tracheostomy once clinically more stable 2. Continue abx course per C&S, BD, enteral feeds 3. Wean Levophed gtt to maintain MAP>65 mmHg, d/c IVF, hold Lopressor 25 bid pending hemodynamic stability. Hold losartan 25 qd and Lasix 20 po qd pending renal fxn stabilization 4. DVT and GI prophylaxis
[2017-12-06] MEDS: BACITRACIN 15 GM TUBE TOPICAL OINTMENT TP SCH ×2 (09:59→22:03)
[2017-12-06] MEDS: ASPIRIN 81 MG CHEWABLE TABLETS NGT SCH (10:00)
[2017-12-06] MEDS: CHLORHEXIDINE GLUCONATE 0.12% 15ML CUP MM SCH ×2 (10:00→22:04)
[2017-12-06] MEDS: PANTOPRAZOLE SODIUM 40 MG VIAL IVPUSH SCH (10:00)
[2017-12-06] MEDS: PROPOFOL 1,000,000 MCG/100 ML VIAL IVPB SCH ×4 (10:11→22:37)
[2017-12-06] MEDS ORDERED: SODIUM CHLORIDE 250 ML IV PRN (11:18)
--- NOTE | 2017-12-06 11:23 | PN ---
Progress Note (short form) - Note Progress Note: Renal follow up for CHRISTOPHER Pt seen and examined in the ICU on Vent, FiO2 90% remains oliguric s/p emergent dialysis yesterday evening on Levophed Family at the bedside Vital Signs Temperature 99.3 F 12/06/17 10:00 Pulse Rate 102 H 12/06/17 10:22 Respiratory Rate 29 H 12/06/17 10:00 Blood Pressure 100/51 12/06/17 10:00 O2 Sat by Pulse Oximetry (%) 95 12/06/17 10:22 Intake & Output 12/03/17 12/04/17 12/05/17 12/06/17 23:59 23:59 23:59 23:59 Intake Total 1523 2284 3111.2 1125 Output Total 700 200 152 36 Balance 823 2084 2959.2 1089 Weight 91.4 kg 94.376 kg 94.075 kg 94.376 kg NAD, on vent MMM, No JVD, Neck supple RRR, No M/R Dec Bs at lung bases, no overt rales soft NT/ND No LE edema, clubbing or cyanosis. Extremities as warm. CBC, BMP 12/06/17 05:00 12/06/17 05:00 Current Medications Acetaminophen (Ofirmev Injection -) 1,000 mg IVPB Q6H PRN PRN Reason: FEVER Last Admin: 12/03/17 03:41 Dose: 1,000 mg Albumin Human (Albumin Human 25%) 12.5 gm IVPB Q30M [facility] Albuterol/Ipratropium (Duoneb -) 1 amp NEB RTID [facility] Last Admin: 12/06/17 08:37 Dose: 1 amp Amino Acids (Prosource No Carb Liquid Pkt) 30 ml PO BID@0800,1730 [facility] Last Admin: 12/06/17 08:16 Dose: 30 ml Aspirin (Asa -) 81 mg NGT DAILY [facility] Last Admin: 12/06/17 10:00 Dose: 81 mg Bacitracin (Bacitracin -) 1 applic TP BID [facility] Last Admin: 12/06/17 09:59 Dose: 1 applic Chlorhexidine Gluconate (Hibiclens For Decolonization -) 1 applic TP HS [facility] Last Admin: 12/05/17 22:46 Dose: 1 applic Chlorhexidine Gluconate (Peridex -) 15 ml MM BID [facility] Last Admin: 12/06/17 10:00 Dose: 15 ml Heparin Sodium (Porcine) (Heparin -) 5,000 unit SQ TID [facility] Last Admin: 12/06/17 05:10 Dose: 5,000 unit Propofol (Diprivan -) 1,000,000 mcg in 100 mls @ 0 mls/hr IVPB TITR IVON; 5 MCG/ KG/MIN PRN Reason: Protocol Last Admin: 12/06/17 10:11 Dose: 30 mcg/kg/min, 17.015 mls/hr Levofloxacin (Levaquin 500 Mg Premixed Ivpb -) 500 mg in 100 mls @ 100 mls/hr IVPB Q2D@1000 IVON Norepinephrine Bitartrate 8, (000 mcg/ Dextrose) 500 mls @ 18.75 mls/hr IV TITR IVON; 5 MCG/MIN PRN Reason: Protocol Last Admin: 12/06/17 00:40 Dose: 5 mcg/min, 18.75 mls/hr Famotidine/Sodium Chloride (Pepcid 20 Mg Premixed Ivpb -) 20 mg in 50 mls @ 100 mls/hr IVPB BID IVON Sodium Chloride (Normal Saline -) 250 mls @ 3,000 mls/hr IV PRN PRN PRN Reason: Hypotension during Dialysis Stop: 12/07/17 11:18 Insulin Aspart (Novolog Vial Sliding Scale -) 1 vial SQ Q4HPO [facility] PRN Reason: Protocol Last Admin: 12/06/17 09:59 Dose: 4 unit Insulin Detemir (Levemir Vial) 20 units SQ BIDI [facility] Last Admin: 12/06/17 07:37 Dose: 20 units 77 yo F with h/o HTN, NIDDM, combined systolic and diastolic HF, pulmonary fibrosis, presented from [facility] with acute respiratory failure. #CHRISTOPHER on CKD likely secondary to renal hyprofusion/relative hypotension in setting of ARB #Proteinuria #Respiratory FAilure on Vent #Punmothorax #Hx of Hypertension #CHF Urine studies done on 12/03 consistent with pre-renal injury and tubular porteinuria Renal function unfortunately worsening over the weekend and now requires dialysis will plan for 2nd session of dialysis today with attempted 2kg UF if tolerated as CXR with more congestion and pt with very high FiO2 requirements Repeat FeNa, FeUrea today Give Trial of IV Lasix 4-6 hours after dialysis if pt remains oliguric prognosis is poor continue vent support continue Abx Moisés Longoria DO
--- NOTE | 2017-12-06 11:34 | EKG ---
Test Reason : Blood Pressure : / mmHG Vent. Rate : 105 BPM Atrial Rate : 105 BPM P-R Int : 194 ms QRS Dur : 084 ms QT Int : 314 ms P-R-T Axes : 028 -18 001 degrees QTc Int : 415 ms SINUS TACHYCARDIA MODERATE VOLTAGE CRITERIA FOR LVH, MAY BE NORMAL VARIANT BORDERLINE ECG WHEN COMPARED WITH ECG OF 25-NOV-2017 22:01, T WAVE VARIATION Confirmed by ALEJANDRA SAN MD [id number]) on 12/06/2017 11:34:00 AM Referred By: Confirmed By:ALEJANDRA SAN MD
--- NOTE | 2017-12-06 12:31 | PN ---
Teaching Attending Note Name of Resident: Miles Cole ATTENDING PHYSICIAN STATEMENT I saw and evaluated the patient. I reviewed the resident's note and discussed the case with the resident. I agree with the resident's findings and plan as documented. SUBJECTIVE: Patient seen and examined in the ICU. Remains intubated, sedated. FiO2 requirement 90%. NE for hemodynamic support. CXR: increasing bilateral infiltrates Intake & Output 12/03/17 12/04/17 12/05/17 12/06/17 23:59 23:59 23:59 23:59 Intake Total 1523 2284 3111.2 1125 Output Total 700 200 152 36 Balance 823 2084 2959.2 1089 Weight 201 lb 8.04 oz 208 lb 1 oz 207 lb 6.4 oz 208 lb 1 oz Last Vital Signs Temp Pulse Resp BP Pulse Ox 99.3 F 102 H 31 H 100/51 95 12/06/17 10:00 12/06/17 10:22 12/06/17 11:30 12/06/17 10:00 12/06/17 10:22 Active Medications Acetaminophen (Ofirmev Injection -) 1,000 mg IVPB Q6H PRN PRN Reason: FEVER Last Admin: 12/03/17 03:41 Dose: 1,000 mg Albumin Human (Albumin Human 25%) 12.5 gm IVPB Q30M IVON Stop: 12/06/17 13:01 Albuterol/Ipratropium (Duoneb -) 1 amp NEB RTID [facility] Last Admin: 12/06/17 08:37 Dose: 1 amp Amino Acids (Prosource No Carb Liquid Pkt) 30 ml PO BID@0800,1730 [facility] Last Admin: 12/06/17 08:16 Dose: 30 ml Aspirin (Asa -) 81 mg NGT DAILY [facility] Last Admin: 12/06/17 10:00 Dose: 81 mg Bacitracin (Bacitracin -) 1 applic TP BID [facility] Last Admin: 12/06/17 09:59 Dose: 1 applic Chlorhexidine Gluconate (Hibiclens For Decolonization -) 1 applic TP HS [facility] Last Admin: 12/05/17 22:46 Dose: 1 applic Chlorhexidine Gluconate (Peridex -) 15 ml MM BID [facility] Last Admin: 12/06/17 10:00 Dose: 15 ml Furosemide (Lasix Injection -) 80 mg IVPUSH ONCE ONE Stop: 12/06/17 20:01 Heparin Sodium (Porcine) (Heparin -) 5,000 unit SQ TID IVON Last Admin: 12/06/17 05:10 Dose: 5,000 unit Propofol (Diprivan -) 1,000,000 mcg in 100 mls @ 0 mls/hr IVPB TITR IVON; 5 MCG/ KG/MIN PRN Reason: Protocol Last Admin: 12/06/17 10:11 Dose: 30 mcg/kg/min, 17.015 mls/hr Levofloxacin (Levaquin 500 Mg Premixed Ivpb -) 500 mg in 100 mls @ 100 mls/hr IVPB Q2D@1000 IVON Norepinephrine Bitartrate 8, (000 mcg/ Dextrose) 500 mls @ 18.75 mls/hr IV TITR IVON; 5 MCG/MIN PRN Reason: Protocol Last Admin: 12/06/17 00:40 Dose: 5 mcg/min, 18.75 mls/hr Famotidine/Sodium Chloride (Pepcid 20 Mg Premixed Ivpb -) 20 mg in 50 mls @ 100 mls/hr IVPB BID IVON Sodium Chloride (Normal Saline -) 250 mls @ 3,000 mls/hr IV PRN PRN PRN Reason: Hypotension during Dialysis Stop: 12/07/17 11:18 Insulin Aspart (Novolog Vial Sliding Scale -) 1 vial SQ Q4HPO IVON PRN Reason: Protocol Last Admin: 12/06/17 09:59 Dose: 4 unit Insulin Detemir (Levemir Vial) 20 units SQ BIDI IVON Last Admin: 12/06/17 07:37 Dose: 20 units Gen: intubated, sedated Heart: RRR Lung: distant breath sounds Abd: soft, nontender Ext: trace edema Chest tube: minimal drainage, no air leak Laboratory Results - last 24 hr 12/03/17 12/04/17 12/04/17 21:38 01:22 05:37 WBC RBC Hgb Hct MCV MCH MCHC RDW Plt Count MPV Neutrophils % Lymphocytes % Monocytes % Eosinophils % Basophils % PT with INR INR PTT (Actin FS) Puncture Site ABG pH ABG pCO2 at Pt Temp ABG pO2 at Pt Temp ABG HCO3 ABG O2 Sat (Measured) ABG O2 Content ABG Base Excess Yaniv Test O2 Delivery Device Oxygen Flow Rate Vent Rate PEEP Pressure Support Vent Sodium Potassium Chloride Carbon Dioxide Anion Gap BUN Creatinine Creat Clearance w eGFR POC Glucometer 224.70531 214.74909 192.03142 Random Glucose Calcium Phosphorus Magnesium Total Bilirubin AST ALT Alkaline Phosphatase Total Protein Albumin 12/04/17 12/05/17 12/05/17 09:55 14:06 15:50 WBC RBC Hgb Hct MCV MCH MCHC RDW Plt Count MPV Neutrophils % Lymphocytes % Monocytes % Eosinophils % Basophils % PT with INR INR PTT (Actin FS) Puncture Site ABG pH ABG pCO2 at Pt Temp ABG pO2 at Pt Temp ABG HCO3 ABG O2 Sat (Measured) ABG O2 Content ABG Base Excess Yaniv Test O2 Delivery Device Oxygen Flow Rate Vent Rate PEEP Pressure Support Vent Sodium 133 L Potassium 6.3 H* Chloride 100 Carbon Dioxide 19 L Anion Gap 14 BUN 142 H* Creatinine 5.5 H Creat Clearance w eGFR POC Glucometer 272.76298 296.01907 Random Glucose 299 H Calcium 7.9 L Phosphorus Magnesium Total Bilirubin AST ALT Alkaline Phosphatase Total Protein Albumin 12/05/17 12/05/17 12/06/17 17:43 18:40 00:19 WBC RBC Hgb Hct MCV MCH MCHC RDW Plt Count MPV Neutrophils % Lymphocytes % Monocytes % Eosinophils % Basophils % PT with INR INR PTT (Actin FS) Puncture Site Right radial ABG pH 7.17 L* D ABG pCO2 at Pt Temp 52.4 H ABG pO2 at Pt Temp 75.6 D ABG HCO3 18.5 L ABG O2 Sat (Measured) 92.8 ABG O2 Content 13.4 L ABG Base Excess -9.5 L Yaniv Test Positive O2 Delivery Device Mech vent Oxygen Flow Rate 80 Vent Rate 16 PEEP 0.0 Pressure Support Vent 360 Sodium Potassium Chloride Carbon Dioxide Anion Gap BUN Creatinine Creat Clearance w eGFR POC Glucometer 307.58369 224.26640 Random Glucose Calcium Phosphorus Magnesium Total Bilirubin AST ALT Alkaline Phosphatase Total Protein Albumin 12/06/17 12/06/17 12/06/17 02:41 05:00 05:00 WBC 8.1 RBC 3.31 L Hgb 9.1 L Hct 27.1 L MCV 81.8 MCH 27.4 MCHC 33.5 RDW 18.8 H Plt Count 224 MPV 9.2 Neutrophils % 76.3 Lymphocytes % 12.9 D Monocytes % 7.8 Eosinophils % 2.4 Basophils % 0.6 PT with INR INR PTT (Actin FS) Puncture Site ABG pH ABG pCO2 at Pt Temp ABG pO2 at Pt Temp ABG HCO3 ABG O2 Sat (Measured) ABG O2 Content ABG Base Excess Yaniv Test O2 Delivery Device Oxygen Flow Rate Vent Rate PEEP Pressure Support Vent Sodium 141 Potassium 3.8 Chloride 103 Carbon Dioxide 28 Anion Gap 10 BUN 85 H D Creatinine 3.5 H Creat Clearance w eGFR 12.67 POC Glucometer 203.73082 Random Glucose 178 H Calcium 7.4 L Phosphorus 5.8 H Magnesium 2.1 Total Bilirubin 0.3 D AST 37 ALT 24 Alkaline Phosphatase 71 Total Protein 5.6 L Albumin 1.4 L 12/06/17 12/06/17 12/06/17 05:00 05:08 06:15 WBC RBC Hgb Hct MCV MCH MCHC RDW Plt Count MPV Neutrophils % Lymphocytes % Monocytes % Eosinophils % Basophils % PT with INR 13.40 H INR 1.19 H PTT (Actin FS) 32.6 Puncture Site Right radial ABG pH 7.28 L ABG pCO2 at Pt Temp 57.4 H ABG pO2 at Pt Temp 69.2 L ABG HCO3 25.9 ABG O2 Sat (Measured) 92.3 ABG O2 Content 14.0 L ABG Base Excess -1.1 Yaniv Test Positive O2 Delivery Device Oxygen Flow Rate 80% Vent Rate 16 PEEP Pressure Support Vent 360 Sodium Potassium Chloride Carbon Dioxide Anion Gap BUN Creatinine Creat Clearance w eGFR POC Glucometer 196.25345 Random Glucose Calcium Phosphorus Magnesium Total Bilirubin AST ALT Alkaline Phosphatase Total Protein Albumin 12/06/17 09:43 WBC RBC Hgb Hct MCV MCH MCHC RDW Plt Count MPV Neutrophils % Lymphocytes % Monocytes % Eosinophils % Basophils % PT with INR INR PTT (Actin FS) Puncture Site ABG pH ABG pCO2 at Pt Temp ABG pO2 at Pt Temp ABG HCO3 ABG O2 Sat (Measured) ABG O2 Content ABG Base Excess Yaniv Test O2 Delivery Device Oxygen Flow Rate Vent Rate PEEP Pressure Support Vent Sodium Potassium Chloride Carbon Dioxide Anion Gap BUN Creatinine Creat Clearance w eGFR POC Glucometer 153.96410 Random Glucose Calcium Phosphorus Magnesium Total Bilirubin AST ALT Alkaline Phosphatase Total Protein Albumin A/P Acute on Chronic Hypoxic Respiratory Failure Left Pneumothorax s/p chest tube placement r/o Pneumonia Interstitial Lung Disease +Troponins likely Demand Ischemia HTN DM LV Diastolic Dysfunction Acute Kidney Injury Obstructive Sleep Apnea - HD per Renal - monitor urine output, creatinine - ABX per ID - f/u cultures - keep PEEP 0 - taper FiO2 to keep SpO2 >90% - low tidal volume ventilation - not a candidate for weaning at this time - will need tracheostomy given severity of underlying lung disease and failure to wean versus compassionate extubation - enteral feeds - DVT/GI prophylaxis - continue ICU monitoring - Should arrange family meeting to discuss GOC - Palliative Care evaluation Dr Garcia Critical care time spent in reviewing chart, evaluating patient and formulating plan 35 min
[2017-12-06] MEDS: ALBUMIN HUMAN 25% 12.5 GM/50 ML VIAL IVPB SCH ×4 (12:51→14:04)
--- NOTE | 2017-12-06 13:03 | PN ---
Physical Exam: SUBJECTIVE: Ms. Carson is currently sedated and intubated. OBJECTIVE: Overnight patient desaturated and FiO2 was increased to 100% (currently at 90%) . Right IJ Trialysis catheter was placed for iHD and levophed was initiated at 5mcg/min for hypotension during HD. 2L was removed and levophed was weaned. A right femoral catheterization was unsuccessful. Vital Signs Period Temp Pulse Resp BP Sys/Simms Pulse Ox Last 24 Hr 98.6 F-99.9 F 88-107 16-31 85-136/40-60 92-97 GENERAL: +The patient is intubated and sedated. HEAD: Normal with no signs of trauma. EYES: PERRL, extraocular movements intact, sclera anicteric, conjunctiva clear. No ptosis. ENT: Ears normal, nares patent, oropharynx clear without exudates, moist mucous membranes. NECK: Trachea midline, full range of motion, supple. LUNGS: Breath sounds equal, clear to auscultation bilaterally, no wheezes, no crackles, no accessory muscle use. HEART: Regular rate and rhythm, S1, S2 without murmur, rub or gallop. ABDOMEN: Soft, nontender, nondistended, normoactive bowel sounds, no guarding, no rebound, no hepatosplenomegaly, no masses. EXTREMITIES: 2+ pulses, warm, well-perfused, no edema. NEUROLOGICAL: Cranial nerves II through XII grossly intact. Normal speech, gait not observed. PSYCH: +Unable to assess SKIN: Warm, dry, normal turgor, no rashes or lesions noted Laboratory Results - last 24 hr 12/03/17 12/04/17 12/04/17 21:38 01:22 05:37 WBC RBC Hgb Hct MCV MCH MCHC RDW Plt Count MPV Neutrophils % Lymphocytes % Monocytes % Eosinophils % Basophils % PT with INR INR PTT (Actin FS) Puncture Site ABG pH ABG pCO2 at Pt Temp ABG pO2 at Pt Temp ABG HCO3 ABG O2 Sat (Measured) ABG O2 Content ABG Base Excess Yaniv Test O2 Delivery Device Oxygen Flow Rate Vent Rate PEEP Pressure Support Vent Sodium Potassium Chloride Carbon Dioxide Anion Gap BUN Creatinine Creat Clearance w eGFR POC Glucometer 224.27062 214.73336 192.99055 Random Glucose Calcium Phosphorus Magnesium Total Bilirubin AST ALT Alkaline Phosphatase Total Protein Albumin 0312/05/17 12/05/17 09:55 14:06 15:50 WBC RBC Hgb Hct MCV MCH MCHC RDW Plt Count MPV Neutrophils % Lymphocytes % Monocytes % Eosinophils % Basophils % PT with INR INR PTT (Actin FS) Puncture Site ABG pH ABG pCO2 at Pt Temp ABG pO2 at Pt Temp ABG HCO3 ABG O2 Sat (Measured) ABG O2 Content ABG Base Excess Yaniv Test O2 Delivery Device Oxygen Flow Rate Vent Rate PEEP Pressure Support Vent Sodium 133 L Potassium 6.3 H* Chloride 100 Carbon Dioxide 19 L Anion Gap 14 BUN 142 H* Creatinine 5.5 H Creat Clearance w eGFR POC Glucometer 272.76448 296.68940 Random Glucose 299 H Calcium 7.9 L Phosphorus Magnesium Total Bilirubin AST ALT Alkaline Phosphatase Total Protein Albumin 12/05/17 12/05/17 12/06/17 17:43 18:40 00:19 WBC RBC Hgb Hct MCV MCH MCHC RDW Plt Count MPV Neutrophils % Lymphocytes % Monocytes % Eosinophils % Basophils % PT with INR INR PTT (Actin FS) Puncture Site Right radial ABG pH 7.17 L* D ABG pCO2 at Pt Temp 52.4 H ABG pO2 at Pt Temp 75.6 D ABG HCO3 18.5 L ABG O2 Sat (Measured) 92.8 ABG O2 Content 13.4 L ABG Base Excess -9.5 L Yaniv Test Positive O2 Delivery Device Mech vent Oxygen Flow Rate 80 Vent Rate 16 PEEP 0.0 Pressure Support Vent 360 Sodium Potassium Chloride Carbon Dioxide Anion Gap BUN Creatinine Creat Clearance w eGFR POC Glucometer 307.12557 224.89259 Random Glucose Calcium Phosphorus Magnesium Total Bilirubin AST ALT Alkaline Phosphatase Total Protein Albumin 12/06/17 12/06/17 12/06/17 02:41 05:00 05:00 WBC 8.1 RBC 3.31 L Hgb 9.1 L Hct 27.1 L MCV 81.8 MCH 27.4 MCHC 33.5 RDW 18.8 H Plt Count 224 MPV 9.2 Neutrophils % 76.3 Lymphocytes % 12.9 D Monocytes % 7.8 Eosinophils % 2.4 Basophils % 0.6 PT with INR INR PTT (Actin FS) Puncture Site ABG pH ABG pCO2 at Pt Temp ABG pO2 at Pt Temp ABG HCO3 ABG O2 Sat (Measured) ABG O2 Content ABG Base Excess Yaniv Test O2 Delivery Device Oxygen Flow Rate Vent Rate PEEP Pressure Support Vent Sodium 141 Potassium 3.8 Chloride 103 Carbon Dioxide 28 Anion Gap 10 BUN 85 H D Creatinine 3.5 H Creat Clearance w eGFR 12.67 POC Glucometer 203.63468 Random Glucose 178 H Calcium 7.4 L Phosphorus 5.8 H Magnesium 2.1 Total Bilirubin 0.3 D AST 37 ALT 24 Alkaline Phosphatase 71 Total Protein 5.6 L Albumin 1.4 L 12/06/17 12/06/17 12/06/17 05:00 05:08 06:15 WBC RBC Hgb Hct MCV MCH MCHC RDW Plt Count MPV Neutrophils % Lymphocytes % Monocytes % Eosinophils % Basophils % PT with INR 13.40 H INR 1.19 H PTT (Actin FS) 32.6 Puncture Site Right radial ABG pH 7.28 L ABG pCO2 at Pt Temp 57.4 H ABG pO2 at Pt Temp 69.2 L ABG HCO3 25.9 ABG O2 Sat (Measured) 92.3 ABG O2 Content 14.0 L ABG Base Excess -1.1 Yaniv Test Positive O2 Delivery Device Oxygen Flow Rate 80% Vent Rate 16 PEEP Pressure Support Vent 360 Sodium Potassium Chloride Carbon Dioxide Anion Gap BUN Creatinine Creat Clearance w eGFR POC Glucometer 196.84350 Random Glucose Calcium Phosphorus Magnesium Total Bilirubin AST ALT Alkaline Phosphatase Total Protein Albumin 12/06/17 09:43 WBC RBC Hgb Hct MCV MCH MCHC RDW Plt Count MPV Neutrophils % Lymphocytes % Monocytes % Eosinophils % Basophils % PT with INR INR PTT (Actin FS) Puncture Site ABG pH ABG pCO2 at Pt Temp ABG pO2 at Pt Temp ABG HCO3 ABG O2 Sat (Measured) ABG O2 Content ABG Base Excess Yaniv Test O2 Delivery Device Oxygen Flow Rate Vent Rate PEEP Pressure Support Vent Sodium Potassium Chloride Carbon Dioxide Anion Gap BUN Creatinine Creat Clearance w eGFR POC Glucometer 153.94849 Random Glucose Calcium Phosphorus Magnesium Total Bilirubin AST ALT Alkaline Phosphatase Total Protein Albumin Active Medications Generic Name Dose Route Start Last Admin Trade Name Freq PRN Reason Stop Dose Admin Acetaminophen 1,000 mg 11/29/17 22:25 12/03/17 03:41 Ofirmev Injection - IVPB 1,000 mg Q6H PRN Administration FEVER Albuterol/Ipratropium 1 amp 11/26/17 20:00 12/06/17 08:37 Duoneb - NEB 1 amp RTID IVON Administration Amino Acids 30 ml 12/02/17 17:30 12/06/17 08:16 Prosource No Carb Liquid Pkt PO 30 ml BID@0800,1730 IVON Administration Aspirin 81 mg 11/30/17 10:00 12/06/17 10:00 Asa - NGT 81 mg DAILY IVON Administration Bacitracin 1 applic 11/29/17 22:00 12/06/17 09:59 Bacitracin - TP 1 applic BID IVON Administration Chlorhexidine Gluconate 1 applic 11/26/17 22:00 12/05/17 22:46 Hibiclens For Decolonization - TP 1 applic HS IVON Administration Chlorhexidine Gluconate 15 ml 11/27/17 12:30 12/06/17 10:00 Peridex - MM 15 ml BID IVON Administration Furosemide 80 mg 12/06/17 20:00 Lasix Injection - IVPUSH 12/06/17 20:01 ONCE ONE Heparin Sodium (Porcine) 5,000 unit 11/26/17 06:00 12/06/17 05:10 Heparin - SQ 5,000 unit TID IVON Administration Propofol 1,000,000 mcg in 100 mls @ 0 mls/hr 11/25/17 22:00 12/06/17 10:11 Diprivan - IVPB 30 mcg/kg/min TITR IVON 17.015 mls/hr Protocol Administration 5 MCG/KG/MIN Levofloxacin 500 mg in 100 mls @ 100 mls/hr 12/07/17 10:00 Levaquin 500 Mg Premixed Ivpb - IVPB Q2D@1000 [facility] Norepinephrine Bitartrate 8, 500 mls @ 18.75 mls/hr 12/06/17 00:30 12/06/17 00:40 000 mcg/ Dextrose IV 5 mcg/min TITR IVON 18.75 mls/hr Protocol Administration 5 MCG/MIN Famotidine/Sodium Chloride 20 mg in 50 mls @ 100 mls/hr 12/06/17 22:00 Pepcid 20 Mg Premixed Ivpb - IVPB BID IVON Sodium Chloride 250 mls @ 3,000 mls/hr 12/06/17 11:18 Normal Saline - IV 12/07/17 11:18 PRN PRN Hypotension during Dialysis Insulin Aspart 1 vial 12/03/17 12:19 12/06/17 09:59 Novolog Vial Sliding Scale - SQ 4 unit Q4HPO IVON Administration Protocol Insulin Detemir 20 units 12/03/17 16:30 12/06/17 07:37 Levemir Vial SQ 20 units BIDI IVON Administration ASSESSMENT/PLAN: Ms. Carson is a 77 yo female w/ pmh of HTN, DM, global heart failure, and pulmonary fibrosis intubated and sedated. Tracheostomy delayed after discussion with Dr. Block as patient has worsening respiratory status. Respiratory - Tracheostomy held in setting of worsening respiratory status with increasing FiO2 needs (currently at 90) - AC mode pulmonary support - PEEP 0 due to pneumothorax / keep low tidal volumes to avoid exacerbation - Monitor on CXR Cardiovascular - Lopressor - Continue to monitor Renal - Continue to track Cr/BUN (85/3.5 today) - Nephrology consulted - Karen BOWDEN - ID consulted - Currently receiving levofloxacin Q2 days per ID recommendations Endocrine - ISS - BGM ACHS - Levemir FEN - Fluids held at this time - Electrolyte replacement PRN - NG feeds PPX - SQH Disposition - Trach pending improvement. Will continue to care for patient in ICU. Visit type - Emergency Visit Emergency Visit: Yes ED Registration Date: 11/26/17 Care time: The patient presented to the Emergency Department on the above date and was hospitalized for further evaluation of their emergent condition. - New Patient This patient is new to me today: No - Critical Care Critical Care patient: Yes Total Critical Care Time (in minutes): 39 Critical Care Statement: The care of this patient involved high complexity decision making to prevent further life threatening deterioration of the patient 's condition and/or to evaluate & treat vital organ system(s) failure or risk of failure.
--- NOTE | 2017-12-06 17:28 | PN ---
Progress Note, Physician Chief Complaint: NOTES REVIEWED CHART UPDATED PATIENT IN BED FAMILY BEDSIDE - Current Medication List Current Medications: Active Medications Acetaminophen (Ofirmev Injection -) 1,000 mg IVPB Q6H PRN PRN Reason: FEVER Last Admin: 12/03/17 03:41 Dose: 1,000 mg Albuterol/Ipratropium (Duoneb -) 1 amp NEB RTID [facility] Last Admin: 12/06/17 15:27 Dose: 1 amp Amino Acids (Prosource No Carb Liquid Pkt) 30 ml PO BID@0800,1730 [facility] Last Admin: 12/06/17 17:22 Dose: 30 ml Aspirin (Asa -) 81 mg NGT DAILY [facility] Last Admin: 12/06/17 10:00 Dose: 81 mg Bacitracin (Bacitracin -) 1 applic TP BID [facility] Last Admin: 12/06/17 09:59 Dose: 1 applic Chlorhexidine Gluconate (Hibiclens For Decolonization -) 1 applic TP HS [facility] Last Admin: 12/05/17 22:46 Dose: 1 applic Chlorhexidine Gluconate (Peridex -) 15 ml MM BID [facility] Last Admin: 12/06/17 10:00 Dose: 15 ml Furosemide (Lasix Injection -) 80 mg IVPUSH ONCE ONE Stop: 12/06/17 20:01 Heparin Sodium (Porcine) (Heparin -) 5,000 unit SQ TID [facility] Last Admin: 12/06/17 14:20 Dose: 5,000 unit Propofol (Diprivan -) 1,000,000 mcg in 100 mls @ 0 mls/hr IVPB TITR IVON; 5 MCG/ KG/MIN PRN Reason: Protocol Last Admin: 12/06/17 14:26 Dose: 30 mcg/kg/min, 17.015 mls/hr Levofloxacin (Levaquin 500 Mg Premixed Ivpb -) 500 mg in 100 mls @ 100 mls/hr IVPB Q2D@1000 IVON Norepinephrine Bitartrate 8, (000 mcg/ Dextrose) 500 mls @ 18.75 mls/hr IV TITR IVON; 5 MCG/MIN PRN Reason: Protocol Last Titration: 12/06/17 13:20 Dose: 6 mcg/min, 22.5 mls/hr Famotidine/Sodium Chloride (Pepcid 20 Mg Premixed Ivpb -) 20 mg in 50 mls @ 100 mls/hr IVPB BID IVON Sodium Chloride (Normal Saline -) 250 mls @ 3,000 mls/hr IV PRN PRN PRN Reason: Hypotension during Dialysis Stop: 12/07/17 11:18 Insulin Aspart (Novolog Vial Sliding Scale -) 1 vial SQ Q4HPO IVON PRN Reason: Protocol Last Admin: 12/06/17 14:20 Dose: 4 unit Insulin Detemir (Levemir Vial) 20 units SQ BIDI [facility] Last Admin: 12/06/17 17:22 Dose: 20 units - Objective Vital Signs: Vital Signs Temperature 98.6 F 12/06/17 14:00 Pulse Rate 106 H 12/06/17 16:00 Respiratory Rate 27 H 12/06/17 16:00 Blood Pressure 120/70 12/06/17 16:00 O2 Sat by Pulse Oximetry (%) 96 12/06/17 12:00 Constitutional: Yes: Mild Distress Eyes: Yes: WNL HENT: Yes: WNL Neck: Yes: WNL Cardiovascular: Yes: Bradycardia Respiratory: Yes: Mechanically Ventilated, SOB Gastrointestinal: Yes: Other Genitourinary: Yes: Jones Present Edema: Yes Integumentary: Yes: Other Wound/Incision: Yes: Other Neurological: Yes: Unresponsive ...Motor Strength: LLE, RLE Psychiatric: Yes: Other Labs: CBC, BMP 12/06/17 05:00 12/06/17 05:00 INR, PTT INR 1.19 (0.82-1.09) H 12/06/17 05:00 Problem List - Problems (1) [id number] kidney injury Code(s): N17.9 - ACUTE KIDNEY FAILURE, UNSPECIFIED; N18.9 - CHRONIC KIDNEY DISEASE, UNSPECIFIED (2) CKD (chronic kidney disease) stage 3, GFR 30-59 ml/min Code(s): N18.3 - CHRONIC KIDNEY DISEASE, STAGE 3 (MODERATE) (3) Fever Code(s): R50.9 - FEVER, UNSPECIFIED (4) Hemothorax on left Code(s): J94.2 - HEMOTHORAX (5) Pulmonary fibrosis Code(s): J84.10 - PULMONARY FIBROSIS, UNSPECIFIED (6) Respiratory distress Code(s): R06.03 - ACUTE RESPIRATORY DISTRESS (7) Septic shock Code(s): A41.9 - SEPSIS, UNSPECIFIED ORGANISM; R65.21 - SEVERE SEPSIS WITH SEPTIC SHOCK (8) Diabetes mellitus Code(s): E11.9 - TYPE 2 DIABETES MELLITUS WITHOUT COMPLICATIONS Qualifiers: Diabetes mellitus type: type 2 Diabetes mellitus halfway insulin use: without pot fireman use Diabetes mellitus complication status: with circulatory complication Diabetes mellitus complication detail: with other circulatory complications Qualified Code(s): E11.59 - Type 2 diabetes mellitus with other circulatory complications (9) Diastolic dysfunction without heart failure Code(s): I51.9 - HEART DISEASE, UNSPECIFIED Assessment/Plan BP SUPPORT RESP SUPPORT IV ABX LABS REVIEWED HD PER RENAL IV FLUIDS PALLIATIVE CARE CONSULT
[2017-12-06] MEDS ORDERED: FUROSEMIDE 40 MG/4 ML INJECTABLE VIAL IVPUSH ONE (20:00)
[2017-12-06] MEDS: CHLORHEXIDINE GLUCONATE 4% CLEANSER FOR DECOLONIZATION TP SCH (22:03)
[2017-12-06] MEDS: FAMOTIDINE 20 MG/50 ML IVPB 20 MG/50 ML MG IVPB SCH (22:04)
[2017-12-06] MEDS: ACETAMINOPHEN 1000 MG/100 ML VIAL (NON FORMULARY) IVPB PRN (22:58)
[2017-12-07] MEDS: INSULIN SLIDING SCALE (NOVOLOG) 1 VIAL SQ SCH ×3 (02:16→16:32)
[2017-12-07] MEDS ORDERED: INSULIN (LEVEMIR) 100 UNITS/ML UNITS SQ ONE (05:20)
[2017-12-07] MEDS: HEPARIN NA (PORCINE) 5,000 UNITS/ML 1ML VIAL SQ SCH (05:48)
[2017-12-07] MEDS: ACETAMINOPHEN 1000 MG/100 ML VIAL (NON FORMULARY) IVPB PRN (05:55)
[2017-12-07] MEDS: NOREPINEPHRINE BITARTRATE 8,000 MCG in DEXTROSE 5%-WATER - 492 ML IV SCH (05:59)
[2017-12-07] MEDS: INSULIN (LEVEMIR) 100 UNITS/ML UNITS SQ SCH (06:05)
[2017-12-07 06:20] LABS: HEMATOCRIT 25.4 % (32.4-45.2); HEMOGLOBIN 8.5 GM/dL (10.7-15.3); MCH 27.7 pg (25.7-33.7); MCHC 33.5 g/dl (32.0-36.0); MEAN CELL VOLUME 82.8 fl (80-96); MEAN PLT VOLUME 9.2 fl (7.5-11.1); PLATELET COUNT 226 K/MM3 (134-434); RBC 3.07 M/mm3 (3.60-5.2); RDW 19.9 % (11.6-15.6); WHITE BLOOD COUNT 10.5 K/mm3 (4.0-10.0)
--- NOTE | 2017-12-07 06:59 | PN ---
Progress Note (short form) - Note Progress Note: Chief Complaint: Events noted, notes reviewed, remains intubated and sedated, unable to wean off the ventilator, mild respiratory distress, as outlined plan to proceed with tracheostomy later this week as per nursing staff, sinus rhythm is noted, family member remains at the bedside History of Present Illness: Seen and examined in the ICU. Events noted, notes reviewed, remains intubated and sedated, unable to wean off the ventilator, mild respiratory distress, as outlined plan to proceed with tracheostomy later this week as per nursing staff , sinus rhythm is noted, family member remains at the bedside Initiated on pressors/Norepinephrine Bitartrate related to hypotension noted with HD Echocardiography dated 11/02/2017 revealed Mild LVH, normal bi-ventricular size and function, mild TR, RVSP of 32 mmHg - Current Medication List Current Medications Acetaminophen (Ofirmev Injection -) 1,000 mg IVPB Q6H PRN PRN Reason: FEVER Last Admin: 12/07/17 05:55 Dose: 1,000 mg Albuterol/Ipratropium (Duoneb -) 1 amp NEB RTID [facility] Last Admin: 12/06/17 21:45 Dose: 1 amp Amino Acids (Prosource No Carb Liquid Pkt) 30 ml PO BID@0800,1730 [facility] Last Admin: 12/06/17 17:22 Dose: 30 ml Aspirin (Asa -) 81 mg NGT DAILY [facility] Last Admin: 12/06/17 10:00 Dose: 81 mg Bacitracin (Bacitracin -) 1 applic TP BID [facility] Last Admin: 12/06/17 22:03 Dose: 1 applic Chlorhexidine Gluconate (Hibiclens For Decolonization -) 1 applic TP HS [facility] Last Admin: 12/06/17 22:03 Dose: 1 applic Chlorhexidine Gluconate (Peridex -) 15 ml MM BID [facility] Last Admin: 12/06/17 22:04 Dose: 15 ml Heparin Sodium (Porcine) (Heparin -) 5,000 unit SQ TID [facility] Last Admin: 12/07/17 05:48 Dose: 5,000 unit Propofol (Diprivan -) 1,000,000 mcg in 100 mls @ 0 mls/hr IVPB TITR IVON; 5 MCG/ KG/MIN PRN Reason: Protocol Last Admin: 12/06/17 22:37 Dose: Not Given Levofloxacin (Levaquin 500 Mg Premixed Ivpb -) 500 mg in 100 mls @ 100 mls/hr IVPB Q2D@1000 IVON Norepinephrine Bitartrate 8, (000 mcg/ Dextrose) 500 mls @ 18.75 mls/hr IV TITR IVON; 5 MCG/MIN PRN Reason: Protocol Last Admin: 12/07/17 05:59 Dose: 2 mcg/min, 7.5 mls/hr Famotidine/Sodium Chloride (Pepcid 20 Mg Premixed Ivpb -) 20 mg in 50 mls @ 100 mls/hr IVPB BID IVON Last Admin: 12/06/17 22:04 Dose: 100 mls/hr Sodium Chloride (Normal Saline -) 250 mls @ 3,000 mls/hr IV PRN PRN PRN Reason: Hypotension during Dialysis Stop: 12/07/17 11:18 Insulin Aspart (Novolog Vial Sliding Scale -) 1 vial SQ Q4HPO IVON PRN Reason: Protocol Last Admin: 12/07/17 05:49 Dose: 4 unit Insulin Detemir (Levemir Vial) 20 units SQ BIDI [facility] Last Admin: 12/07/17 06:05 Dose: 20 units Review Of Systems: Unable to obtain, intubated and sedated - Objective Vital Signs: Last Vital Signs Temp Pulse Resp BP Pulse Ox 101 F H 118 H 27 H 113/57 98 12/07/17 02:00 12/07/17 05:59 12/07/17 06:41 12/07/17 05:59 12/06/17 22:00 Intake & Output 12/04/17 12/05/17 12/06/17 12/07/17 23:59 23:59 23:59 23:59 Intake Total 2284 3111.2 2434.7 Output Total 200 152 43 Balance 2084 2959.2 2391.7 Weight 208 lb 1 oz 207 lb 6.4 oz 208 lb 1 oz 204 lb 5 oz Constitutional: Mild Respiratory Distress, Sedated Neck: Supple Negative JVD Cardiovascular: S1 S2 Regular Rate and Rhythm Respiratory: Diminished Breath Sounds at the Bases Bilateral Scattered Rhonchi Gastrointestinal: Soft Benign, Normal Bowel Sounds Ext: Trace to 1+ Edema Labs: CBC, BMP 12/07/17 05:10 BMP pending from this AM Assessment/Plan ASSESSMENT: 1. Acute hypoxemic respiratory failure with underlying pulmonary fibrosis/ILD, spontaneous left pnemothorax post chest tube insertion and probable hospital- acquired pneumonia, unable to wean off the ventilator to proceed with tracheostomy later this week 2. 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 Diastolic LV dysfunction with chronic class I-II NYHA classification LV failure, difficult to assess de-compensation 4. HTN, hypotension etiology probably multi-factorial 5. Diabetes mellitus 6. OSAS 7. Acute on CKD, requiring HD 8. Anemia PLAN: 1. Ventilator management and chest tube management as per critical care team, for tracheostomy later this week as noted above 2. Antibiotics as per the primary team 3. Continue to hold Lopressor pending hemodynamics improvement 4. Differ resumption of Losartan till renal function is at baseline and pending hemodynamics improvement 5. Continue ASA 6. Follow BMP from this AM 7. HD as per renal service 8. Overall poor prognosis considering underlying pathology and worsening clinical course Rodney Chester MD
[2017-12-07 07:00] LABS: ANION GAP 11 (8-16); BILIRUBIN,TOTAL 0.3 mg/dL (0.2-1.0); BLOOD UREA NITROGEN 77 mg/dL (7-18); CALCIUM 7.7 mg/dL (8.5-10.1); CHLORIDE 103 mmol/L (98-107); CO2 29 mmol/L (21-32); CREATININE 3.5 mg/dL (0.55-1.02); GLUCOSE,RANDOM 159 mg/dL (74-106); MAGNESIUM 2.3 mg/dL (1.8-2.4); PHOSPHOROUS 6.6 mg/dL (2.5-4.9); POTASSIUM 4.3 mmol/L (3.5-5.1); SGOT/AST 38 U/L (15-37); SGPT/ALT 22 U/L (12-78); SODIUM 143 mmol/L (136-145); TOT PROT 6.1 g/dl (6.4-8.2)
[2017-12-07 07:01] LABS: ALK PHOS 71 U/L (45-117)
[2017-12-07] MEDS: ALBUTEROL SO4 2.5/IPRATROPIUM 0.5 INH SOL 3 ML VIAL.NEB. NEB SCH ×3 (07:40→21:35)
--- NOTE | 2017-12-07 09:04 | PN ---
Progress Note (short form) - Note Progress Note: sedated remains on vent back on pressors febrile overnight anuric- s/p HD yesterday Vital Signs Period Temp Pulse Resp BP Sys/Simms Pulse Ox Last 24 Hr 98.6 F-102.8 F 89-132 16-31 79-144/39-70 94-98 cor-rrr lungs decreased bs at bases abd soft,nt ext trace edema +right IJ trialysis catheter nagel CBC, BMP 12/07/17 05:10 12/07/17 05:10 Microbiology 12/02/17 22:30 Blood - Peripheral Venous Blood Culture - Preliminary NO GROWTH OBTAINED AFTER 96 HOURS, INCUBATION TO CONTINUE FOR 1 DAYS. 12/02/17 21:10 Blood - Peripheral Venous Blood Culture - Preliminary NO GROWTH OBTAINED AFTER 96 HOURS, INCUBATION TO CONTINUE FOR 1 DAYS. 12/02/17 08:00 Sputum - Endotrachea Suction/Ventilator Gram Stain - Final 12/02/17 08:00 Sputum - Endotrachea Suction/Ventilator Sputum Culture - Final Pseudomonas Aeruginosa 11/28/17 20:18 Blood - Peripheral Venous Blood Culture - Final NO GROWTH AFTER 5 DAYS INCUBATION 11/28/17 20:10 Blood - Peripheral Venous Blood Culture - Final NO GROWTH AFTER 5 DAYS INCUBATION 12/03/17 07:00 Stool Clostridium difficile Antigen (MANJULA) - Final 12/03/17 07:00 Stool Clostridium difficile Toxin Assay - Final 12/02/17 08:00 Urine - Urine Nagel Urine Culture - Final NO GROWTH OBTAINED 11/28/17 20:00 Sputum - Endotrachea Suction/Ventilator Gram Stain - Final 11/28/17 20:00 Sputum - Endotrachea Suction/Ventilator Sputum Culture - Final Yeast Like Organism 11/25/17 21:49 Blood - Peripheral Venous Blood Culture - Final NO GROWTH AFTER 5 DAYS INCUBATION 11/25/17 21:49 Blood - Peripheral Venous Blood Culture - Final NO GROWTH AFTER 5 DAYS INCUBATION 11/28/17 20:00 Urine - Urine Nagel Urine Culture - Final NO GROWTH OBTAINED 11/26/17 15:20 Sputum - Endotrachea Suction/Ventilator Gram Stain - Final 11/26/17 15:20 Sputum - Endotrachea Suction/Ventilator Sputum Culture - Final NORMAL RESPIRATORY [place] 11/27/17 12:20 Urine For Antigen Detection Legionella Antigen - Final 11/27/17 12:20 Urine For Antigen Detection Streptococcus pneumoniae Antigen (M - Final 11/25/17 21:49 Urine - Urine Nagel Urine Culture - Final NO GROWTH OBTAINED cxray just done- a/p recurrent fevers-would reculture and add vancomycin, continue levaquin as ordered respiratory failure pneumothorax CHRISTOPHER-r/o AIN pulmonary fibrosis/ILD d/w ICU team
--- NOTE | 2017-12-07 09:19 | PN ---
Progress Note, Physician History of Present Illness: ON VENT SEDATED DAUGHTER AT BEDSIDE--CURRENT CONDITION AND PLAN DISCUSSED - Current Medication List Current Medications: Active Medications Acetaminophen (Ofirmev Injection -) 1,000 mg IVPB Q6H PRN PRN Reason: FEVER Last Admin: 12/07/17 05:55 Dose: 1,000 mg Albuterol/Ipratropium (Duoneb -) 1 amp NEB RTID [facility] Last Admin: 12/07/17 07:40 Dose: 1 amp Amino Acids (Prosource No Carb Liquid Pkt) 30 ml PO BID@0800,1730 [facility] Last Admin: 12/06/17 17:22 Dose: 30 ml Aspirin (Asa -) 81 mg NGT DAILY [facility] Last Admin: 12/06/17 10:00 Dose: 81 mg Bacitracin (Bacitracin -) 1 applic TP BID [facility] Last Admin: 12/06/17 22:03 Dose: 1 applic Chlorhexidine Gluconate (Hibiclens For Decolonization -) 1 applic TP HS [facility] Last Admin: 12/06/17 22:03 Dose: 1 applic Chlorhexidine Gluconate (Peridex -) 15 ml MM BID [facility] Last Admin: 12/06/17 22:04 Dose: 15 ml Heparin Sodium (Porcine) (Heparin -) 5,000 unit SQ TID [facility] Last Admin: 12/07/17 05:48 Dose: 5,000 unit Propofol (Diprivan -) 1,000,000 mcg in 100 mls @ 0 mls/hr IVPB TITR IVON; 5 MCG/ KG/MIN PRN Reason: Protocol Last Admin: 12/06/17 22:37 Dose: Not Given Levofloxacin (Levaquin 500 Mg Premixed Ivpb -) 500 mg in 100 mls @ 100 mls/hr IVPB Q2D@1000 IVON Norepinephrine Bitartrate 8, (000 mcg/ Dextrose) 500 mls @ 18.75 mls/hr IV TITR IVON; 5 MCG/MIN PRN Reason: Protocol Last Titration: 12/07/17 08:10 Dose: 4 mcg/min, 15 mls/hr Famotidine/Sodium Chloride (Pepcid 20 Mg Premixed Ivpb -) 20 mg in 50 mls @ 100 mls/hr IVPB BID [facility] Last Admin: 12/06/17 22:04 Dose: 100 mls/hr Sodium Chloride (Normal Saline -) 250 mls @ 3,000 mls/hr IV PRN PRN PRN Reason: Hypotension during Dialysis Stop: 12/07/17 11:18 Vancomycin HCl 1,250 mg/ (Dextrose) 250 mls @ 250 mls/hr IVPB ONCE ONE PRN Reason: Protocol Stop: 12/07/17 10:03 Insulin Aspart (Novolog Vial Sliding Scale -) 1 vial SQ Q4HPO IVON PRN Reason: Protocol Last Admin: 12/07/17 05:49 Dose: 4 unit Insulin Detemir (Levemir Vial) 20 units SQ BIDI [facility] Last Admin: 12/07/17 06:05 Dose: 20 units - Objective Vital Signs: Vital Signs Temperature 102 F H 12/07/17 06:00 Pulse Rate 112 H 12/07/17 08:19 Respiratory Rate 24 12/07/17 08:19 Blood Pressure 87/46 12/07/17 08:10 O2 Sat by Pulse Oximetry (%) 94 L 12/07/17 08:19 Cardiovascular: Yes: S1, S2 Respiratory: Yes: Accessory Muscle Use, Mechanically Ventilated Gastrointestinal: Yes: Normal Bowel Sounds Labs: CBC, BMP 12/07/17 05:10 12/07/17 05:10 INR, PTT INR 1.19 (0.82-1.09) H 12/06/17 05:00 Assessment/Plan - Problems (1) CKD (chronic kidney disease) stage 3, GFR 30-59 ml/min--worsening Assessment/Plan: -monitor trend -monitor I&O's Code(s): N18.3 - CHRONIC KIDNEY DISEASE, STAGE 3 (MODERATE) (2) Pneumothorax on left Assessment/Plan: -Chest tube with minimal air leak -Repeat CXR shows improvement on hemothorax (3) Acute respiratory failure with hypoxemia Assessment/Plan: -mechanical vent -pulmonary manage -on Sedation Code(s): J96.01 - ACUTE RESPIRATORY FAILURE WITH HYPOXIA (4) CHF (congestive heart failure) Assessment/Plan: cardiology consult last echo mild LVH, EF-58% on Furosemide I&O's Code(s): I50.9 - HEART FAILURE, UNSPECIFIED Qualifiers: Heart failure type: combined systolic and diastolic Heart failure chronicity: chronic Qualified Code(s): I50.42 - Chronic combined systolic ( congestive) and diastolic (congestive) heart failure (5) Diabetes mellitus Assessment/Plan: -uncontrolled -Endocrinology consult -insulin Novolog sliding scale -Levemir start at 14 units today, titrate up, to follow BGM trend -Consider alternative ways to replenish protein source, prosource, albumin IV? as liam has a lot of carbs -BGM -RD consult Code(s): E11.9 - TYPE 2 DIABETES MELLITUS WITHOUT COMPLICATIONS Qualifiers: Diabetes mellitus type: type 2 Diabetes mellitus intermodal customer service insulin use: without skilled nursing use Diabetes mellitus complication status: with circulatory complication Diabetes mellitus complication detail: with other circulatory complications Qualified Code(s): E11.59 - Type 2 diabetes mellitus with other circulatory complications (6) Fever Assessment/Plan: -repeat cultures pending acetaminophen for fever over 100.0 F ID on board off abx for now Code(s): R50.9 - FEVER, UNSPECIFIED daughter at bedside--discussed --family meeting today possible compassionate weaning
[2017-12-07] MEDS ORDERED: VANCOMYCIN 1,250 MG in DEXTROSE 5%-WATER - 250 ML IVPB ONE (11:00)
--- NOTE | 2017-12-07 11:01 | PN ---
Progress Note (short form) - Note Progress Note: Renal follow up for CHRISTOPHER Pt seen and examined in the ICU remains on Vent, 100 FiO2 remains anuric at the present time s/p 2nd dialysis yesterday on levophed 4 mcg s/p Lasix yesterday evening w/o response Vital Signs Temperature 100.9 F H 12/07/17 10:00 Pulse Rate 114 H 12/07/17 10:00 Respiratory Rate 24 12/07/17 10:00 Blood Pressure 107/58 12/07/17 10:00 O2 Sat by Pulse Oximetry (%) 94 L 12/07/17 08:19 Intake & Output 12/04/17 12/05/17 12/06/17 12/07/17 23:59 23:59 23:59 23:59 Intake Total 2284 3111.2 2434.7 942 Output Total 200 152 43 6 Balance 2084 2959.2 2391.7 936 Weight 94.376 kg 94.075 kg 94.376 kg 92.675 kg NAD, on vent RRR Course BS soft, Obese, NT/ND No LE edema extremities are warm CBC, BMP 12/07/17 05:10 12/07/17 05:10 Current Medications Acetaminophen (Ofirmev Injection -) 1,000 mg IVPB Q6H PRN PRN Reason: FEVER Last Admin: 12/07/17 05:55 Dose: 1,000 mg Albuterol/Ipratropium (Duoneb -) 1 amp NEB RTID [facility] Last Admin: 12/07/17 07:40 Dose: 1 amp Amino Acids (Prosource No Carb Liquid Pkt) 30 ml PO BID@0800,1730 [facility] Last Admin: 12/06/17 17:22 Dose: 30 ml Aspirin (Asa -) 81 mg NGT DAILY [facility] Last Admin: 12/06/17 10:00 Dose: 81 mg Bacitracin (Bacitracin -) 1 applic TP BID [facility] Last Admin: 12/06/17 22:03 Dose: 1 applic Chlorhexidine Gluconate (Hibiclens For Decolonization -) 1 applic TP HS [facility] Last Admin: 12/06/17 22:03 Dose: 1 applic Chlorhexidine Gluconate (Peridex -) 15 ml MM BID [facility] Last Admin: 12/06/17 22:04 Dose: 15 ml Heparin Sodium (Porcine) (Heparin -) 5,000 unit SQ TID [facility] Last Admin: 12/07/17 05:48 Dose: 5,000 unit Propofol (Diprivan -) 1,000,000 mcg in 100 mls @ 0 mls/hr IVPB TITR IVON; 5 MCG/ KG/MIN PRN Reason: Protocol Last Titration: 12/07/17 09:57 Dose: 35 mcg/kg/min, 19.851 mls/hr Levofloxacin (Levaquin 500 Mg Premixed Ivpb -) 500 mg in 100 mls @ 100 mls/hr IVPB Q2D@1000 IVON Norepinephrine Bitartrate 8, (000 mcg/ Dextrose) 500 mls @ 18.75 mls/hr IV TITR IVON; 5 MCG/MIN PRN Reason: Protocol Last Titration: 12/07/17 08:10 Dose: 4 mcg/min, 15 mls/hr Famotidine/Sodium Chloride (Pepcid 20 Mg Premixed Ivpb -) 20 mg in 50 mls @ 100 mls/hr IVPB BID [facility] Last Admin: 12/06/17 22:04 Dose: 100 mls/hr Sodium Chloride (Normal Saline -) 250 mls @ 3,000 mls/hr IV PRN PRN PRN Reason: Hypotension during Dialysis Stop: 12/07/17 11:18 Vancomycin HCl 1,250 mg/ (Dextrose) 250 mls @ 166.667 mls/hr IVPB ONCE ONE PRN Reason: Protocol Stop: 12/07/17 12:29 Insulin Aspart (Novolog Vial Sliding Scale -) 1 vial SQ Q4HPO [facility] PRN Reason: Protocol Last Admin: 12/07/17 05:49 Dose: 4 unit Insulin Detemir (Levemir Vial) 20 units SQ BIDI [facility] Last Admin: 12/07/17 06:05 Dose: 20 units 77 yo F with h/o HTN, NIDDM, combined systolic and diastolic HF, pulmonary fibrosis, presented from [facility] with acute respiratory failure. #CHRISTOPHER on CKD likely secondary to renal hyprofusion/relative hypotension in setting of ARB #Proteinuria #Respiratory FAilure on Vent #Punmothorax #Hx of Hypertension #CHF BUN/Cr unchanged from yesterday, however since pt had dialysis it is not reflective of improved or stable renal function pt remains anuric, will challenge with IV Lasix 120mg IVPB today no acute indication for dialysis today Check CVP -? intravascular volume depletion (if CVP is low will hold off volume removal with HD) continue Vent support Abx as per ID prognosis is poor to have family meeting with ICU staff today Keep MAP > 65 CVP goal - Moisés Longoria DO
[2017-12-07] MEDS: AMINO ACIDS/PROTEIN HYDROLYS 30 ML LIQUID.PKT PO SCH (11:28)
[2017-12-07] MEDS: BACITRACIN 15 GM TUBE TOPICAL OINTMENT TP SCH (11:29)
[2017-12-07] MEDS: FAMOTIDINE 20 MG/50 ML IVPB 20 MG/50 ML MG IVPB SCH (11:29)
[2017-12-07] MEDS: CHLORHEXIDINE GLUCONATE 0.12% 15ML CUP MM SCH (11:30)
[2017-12-07] MEDS: ASPIRIN 81 MG CHEWABLE TABLETS NGT SCH (11:30)
--- NOTE | 2017-12-07 12:33 | PN ---
Teaching Attending Note Name of Resident: Miles Cole ATTENDING PHYSICIAN STATEMENT I saw and evaluated the patient. I reviewed the resident's note and discussed the case with the resident. I agree with the resident's findings and plan as documented. SUBJECTIVE: Patient seen and examined in the ICU. Remains intubated, sedated. FiO2 requirement now 100%. NE for hemodynamic support. CXR: No gross change in bilateral infiltrates Intake & Output 12/04/17 12/05/17 12/06/17 12/07/17 23:59 23:59 23:59 23:59 Intake Total 2284 3111.2 2434.7 942 Output Total 200 152 43 6 Balance 2084 2959.2 2391.7 936 Weight 208 lb 1 oz 207 lb 6.4 oz 208 lb 1 oz 204 lb 5 oz Last Vital Signs Temp Pulse Resp BP Pulse Ox 100.9 F H 114 H 26 H 107/58 94 L 12/07/17 10:00 12/07/17 10:00 12/07/17 11:05 12/07/17 10:00 12/07/17 08:19 Active Medications Acetaminophen (Ofirmev Injection -) 1,000 mg IVPB Q6H PRN PRN Reason: FEVER Last Admin: 12/07/17 05:55 Dose: 1,000 mg Albuterol/Ipratropium (Duoneb -) 1 amp NEB RTID [facility] Last Admin: 12/07/17 07:40 Dose: 1 amp Amino Acids (Prosource No Carb Liquid Pkt) 30 ml PO BID@0800,1730 [facility] Last Admin: 12/07/17 11:28 Dose: 30 ml Aspirin (Asa -) 81 mg NGT DAILY [facility] Last Admin: 12/07/17 11:30 Dose: 81 mg Bacitracin (Bacitracin -) 1 applic TP BID [facility] Last Admin: 12/07/17 11:29 Dose: 1 applic Chlorhexidine Gluconate (Hibiclens For Decolonization -) 1 applic TP HS [facility] Last Admin: 12/06/17 22:03 Dose: 1 applic Chlorhexidine Gluconate (Peridex -) 15 ml MM BID [facility] Last Admin: 12/07/17 11:30 Dose: 15 ml Heparin Sodium (Porcine) (Heparin -) 5,000 unit SQ TID [facility] Last Admin: 12/07/17 05:48 Dose: 5,000 unit Propofol (Diprivan -) 1,000,000 mcg in 100 mls @ 0 mls/hr IVPB TITR IVON; 5 MCG/ KG/MIN PRN Reason: Protocol Last Titration: 12/07/17 11:00 Dose: 25 mcg/kg/min, 14.179 mls/hr Levofloxacin (Levaquin 500 Mg Premixed Ivpb -) 500 mg in 100 mls @ 100 mls/hr IVPB Q2D@1000 [facility] Last Admin: 12/07/17 11:28 Dose: 100 mls/hr Norepinephrine Bitartrate 8, (000 mcg/ Dextrose) 500 mls @ 18.75 mls/hr IV TITR IVON; 5 MCG/MIN PRN Reason: Protocol Last Titration: 12/07/17 08:10 Dose: 4 mcg/min, 15 mls/hr Famotidine/Sodium Chloride (Pepcid 20 Mg Premixed Ivpb -) 20 mg in 50 mls @ 100 mls/hr IVPB BID [facility] Last Admin: 12/07/17 11:29 Dose: 100 mls/hr Insulin Aspart (Novolog Vial Sliding Scale -) 1 vial SQ Q4HPO [facility] PRN Reason: Protocol Last Admin: 12/07/17 05:49 Dose: 4 unit Insulin Detemir (Levemir Vial) 20 units SQ BIDI [facility] Last Admin: 12/07/17 06:05 Dose: 20 units Gen: intubated, sedated Heart: RRR Lung: distant breath sounds Abd: soft, nontender Ext: trace edema Chest tube: minimal drainage, no air leak Laboratory Results - last 24 hr 12/05/17 12/06/17 12/06/17 23:00 14:16 17:59 WBC RBC Hgb Hct MCV MCH MCHC RDW Plt Count MPV Neutrophils % Lymphocytes % Sodium Potassium Chloride Carbon Dioxide Anion Gap BUN Creatinine Creat Clearance w eGFR POC Glucometer 198.38500 221.03071 Random Glucose Calcium Phosphorus Magnesium Total Bilirubin AST ALT Alkaline Phosphatase Total Protein Albumin Hep C Ab Diagnostic 0.1 Liver Fibrosis Interp 12/06/17 12/07/17 12/07/17 22:34 01:49 05:10 WBC 10.5 H RBC 3.07 L Hgb 8.5 L Hct 25.4 L MCV 82.8 MCH 27.7 MCHC 33.5 RDW 19.9 H Plt Count 226 MPV 9.2 Neutrophils % No Result Required. Lymphocytes % No Result Required. Sodium Potassium Chloride Carbon Dioxide Anion Gap BUN Creatinine Creat Clearance w eGFR POC Glucometer [phone] Random Glucose Calcium Phosphorus Magnesium Total Bilirubin AST ALT Alkaline Phosphatase Total Protein Albumin Hep C Ab Diagnostic Liver Fibrosis Interp 12/07/17 12/07/17 05:10 05:14 WBC RBC Hgb Hct MCV MCH MCHC RDW Plt Count MPV Neutrophils % Lymphocytes % Sodium 143 Potassium 4.3 Chloride 103 Carbon Dioxide 29 Anion Gap 11 BUN 77 H Creatinine 3.5 H Creat Clearance w eGFR 12.67 POC Glucometer [phone] Random Glucose 159 H Calcium 7.7 L Phosphorus 6.6 H Magnesium 2.3 Total Bilirubin 0.3 AST 38 H ALT 22 Alkaline Phosphatase 71 Total Protein 6.1 L Albumin 2.0 L Hep C Ab Diagnostic Liver Fibrosis Interp A/P Acute on Chronic Hypoxic Respiratory Failure Left Pneumothorax s/p chest tube placement r/o Pneumonia Interstitial Lung Disease +Troponins likely Demand Ischemia HTN DM LV Diastolic Dysfunction Acute Kidney Injury Obstructive Sleep Apnea - HD per Renal - monitor urine output, creatinine - ABX per ID - keep PEEP 0 - taper FiO2 to keep SpO2 >90% - low tidal volume ventilation - not a candidate for weaning at this time - will need tracheostomy given severity of underlying lung disease and failure to wean versus compassionate extubation - enteral feeds - DVT/GI prophylaxis - Family meeting for C discussions Dr Garcia Critical care time spent in reviewing chart, evaluating patient and formulating plan 35 min
[2017-12-07 12:56] LABS: ANISOCYTOSIS 1+; PLATELET ESTIMATE ADEQUATE
[2017-12-07 13:18] VITALS: TEMP 101
--- NOTE | 2017-12-07 13:55 | PN ---
Physical Exam: SUBJECTIVE: Ms. Carson remains intubated and sedated. OBJECTIVE: Vital Signs Period Temp Pulse Resp BP Sys/Simms Pulse Ox Last 24 Hr 98.6 F-102.8 F 92-132 16-27 87-144/39-70 94-98 GENERAL: The patient is intubated and sedated, in no acute distress. HEAD: Normal with no signs of trauma. EYES: PERRL, extraocular movements intact, sclera anicteric, conjunctiva clear. No ptosis. ENT: Ears normal, nares patent, oropharynx clear without exudates, moist mucous membranes. NECK: Trachea midline, full range of motion, supple. LUNGS: Breath sounds equal, clear to auscultation bilaterally, no wheezes, no crackles, no accessory muscle use. HEART: Regular rate and rhythm, S1, S2 without murmur, rub or gallop. ABDOMEN: Soft, nontender, nondistended, normoactive bowel sounds, no guarding, no rebound, no hepatosplenomegaly, no masses. EXTREMITIES: 2+ pulses, warm, well-perfused, no edema. NEUROLOGICAL: +Unable to assess PSYCH: +Unable to assess SKIN: Warm, dry, normal turgor, no rashes or lesions noted Laboratory Results - last 24 hr 12/05/17 12/06/17 12/06/17 23:00 14:16 17:59 WBC RBC Hgb Hct MCV MCH MCHC RDW Plt Count MPV Neutrophils % Neutrophils % (Manual) Band Neutrophils % Lymphocytes % Lymphocytes % (Manual) Monocytes % (Manual) Eosinophils % (Manual) Metamyelocytes Hypochromia Platelet Estimate Platelet Comment Anisocytosis Sodium Potassium Chloride Carbon Dioxide Anion Gap BUN Creatinine Creat Clearance w eGFR POC Glucometer [phone] Random Glucose Calcium Phosphorus Magnesium Total Bilirubin AST ALT Alkaline Phosphatase Total Protein Albumin Hep C Ab Diagnostic 0.1 Liver Fibrosis Interp 12/06/17 12/07/17 12/07/17 22:34 01:49 05:10 WBC 10.5 H RBC 3.07 L Hgb 8.5 L Hct 25.4 L MCV 82.8 MCH 27.7 MCHC 33.5 RDW 19.9 H Plt Count 226 MPV 9.2 Neutrophils % No Result Required. Neutrophils % (Manual) 42.0 L Band Neutrophils % 7.0 Lymphocytes % No Result Required. Lymphocytes % (Manual) 33.0 D Monocytes % (Manual) 6 Eosinophils % (Manual) 7.0 H D Metamyelocytes 2 D Hypochromia 1+ Platelet Estimate Adequate Platelet Comment No clumping noted Anisocytosis 1+ Sodium Potassium Chloride Carbon Dioxide Anion Gap BUN Creatinine Creat Clearance w eGFR POC Glucometer [phone] Random Glucose Calcium Phosphorus Magnesium Total Bilirubin AST ALT Alkaline Phosphatase Total Protein Albumin Hep C Ab Diagnostic Liver Fibrosis Interp 12/07/17 12/07/17 05:10 05:14 WBC RBC Hgb Hct MCV MCH MCHC RDW Plt Count MPV Neutrophils % Neutrophils % (Manual) Band Neutrophils % Lymphocytes % Lymphocytes % (Manual) Monocytes % (Manual) Eosinophils % (Manual) Metamyelocytes Hypochromia Platelet Estimate Platelet Comment Anisocytosis Sodium 143 Potassium 4.3 Chloride 103 Carbon Dioxide 29 Anion Gap 11 BUN 77 H Creatinine 3.5 H Creat Clearance w eGFR 12.67 POC Glucometer [phone] Random Glucose 159 H Calcium 7.7 L Phosphorus 6.6 H Magnesium 2.3 Total Bilirubin 0.3 AST 38 H ALT 22 Alkaline Phosphatase 71 Total Protein 6.1 L Albumin 2.0 L Hep C Ab Diagnostic Liver Fibrosis Interp Active Medications Generic Name Dose Route Start Last Admin Trade Name Freq PRN Reason Stop Dose Admin Acetaminophen 1,000 mg 11/29/17 22:25 12/07/17 05:55 Ofirmev Injection - IVPB 1,000 mg Q6H PRN Administration FEVER Albuterol/Ipratropium 1 amp 11/26/17 20:00 12/07/17 07:40 Duoneb - NEB 1 amp RTID IVON Administration Amino Acids 30 ml 12/02/17 17:30 12/07/17 11:28 Prosource No Carb Liquid Pkt PO 30 ml BID@0800,1730 IVON Administration Aspirin 81 mg 11/30/17 10:00 12/07/17 11:30 Asa - NGT 81 mg DAILY IVON Administration Bacitracin 1 applic 11/29/17 22:00 12/07/17 11:29 Bacitracin - TP 1 applic BID IVON Administration Chlorhexidine Gluconate 1 applic 11/26/17 22:00 12/06/17 22:03 Hibiclens For Decolonization - TP 1 applic HS IVON Administration Chlorhexidine Gluconate 15 ml 11/27/17 12:30 12/07/17 11:30 Peridex - MM 15 ml BID IVON Administration Heparin Sodium (Porcine) 5,000 unit 11/26/17 06:00 12/07/17 05:48 Heparin - SQ 5,000 unit TID IVON Administration Propofol 1,000,000 mcg in 100 mls @ 0 mls/hr 11/25/17 22:00 12/07/17 11:00 Diprivan - IVPB 25 mcg/kg/min TITR IVON 14.179 mls/hr Protocol Titration 5 MCG/KG/MIN Levofloxacin 500 mg in 100 mls @ 100 mls/hr 12/07/17 10:00 12/07/17 11:28 Levaquin 500 Mg Premixed Ivpb - IVPB 100 mls/hr Q2D@1000 IVON Administration Norepinephrine Bitartrate 8, 500 mls @ 18.75 mls/hr 12/06/17 00:30 12/07/17 08:10 000 mcg/ Dextrose IV 4 mcg/min TITR IVON 15 mls/hr Protocol Titration 5 MCG/MIN Famotidine/Sodium Chloride 20 mg in 50 mls @ 100 mls/hr 12/06/17 22:00 11:29 Pepcid 20 Mg Premixed Ivpb - IVPB 100 mls/hr BID IVON Administration Insulin Aspart 1 vial 12/03/17 12:19 12/07/17 05:49 Novolog Vial Sliding Scale - SQ 4 unit Q4HPO IVON Administration Protocol Insulin Detemir 20 units 12/03/17 16:30 12/07/17 06:05 Levemir Vial SQ 20 units BIDI IVON Administration ASSESSMENT/PLAN: Ms. Carson is a 77 yo female w/ pmh of HTN, DM, global heart failure, and pulmonary fibrosis currently intubated and sedated. Family meeting held today with GOC discussed. Decision made to institute comfort measures and to not pursue any further medical interventions. Patient made DNR/DNI. PCP contacted as well as Jesi for notification. Will start morphine for comfort care as well. Respiratory - AC mode pulmonary support - Will d/c ventilator per new GOC plan later this evening Cardiovascular - Continue to monitor Renal - Jones in place ID - ID consulted Disposition - Will institute comfort measures this evening. Visit type - Emergency Visit Emergency Visit: Yes ED Registration Date: 11/26/17 Care time: The patient presented to the Emergency Department on the above date and was hospitalized for further evaluation of their emergent condition. - New Patient This patient is new to me today: No - Critical Care Critical Care patient: Yes Total Critical Care Time (in minutes): 42 Critical Care Statement: The care of this patient involved high complexity decision making to prevent further life threatening deterioration of the patient 's condition and/or to evaluate & treat vital organ system(s) failure or risk of failure.
[2017-12-07] MEDS ORDERED: LORazepam 2 MG/ML SDV VIAL IVPUSH PRN (16:35)
[2017-12-07] MEDS ORDERED: morphine SULFATE 4 MG/ML VIAL ONE (16:39)
[2017-12-07] MEDS ORDERED: morphine SULFATE 4 MG/ML VIAL IVPUSH ONE (16:45)
[2017-12-07] MEDS ORDERED: MORPHINE 100 MG in SODIUM CHLORIDE 98 ML IVPB SCH (16:45)
--- NOTE | 2017-12-07 17:10 | PN ---
Progress Note (short form) - Note Progress Note: 17:00h Decision to make pt comfortable and compassionately wean was made Family is okay with keeping tylenol, duonebs on board Discontinuing all labs, bgm, restraints, CXR Morphine 4mg IVP once ordered while compassionately extubating Start Morphine gtt 1mg --Titrate up 1mg for respirations >24 breaths per minute Ativan 2mg q3h PRN for any agitation Compassionately extubate --Placed on NRB Eric Castillo, DO - IM PGY-1
[2017-12-07 19:03] VITALS: BP 99/56; PULSE 113
[2017-12-08 00:12] LABS: HBSAG SCREEN Negative (Negative); HEP A AB, IGM Negative (Negative); HEP B CORE AB, TOT Positive (Negative)
== END 2017-12-08 03:15 | disposition expired | DRG 870 ==
LOC: JER 21:27 → JERBED 11-26 00:03 → UNDOADMIN 11-26 00:07 → JERBED 11-26 00:07 → JICU 11-26 01:07
PROVIDERS: ADMIT Internal Medicine; ATTEND Family Medicine
PROC: 5A1955Z Respiratory Ventilation, Greater than 96 Consecutive Hours (ICD-10-PCS; principal; 2017-11-26)
PROC: 0BH17EZ Insertion of Endotracheal Airway into Trachea, Via Natural or Artificial Opening (ICD-10-PCS; 2017-11-26)
PROC: 0WHB3YZ Insertion of Other Device into Left Pleural Cavity, Percutaneous Approach (ICD-10-PCS; 2017-11-26)
DX: A41.9 Sepsis, unspecified organism (principal); J96.21 Acute and chronic respiratory failure with hypoxia; J18.9 Pneumonia, unspecified organism; J94.2 Hemothorax; I13.0 Hypertensive heart and chronic kidney disease with heart failure and stage 1 through stage 4 chronic kidney disease, or unspecified chronic kidney disease; N17.9 Acute kidney failure, unspecified; I24.8 Other forms of acute ischemic heart disease; E87.2 Acidosis; E87.1 Hypo-osmolality and hyponatremia; I50.42 Chronic combined systolic (congestive) and diastolic (congestive) heart failure; J84.10 Pulmonary fibrosis, unspecified; E11.22 Type 2 diabetes mellitus with diabetic chronic kidney disease; G47.33 Obstructive sleep apnea (adult) (pediatric); I25.119 Atherosclerotic heart disease of native coronary artery with unspecified angina pectoris; D64.9 Anemia, unspecified; E87.5 Hyperkalemia; E83.41 Hypermagnesemia; E83.39 Other disorders of phosphorus metabolism; N18.3 Chronic kidney disease, stage 3 (moderate); E13.43 Other specified diabetes mellitus with diabetic autonomic (poly)neuropathy; I95.9 Hypotension, unspecified; E11.65 Type 2 diabetes mellitus with hyperglycemia
CPT/HCPCS: 36415; 36600; 71045-TC-FY; 74018-TC-FY; 76775-TC; 76856-TC; 80048; 80053; 81003; 81015; 82550; 82570; 82803; 82962; 83036; 83605; 83735; 83880; 84100; 84156; 84484; 84540; 85025; 85027; 85610; 85730; 86704; 86706; 86708; 87040; 87070; 87077; 87086; 87186; 87205; 87324; 87340; 87449; 87899; 93005; 93010; 93970-TC; 94002; 94640; 99285-25; G0480; J0131; J1644; J7030; J7620; P9047